=== PATIENT | male | born 1935 | race Caucasian/White ===

== ENCOUNTER → 2016-09-10 | Outpatient (CLI) | payer MEDICARE, OTHER ==
[2016-09-10 11:38] LABS: ALT 21 U/L (21-72); AST 21 U/L (17-59); Alkaline Phosphatase 76 U/L (38-126); Anion Gap 11 mmol/L; Blood Urea Nitrogen 18 mg/dL (9-20); Calcium 9.2 mg/dL (8.4-10.2); Carbon Dioxide 28 mmol/L (22-30); Chloride 102 mmol/L (98-107); Glucose 112 mg/dL (74-99); Non-African American GFR(MDRD) >60 (>60 ml/min/1.73 sqM); Potassium 4.5 mmol/L (3.5-5.1); Sodium 141 mmol/L (137-145); Total Bilirubin 0.5 mg/dL (0.2-1.3); Total Protein 7.3 g/dL (6.3-8.2)
[2016-09-10 11:48] LABS: Basophils % (A) 0 %; CH 30.7; Eosinophils # (A) 0.1 k/uL (0-0.7); Eosinophils % (A) 2 %; HCT 42.4 % (39.0-53.0); HDW 2.77; Luc # (Auto) 0.29; Luc % (Auto) 4; Lymphocytes # (A) 1.5 k/uL (1.0-4.8); Lymphocytes % (A) 20 %; MCH 30.8 pg (25.0-35.0); MCHC 32.9 g/dL (31.0-37.0); MCV 93.6 fL (80.0-100.0); Mean Platelet Volume 6.9; Monocytes # (A) 0.5 k/uL (0-1.0); Monocytes % (A) 6 %; Neutrophils # (A) 5.3 k/uL (1.3-7.7); Neutrophils % (A) 69 %; RBC 4.53 m/uL (4.30-5.90); RDW 14.1 % (11.5-15.5); WBC 7.8 k/uL (3.8-10.6); WBC (Perox) 8.29
== END | disposition home or self-care (01) ==
LOC: LABWHC1 10:46
PROVIDERS: ATTEND Internal Medicine
DX: I50.9 Heart failure, unspecified (principal); I25.10 Atherosclerotic heart disease of native coronary artery without angina pectoris; R53.1 Weakness
CPT/HCPCS: 36415; 80053; 83880; 84439; 84443; 85025; 99214

== ENCOUNTER 2016-09-23 11:22 | Day surgery (SDC) | payer MEDICARE, OTHER ==
[~2016-09-23 11:22] MED LIST: LIDOCAINE 1% 20 ML VIAL (10MG/ML) FOR IV START INTRADERMA PRN
[2016-09-23 12:37] VITALS: RESP 20; TEMP 97.9
[2016-09-23] MEDS: LACTATED RINGERS 1,000 ML IV SCH ×2 (12:54→13:59)
[2016-09-23] MEDS ORDERED: ePHEDrine 50 MG/ML 1 ML AMP ONE (14:01)
[2016-09-23] MEDS ORDERED: PROPOFOL 10 MG/ML 20 ML VIAL IV ONE (14:01)
--- NOTE | 2016-09-23 14:28 | P.PCN ---
Date of Procedure: 09/23/16 Procedure(s) Performed: Procedure: Esophagogastroduodenoscopy and esophageal dilation using the Microvasive [id number] balloon dilator size 15 mm. Preoperative diagnosis: Dysphagia and history of stricture. Postoperative diagnosis: 1. Esophageal stricture dilated up to 15 mm. 2. Small sliding hiatal hernia. Preparation and sedation: Was provided by anesthesia. Brief clinical history: The patient is a 80-year-old male with history of esophageal stricture that was previously dilated in March 2013 and August 2014 and who had history of obstructive dysphagia requiring endoscopic intervention in February 2013, was recently evaluated in the office because of difficulty swallowing that started few weeks prior. He has done well after his dilation until around several weeks ago when he started to feel food getting stuck once in a while with spontaneous relief. Even pills are stopping at times. He lost few pounds. He was scheduled for this evaluation to assess his stricture and consider dilation. Procedure: With the patient on his left lateral decubitus position and after informed consent and adequate sedation, I passed the Olympus-GIF 160 video upper endoscope through the cricopharyngeus down the esophagus. No obvious abnormalities were seen in the esophagus with the exception of an esophageal stricture in the distal esophagus that appeared benign. This time I was able to pass the endoscope with gentle pressure effectively providing some dilation. I then passed the Microvasive [id number] balloon dilator size 15-18 mm through the operating channel of the endoscope, centered that at the level of the stricture then inflated it up to 15 mm. At this inflation there was satisfactory dilation of the stricture and I decided not to proceed with further dilation at this time. There was a sliding hiatal hernia then the endoscope was passed to the rest of the stomach which was insufflated with air and inspected in detail including the retroflex view in the cardia and find the endoscope was passed through the pyloric area into the stomach. The patient appears to have had prior pyloroplasty. No abnormalities were noted otherwise. Disposition: The patient tolerated the procedure well. Plan: The patient will be kept on clear liquids today then he can advance diet tomorrow if tolerated. I would consider further dilation in the future based on his symptoms and his nutritional status. I will keep you updated on his progress.
[2016-09-23 14:45] VITALS: BP 116/66; PULSE 68
== END 2016-09-23 15:17 | disposition home or self-care (01) ==
LOC: ORWHC2ENDO 11:22
DX: K22.2 Esophageal obstruction (principal); K44.9 Diaphragmatic hernia without obstruction or gangrene; K21.9 Gastro-esophageal reflux disease without esophagitis; I25.10 Atherosclerotic heart disease of native coronary artery without angina pectoris; J44.9 Chronic obstructive pulmonary disease, unspecified; G47.33 Obstructive sleep apnea (adult) (pediatric); I10 Essential (primary) hypertension; E78.5 Hyperlipidemia, unspecified; N40.0 Benign prostatic hyperplasia without lower urinary tract symptoms; N28.9 Disorder of kidney and ureter, unspecified; Z95.1 Presence of aortocoronary bypass graft; Z86.718 Personal history of other venous thrombosis and embolism; I25.2 Old myocardial infarction; Z79.82 Long term (current) use of aspirin; Z79.899 Other long term (current) drug therapy
CPT/HCPCS: 43249; J2704; C1726

== ENCOUNTER → 2016-12-05 | Outpatient (CLI) | payer MEDICARE, OTHER ==
[2016-12-05 11:56] LABS: ALT 28 U/L (21-72); AST 19 U/L (17-59); Cholesterol 152 mg/dL (<200); HDL Cholesterol 48 mg/dL (40-60); Triglycerides 211 mg/dL (<150)
== END | disposition home or self-care (01) ==
LOC: LABWHC1 11:20
PROVIDERS: ATTEND Internal Medicine Cardiovascular Disease
DX: E78.5 Hyperlipidemia, unspecified (principal); I25.10 Atherosclerotic heart disease of native coronary artery without angina pectoris
CPT/HCPCS: 36415; 80061; 84450; 84460

== ENCOUNTER → 2017-07-19 | Outpatient (CLI) | payer MEDICARE, OTHER ==
--- NOTE | 2017-07-19 12:20 | US ---
EXAMINATION TYPE: US venous doppler duplex LE LT DATE OF EXAM: 07/19/2017 10:41 AM COMPARISON: NONE CLINICAL HISTORY: PAIN . Outpatient complains of pain posterior midline lower calf x 3 days; prior DV T and PE per patient who is taking aspirin. SIDE PERFORMED: Left TECHNIQUE: The lower extremity deep venous system is examined utilizing real time linear array sonog miguel angel with graded compression, doppler sonography and color-flow sonography. VESSELS IMAGED: Common Femoral Vein Deep Femoral Vein Greater Saphenous Vein * Femoral Vein Popliteal Vein Small Saphenous Vein * Proximal Calf Veins (* superficial vessels) Left Leg: Thickened valves with wall echoes are noted at upper Femoral Vein, but color flow patency is imaged at these valves; exam is otherwise negative for DVT. No fluid is seen at Achilles area of p ain left leg. Tech findings called to Dr Bradshaw at exam's end. JJ No popliteal fossa lesion was seen. IMPRESSION: 1. THIS EXAMINATION IS NEGATIVE FOR DVT IN THE LEFT LEG. 2. EVIDENCE OF PREVIOUS THROMBUS.
== END | disposition home or self-care (01) ==
LOC: RADUSMAIN 09:33
PROVIDERS: ATTEND Family Medicine
DX: R22.40 Localized swelling, mass and lump, unspecified lower limb (principal); Z86.718 Personal history of other venous thrombosis and embolism

== ENCOUNTER → 2017-07-23 | Outpatient (CLI) | payer MEDICARE, OTHER ==
[2017-07-23 10:37] LABS: Basophils % (A) 0 %; Eosinophils # (A) 0.1 k/uL (0-0.7); Eosinophils % (A) 1 %; HCT 42.5 % (39.0-53.0); Lymphocytes # (A) 1.6 k/uL (1.0-4.8); Lymphocytes % (A) 13 %; MCH 28.1 pg (25.0-35.0); MCHC 30.5 g/dL (31.0-37.0); MCV 92.1 fL (80.0-100.0); Mean Platelet Volume 7.3; Monocytes # (A) 0.6 k/uL (0-1.0); Monocytes % (A) 5 %; Neutrophils # (A) 9.7 k/uL (1.3-7.7); Neutrophils % (A) 80 %; Platelet Count 206 k/uL (150-450); RBC 4.62 m/uL (4.30-5.90); RDW 14.5 % (11.5-15.5); WBC 12.2 k/uL (3.8-10.6)
[2017-07-23 10:48] LABS: Calcium 8.2 mg/dL (8.4-10.2); Potassium 4.2 mmol/L (3.5-5.1)
== END | disposition home or self-care (01) ==
LOC: LABWHC1 10:12
PROVIDERS: ATTEND Internal Medicine
DX: I50.9 Heart failure, unspecified (principal); R06.00 Dyspnea, unspecified; J44.9 Chronic obstructive pulmonary disease, unspecified
CPT/HCPCS: 36415; 80048; 83880; 85025

== ENCOUNTER 2017-08-14 09:12 | Inpatient (IN) | payer MEDICARE, OTHER ==
[2017-08-14] MEDS ORDERED: methylPREDNISolone SOD SUCCI 125 MG/2 ML VIAL IV STA (09:40)
[2017-08-14] MEDS ORDERED: SODIUM CHLORIDE 0.9% 500 ML IV STA (09:40)
[2017-08-14] MEDS ORDERED: ALBUTEROL NEBULIZED 15 MG, IPRATROPIUM NEBULIZED 0.5 MG INHALATION ONE ×2 (09:41)
--- NOTE | 2017-08-14 09:44 | ED ---
General Adult HPI <Prince Lilly - Last Filed: 08/14/17 11:01> - General Source: patient, RN notes reviewed Mode of arrival: wheelchair Limitations: no limitations <Kelly Ford - Last Filed: 08/14/17 11:17> - General Chief complaint: Urogenital Stated complaint: URINE RETENTION Time Seen by Provider: 08/14/17 09:34 - History of Present Illness Initial comments: 81-year-old male presents to the emergency department with 2 complaints. First he was sent in by Dr. Roque for shortness of breath. He's been struggling with cough and wheezing for the last 3 weeks. They state that he recently finished a course of antibiotics however they did not move the name is currently on steroids and breathing treatments. They state he still wheezing. He states he still having a lot of shortness of breath with this as well. He denies any chest pain. He states also that for the last 2 days he's had just dribbling with urination. He states having some lower abdominal pressure as well. He denies any blood in the urine. He states that he has not had this in the past. Patient is otherwise without abdominal pain. There is been no nausea or vomiting. Patient denies any recent fever, chills, chest pain, back pain, abdominal pain, nausea vomiting, numbness or tingling, hematuria, constipation or diarrhea, headaches or visual changes, or any other current symptoms. (Kelly Ford) - Related Data Home Medications Medication Instructions Recorded Confirmed Aspirin 81 mg PO DAILY 08/25/14 08/14/17 Ezetimibe/Simvastatin [Vytorin 1 tab PO HS 08/25/14 08/14/17 10-40 mg Tablet] Furosemide [Lasix] 20 mg PO AC-SUPPER 08/25/14 08/14/17 Isosorbide Mononitrate ER [Imdur] 60 mg PO DAILY 08/25/14 08/14/17 Metolazone [Zaroxolyn] 5 mg PO MOTUWETHFR 08/25/14 08/14/17 Metoprolol Tartrate [Metoprolol 50 mg PO BID 08/25/14 08/14/17 Tartrate] Potassium Chloride ER [K-Dur 20] 20 meq PO TID 08/25/14 08/14/17 Pramipexole Di-HCl [Mirapex] 0.75 mg PO HS 08/25/14 08/14/17 Tamsulosin HCl [Flomax] 0.4 mg PO HS 09/20/16 08/14/17 Acetaminophen Tab [Tylenol Tab] 500 mg PO Q4H PRN 08/14/17 08/14/17 Budesonide-Formot 160-4.5 Mcg 2 puff INHALATION RT-BID 08/14/17 08/14/17 [Symbicort 160-4.5 Mcg Inhaler] Depo-Medrol 80mg/Ml 80 mg IM ONCE 08/14/17 08/14/17 Ranitidine HCl [Zantac] 150 mg PO BID 08/14/17 08/14/17 diphenhydrAMINE [Benadryl] 25 mg PO HS 08/14/17 08/14/17 Allergies Allergy/AdvReac Type Severity Reaction Status Date / Time No Known Allergies Allergy Verified 08/14/17 10:06 Review of Systems ROS Other: All systems not noted in ROS Statement are negative. <Prince Lilly - Last Filed: 08/14/17 11:01> ROS Other: All systems not noted in ROS Statement are negative. <Kelly Ford - Last Filed: 08/14/17 11:17> ROS Statement: Those systems with pertinent positive or pertinent negative responses have been documented in the HPI. Past Medical History Past Medical History: Coronary Artery Disease (CAD), Chest Pain / Angina, COPD, Dementia, Deep Vein Thrombosis (DVT), GERD/Reflux, Hearing Disorder / Deafness, Hyperlipidemia, Hypertension, Myocardial Infarction (MA), Pulmonary Embolus (PE) , Renal Disease, Respiratory Disorder, Rheumatoid Arthritis (RA), Sleep Apnea/ CPAP/BIPAP, Syncope Additional Past Medical History / Comment(s): START OF PARKINSONS DISEASE, RESTLESS LEG SYNDROME, HX ULCERS, ENLARGED PROSTRATE ,HOLE IN EARDRUM LEFT Last Myocardial Infarction Date:: 2000 History of Any Multi-Drug Resistant Organisms: None Reported Past Surgical History: Coronary Bypass/CABG, Hernia Repair Additional Past Surgical History / Comment(s): HIATAL HERNIA REPAIR, VEIN STRIPPING, BILAT CATARACT SX, EGD X 5, COLONOSCOPY Past Anesthesia/Blood Transfusion Reactions: No Reported Reaction Past Psychological History: Anxiety, Depression Smoking Status: Former smoker Past Alcohol Use History: None Reported Past Drug Use History: None Reported - Past Family History Mother Family Medical History: Cancer Brother(s) Family Medical History: Blood Disorder Father Additional Family Medical History / Comment(s): HARDENING OF ARTERIES, <Kelly Ford - Last Filed: 08/14/17 11:17> General Exam <Prince Lilly - Last Filed: 08/14/17 11:01> Limitations: no limitations <Kelly Ford - Last Filed: 08/14/17 11:17> - General Exam Comments Initial Comments: General: The patient is awake and alert, in no distress, and does not appear acutely ill. Eye: Pupils are equal, round and reactive to light, extra-ocular movements are intact; there is normal conjunctiva bilaterally. No signs of icterus. Ears, nose, mouth and throat: There are moist mucous membranes and no oral lesions. Neck: The neck is supple, there is no tenderness. Cardiovascular: There is a regular rate and rhythm. No murmur, rub or gallop is appreciated. Respiratory: Lungs are clear to auscultation, respirations are labored, breath sounds are diminished throughout with a tight wheeze. Gastrointestinal: Soft, distended, non-tender abdomen without masses or organomegaly noted. There is no rebound or guarding present. No CVA tenderness. Bowel sounds are unremarkable. Back: There is no tenderness to palpation in the midline. There is no obvious deformity. No rashes noted. Musculoskeletal: Normal ROM, no tenderness, There is no pedal edema. There is no calf tenderness or swelling. Sensation intact. Pulses equal bilaterally 2+. Neurological: CN II-XII intact, There are no obvious motor or sensory deficits. Coordination appears grossly intact. Speech is normal. Skin: Skin is warm and dry and no rashes or lesions are noted. Psychiatric: Cooperative, appropriate mood & affect, normal judgment. (Kelly Ford) Course <Prince Lilly - Last Filed: 08/14/17 11:01> <Kelly Ford - Last Filed: 08/14/17 11:17> Vital Signs 08/14/17 08/14/17 08/14/17 09:28 10:03 10:18 Temperature Pulse Rate 104 H 104 H 108 H Respiratory 18 Rate Blood Pressure 139/82 O2 Sat by Pulse 97 Oximetry 08/14/17 08/14/17 10:45 10:58 Temperature 97.8 F Pulse Rate 105 H 93 Respiratory 18 Rate Blood Pressure 149/69 O2 Sat by Pulse 100 Oximetry - Reevaluation(s) Reevaluation #1: 08/14/17 11:01 I did personally do a gonl-py-grgs evaluation the patient did discuss the findings with him and his family. He does demonstrate a COPD exacerbation Dr. Roque was contacted and he will patient admitted to Dr. Sepulveda. I did discuss case with Dr. Sepulveda. Patient does demonstrate inspiratory wheezing with diminished breath sounds. (Prince Lilly) Medical Decision Making - Lab Data Result diagrams: 08/14/17 09:45 08/14/17 09:45 <Prince Lilly - Last Filed: 08/14/17 11:01> - Lab Data Result diagrams: 08/14/17 09:45 08/14/17 09:45 - Radiology Data Radiology results: report reviewed, image reviewed <Kelly Ford - Last Filed: 08/14/17 11:17> - Medical Decision Making 81-year-old male presents for urinary retention as well as what appears to be a COPD exacerbation. At this time patient has failed outpatient treatment he's been on antibiotics as well as steroids. Patient even after breathing treatment still does have tightness with wheezing. At this time we'll admit the patient. Patient is in agreement this plan all questions have been answered. (Kelly Ford) - Lab Data Lab Results 08/14/17 08/14/17 08/14/17 Range/Units 09:45 09:45 09:45 WBC 9.6 (3.8-10.6) k/uL RBC 4.87 (4.30-5.90) m/uL Hgb 13.6 (13.0-17.5) gm/dL Hct 43.3 (39.0-53.0) % MCV 88.8 (80.0-100.0) fL MCH 28.0 (25.0-35.0) pg MCHC 31.5 (31.0-37.0) g/dL RDW 15.5 (11.5-15.5) % Plt Count 159 (150-450) k/uL Neutrophils % 80 % Lymphocytes % 13 % Monocytes % 5 % Eosinophils % 1 % Basophils % 0 % Neutrophils # 7.7 (1.3-7.7) k/uL Lymphocytes # 1.2 (1.0-4.8) k/uL Monocytes # 0.5 (0-1.0) k/uL Eosinophils # 0.1 (0-0.7) k/uL Basophils # 0.0 (0-0.2) k/uL PT (9.0-12.0) sec INR (<1.2) APTT (22.0-30.0) sec Sodium 141 (137-145) mmol/L Potassium 4.8 (3.5-5.1) mmol/L Chloride 102 (98-107) mmol/L Carbon Dioxide 27 (22-30) mmol/L Anion Gap 12 mmol/L BUN 25 H (9-20) mg/dL Creatinine 1.06 (0.66-1.25) mg/dL Est GFR (CKD-EPI)AfAm 77 (>60 ml/min/1.73 sqM) Est GFR (CKD-EPI)NonAf 66 (>60 ml/min/1.73 sqM) Glucose 150 H (74-99) mg/dL Calcium 9.2 (8.4-10.2) mg/dL Total Bilirubin 0.5 (0.2-1.3) mg/dL AST 19 (17-59) U/L ALT 38 (21-72) U/L Alkaline Phosphatase 93 (38-126) U/L Total Creatine Kinase 33 L (55-170) U/L CK-MB (CK-2) 1.0 (0.0-2.4) ng/mL CK-MB (CK-2) Rel Index 3.0 Troponin I 0.046 H* (0.000-0.034) ng/mL NT-Pro-B Natriuret Pep pg/mL Total Protein 6.5 (6.3-8.2) g/dL Albumin 3.7 (3.5-5.0) g/dL Urine Color Urine Appearance (Clear) Urine pH (5.0-8.0) Ur Specific Speculator (1.001-1.035) Urine Protein (Negative) Urine Glucose (UA) (Negative) Urine Ketones (Negative) Urine Blood (Negative) Urine Nitrite (Negative) Urine Bilirubin (Negative) Urine Urobilinogen (<2.0) mg/dL Ur Leukocyte Esterase (Negative) Urine RBC (0-5) /hpf Urine WBC (0-5) /hpf Ur Squamous Epith Cells (0-4) /hpf Urine Mucus (None) /hpf 08/14/17 08/14/17 08/14/17 Range/Units 09:45 09:45 10:00 WBC (3.8-10.6) k/uL RBC (4.30-5.90) m/uL Hgb (13.0-17.5) gm/dL Hct (39.0-53.0) % MCV (80.0-100.0) fL MCH (25.0-35.0) pg MCHC (31.0-37.0) g/dL RDW (11.5-15.5) % Plt Count (150-450) k/uL Neutrophils % % Lymphocytes % % Monocytes % % Eosinophils % % Basophils % % Neutrophils # (1.3-7.7) k/uL Lymphocytes # (1.0-4.8) k/uL Monocytes # (0-1.0) k/uL Eosinophils # (0-0.7) k/uL Basophils # (0-0.2) k/uL PT 9.7 (9.0-12.0) sec INR 1.0 (<1.2) APTT 23.5 (22.0-30.0) sec Sodium (137-145) mmol/L Potassium (3.5-5.1) mmol/L Chloride (98-107) mmol/L Carbon Dioxide (22-30) mmol/L Anion Gap mmol/L BUN (9-20) mg/dL Creatinine (0.66-1.25) mg/dL Est GFR (CKD-EPI)AfAm (>60 ml/min/1.73 sqM) Est GFR (CKD-EPI)NonAf (>60 ml/min/1.73 sqM) Glucose (74-99) mg/dL Calcium (8.4-10.2) mg/dL Total Bilirubin (0.2-1.3) mg/dL AST (17-59) U/L ALT (21-72) U/L Alkaline Phosphatase (38-126) U/L Total Creatine Kinase (55-170) U/L CK-MB (CK-2) (0.0-2.4) ng/mL CK-MB (CK-2) Rel Index Troponin I (0.000-0.034) ng/mL NT-Pro-B Natriuret Pep 287 pg/mL Total Protein (6.3-8.2) g/dL Albumin (3.5-5.0) g/dL Urine Color Yellow Urine Appearance Clear (Clear) Urine pH 6.5 (5.0-8.0) Ur Specific Speculator 1.021 (1.001-1.035) Urine Protein Trace H (Negative) Urine Glucose (UA) Negative (Negative) Urine Ketones Negative (Negative) Urine Blood Moderate H (Negative) Urine Nitrite Negative (Negative) Urine Bilirubin Negative (Negative) Urine Urobilinogen <2.0 (<2.0) mg/dL Ur Leukocyte Esterase Negative (Negative) Urine RBC 161 H (0-5) /hpf Urine WBC 3 (0-5) /hpf Ur Squamous Epith Cells <1 (0-4) /hpf Urine Mucus Rare H (None) /hpf Disposition <Prince Lilly - Last Filed: 08/14/17 11:01> Decision Date: 08/14/17 Decision Time: 11:17 <Kelly Ford - Last Filed: 08/14/17 11:17> Clinical Impression: COPD exacerbation, Failure of outpatient treatment, Urinary retention Disposition: ADMITTED IP TO THIS [facility] Condition: Stable Referrals: Weston Roque MD [Primary Care Provider] - 1-2 days
[2017-08-14 10:00] LABS: Basophils % (A) 0 %; Eosinophils # (A) 0.1 k/uL (0-0.7); Eosinophils % (A) 1 %; HCT 43.3 % (39.0-53.0); HGB 13.6 gm/dL (13.0-17.5); Lymphocytes # (A) 1.2 k/uL (1.0-4.8); Lymphocytes % (A) 13 %; MCHC 31.5 g/dL (31.0-37.0); MCV 88.8 fL (80.0-100.0); Mean Platelet Volume 7.2; Monocytes # (A) 0.5 k/uL (0-1.0); Monocytes % (A) 5 %; Neutrophils # (A) 7.7 k/uL (1.3-7.7); Neutrophils % (A) 80 %; Platelet Count 159 k/uL (150-450); RBC 4.87 m/uL (4.30-5.90); RDW 15.5 % (11.5-15.5); WBC 9.6 k/uL (3.8-10.6)
[2017-08-14 10:06] LABS: Partial Thromboplastin Time 23.5 sec (22.0-30.0); Prothrombin Time 9.7 sec (9.0-12.0)
[2017-08-14 10:07] LABS: Albumin 3.7 g/dL (3.5-5.0); Calcium 9.2 mg/dL (8.4-10.2); Potassium 4.8 mmol/L (3.5-5.1); Total Bilirubin 0.5 mg/dL (0.2-1.3); Total Protein 6.5 g/dL (6.3-8.2)
[2017-08-14 10:30] LABS: Appearance,Urine Clear (Clear); Bilirubin,Urine Negative (Negative); Blood,Urine Moderate (Negative); Color,Urine Yellow; Glucose,Urine (UA) Negative (Negative); Ketones,Urine Negative (Negative); Leukocyte Esterase,Urine Negative (Negative); Mucus,Urine Rare /hpf; Nitrite,Urine Negative (Negative); PH, Urine 6.5 (5.0-8.0); Protein,Urine Trace (Negative); RBC,Urine 161 /hpf (0-5); Specific Gravity,Urine 1.021 (1.001-1.035); Squamous Epithelial Cell,Urine <1 /hpf (0-4); Urobilinogen,Urine <2.0 mg/dL (<2.0); WBC,Urine 3 /hpf (0-5)
--- NOTE | 2017-08-14 10:35 | XR ---
EXAMINATION TYPE: XR chest 1V portable DATE OF EXAM: 08/14/2017 HISTORY: Shortness of breath. COMPARISON: 02/20/2012 TECHNIQUE: Single view of the chest is submitted. FINDINGS: Demonstrated are scattered senescent parenchymal change. There is no evidence for focal infiltrate. The heart is stable. Hilar and mediastinal structures are within normal limits. Degenerative changes are seen of the dorsal spine. IMPRESSION: 1. Chronic changes without evidence for acute pulmonary disease.
[2017-08-14 10:46] LABS: Troponin I 0.046 ng/mL (0.000-0.034)
[2017-08-14] MEDS ORDERED: NALOXONE 0.4 MG/ML 1 ML VIAL IV PRN (11:18)
[2017-08-14] MEDS ORDERED: IPRATROPIUM-ALBUTEROL 3 ML NEB INHALATION PRN (11:20)
[2017-08-14] MEDS ORDERED: ACETAMINOPHEN TAB 500 MG TAB PO PRN (11:22)
[2017-08-14] MEDS ORDERED: SODIUM CHLORIDE 0.9% 1,000 ML IV SCH (11:30)
[2017-08-14] MEDS: METOLAZONE 5 MG TAB PO SCH (12:14)
[2017-08-14] MEDS: methylPREDNISolone SOD SUCCI 125 MG/2 ML VIAL IV SCH ×3 (12:14→23:52)
[2017-08-14] MEDS ORDERED: INFLUENZA VACCINE (6 MOS+) 60 MCG/0.5 ML SYRINGE IM ONE (13:10)
--- NOTE | 2017-08-14 14:43 | P.HPIM ---
History of Present Illness 81-year-old pleasant gentleman came in with compensative short of breath has been worsening. Patient has this shortness of breath for [address] Roque the clinic recently patient was given a shot of intramuscular steroid inhalational treatments antibiotic was discharged patient did not have any significant improvement because of which she came to ER. Dr. Roque advising him to go to ER if he doesn't improve. Patient was also complaining of urinary problems including dribbling and incomplete emptying because of which patient had a Mcarthur catheter that was placed in ER. Patient evidently has urinary retention patient denied any future cyst x-ray did not show any pneumonic process. Patient doesn't use any oxygen at home quit smoking years ago used to be a heavy smoker in the past. Review of Systems REVIEW OF SYSTEMS: CONSTITUTIONAL: No fever, no malaise, no fatigue. HEENT: No recent visual problems or hearing problems. Denied any sore throat. CARDIOVASCULAR: No chest pain, orthopnea, PND, no palpitations, no syncope. PULMONARY: no cough, no hemoptysis. GASTROINTESTINAL: No diarrhea, no nausea, no vomiting, no abdominal pain. Normoactive bowel sounds. NEUROLOGICAL: No headaches, no weakness, no numbness. HEMATOLOGICAL: Denies any bleeding or petechiae. GENITOURINARY: Denies any burning micturition. MUSCULOSKELETAL/RHEUMATOLOGICAL: Denies any joint pain, swelling, or any muscle pain. ENDOCRINE: Denies any polyuria or polydipsia. The rest of the 14-point review of systems is negative. Past Medical History Past Medical History: Coronary Artery Disease (CAD), Cancer, Chest Pain / Angina , COPD, CVA/TIA, Dementia, Deep Vein Thrombosis (DVT), GERD/Reflux, Hearing Disorder / Deafness, Hyperlipidemia, Hypertension, Myocardial Infarction (MA), Osteoarthritis (OA), Prostate Disorder, Pulmonary Embolus (PE), Renal Disease, Respiratory Disorder, Rheumatoid Arthritis (RA), Sleep Apnea/CPAP/BIPAP, Syncope Additional Past Medical History / Comment(s): SEVERE COPD, HOME O2 IN THE PAST BUT NO LONGER QUALIFIES, BRONCHITIS, PNUEMONIAS, RAJESH BUT NO LONGER USED CPAP, R LEG DVT, BILATERAL PULMONARY EMBOLISMS, TIA, PARKINSONS DISEASE, RESTLESS LEG SYNDROME, NUMBNESS/TINGLING BILATERAL LEGS/FEET, UNSTEADY ON HIS FEET, FALLS, DOUBLE INGUINAL HERNIAS, HX ULCERS, HEMORRHOIDS, ENLARGED PROSTRATE, INSOMNIA, SINUSITIS, BILATERAL LEG EDEMA AT TIMES, SKIN CANCER WITH REMOVAL, HOLE IN EARDRUM LEFT Last Myocardial Infarction Date:: 2006 History of Any Multi-Drug Resistant Organisms: None Reported Past Surgical History: Coronary Bypass/CABG, Heart Catheterization, Hernia Repair Additional Past Surgical History / Comment(s): 2006 CABG WITH 4 VESSEL BYPASS, HIATAL HERNIA REPAIR, UMBILICAL HERNIA REPAIR, BILAT CATARACTS WITH LENS IMPLANTS SX, EGD X 5 WITH ESOPHAGEAL DILATION, COLONOSCOPY/BENIGN POLYPS, SKIN CANCER REMOVALS. Past Anesthesia/Blood Transfusion Reactions: No Reported Reaction Smoking Status: Former smoker - Past Family History Mother Family Medical History: Cancer Additional Family Medical History / Comment(s): Mother had lung cancer. She was a smoker. Brother(s) Family Medical History: Blood Disorder Father Additional Family Medical History / Comment(s): HARDENING OF ARTERIES, Medications and Allergies Home Medications Medication Instructions Recorded Confirmed Type Aspirin 81 mg PO DAILY 08/25/14 08/14/17 History Ezetimibe/Simvastatin [Vytorin 1 tab PO HS 08/25/14 08/14/17 History 10-40 mg Tablet] Furosemide [Lasix] 20 mg PO AC-SUPPER 08/25/14 08/14/17 History Isosorbide Mononitrate ER [Imdur] 60 mg PO DAILY 08/25/14 08/14/17 History Metolazone [Zaroxolyn] 5 mg PO MOTUWETHFR 08/25/14 08/14/17 History Metoprolol Tartrate [Metoprolol 50 mg PO BID 08/25/14 08/14/17 History Tartrate] Potassium Chloride ER [K-Dur 20] 20 meq PO TID 08/25/14 08/14/17 History Pramipexole Di-HCl [Mirapex] 0.75 mg PO HS 08/25/14 08/14/17 History Tamsulosin HCl [Flomax] 0.4 mg PO HS 09/20/16 08/14/17 History Acetaminophen Tab [Tylenol Tab] 500 mg PO Q4H PRN 08/14/17 08/14/17 History Budesonide-Formot 160-4.5 Mcg 2 puff INHALATION RT-BID 08/14/17 08/14/17 History [Symbicort 160-4.5 Mcg Inhaler] Depo-Medrol 80mg/Ml 80 mg IM ONCE 08/14/17 08/14/17 History Ranitidine HCl [Zantac] 150 mg PO BID 08/14/17 08/14/17 History diphenhydrAMINE [Benadryl] 25 mg PO HS 08/14/17 08/14/17 History Allergies Allergy/AdvReac Type Severity Reaction Status Date / Time No Known Allergies Allergy Verified 08/14/17 10:06 Physical Exam Vitals: Vital Signs Temp Pulse Pulse Resp BP BP Pulse Ox 08/14/17 12:21 115 H 36 H 178/88 99 08/14/17 11:46 98.4 F 104 H 24 174/89 99 08/14/17 10:58 97.8 F 93 18 149/69 100 08/14/17 10:45 105 H 08/14/17 10:18 108 H 08/14/17 10:03 104 H 08/14/17 09:28 104 H 18 139/82 97 Intake and Output 08/13/17 08/14/17 08/14/17 22:59 06:59 14:59 Intake Total 120 Output Total 150 Balance -30 Intake: Oral 120 Output: Urine 150 Uretheral (Mcarthur) 150 Other: Voiding Method Indwelling Catheter Weight 102.512 kg PHYSICAL EXAMINATION: GENERAL: The patient is alert and oriented x3, patient is in mild respiratory distress. Well developed, well nourished. HEENT: Pupils are round and equally reacting to light. EOMI. No scleral icterus. No conjunctival pallor. Normocephalic, atraumatic. No pharyngeal erythema. No thyromegaly. CARDIOVASCULAR: S1 and S2 present. No murmurs, rubs, or gallops. PULMONARY: Significantly limited limited air entry into bilateral lung ramírez significant expiratory wheezing was appreciated. Patient is using accessory muscles of breathing ABDOMEN: Soft, nontender, nondistended, normoactive bowel sounds. No palpable organomegaly. MUSCULOSKELETAL: No joint swelling or deformity. EXTREMITIES: No cyanosis, clubbing, or pedal edema. NEUROLOGICAL: Gross neurological examination did not reveal any focal deficits. SKIN: No rashes. Results CBC & Chem 7: 08/14/17 09:45 08/14/17 09:45 Labs: Abnormal Lab Results - Last 24 Hours (Table) 08/14/17 08/14/17 08/14/17 Range/Units 09:45 09:45 10:00 BUN 25 H (9-20) mg/dL Glucose 150 H (74-99) mg/dL Total Creatine Kinase 33 L (55-170) U/L Troponin I 0.046 H* (0.000-0.034) ng/mL Urine Protein Trace H (Negative) Urine Blood Moderate H (Negative) Urine RBC 161 H (0-5) /hpf Urine Mucus Rare H (None) /hpf Thrombosis Risk Factor Assmnt - Choose All That Apply Any of the Below Risk Factors Present?: Yes Each Factor Represents 1 point: Abnormal pulmonary function (COPD), Obesity ( BMI >25) Other Risk Factors: Yes Each Risk Factor Represents 2 Points: Malignancy Each Risk Factor Represents 3 Points: Age 75 years or older Other congenital or acquired thrombophilia - If yes, enter type in comment: No Thrombosis Risk Factor Assessment Total Risk Factor Score: 7 Thrombosis Risk Factor Assessment Level: High Risk Assessment and Plan Plan: -Acute hypercapnic respiratory failure: Secondary to COPD exacerbation patient systemic steroids and inhalational treatments and the is on levofloxacin for bronchitis patient was unable to tell me what antibiotics he was on as an outpatient. -Possible benign prostatic hypertrophy with dribbling patient is already in tamsulosin and he will need evaluation by urology as an outpatient. -Past his vision reflux disease -Restless leg syndrome -Coronary artery disease, CABG in the past -History of DVT in the past patient is presently not on any anticoagulation next and-CVA TIA in the past -Primary osteoarthritis -Sleep apnea uses CPAP machine which will be continued For above-mentioned chronic medical problems patient will be resumed and continued on appropriate home medications.
--- NOTE | 2017-08-14 16:11 | P.CNPUL ---
History of Present Illness Consult date: 08/14/17 Requesting physician: Rosario Sepulveda Reason for consult: dyspnea, cough, COPD, hypoxemia, other Chief complaint: Increasing dyspnea, wheezing, urinary retention, lower abdominal pressure History of present illness: Sim is a 81-year-old white male patient that follows with Dr. Roque for primary care services, presented to the emergency department on 08/14/2017 at 09 12 with complaints of shortness of breath, wheezing, cough for the last 3 weeks. He was seen in the office by Dr. Roque on 07/31/2017 and was having significant difficulty breathing at that time, he was very tachypneic with a respiratory rate around 38 breaths per minute, wheezing, intermittent cough, with production of white phlegm. Chest x-ray was taken in the office which showed chronic changes in the right lower lobe and left lower lobe, but no evidence of pulmonary edema or pneumonia. Patient's Zaroxolyn was placed on hold as the patient seemed to be dehydrated, and he was to continue with his usual dose of Lasix. Patient was given a dose of Depo-Medrol 80 mg IM, was given a course of prednisone 30 mg tapered over 24 days and a 10 day course of Cipro 500 mg twice a day. Patient was advised to go to the hospital for inpatient treatment at that time, however he declined. He was advised to go to the hospital if his symptoms became worse or persisted. On presentation to the hospital patient also complained of urinary retention for last couple of days, where he was just dribbling and not able to initiate on normal stream. He was having some lower abdominal pressure as well. Denied any hematuria, denied any previous history of urinary retention. Denied any fever or chills. Denied nausea vomiting or diarrhea. Chest x-ray completed in the emergency department on 08/14/2017 showed chronic changes without any evidence of acute pulmonary process. Twelve-lead EKG shows sinus rhythm with occasional PVCs without acute ST elevation. Lab work was negative for any evidence of leukocytosis, WBC was 9.6, hemoglobin is 13.6, INR is 1.0, electrolytes were all within normal limits , BUN was 25, and creatinine was 1.06. Troponin was mildly elevated at 0.046, proBNP was within normal limits at 287. Urinalysis showed trace protein, moderate amount of blood, but negative leuks, and negative nitrites. A Mcarthur indwelling catheter was placed in the emergency room. Patient was started on Levaquin, IV Solu-Medrol, Symbicort, DuoNeb, his home dose of oral Lasix and Zaroxolyn were restarted. He was given 1 L IV bolus of 0.9 normal saline. During my evaluation patient is still tachypneic, with respiratory rate ranging between 24-36 breast per minute, he is tachycardic with a heart rate up to 115 BPM, afebrile, hemodynamically stable, on 2 L per nasal cannula his O2 sat is 99 %. Lung sounds reveal diminished air entry bilaterally, with faint expiratory wheezes, no rhonchi or rales auscultated. Indwelling catheter is draining clear yellow urine with very faint pink tinge. Patient denies any chest pain, denies any fever or chills. Patient's past medical history includes systolic congestive heart failure, severe oxygen dependent COPD with the baseline FEV1 in the range of 40% of predicted, obesity, chronic cor pulmonale, hypertension, hypercholesterolemia. 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 Review of Systems All systems: negative Constitutional: Denies chills, Denies fever Eyes: denies blurred vision, denies pain Ears, nose, mouth and throat: Denies headache, Denies sore throat Cardiovascular: Reports dyspnea on exertion, Reports edema, Reports leg edema, Denies chest pain, Denies shortness of breath Respiratory: Reports cough with sputum, Reports dyspnea, Denies cough Gastrointestinal: Denies abdominal pain, Denies diarrhea, Denies nausea, Denies vomiting Musculoskeletal: Denies myalgias Integumentary: Denies pruritus, Denies rash Neurological: Denies numbness, Denies weakness Psychiatric: Denies anxiety, Denies depression Endocrine: Denies fatigue, Denies weight change Past Medical History Past Medical History: Coronary Artery Disease (CAD), Cancer, Chest Pain / Angina , COPD, CVA/TIA, Dementia, Deep Vein Thrombosis (DVT), GERD/Reflux, Hearing Disorder / Deafness, Hyperlipidemia, Hypertension, Myocardial Infarction (SD), Osteoarthritis (OA), Prostate Disorder, Pulmonary Embolus (PE), Renal Disease, Respiratory Disorder, Rheumatoid Arthritis (RA), Sleep Apnea/CPAP/BIPAP, Syncope Additional Past Medical History / Comment(s): SEVERE COPD, HOME O2 IN THE PAST BUT NO LONGER QUALIFIES, BRONCHITIS, PNUEMONIAS, RAJESH BUT NO LONGER USED CPAP, R LEG DVT, BILATERAL PULMONARY EMBOLISMS, TIA, PARKINSONS DISEASE, RESTLESS LEG SYNDROME, NUMBNESS/TINGLING BILATERAL LEGS/FEET, UNSTEADY ON HIS FEET, FALLS, DOUBLE INGUINAL HERNIAS, HX ULCERS, HEMORRHOIDS, ENLARGED PROSTRATE, INSOMNIA, SINUSITIS, BILATERAL LEG EDEMA AT TIMES, SKIN CANCER WITH REMOVAL, HOLE IN EARDRUM LEFT Last Myocardial Infarction Date:: 2006 History of Any Multi-Drug Resistant Organisms: None Reported Past Surgical History: Coronary Bypass/CABG, Heart Catheterization, Hernia Repair Additional Past Surgical History / Comment(s): 2006 CABG WITH 4 VESSEL BYPASS, HIATAL HERNIA REPAIR, UMBILICAL HERNIA REPAIR, BILAT CATARACTS WITH LENS IMPLANTS SX, EGD X 5 WITH ESOPHAGEAL DILATION, COLONOSCOPY/BENIGN POLYPS, SKIN CANCER REMOVALS. Past Anesthesia/Blood Transfusion Reactions: No Reported Reaction Smoking Status: Former smoker - Past Family History Mother Family Medical History: Cancer Additional Family Medical History / Comment(s): Mother had lung cancer. She was a smoker. Brother(s) Family Medical History: Blood Disorder Father Additional Family Medical History / Comment(s): HARDENING OF ARTERIES, Medications and Allergies Home Medications Medication Instructions Recorded Confirmed Type Aspirin 81 mg PO DAILY 08/25/14 08/14/17 History Ezetimibe/Simvastatin [Vytorin 1 tab PO HS 08/25/14 08/14/17 History 10-40 mg Tablet] Furosemide [Lasix] 20 mg PO AC-SUPPER 08/25/14 08/14/17 History Isosorbide Mononitrate ER [Imdur] 60 mg PO DAILY 08/25/14 08/14/17 History Metolazone [Zaroxolyn] 5 mg PO MOTUWETHFR 08/25/14 08/14/17 History Metoprolol Tartrate [Metoprolol 50 mg PO BID 08/25/14 08/14/17 History Tartrate] Potassium Chloride ER [K-Dur 20] 20 meq PO TID 08/25/14 08/14/17 History Pramipexole Di-HCl [Mirapex] 0.75 mg PO HS 08/25/14 08/14/17 History Tamsulosin HCl [Flomax] 0.4 mg PO HS 09/20/16 08/14/17 History Acetaminophen Tab [Tylenol Tab] 500 mg PO Q4H PRN 08/14/17 08/14/17 History Budesonide-Formot 160-4.5 Mcg 2 puff INHALATION RT-BID 08/14/17 08/14/17 History [Symbicort 160-4.5 Mcg Inhaler] Depo-Medrol 80mg/Ml 80 mg IM ONCE 08/14/17 08/14/17 History Ranitidine HCl [Zantac] 150 mg PO BID 08/14/17 08/14/17 History diphenhydrAMINE [Benadryl] 25 mg PO HS 08/14/17 08/14/17 History Allergies Allergy/AdvReac Type Severity Reaction Status Date / Time No Known Allergies Allergy Verified 08/14/17 10:06 Physical Exam Vitals: Vital Signs Temp Pulse Pulse Resp BP BP Pulse Ox 08/14/17 15:26 97.9 F 105 H 30 H 144/76 99 08/14/17 12:21 115 H 36 H 178/88 99 08/14/17 11:46 98.4 F 104 H 24 174/89 99 08/14/17 10:58 97.8 F 93 18 149/69 100 08/14/17 10:45 105 H 08/14/17 10:18 108 H 08/14/17 10:03 104 H 08/14/17 09:28 104 H 18 139/82 97 Intake and Output 08/14/17 08/14/17 08/14/17 06:59 14:59 22:59 Intake Total 120 Output Total 150 Balance -30 Intake: Oral 120 Output: Urine 150 Uretheral (Mcarthur) 150 Other: Voiding Method Indwelling Catheter Indwelling Catheter Weight 102.512 kg GENERAL EXAM: Alert, pleasant, 81-year-old white male, tachypneic at rest, dyspneic with conversation. On 2 L per nasal cannula HEAD: Normocephalic/atraumatic. EYES: Normal reaction of pupils, equal size. Conjunctiva pink, sclera white. NOSE: Clear with pink turbinates. THROAT: No erythema or exudates. NECK: No masses, no JVD, no thyroid enlargement, no adenopathy. CHEST: No chest wall deformity. Symmetrical expansion. LUNGS: Diminished air entry bilaterally, with faint expiratory wheezes CVS: Regular rate and rhythm, normal S1 and S2, no gallops, no murmurs, no rubs ABDOMEN: Soft, nontender. No hepatosplenomegaly, normal bowel sounds, no guarding or rigidity. EXTREMITIES: No clubbing, no cyanosis, 2+ pulses and upper and lower extremities. Mild pretibial edema noted MUSCULOSKELETAL: Muscle strength and tone normal. SPINE: No scoliosis or deformity SKIN: No rashes CENTRAL NERVOUS SYSTEM: Alert and oriented -3. No focal deficits, tone is normal in all 4 extremities. PSYCHIATRIC: Alert and oriented -3. Appropriate affect. Intact judgment and insight. Results - Laboratory Findings CBC and BMP: 08/14/17 09:45 08/14/17 09:45 PT/INR, D-dimer PT 9.7 sec (9.0-12.0) 08/14/17 09:45 INR 1.0 (<1.2) 08/14/17 09:45 Abnormal lab findings: Abnormal Labs 08/14/17 08/14/17 08/14/17 09:45 09:45 10:00 BUN 25 H Glucose 150 H Total Creatine Kinase 33 L Troponin I 0.046 H* Urine Protein Trace H Urine Blood Moderate H Urine RBC 161 H Urine Mucus Rare H - Diagnostic Findings Chest x-ray: report reviewed Additional studies: EKG reviewed Assessment and Plan Plan: Assessment: #1. 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 #2. Urinary retention, secondary to BPH, on Flomax #3. Obstructive sleep apnea, noncompliant with CPAP therapy #4. History of coronary artery disease, with history of coronary artery bypass grafting in the past #5. Chronic systolic congestive heart failure #6. CVA/TIA #7. Hyperlipidemia, hypertension #8. Osteoarthritis #9. History of DVTs and pulmonary embolisms #10. Restless leg syndrome #11. GERD/reflux, hiatal hernia repair #12. Nicotine dependence, in remission Plan: Continue current antibiotic coverage, continue IV steroids, DuoNeb, we will add Symbicort. Continue Lasix and Zaroxolyn. Accurate intake and output, daily weights. Recommend urology consult for his symptoms of urinary retention. I performed a history & physical examination of the patient and discussed their management with my nurse practitioner, Lisa Jenaro. I reviewed the nurse practitioner's note and agree with the documented findings and plan of care. Lung sounds are positive for diminished air entry bilaterally, with faint expiratory wheezes. The findings and the impression was discussed with the patient. I attest to the documentation by the nurse practitioner. Time with Patient: Greater than 30
[2017-08-14 16:18] LABS: Glucose,Whole Blood 217 mg/dL (75-99)
[2017-08-14 17:13] LABS: Creatine Kinase MB 9.4 ng/mL (0.0-2.4); Troponin I 0.5 ng/mL (0.000-0.034)
[2017-08-14] MEDS ORDERED: FUROSEMIDE 20 MG TAB PO SCH (17:30)
[2017-08-14] MEDS: INSULIN ASPART 100 UNIT/ML 1 ML 10 ML VIAL SQ SCH ×2 (17:36→21:02)
[2017-08-14] MEDS: POTASSIUM CHLORIDE ER 20 MEQ TAB.ER PO SCH ×2 (17:36→20:51)
[2017-08-14] MEDS: ONDANSETRON 4 MG/2 ML VIAL IVP PRN (19:03)
[2017-08-14] MEDS: SYMBICORT 160-4.5 MCG INHALER INHALATION SCH (19:52)
[2017-08-14] MEDS: IPRATROPIUM-ALBUTEROL 3 ML NEB INHALATION SCH (19:52)
[2017-08-14] MEDS: ATORVASTATIN 20 MG TAB PO SCH (20:51)
[2017-08-14] MEDS: TAMSULOSIN 0.4 MG CAP.ER.24H PO SCH (20:51)
[2017-08-14] MEDS: EZETIMIBE 10 MG TAB PO SCH (20:51)
[2017-08-14] MEDS: LISINOPRIL 10 MG TAB PO SCH (20:51)
[2017-08-14] MEDS: diphenhydrAMINE 25 MG CAP PO SCH (20:54)
[2017-08-14] MEDS ORDERED: METOPROLOL TARTRATE 50 MG TAB PO SCH (21:00)
[2017-08-14] MEDS ORDERED: FAMOTIDINE 20 MG TAB PO SCH (21:00)
[2017-08-14 21:04] LABS: Glucose,Whole Blood 190 mg/dL (75-99)
[2017-08-14] MEDS: PRAMIPEXOLE DI HCL 0.75 MG PO SCH (21:04)
[2017-08-14 22:28] LABS: Basophils % (A) 0 %; Eosinophils % (A) 0 %; HCT 44.7 % (39.0-53.0); Lymphocytes # (A) 0.5 k/uL (1.0-4.8); Lymphocytes % (A) 3 %; MCH 27.7 pg (25.0-35.0); MCHC 31.4 g/dL (31.0-37.0); MCV 88.2 fL (80.0-100.0); Mean Platelet Volume 7.1; Monocytes # (A) 0.3 k/uL (0-1.0); Monocytes % (A) 2 %; Neutrophils # (A) 15.1 k/uL (1.3-7.7); Neutrophils % (A) 95 %; Platelet Count 183 k/uL (150-450); RBC 5.07 m/uL (4.30-5.90); RDW 15.5 % (11.5-15.5); WBC 15.9 k/uL (3.8-10.6)
[2017-08-14 23:02] LABS: Creatine Kinase MB 33.2 ng/mL (0.0-2.4); Troponin I 6.34 ng/mL (0.000-0.034)
[2017-08-15] MEDS: NITROGLYCERIN SL TABS 0.4 MG TAB SUBLINGUAL ONE ×2 (00:21→00:28)
[2017-08-15] MEDS ORDERED: FUROSEMIDE 10 MG/ML 4 ML VIAL IV STA (00:26)
[2017-08-15 00:41] LABS: ABG Base Excess 3.3 mmol/L; ABG HCO3 27 mmol/L (21-25); ABG Oxygen Saturation 96.9 % (94-97); ABG PCO2 34 mmHg (35-45); ABG PO2 91 mmHg (83-108); ABG TCO2 28 mmol/L (19-24)
[2017-08-15] MEDS ORDERED: NITROGLYCERIN OINT 1 INCH/GM PACKET TOPICAL STA (00:43)
--- NOTE | 2017-08-15 00:53 | XR ---
EXAMINATION TYPE: XR chest 1V DATE OF EXAM: 08/15/2017 COMPARISON: Yesterday HISTORY: Aspiration pneumonia TECHNIQUE: Single frontal view of the chest is obtained. FINDINGS: There is no heart failure. There is coarsening of interstitial pulmonary markings. There a re sternal wires. There are chest leads. There is probably some infiltrate in the right lower lobe. I see no definite pleural effusion. IMPRESSION: There is probably mild infiltrate in the right lower lobe that is the same or improved c ompared to yesterday. There is underlying pulmonary interstitial fibrosis. No gross heart failure.
[2017-08-15] MEDS: ONDANSETRON 4 MG/2 ML VIAL IVP PRN (01:01)
[2017-08-15] MEDS ORDERED: TRIMETHOBENZAMIDE 100 MG/ML 2 ML VIAL IM PRN (02:20)
[2017-08-15] MEDS: NITROGLYCERIN-D5W PMX 50 MG in DEXTROSE/WATER 1 250ML.BAG IV SCH ×2 (02:28→23:06)
[2017-08-15 02:56] LABS: Basophils % (A) 0 %; Eosinophils # (A) 0.2 k/uL (0-0.7); Eosinophils % (A) 1 %; HGB 14.5 gm/dL (13.0-17.5); Lymphocytes # (A) 0.4 k/uL (1.0-4.8); Lymphocytes % (A) 2 %; MCHC 31.6 g/dL (31.0-37.0); MCV 88.6 fL (80.0-100.0); Mean Platelet Volume 7.1; Monocytes # (A) 0.3 k/uL (0-1.0); Monocytes % (A) 1 %; Neutrophils # (A) 19.7 k/uL (1.3-7.7); Neutrophils % (A) 96 %; Platelet Count 191 k/uL (150-450); RBC 5.19 m/uL (4.30-5.90); RDW 15.6 % (11.5-15.5); WBC 20.6 k/uL (3.8-10.6)
[2017-08-15 03:05] LABS: Calcium 9.4 mg/dL (8.4-10.2); Potassium 4.1 mmol/L (3.5-5.1); Total Bilirubin 0.6 mg/dL (0.2-1.3); Total Protein 6.9 g/dL (6.3-8.2)
--- NOTE | 2017-08-15 03:05 | XR ---
EXAMINATION TYPE: XR chest 1V DATE OF EXAM: 08/15/2017 COMPARISON: Today HISTORY: Check tube placement TECHNIQUE: Single frontal view of the chest is obtained. FINDINGS: There is a nasogastric tube that has tip over the gastric fundus. There are sternal wires. There is no heart failure. There is slight blunting of costophrenic angle on the right side. There a re chest leads. IMPRESSION: Mild pleural reaction at the right lung base. Nasogastric tube appears in good position. No heart failure.
[2017-08-15] MEDS: PANTOPRAZOLE 40 MG/10 ML VIAL IVP SCH ×3 (04:00→21:13)
--- NOTE | 2017-08-15 06:22 | P.CONS ---
History of Present Illness - Reason for Consult Consult date: 08/15/17 GI bleed Requesting physician: Rosario Sepulveda - History of Present Illness 81-year-old gentleman with a history of esophageal stricture disease with dilations, Parkinson's, CAD/CABG, CVA, dementia, DVT, hypertension, hyperlipidemia, PE, rheumatoid arthritis, sleep apnea, COPD admitted with urinary retention in shortness of breath wheezing cough or 3 weeks. Consult requested for coffee-ground emesis. Nursing reports last night he had 2 emesis that were dark colored. Positive gastric occult. NG tube was inserted with about 500 mL return of dark-colored near coffee-ground looking fluid. No history of peptic ulcer disease. No episodes of hematochezia or melena. Was experiencing some upper abdominal pain prior to emesis since resolved. White count 20.6. Hemoglobin 14.5. Platelet 191. BUN 28. Creatinine 1.1. Troponin 0.04-6.3. INR 1.0. EGD September 2016 evaluation of previous stricture and dysphagia with findings of distal esophageal stricture dilated up to 15 mm with small sliding hiatal hernia. Abdominal x-ray NG tube present distal tip is overlying the stomach near the GE junction. Possible underlying ascites. No history of known liver diseases. No history of EtOH abuse. LFTs unremarkable with the exception of AST 72. Review of Systems Constitutional: Denies fever, chills, sweats, weight gain, or loss. History of Parkinson. HEENT: Negative for migraines, blurred vision or loss, earaches, drainage, tinnitus, oral mucosal lesions, dysphagia, or odynophagia. Cardiac: CAD. CABG. Hyperlipidemia. Hypertension. Negative for chest pain, arrhythmias, or palpitation. Respiratory: Asthma. COPD. PE. DVT. Negative for shortness of breath, hemoptysis, cough, or sputum production. Gastrointestinal: See HPI for pertinent findings. Genitourinary: Negative for hematuria, urgency, frequency, polyuria, dysuria, or penile discharge. Musculoskeletal: Negative for muscle aches, swelling, arthritis, and arthralgias. Neurologic: Negative for stroke or TIA. Endocrine: Negative for thyroid problems. Skin: Negative for rash or itching. Psychiatric: Negative history for depression and anxiety Past Medical History Past Medical History: Coronary Artery Disease (CAD), Cancer, Chest Pain / Angina , COPD, CVA/TIA, Dementia, Deep Vein Thrombosis (DVT), GERD/Reflux, Hearing Disorder / Deafness, Hyperlipidemia, Hypertension, Myocardial Infarction ([place]), Osteoarthritis (OA), Prostate Disorder, Pulmonary Embolus (PE), Renal Disease, Respiratory Disorder, Rheumatoid Arthritis (RA), Sleep Apnea/CPAP/BIPAP, Syncope Additional Past Medical History / Comment(s): SEVERE COPD, HOME O2 IN THE PAST BUT NO LONGER QUALIFIES, BRONCHITIS, PNUEMONIAS, RAJESH BUT NO LONGER USED CPAP, R LEG DVT, BILATERAL PULMONARY EMBOLISMS, TIA, PARKINSONS DISEASE, RESTLESS LEG SYNDROME, NUMBNESS/TINGLING BILATERAL LEGS/FEET, UNSTEADY ON HIS FEET, FALLS, DOUBLE INGUINAL HERNIAS, HX ULCERS, HEMORRHOIDS, ENLARGED PROSTRATE, INSOMNIA, SINUSITIS, BILATERAL LEG EDEMA AT TIMES, SKIN CANCER WITH REMOVAL, HOLE IN EARDRUM LEFT Last Myocardial Infarction Date:: 2006 History of Any Multi-Drug Resistant Organisms: None Reported Past Surgical History: Coronary Bypass/CABG, Heart Catheterization, Hernia Repair Additional Past Surgical History / Comment(s): 2006 CABG WITH 4 VESSEL BYPASS, HIATAL HERNIA REPAIR, UMBILICAL HERNIA REPAIR, BILAT CATARACTS WITH LENS IMPLANTS SX, EGD X 5 WITH ESOPHAGEAL DILATION, COLONOSCOPY/BENIGN POLYPS, SKIN CANCER REMOVALS. Past Anesthesia/Blood Transfusion Reactions: No Reported Reaction Smoking Status: Former smoker - Past Family History Mother Family Medical History: Cancer Additional Family Medical History / Comment(s): Mother had lung cancer. She was a smoker. Brother(s) Family Medical History: Blood Disorder Father Additional Family Medical History / Comment(s): HARDENING OF ARTERIES, Medications and Allergies Home Medications Medication Instructions Recorded Confirmed Type Aspirin 81 mg PO DAILY 08/25/14 08/14/17 History Ezetimibe/Simvastatin [Vytorin 1 tab PO HS 08/25/14 08/14/17 History 10-40 mg Tablet] Furosemide [Lasix] 20 mg PO AC-SUPPER 08/25/14 08/14/17 History Isosorbide Mononitrate ER [Imdur] 60 mg PO DAILY 08/25/14 08/14/17 History Metolazone [Zaroxolyn] 5 mg PO MOTUWETHFR 08/25/14 08/14/17 History Metoprolol Tartrate [Metoprolol 50 mg PO BID 08/25/14 08/14/17 History Tartrate] Potassium Chloride ER [K-Dur 20] 20 meq PO TID 08/25/14 08/14/17 History Pramipexole Di-HCl [Mirapex] 0.75 mg PO HS 08/25/14 08/14/17 History Tamsulosin HCl [Flomax] 0.4 mg PO HS 09/20/16 08/14/17 History Acetaminophen Tab [Tylenol Tab] 500 mg PO Q4H PRN 08/14/17 08/14/17 History Budesonide-Formot 160-4.5 Mcg 2 puff INHALATION RT-BID 08/14/17 08/14/17 History [Symbicort 160-4.5 Mcg Inhaler] Depo-Medrol 80mg/Ml 80 mg IM ONCE 08/14/17 08/14/17 History Ranitidine HCl [Zantac] 150 mg PO BID 08/14/17 08/14/17 History diphenhydrAMINE [Benadryl] 25 mg PO HS 08/14/17 08/14/17 History Allergies Allergy/AdvReac Type Severity Reaction Status Date / Time No Known Allergies Allergy Verified 08/14/17 10:06 Physical Exam Vitals: Vital Signs Temp Pulse Pulse Resp BP BP Pulse Ox 08/15/17 04:00 96.9 F L 125 H 32 H 132/70 97 08/15/17 00:00 125 H 08/14/17 23:25 97.5 F L 123 H 36 H 160/69 97 08/14/17 20:00 97.7 F 106 H 30 H 170/62 97 08/14/17 15:26 97.9 F 105 H 30 H 144/76 99 08/14/17 12:21 115 H 36 H 178/88 99 08/14/17 11:46 98.4 F 104 H 24 174/89 99 08/14/17 10:58 97.8 F 93 18 149/69 100 08/14/17 10:45 105 H 08/14/17 10:18 108 H 08/14/17 10:03 104 H 08/14/17 09:28 104 H 18 139/82 97 Intake and Output 08/14/17 08/14/17 08/15/17 14:59 22:59 06:59 Intake Total 120 120 Output Total 150 1050 Balance -30 120 -1050 Intake: Oral 120 120 Output: Urine 150 1050 Uretheral (Mcarthur) 150 Other: Voiding Method Indwelling Catheter Indwelling Catheter Indwelling Catheter Weight 102.512 kg 96.5 kg General appearance: The patient is alert, oriented, in no acute distress. HET: Head is normocephalic and atraumatic. Pupils are equal and reactive. Oropharynx is clear without lesions. Nasogastric tube with scant coffee-ground flecks in tubing only no collection canister. Neck: Supple without lymphadenopathy. Trachea midline. Heart: S1 S2. Regular rate and rhythm. Lungs: Diminished in bases bilaterally with increased respiratory rate Abdomen: Soft, obese, nontender, nondistended with bowel sounds. No peritoneal signs. No palpable organomegaly or masses. Extremities: Normal skin color and turgor. No cyanosis, rash, ulceration, clubbing, or edema. Radial and pedal pulses are 2/4 bilaterally. Mcarthur clear urine. Neurological: No focal deficits. Strength and sensation are grossly intact. Results CBC & Chem 7: 08/15/17 02:42 08/15/17 02:42 Labs: Abnormal Lab Results - Last 24 Hours (Table) 08/14/17 08/14/17 08/14/17 Range/Units 09:45 09:45 10:00 WBC (3.8-10.6) k/uL RDW (11.5-15.5) % Neutrophils # (1.3-7.7) k/uL Lymphocytes # (1.0-4.8) k/uL ABG pH (7.35-7.45) ABG pCO2 (35-45) mmHg ABG HCO3 (21-25) mmol/L ABG Total CO2 (19-24) mmol/L BUN 25 H (9-20) mg/dL Glucose 150 H (74-99) mg/dL POC Glucose (mg/dL) (75-99) mg/dL AST (17-59) U/L Total Creatine Kinase 33 L (55-170) U/L CK-MB (CK-2) (0.0-2.4) ng/mL Troponin I 0.046 H* (0.000-0.034) ng/mL Urine Protein Trace H (Negative) Urine Blood Moderate H (Negative) Urine RBC 161 H (0-5) /hpf Urine Mucus Rare H (None) /hpf 08/14/17 08/14/17 08/14/17 Range/Units 16:05 16:16 20:58 WBC (3.8-10.6) k/uL RDW (11.5-15.5) % Neutrophils # (1.3-7.7) k/uL Lymphocytes # (1.0-4.8) k/uL ABG pH (7.35-7.45) ABG pCO2 (35-45) mmHg ABG HCO3 (21-25) mmol/L ABG Total CO2 (19-24) mmol/L BUN (9-20) mg/dL Glucose (74-99) mg/dL POC Glucose (mg/dL) 217 H 190 H (75-99) mg/dL AST (17-59) U/L Total Creatine Kinase (55-170) U/L CK-MB (CK-2) 9.4 H* (0.0-2.4) ng/mL Troponin I 0.500 H* (0.000-0.034) ng/mL Urine Protein (Negative) Urine Blood (Negative) Urine RBC (0-5) /hpf Urine Mucus (None) /hpf 08/14/17 08/14/17 08/15/17 Range/Units 22:00 22:00 00:39 WBC 15.9 H (3.8-10.6) k/uL RDW (11.5-15.5) % Neutrophils # 15.1 H (1.3-7.7) k/uL Lymphocytes # 0.5 L (1.0-4.8) k/uL ABG pH 7.50 H (7.35-7.45) ABG pCO2 34 L (35-45) mmHg ABG HCO3 27 H (21-25) mmol/L ABG Total CO2 28 H (19-24) mmol/L BUN (9-20) mg/dL Glucose (74-99) mg/dL POC Glucose (mg/dL) (75-99) mg/dL AST (17-59) U/L Total Creatine Kinase 368 H (55-170) U/L CK-MB (CK-2) 33.2 H* (0.0-2.4) ng/mL Troponin I 6.340 H* (0.000-0.034) ng/mL Urine Protein (Negative) Urine Blood (Negative) Urine RBC (0-5) /hpf Urine Mucus (None) /hpf 08/15/17 08/15/17 Range/Units 02:42 02:42 WBC 20.6 H (3.8-10.6) k/uL RDW 15.6 H (11.5-15.5) % Neutrophils # 19.7 H (1.3-7.7) k/uL Lymphocytes # 0.4 L (1.0-4.8) k/uL ABG pH (7.35-7.45) ABG pCO2 (35-45) mmHg ABG HCO3 (21-25) mmol/L ABG Total CO2 (19-24) mmol/L BUN 28 H (9-20) mg/dL Glucose 212 H (74-99) mg/dL POC Glucose (mg/dL) (75-99) mg/dL AST 72 H (17-59) U/L Total Creatine Kinase (55-170) U/L CK-MB (CK-2) (0.0-2.4) ng/mL Troponin I (0.000-0.034) ng/mL Urine Protein (Negative) Urine Blood (Negative) Urine RBC (0-5) /hpf Urine Mucus (None) /hpf Abdominal x-ray: report reviewed (Dr. Forman) Assessment and Plan (1) Coffee ground emesis Narrative/Plan: Possible esophagitis possible gastritis possible peptic ulcer disease Current Visit: Yes Status: Acute Code(s): K92.0 - HEMATEMESIS SNOMED Code( s): 932202523 (2) Esophageal stricture Narrative/Plan: History of distal esophageal stricture with balloon dilations last EGD dilation September 2016 Current Visit: Yes Status: Acute Code(s): K22.2 - ESOPHAGEAL OBSTRUCTION SNOMED Code(s): 64077360 (3) COPD exacerbation Current Visit: Yes Status: Acute Code(s): J44.1 - CHRONIC OBSTRUCTIVE PULMONARY DISEASE W (ACUTE) EXACERBATION SNOMED Code(s): 464682526 (4) Urinary retention Current Visit: Yes Status: Acute Code(s): R33.9 - RETENTION OF URINE, UNSPECIFIED SNOMED Code(s): 641875874 Plan: 1. Ascites not appreciated on physical exam one view abdominal x-ray cannot exclude underlying ascites therefore will proceed with ultrasound of the abdomen today to assess for ascites. 2. Continue with nasogastric tube decompression if patient has no further output may be discontinued and start clears. 3. Protonix 40 mg IV twice daily. Inpatient EGD not planned at this time secondary to increased respiratory rate pulmonary status but contingent on clinical course. CBC monitoring. Thank you for this kind referral and the opportunity to participate in the care of your patient. This consultation was discussed with Dr. Forman. The impression and plan of care have been directed as dictated.
[2017-08-15] MEDS: methylPREDNISolone SOD SUCCI 125 MG/2 ML VIAL IV SCH ×4 (06:24→23:04)
[2017-08-15 06:49] LABS: Glucose,Whole Blood 190 mg/dL (75-99)
[2017-08-15] MEDS: INSULIN ASPART 100 UNIT/ML 1 ML 10 ML VIAL SQ SCH ×4 (07:37→21:13)
[2017-08-15] MEDS: SYMBICORT 160-4.5 MCG INHALER INHALATION SCH ×2 (08:18→20:34)
[2017-08-15] MEDS: IPRATROPIUM-ALBUTEROL 3 ML NEB INHALATION SCH ×3 (08:18→20:33)
--- NOTE | 2017-08-15 08:27 | XR ---
Abdomen HISTORY: Vomiting, NG tube placement Frontal view of the abdomen on 2 images There is an NG tube present, distal tip is overlying the stomach, side-port is near the gastroesophag eal junction level. There are overlying cardiac leads. Patient is post median sternotomy. Lung bases are remarkable for some possible basilar atelectatic change, interstitial changes. There is no eviden t pneumoperitoneum or bowel obstruction. Multiple calcifications are present within the pelvis. Incre ased density within the abdomen could be due to underlying ascites. IMPRESSION: NG tube is described. Correlate for possible ascites. Additional findings above.
[2017-08-15] MEDS ORDERED: HEPARIN SODIUM,PORCINE 5,000 UNIT/ML 1 ML VIAL IV PRN (08:54)
[2017-08-15] MEDS ORDERED: HEPARIN SODIUM,PORCINE 5,000 UNIT/ML 1 ML VIAL IV ONE (08:54)
[2017-08-15] MEDS ORDERED: METOPROLOL TARTRATE 25 MG TAB PO SCH (09:00)
[2017-08-15] MEDS ORDERED: ISOSORBIDE MONONITRATE ER 60 MG TAB.ER.24H PO SCH (09:00)
[2017-08-15 09:29] LABS: Basophils % (A) 0 %; Eosinophils % (A) 0 %; HCT 42.8 % (39.0-53.0); HGB 13.5 gm/dL (13.0-17.5); Lymphocytes # (A) 0.6 k/uL (1.0-4.8); Lymphocytes % (A) 3 %; MCH 27.9 pg (25.0-35.0); MCHC 31.5 g/dL (31.0-37.0); MCV 88.6 fL (80.0-100.0); Mean Platelet Volume 7.5; Monocytes # (A) 0.5 k/uL (0-1.0); Monocytes % (A) 3 %; Neutrophils # (A) 16.6 k/uL (1.3-7.7); Neutrophils % (A) 94 %; Platelet Count 175 k/uL (150-450); RBC 4.83 m/uL (4.30-5.90); RDW 15.7 % (11.5-15.5); WBC 17.7 k/uL (3.8-10.6)
[2017-08-15] MEDS ORDERED: METOPROLOL TARTRATE 5 MG/5 ML VIAL IVP PRN (09:35)
[2017-08-15 09:40] LABS: D-Dimer 0.7 mg/L FEU (<0.60)
[2017-08-15 09:44] LABS: INR 1.1 (<1.2); Partial Thromboplastin Time 22.9 sec (22.0-30.0); Prothrombin Time 10.3 sec (9.0-12.0)
--- NOTE | 2017-08-15 10:11 | CONS ---
SHERMAN Montemayor is an 81-year-old gentleman who was admitted to hospital with symptoms of shortness of breath for the last 2 weeks. He was evaluated in the outpatient setting by Dr. Roque, given steroids and antibiotics. Subsequently, he has had problems with urinary incontinence, came to the ER where a Mcarthur was placed. Chest x-ray did not show any evidence of pneumonia and he was admitted to hospital to hospital with respiratory failure. Cardiology had been consulted because of elevated troponin. The patient when he first presented, his troponin was 0.04. Subsequent troponin was 0.5 and this morning it is 6.3. He denies any chest pain, palpitations, dizziness or syncope. His white cell count is elevated at 20.6. The patient's EKG shows sinus tachycardia with PVCs and extensive ST-T wave changes. ST-T wave changes could be due to subendocardial ischemia. An echo had been ordered and results are pending at this time. At the time of my evaluation this morning, patient has an NG tube in place. Appears comfortable. Denies chest pain and seems stable hemodynamically. Heart rate is around 111 beats per minute. Afebrile. Blood pressure is 120/70. PAST MEDICAL HISTORY: Past medical history is significant for coronary artery disease, history of pulmonary embolism, hypertension, DVT, rheumatoid arthritis, sleep apnea. MEDICATIONS: Current medications include Zaroxolyn 5 q. daily, Imdur 60 q. daily, Lasix, Vytorin, metoprolol 50 b.i.d., K-Dur 20 t.i.d., Mirapex, Flomax, Symbicort, Depo-Medrol, Zantac and Benadryl. ALLERGIES: There are no known drug allergies. FAMILY HISTORY: Family history is negative for premature coronary artery disease. SOCIAL HISTORY: Social history is negative for smoking, EtOH abuse or drug abuse. REVIEW OF SYSTEMS: HEENT is unremarkable. CARDIAC: As described above. RESPIRATORY: As described above. GI: Negative. GENITOURINARY: Significant for urinary incontinence. PSYCHOSOCIAL: Negative. ENDOCRINE: Negative. DERM: Negative. CONSTITUTIONAL: Negative. HEMATOLOGICAL: Negative. ONCOLOGICAL: Negative. PEDIATRIC ALLERGIST: Significant for history of TIA. LABS: Labs show that white cell count is 20, platelet count is 190. Potassium is 4.1. Creatinine is 1.1. Troponin is elevated at 6.3. ASSESSMENT: 1. Shortness of breath, probably related to acute myocardial ischemia. 2. Known coronary artery disease. 3. Chronic obstructive pulmonary disease. 4. Hypertension. 5. Dyslipidemia. 6. Insulin-requiring diabetes. PLAN: I am going to obtain a D-dimer on him. Increase the dose of metoprolol to 75 b.i.d. Given the elevated heart rate, obtain a 2D echo to evaluate his LV function and start him on heparin per protocol. CALOS / JESUS: [id number] /
[2017-08-15] MEDS: ASPIRIN 81 MG PO SCH (10:12)
[2017-08-15] MEDS: METOPROLOL TARTRATE 5 MG/5 ML VIAL IVP SCH ×3 (10:12→23:04)
[2017-08-15] MEDS: HEPARIN SOD,PORK IN 0.45% NACL 25,000 UNIT in 0.45% NACL 1 500ML.BAG IV SCH (10:12)
[2017-08-15] MEDS: METOLAZONE 5 MG TAB PO SCH (10:13)
[2017-08-15] MEDS: LISINOPRIL 10 MG TAB PO SCH (10:13)
[2017-08-15] MEDS: POTASSIUM CHLORIDE ER 20 MEQ TAB.ER PO SCH ×3 (10:13→20:01)
[2017-08-15] MEDS: LEVOFLOXACIN 500 MG TAB PO SCH (10:13)
--- NOTE | 2017-08-15 10:32 | US ---
EXAMINATION TYPE: US abdomen limited DATE OF EXAM: 08/15/2017 COMPARISON: NONE CLINICAL HISTORY: assess for ascites. No fluid seen at this time. Patient has large, soft distended abdomen. IMPRESSION: Limited exam performed. No ascites evident.
--- NOTE | 2017-08-15 11:03 | P.PN ---
Subjective Progress Note Date: 08/15/17 Principal diagnosis: Acute exacerbation of chronic obstructive pulmonary disease, urinary retention, abdominal discomfort This is a very pleasant 81-year-old gentleman who follows with Dr. Roque as his primary care physician. He has a history of coronary artery disease, hypertension, hyperlipidemia, cor pulmonale, systolic congestive heart failure, chronic dyspnea on exertion. He was last seen on 07/31/2017 in the office. He was treated for an acute exacerbation of COPD. He was actually recommended inpatient treatment back then but had refused. He was treated with Depo-Medrol injection, prednisone burst and taper and Cipro. Chest x-ray revealed no acute pulmonary process. He was felt to be somewhat dehydrated. His Zaroxolyn was discontinued. He presented here to the emergency room yesterday with complaints of increasing shortness of breath, cough and congestion. Chest x- ray done revealing chronic changes without evidence of acute pulmonary disease. He is also having some complaints of abdominal discomfort and distention. Last evening the patient developed chest discomfort and increasing shortness of breath. He was initiated on a nitroglycerin drip at 10 mcg/m. Given IV Lasix. Arterial blood gases revealed a pO2 of 91, pCO2 34, pH 7.50 and 32% FiO2. Nasaorogastric tube was inserted with coffee-ground secretion returned. He is on Protonix 40 mg IV push twice a day. Abdominal x-ray revealed possible ascites. Ultrasound of the abdomen revealed no ascites evident. He had been seen and evaluated by cardiology as his troponin is elevated at 6.3. EKG reveals extensive ST and T-wave abnormalities possible subendocardial ischemia. Heparin drip was initiated. Echocardiogram pending. Recently he is resting in bed. He is generally not feeling well overall. His breathing is about the same. He is maintaining good O2 saturations in the 90s on 2 L/m per nasal cannula. He's been afebrile. Tachycardic. Tachypneic. White count 17.7. Hemoglobin 13.5. Creatinine 1.10. Objective - Vital Signs Vital signs: Vital Signs Temp 97.1 F L 08/15/17 08:00 Pulse 111 H 08/15/17 08:00 Resp 24 08/15/17 08:00 BP 121/72 08/15/17 08:00 Pulse Ox 96 08/15/17 08:00 Intake & Output 08/14/17 08/15/17 08/15/17 18:59 06:59 18:59 Intake Total 240 24 Output Total 150 1050 600 Balance 90 -1026 -600 Weight 96.5 kg Intake: IV 24 Nitroglycerin-D5w Pmx 50 24 mg In Dextrose/Water 1 250ml.bag @ 10 MCG/MIN 3 mls/hr IV .Q24H ON LICENSE OF [facility] Rx#: [id number] Oral 240 Output: Gastric Drainage 600 Urine 150 1050 Uretheral (Mcarthur) 150 Other: Voiding Method Indwelling Catheter Indwelling Catheter Indwelling Catheter # Voids 875 - Exam GENERAL EXAM: Obese. Alert, fairly comfortable in no apparent distress. HEAD: Normocephalic. EYES: Normal reaction of pupils, equal size. NOSE: Nasogastric tube secured in place. Clear with pink turbinates. THROAT: No erythema or exudates. NECK: No masses, no JVD. CHEST: No chest wall deformity. LUNGS: Equal air entry with expiratory wheeze. Diminished. CVS: S1 and S2 normal with no audible murmur, regular rhythm. ABDOMEN: No hepatosplenomegaly, normal bowel sounds, no guarding or rigidity. SPINE: No scoliosis or deformity SKIN: No rashes CENTRAL NERVOUS SYSTEM: No focal deficits, tone is normal in all 4 extremities. EXTREMITIES: There is 2+ peripheral edema. No clubbing, no cyanosis. Peripheral pulses are intact. - Labs CBC & Chem 7: 08/15/17 09:06 08/15/17 02:42 Labs: Abnormal Lab Results - Last 24 Hours (Table) 08/14/17 08/14/17 08/14/17 Range/Units 09:45 16:05 16:16 WBC (3.8-10.6) k/uL RDW (11.5-15.5) % Neutrophils # (1.3-7.7) k/uL Lymphocytes # (1.0-4.8) k/uL D-Dimer (<0.60) mg/L FEU ABG pH (7.35-7.45) ABG pCO2 (35-45) mmHg ABG HCO3 (21-25) mmol/L ABG Total CO2 (19-24) mmol/L BUN (9-20) mg/dL Glucose (74-99) mg/dL POC Glucose (mg/dL) 217 H (75-99) mg/dL AST (17-59) U/L Total Creatine Kinase 33 L (55-170) U/L CK-MB (CK-2) 9.4 H* (0.0-2.4) ng/mL Troponin I 0.046 H* 0.500 H* (0.000-0.034) ng/mL 08/14/17 08/14/17 08/14/17 Range/Units 20:58 22:00 22:00 WBC 15.9 H (3.8-10.6) k/uL RDW (11.5-15.5) % Neutrophils # 15.1 H (1.3-7.7) k/uL Lymphocytes # 0.5 L (1.0-4.8) k/uL D-Dimer (<0.60) mg/L FEU ABG pH (7.35-7.45) ABG pCO2 (35-45) mmHg ABG HCO3 (21-25) mmol/L ABG Total CO2 (19-24) mmol/L BUN (9-20) mg/dL Glucose (74-99) mg/dL POC Glucose (mg/dL) 190 H (75-99) mg/dL AST (17-59) U/L Total Creatine Kinase 368 H (55-170) U/L CK-MB (CK-2) 33.2 H* (0.0-2.4) ng/mL Troponin I 6.340 H* (0.000-0.034) ng/mL 08/15/17 08/15/17 08/15/17 Range/Units 00:39 02:42 02:42 WBC 20.6 H (3.8-10.6) k/uL RDW 15.6 H (11.5-15.5) % Neutrophils # 19.7 H (1.3-7.7) k/uL Lymphocytes # 0.4 L (1.0-4.8) k/uL D-Dimer (<0.60) mg/L FEU ABG pH 7.50 H (7.35-7.45) ABG pCO2 34 L (35-45) mmHg ABG HCO3 27 H (21-25) mmol/L ABG Total CO2 28 H (19-24) mmol/L BUN 28 H (9-20) mg/dL Glucose 212 H (74-99) mg/dL POC Glucose (mg/dL) (75-99) mg/dL AST 72 H (17-59) U/L Total Creatine Kinase (55-170) U/L CK-MB (CK-2) (0.0-2.4) ng/mL Troponin I (0.000-0.034) ng/mL 08/15/17 08/15/17 08/15/17 Range/Units 06:47 09:06 09:06 WBC 17.7 H (3.8-10.6) k/uL RDW 15.7 H (11.5-15.5) % Neutrophils # 16.6 H (1.3-7.7) k/uL Lymphocytes # 0.6 L (1.0-4.8) k/uL D-Dimer 0.70 H (<0.60) mg/L FEU ABG pH (7.35-7.45) ABG pCO2 (35-45) mmHg ABG HCO3 (21-25) mmol/L ABG Total CO2 (19-24) mmol/L BUN (9-20) mg/dL Glucose (74-99) mg/dL POC Glucose (mg/dL) 190 H (75-99) mg/dL AST (17-59) U/L Total Creatine Kinase (55-170) U/L CK-MB (CK-2) (0.0-2.4) ng/mL Troponin I (0.000-0.034) ng/mL Assessment and Plan Assessment: Assessment: #1. 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 #2. Acute non-ST segment elevation myocardial infarction. Initiated on a heparin drip. On nitroglycerin drip. Echocardiogram pending. #3. Obstructive sleep apnea, noncompliant with CPAP therapy #4. History of coronary artery disease, with history of coronary artery bypass grafting in the past #5. Chronic systolic congestive heart failure #6. CVA/TIA #7. Hyperlipidemia, hypertension #8. Osteoarthritis #9. History of DVTs and pulmonary embolisms #10. Restless leg syndrome #11. GERD/reflux, hiatal hernia repair #12. Nicotine dependence, in remission #13. Urinary retention, secondary to BPH, on Flomax Plan: The patient was seen and evaluated by Dr. Dasilva. Chest x-ray, ABGs and labs are all reviewed. Cardiology is on the case as well. He has been initiated on a nitroglycerin drip at 10 mcg/m and a heparin drip. We'll continue with DuoNeb inhalations 4 times a day and when necessary, Symbicort, IV Solu-Medrol, empiric antibiotics in the form of Levaquin. We will continue to monitor him closely here on the selective care unit. We'll continue to follow make further recommendations based on his clinical status. I, the cosigning physician, performed a history & physical examination of the patient. Lungs sounds have bilateral end expiratory wheeze. Diminished. Maintaining good O2 saturations in the 90s on 2 L/m per nasal cannula. I discussed the assessment and plan of care with my nurse practitioner, Lela Whiting. I attest to the above note as dictated by her.
--- NOTE | 2017-08-15 12:07 | ECHOF ---
Referral Reason:NSTEMI MEASUREMENTS -------- HEIGHT: 170.2 cm WEIGHT: 96.2 kg BP: 132/70 IVSd: 1.1 cm (0.6 - 1.1) LVIDd: 4.3 cm (3.9 - 5.3) LVPWd: 1.1 cm (0.6 - 1.1) IVSs: 1.3 cm LVIDs: 2.3 cm LVPWs: 1.3 cm LAESV Index (A-L): 26.44 ml/m Ao Diam: 3.9 cm (2.0 - 3.7) AV Cusp: 0.9 cm (1.5 - 2.6) LA Diam: 3.7 cm (2.7 - 3.8) MV E Rubens: 0.99 m/s MV DecT: 174 ms MV A Rubens: 0.00 m/s MV E/A Ratio: 296.63 RAP: 10.00 mmHg RVSP: 29.09 mmHg FINDINGS -------- Resting tachycardia (HR>100bpm). This was a technically difficult study with suboptimal views. The left ventricular size is normal. There is borderline concentric left ventricular hypertrophy. Overall left ventricular systolic function is normal with, an EF between 55 - 60 %. The RV was not well visualized. Normal LA size by volume 22+/-6 ml/m2. The right atrium was not well visualized. 3ml of Lumason was utilized for enhancement of images. There is mild to moderate aortic valve sclerosis. There is no evidence of aortic regurgitation. T here is no evidence of aortic stenosis. The mitral valve leaflets are mildly thickened. Mild mitral annular calcification present. There is trace to mild mitral regurgitation. Trace tricuspid regurgitation present. Right ventricular systolic pressure is normal at < 35 mmHg. There is no evidence of pulmonary hypertension. The pulmonic valve was not well visualized. The aortic root is borderline dilated. The IVC is dilated with normal collapse. There is no pericardial effusion. CONCLUSIONS -------- 1. Resting tachycardia (HR>100bpm). 2. This was a technically difficult study with suboptimal views. 3. The left ventricular size is normal. 4. There is borderline concentric left ventricular hypertrophy. 5. The RV was not well visualized. 6. Normal LA size by volume 22+/-6 ml/m2. 7. The right atrium was not well visualized. 8. 3ml of Lumason was utilized for enhancement of images. 9. There is mild to moderate aortic valve sclerosis. 10. The mitral valve leaflets are mildly thickened. 11. Mild mitral annular calcification present. 12. There is trace to mild mitral regurgitation. 13. Trace tricuspid regurgitation present. 14. Right ventricular systolic pressure is normal at < 35 mmHg. 15. There is no evidence of pulmonary hypertension. 16. The pulmonic valve was not well visualized. 17. The aortic root is borderline dilated. 18. The IVC is dilated with normal collapse. 19. There is no pericardial effusion. CHANNELING MACHINE OPERATOR: Narendra Madrid RDCS
--- NOTE | 2017-08-15 12:08 | P.PN ---
Subjective Patient was admitted for COPD exacerbation and COPD exacerbation did improve a little bit better but patient has multiple overnight events including chest pain patient is found to have highly elevated troponin of 6.8 today which was a third set of troponin. Patient also has upper GI bleed with coffee-ground emesis patient has an NG tube in place diuretics will be discontinued, patient ideally will need heparin because of upper GI bleed heparin is being held patient was started on beta sofi patient is still wheezing wheezing did improve a little bit. Patient does have bowel sounds abdominal x-ray did not show any peritonitis or freeze created in the [place] ultrasound of the abdomen was reviewed. Patient had a little bit of abdominal pain yesterday which completely resolved now chest pain improved now patient is on IV nitroglycerin as well. Objective - Vital Signs Vital signs: Vital Signs Temp 97.6 F 08/15/17 11:44 Pulse 150 H 08/15/17 11:49 Resp 26 H 08/15/17 11:44 BP 91/63 08/15/17 11:44 Pulse Ox 95 08/15/17 11:44 Intake & Output 08/14/17 08/15/17 08/15/17 18:59 06:59 18:59 Intake Total 240 24 Output Total 150 1050 600 Balance 90 -1026 -600 Weight 96.5 kg Intake: IV 24 Nitroglycerin-D5w Pmx 50 24 mg In Dextrose/Water 1 250ml.bag @ 10 MCG/MIN 3 mls/hr IV .Q24H [facility] Rx#: [id number] Oral 240 Output: Gastric Drainage 600 Urine 150 1050 Uretheral ([place]) 150 Other: Voiding Method Indwelling Catheter Indwelling Catheter Indwelling Catheter # Voids 875 - Exam PHYSICAL EXAMINATION: GENERAL: The patient is alert and oriented x3, patient is obtain respiratory distress. Well developed, well nourished. HEENT: Pupils are round and equally reacting to light. EOMI. No scleral icterus. No conjunctival pallor. Normocephalic, atraumatic. No pharyngeal erythema. No thyromegaly. CARDIOVASCULAR: S1 and S2 present. No murmurs, rubs, or gallops. PULMONARY: Significantly limited limited air entry into bilateral lung ramírez significant expiratory wheezing was appreciated. wheezing did improve patient is not using any accessory muscles of breathing ABDOMEN: Minimally distended no tenderness NG tube in place with coffee-ground emesis MUSCULOSKELETAL: No joint swelling or deformity. EXTREMITIES: No cyanosis, clubbing, or pedal edema. NEUROLOGICAL: Gross neurological examination did not reveal any focal deficits. SKIN: No rashes. - Labs CBC & Chem 7: 08/15/17 09:06 08/15/17 02:42 Labs: Abnormal Lab Results - Last 24 Hours (Table) 08/14/17 08/14/17 08/14/17 Range/Units 16:05 16:16 20:58 WBC (3.8-10.6) k/uL RDW (11.5-15.5) % Neutrophils # (1.3-7.7) k/uL Lymphocytes # (1.0-4.8) k/uL D-Dimer (<0.60) mg/L FEU ABG pH (7.35-7.45) ABG pCO2 (35-45) mmHg ABG HCO3 (21-25) mmol/L ABG Total CO2 (19-24) mmol/L BUN (9-20) mg/dL Glucose (74-99) mg/dL POC Glucose (mg/dL) 217 H 190 H (75-99) mg/dL AST (17-59) U/L Total Creatine Kinase (55-170) U/L CK-MB (CK-2) 9.4 H* (0.0-2.4) ng/mL Troponin I 0.500 H* (0.000-0.034) ng/mL 08/14/17 08/14/17 08/15/17 Range/Units 22:00 22:00 00:39 WBC 15.9 H (3.8-10.6) k/uL RDW (11.5-15.5) % Neutrophils # 15.1 H (1.3-7.7) k/uL Lymphocytes # 0.5 L (1.0-4.8) k/uL D-Dimer (<0.60) mg/L FEU ABG pH 7.50 H (7.35-7.45) ABG pCO2 34 L (35-45) mmHg ABG HCO3 27 H (21-25) mmol/L ABG Total CO2 28 H (19-24) mmol/L BUN (9-20) mg/dL Glucose (74-99) mg/dL POC Glucose (mg/dL) (75-99) mg/dL AST (17-59) U/L Total Creatine Kinase 368 H (55-170) U/L CK-MB (CK-2) 33.2 H* (0.0-2.4) ng/mL Troponin I 6.340 H* (0.000-0.034) ng/mL 08/15/17 08/15/17 08/15/17 Range/Units 02:42 02:42 06:47 WBC 20.6 H (3.8-10.6) k/uL RDW 15.6 H (11.5-15.5) % Neutrophils # 19.7 H (1.3-7.7) k/uL Lymphocytes # 0.4 L (1.0-4.8) k/uL D-Dimer (<0.60) mg/L FEU ABG pH (7.35-7.45) ABG pCO2 (35-45) mmHg ABG HCO3 (21-25) mmol/L ABG Total CO2 (19-24) mmol/L BUN 28 H (9-20) mg/dL Glucose 212 H (74-99) mg/dL POC Glucose (mg/dL) 190 H (75-99) mg/dL AST 72 H (17-59) U/L Total Creatine Kinase (55-170) U/L CK-MB (CK-2) (0.0-2.4) ng/mL Troponin I (0.000-0.034) ng/mL 08/15/17 08/15/17 Range/Units 09:06 09:06 WBC 17.7 H (3.8-10.6) k/uL RDW 15.7 H (11.5-15.5) % Neutrophils # 16.6 H (1.3-7.7) k/uL Lymphocytes # 0.6 L (1.0-4.8) k/uL D-Dimer 0.70 H (<0.60) mg/L FEU ABG pH (7.35-7.45) ABG pCO2 (35-45) mmHg ABG HCO3 (21-25) mmol/L ABG Total CO2 (19-24) mmol/L BUN (9-20) mg/dL Glucose (74-99) mg/dL POC Glucose (mg/dL) (75-99) mg/dL AST (17-59) U/L Total Creatine Kinase (55-170) U/L CK-MB (CK-2) (0.0-2.4) ng/mL Troponin I (0.000-0.034) ng/mL Assessment and Plan Plan: -Acute hypercapnic respiratory failure: Secondary to COPD exacerbation patient systemic steroids and inhalational treatments and the is on levofloxacin for bronchitis patient was unable to tell me what antibiotics he was on as an outpatient. -Acute non-ST elevation myocardial infarction: Patient is on nitroglycerin in and beta sofi -Possible upper GI bleed patient is on Protonix for peptic ulcer disease -Possible benign prostatic hypertrophy with dribbling patient is already in tamsulosin and he will need evaluation by urology as an outpatient. -Past his vision reflux disease -Restless leg syndrome -Coronary artery disease, CABG in the past -History of DVT in the past patient is presently not on any anticoagulation next and-CVA TIA in the past -Primary osteoarthritis -Sleep apnea uses CPAP machine which will be continued
[2017-08-15 12:13] LABS: Glucose,Whole Blood 183 mg/dL (75-99)
[2017-08-15 14:34] LABS: Hemoglobin A1C 7.6 % (4.0-6.0)
--- NOTE | 2017-08-15 15:08 | P.PN ---
Progress Note - Text Progress Note Date: 08/15/17 This is an addendum to the earlier dictated cardiology consultation done by Dr. Forman. We are holding off on starting heparin due to GI bleeding. We have also changing metoprolol to IV metoprolol due to patient being nothing by mouth with NG tube. The above dictated assessment and findings were discussed with signing physician. The impression and plan of care have been directed as dictated. Chhaya Delgadillo, Nurse Practitioner, acting as scribe for signing physician.
[2017-08-15 16:51] LABS: Glucose,Whole Blood 159 mg/dL (75-99)
[2017-08-15] MEDS: PRAMIPEXOLE DI HCL 0.75 MG PO SCH (20:00)
[2017-08-15] MEDS: diphenhydrAMINE 25 MG CAP PO SCH (20:01)
[2017-08-15] MEDS: TAMSULOSIN 0.4 MG CAP.ER.24H PO SCH (20:01)
[2017-08-15] MEDS: EZETIMIBE 10 MG TAB PO SCH (20:01)
[2017-08-15] MEDS: ATORVASTATIN 20 MG TAB PO SCH (20:01)
[2017-08-15 21:15] LABS: Glucose,Whole Blood 180 mg/dL (75-99)
[2017-08-16 06:29] LABS: Glucose,Whole Blood 186 mg/dL (75-99)
[2017-08-16] MEDS: methylPREDNISolone SOD SUCCI 125 MG/2 ML VIAL IV SCH ×4 (06:39→23:44)
[2017-08-16] MEDS: INSULIN ASPART 100 UNIT/ML 1 ML 10 ML VIAL SQ SCH ×4 (06:42→21:33)
[2017-08-16 06:54] LABS: Basophils % (A) 0 %; Eosinophils % (A) 0 %; HCT 40.8 % (39.0-53.0); HGB 13.6 gm/dL (13.0-17.5); Lymphocytes # (A) 0.6 k/uL (1.0-4.8); Lymphocytes % (A) 4 %; MCH 29.5 pg (25.0-35.0); MCHC 33.3 g/dL (31.0-37.0); MCV 88.7 fL (80.0-100.0); Mean Platelet Volume 6.7; Monocytes # (A) 0.4 k/uL (0-1.0); Monocytes % (A) 3 %; Neutrophils % (A) 93 %; Platelet Count 181 k/uL (150-450); RDW 15.5 % (11.5-15.5); WBC 15.2 k/uL (3.8-10.6)
[2017-08-16 07:13] LABS: Albumin 3.5 g/dL (3.5-5.0); Calcium 8.9 mg/dL (8.4-10.2); Total Bilirubin 0.5 mg/dL (0.2-1.3)
[2017-08-16] MEDS: SYMBICORT 160-4.5 MCG INHALER INHALATION SCH ×2 (07:51→19:53)
[2017-08-16] MEDS: IPRATROPIUM-ALBUTEROL 3 ML NEB INHALATION SCH ×3 (07:51→19:55)
[2017-08-16] MEDS: PANTOPRAZOLE 40 MG/10 ML VIAL IVP SCH ×2 (09:42→20:01)
[2017-08-16] MEDS: POTASSIUM CHLORIDE ER 20 MEQ TAB.ER PO SCH ×3 (09:42→20:01)
[2017-08-16] MEDS: METOPROLOL TARTRATE 25 MG TAB PO SCH ×2 (09:42→20:00)
[2017-08-16] MEDS: LISINOPRIL 10 MG TAB PO SCH (09:42)
[2017-08-16] MEDS: LEVOFLOXACIN 500 MG TAB PO SCH (09:42)
[2017-08-16] MEDS: ASPIRIN 81 MG PO SCH (09:42)
[2017-08-16] MEDS: METOPROLOL TARTRATE 5 MG/5 ML VIAL IVP SCH (09:50)
--- NOTE | 2017-08-16 10:42 | PN ---
PROGRESS NOTE DATE OF SERVICE: 08/16/2017 Patient is an 81-year-old pleasant white male admitted to the hospital because of shortness of breath, COPD exacerbation and coffee-ground emesis. He had about 3 episodes of coffee-ground emesis and in the emergency room he had an NG tube placed and since then he had approximately 400 mL of initially coffee-ground material that was aspirated and subsequently it has been bilious since yesterday. This morning, the patient still has an NG tube in place. He denies any abdominal pain, reports no nausea. States he is feeling hungry. PHYSICAL EXAMINATION: He appears comfortable, in no apparent distress. Vital signs are stable. Blood pressure is 137/58, pulse 89, temperature 97.4. HEENT EXAMINATION: Unremarkable, conjunctivae are pink, sclerae nonicteric, oral cavity no lesions. NECK: No JVD or lymph node enlargement. Chest was clear to auscultation. HEART: Regular rate and rhythm. Abdomen is slightly distended, but was very soft. Bowel sounds were positive. No organomegaly. Nontender. EXTREMITIES: No pedal edema. SKIN: No rashes. NEURO: Alert and oriented x3. No focal deficits. LABS: From today, WBC 15.2, hemoglobin 13.6, platelets are normal. PT, INR is 1.1, BUN is 52, creatinine 1.35. Troponin was elevated at 6. Cardiology has been following the patient closely. IMPRESSION: 1. Acute upper gastrointestinal bleed with coffee-grounds emesis for the last 2 days' duration, but clinically and hemodynamically he is stable, last hemoglobin was 13.5 g/dL. NG tube has bilious drainage for the last 24 hours. 2. Elevated troponin. Cardiology following the patient closely. 3. Exacerbation of chronic obstructive pulmonary disease/congestive heart failure. RECOMMENDATIONS: 1. DC NG tube and start him on a clear liquid diet. 2. Continue Protonix 40 mg daily. 3. No plans for any endoscopic intervention at the present time. However, we will follow the patient closely during his hospital stay. MMODL / IJN: [id number] /
[2017-08-16 11:50] LABS: Glucose,Whole Blood 196 mg/dL (75-99)
--- NOTE | 2017-08-16 13:38 | P.PN ---
Subjective Progress Note Date: 08/16/17 Principal diagnosis: Acute exacerbation of chronic obstructive pulmonary disease, urinary retention, abdominal discomfort This is a very pleasant 81-year-old gentleman who follows with Dr. Roque as his primary care physician. He has a history of coronary artery disease, hypertension, hyperlipidemia, cor pulmonale, systolic congestive heart failure, chronic dyspnea on exertion. He was last seen on 07/31/2017 in the office. He was treated for an acute exacerbation of COPD. He was actually recommended inpatient treatment back then but had refused. He was treated with Depo-Medrol injection, prednisone burst and taper and Cipro. Chest x-ray revealed no acute pulmonary process. He was felt to be somewhat dehydrated. His Zaroxolyn was discontinued. He presented here to the emergency room yesterday with complaints of increasing shortness of breath, cough and congestion. Chest x- ray done revealing chronic changes without evidence of acute pulmonary disease. He is also having some complaints of abdominal discomfort and distention. Last evening the patient developed chest discomfort and increasing shortness of breath. He was initiated on a nitroglycerin drip at 10 mcg/m. Given IV Lasix. Arterial blood gases revealed a pO2 of 91, pCO2 34, pH 7.50 and 32% FiO2. Nasaorogastric tube was inserted with coffee-ground secretion returned. He is on Protonix 40 mg IV push twice a day. Abdominal x-ray revealed possible ascites. Ultrasound of the abdomen revealed no ascites evident. He had been seen and evaluated by cardiology as his troponin is elevated at 6.3. EKG reveals extensive ST and T-wave abnormalities possible subendocardial ischemia. Heparin drip was initiated. Echocardiogram pending. Recently he is resting in bed. He is generally not feeling well overall. His breathing is about the same. He is maintaining good O2 saturations in the 90s on 2 L/m per nasal cannula. He's been afebrile. Tachycardic. Tachypneic. White count 17.7. Hemoglobin 13.5. Creatinine 1.10. The patient is seen again today 08/16/2017 in follow-up on the selective care unit. He remains awake and alert in no acute distress. He has had some ongoing issues with abdominal distention. No real discomfort. He was noted to have an acute upper gastrointestinal bleed with coffee-ground emesis. NG tube had bilious drainage in the past 24 hours. GI services on the case. No plans for endoscopy at this time. Cardiology is following as well due to his non-ST segment elevation myocardial infarction. He does remain off heparin for now due to the GI bleed. He is less short of breath today as compared to yesterday. He is maintaining good O2 saturations in the 90s on 2 L/m per nasal cannula. His been afebrile. Hemodynamically stable. He denies any chest pain , palpitations lightheadedness or dizziness. White count 15.2. Hemoglobin 13.6. Creatinine 1.35. Objective - Vital Signs Vital signs: Vital Signs Temp 97.2 F L 08/16/17 08:00 Pulse 76 08/16/17 13:25 Resp 18 08/16/17 08:00 BP 132/57 08/16/17 08:00 Pulse Ox 93 L 08/16/17 08:00 Intake & Output 08/15/17 08/16/17 08/16/17 18:59 06:59 18:59 Intake Total 61.9 Output Total 600 Balance -600 61.9 Weight 96 kg Intake: Intake, IV Titration 61.9 Amount Nitroglycerin-D5w Pmx 50 61.9 mg In Dextrose/Water 1 250ml.bag @ 10 MCG/MIN 3 mls/hr IV .Q24H [facility] Rx#: [id number] Output: Gastric Drainage 600 Other: Voiding Method Indwelling Catheter Indwelling Catheter Indwelling Catheter - Exam GENERAL EXAM: Obese. Alert, fairly comfortable in no apparent distress. HEAD: Normocephalic. EYES: Normal reaction of pupils, equal size. NOSE: Nasogastric tube secured in place. Clear with pink turbinates. THROAT: No erythema or exudates. NECK: No masses, no JVD. CHEST: No chest wall deformity. LUNGS: Equal air entry with expiratory wheeze. Diminished. CVS: S1 and S2 normal with no audible murmur, regular rhythm. ABDOMEN: No hepatosplenomegaly, normal bowel sounds, no guarding or rigidity. SPINE: No scoliosis or deformity SKIN: No rashes CENTRAL NERVOUS SYSTEM: No focal deficits, tone is normal in all 4 extremities. EXTREMITIES: There is 2+ peripheral edema. No clubbing, no cyanosis. Peripheral pulses are intact. - Labs CBC & Chem 7: 08/16/17 05:55 08/16/17 05:55 Labs: Abnormal Lab Results - Last 24 Hours (Table) 08/15/17 08/15/17 08/15/17 Range/Units 02:42 16:41 21:00 WBC (3.8-10.6) k/uL Neutrophils # (1.3-7.7) k/uL Lymphocytes # (1.0-4.8) k/uL Carbon Dioxide (22-30) mmol/L BUN (9-20) mg/dL Creatinine (0.66-1.25) mg/dL Glucose (74-99) mg/dL POC Glucose (mg/dL) 159 H 180 H (75-99) mg/dL Hemoglobin A1c 7.6 H (4.0-6.0) % Total Protein (6.3-8.2) g/dL 08/16/17 08/16/17 08/16/17 Range/Units 05:55 05:55 06:08 WBC 15.2 H (3.8-10.6) k/uL Neutrophils # 14.0 H (1.3-7.7) k/uL Lymphocytes # 0.6 L (1.0-4.8) k/uL Carbon Dioxide 31 H (22-30) mmol/L BUN 52 H (9-20) mg/dL Creatinine 1.35 H (0.66-1.25) mg/dL Glucose 193 H (74-99) mg/dL POC Glucose (mg/dL) 186 H (75-99) mg/dL Hemoglobin A1c (4.0-6.0) % Total Protein 6.0 L (6.3-8.2) g/dL 08/16/17 Range/Units 11:44 WBC (3.8-10.6) k/uL Neutrophils # (1.3-7.7) k/uL Lymphocytes # (1.0-4.8) k/uL Carbon Dioxide (22-30) mmol/L BUN (9-20) mg/dL Creatinine (0.66-1.25) mg/dL Glucose (74-99) mg/dL POC Glucose (mg/dL) 196 H (75-99) mg/dL Hemoglobin A1c (4.0-6.0) % Total Protein (6.3-8.2) g/dL Assessment and Plan Assessment: Assessment: #1. 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 #2. Acute non-ST segment elevation myocardial infarction. Initiated on a heparin drip and then discontinued due to GI bleed. On nitroglycerin drip. Echocardiogram reveals preserved left ventricular systolic function with ejection fraction 55-60%.. #3. Obstructive sleep apnea, noncompliant with CPAP therapy #4. History of coronary artery disease, with history of coronary artery bypass grafting in the past #5. Chronic systolic congestive heart failure #6. CVA/TIA #7. Hyperlipidemia, hypertension #8. Osteoarthritis #9. History of DVTs and pulmonary embolisms #10. Restless leg syndrome #11. GERD/reflux, hiatal hernia repair #12. Nicotine dependence, in remission #13. Urinary retention, secondary to BPH, on Flomax Plan: The patient was seen and evaluated by Dr. Dasilva. We'll continue with DuoNeb inhalations 4 times a day and when necessary, Symbicort, IV Solu-Medrol, empiric antibiotics in the form of Levaquin. We will continue to monitor him closely here on the selective care unit. Cardiology is following as well. Heparin drip discontinued due to upper GI bleed. Nasogastric tube in place. No plans for endoscopy at this time. We'll continue to follow make further recommendations based on his clinical status. I, the cosigning physician, performed a history & physical examination of the patient. Lungs sounds have bilateral end expiratory wheeze. Diminished. Maintaining good O2 saturations in the 90s on 2 L/m per nasal cannula. I discussed the assessment and plan of care with my nurse practitioner, Lela Whiting. I attest to the above note as dictated by her.
[2017-08-16] MEDS ORDERED: HEPARIN SODIUM,PORCINE 5,000 UNIT/ML 1 ML VIAL IV PRN (13:39)
--- NOTE | 2017-08-16 13:45 | P.PN ---
Subjective Progress Note Date: 08/16/17 This is a pleasant 81-year-old gentleman who was admitted to the hospitalist and shortness of breath for the last 2 weeks. Lately his reason for coming to the emergency department had to do with urinary incontinence. He was admitted to the hospital with respiratory failure. We were consulted due to elevated troponin which peaked at 6.3. He denies any chest discomfort palpitations dizziness or syncope. EKG showed sinus tachycardia with PVCs and extensive ST- T wave changes. He follows with Dr. Johnson in the office. He initially had an NG tube placed due to some questionable GI bleeding. He was evaluated by Dr. Camilo Linn this morning and felt not to be positive for GI bleeding and NG tube is being discontinued. He does have a history of CAD, hypertension, rheumatoid arthritis, sleep apnea and pulmonary embolism in the past. Echocardiogram done during this admission shows a normal LV systolic function with an ejection fraction between 55-60%. Objective - Vital Signs Vital signs: Vital Signs Temp 97.2 F L 08/16/17 08:00 Pulse 78 08/16/17 13:37 Resp 18 08/16/17 08:00 BP 132/57 08/16/17 08:00 Pulse Ox 93 L 08/16/17 08:00 Intake & Output 08/15/17 08/16/17 08/16/17 18:59 06:59 18:59 Intake Total 61.9 Output Total 600 Balance -600 61.9 Weight 96 kg Intake: Intake, IV Titration 61.9 Amount Nitroglycerin-D5w Pmx 50 61.9 mg In Dextrose/Water 1 250ml.bag @ 10 MCG/MIN 3 mls/hr IV .Q24H [facility] Rx#: [id number] Output: Gastric Drainage 600 Other: Voiding Method Indwelling Catheter Indwelling Catheter Indwelling Catheter - Exam PHYSICAL EXAMINATION: HEENT: Head is atraumatic, normocephalic. Pupils equal, round. Neck is supple. There is no elevated jugular venous pressure. HEART EXAMINATION: Heart sounds regular, S1 and S2 normal. No murmur or gallop heard. CHEST EXAMINATION: Lungs reveal diminished air entry bilaterally. No chest wall tenderness is noted on palpation or with deep breathing. ABDOMEN: Soft, nontender. Bowel sounds are heard. No organomegaly noted. NG tube remains in place at the time of my exam. EXTREMITIES: 2+ peripheral pulses with no evidence of peripheral edema and no calf tenderness noted. NEUROLOGIC patient is awake, alert and oriented x3. . - Labs CBC & Chem 7: 08/16/17 05:55 08/16/17 05:55 Labs: Abnormal Lab Results - Last 24 Hours (Table) 08/15/17 08/15/17 08/15/17 Range/Units 02:42 16:41 21:00 WBC (3.8-10.6) k/uL Neutrophils # (1.3-7.7) k/uL Lymphocytes # (1.0-4.8) k/uL Carbon Dioxide (22-30) mmol/L BUN (9-20) mg/dL Creatinine (0.66-1.25) mg/dL Glucose (74-99) mg/dL POC Glucose (mg/dL) 159 H 180 H (75-99) mg/dL Hemoglobin A1c 7.6 H (4.0-6.0) % Total Protein (6.3-8.2) g/dL 08/16/17 08/16/17 08/16/17 Range/Units 05:55 05:55 06:08 WBC 15.2 H (3.8-10.6) k/uL Neutrophils # 14.0 H (1.3-7.7) k/uL Lymphocytes # 0.6 L (1.0-4.8) k/uL Carbon Dioxide 31 H (22-30) mmol/L BUN 52 H (9-20) mg/dL Creatinine 1.35 H (0.66-1.25) mg/dL Glucose 193 H (74-99) mg/dL POC Glucose (mg/dL) 186 H (75-99) mg/dL Hemoglobin A1c (4.0-6.0) % Total Protein 6.0 L (6.3-8.2) g/dL 08/16/17 Range/Units 11:44 WBC (3.8-10.6) k/uL Neutrophils # (1.3-7.7) k/uL Lymphocytes # (1.0-4.8) k/uL Carbon Dioxide (22-30) mmol/L BUN (9-20) mg/dL Creatinine (0.66-1.25) mg/dL Glucose (74-99) mg/dL POC Glucose (mg/dL) 196 H (75-99) mg/dL Hemoglobin A1c (4.0-6.0) % Total Protein (6.3-8.2) g/dL Assessment and Plan Assessment: #1 shortness of breath, likely related to acute myocardial ischemia #2 non-ST elevated VT #3 known history of CAD #4 chronic obstructive pulmonary disease #5 hypertension #6 hyperlipidemia #7 diabetes Plan: From cardiology's perspective, patient is chest pain free at this time we will discontinue nitroglycerin drip. We will start the patient on a heparin drip and change IV metoprolol to by mouth metoprolol titrate 75 mg by mouth twice a day continue aspirin. We will keep the patient nothing by mouth after midnight tomorrow night and discuss with Dr. Johnson for possible cardiac catheterization on Friday. The above dictated assessment and findings were discussed with signing physician. The impression and plan of care have been directed as dictated. Chhaya Delgadillo, Nurse Practitioner, acting as scribe for signing physician.
[2017-08-16] MEDS ORDERED: HEPARIN SODIUM,PORCINE 5,000 UNIT/ML 1 ML VIAL IV ONE (14:00)
[2017-08-16 14:06] LABS: Basophils % (A) 0 %; Eosinophils % (A) 0 %; HCT 40.1 % (39.0-53.0); HGB 12.5 gm/dL (13.0-17.5); Lymphocytes # (A) 0.6 k/uL (1.0-4.8); Lymphocytes % (A) 4 %; MCH 27.7 pg (25.0-35.0); MCHC 31.1 g/dL (31.0-37.0); MCV 89.1 fL (80.0-100.0); Mean Platelet Volume 7.5; Monocytes # (A) 0.4 k/uL (0-1.0); Monocytes % (A) 2 %; Neutrophils # (A) 14.2 k/uL (1.3-7.7); Neutrophils % (A) 93 %; Platelet Count 188 k/uL (150-450); RDW 15.7 % (11.5-15.5); WBC 15.3 k/uL (3.8-10.6)
[2017-08-16 14:17] LABS: INR 1.1 (<1.2); Partial Thromboplastin Time 22.7 sec (22.0-30.0); Prothrombin Time 10.8 sec (9.0-12.0)
--- NOTE | 2017-08-16 17:15 | P.PN ---
Subjective Patient was admitted for COPD exacerbation and COPD exacerbation did improve a little bit better but patient has multiple overnight events including chest pain patient is found to have highly elevated troponin of 6.8 today which was a third set of troponin. Patient also has upper GI bleed with coffee-ground emesis patient has an NG tube in place diuretics will be discontinued, patient ideally will need heparin because of upper GI bleed heparin is being held patient was started on beta sofi patient is still wheezing wheezing did improve a little bit. Patient does have bowel sounds abdominal x-ray did not show any peritonitis or freeze created in the [place] ultrasound of the abdomen was reviewed. Patient had a little bit of abdominal pain yesterday which completely resolved now chest pain improved now patient is on IV nitroglycerin as well. 08/16/2017 Patient is doing much better today patient's the coffee-ground emesis resolved patient was started on heparin and aspirin. Patient is still wheezing Constitutional: Denied any fatigue denied any fever. Cardio vascular: denied any chest pain, palpitations Gastrointestinal denied any nausea vomiting Pulmonary: Denied any shortness of breath cough Neurologic denied any new focal deficits Objective - Vital Signs Vital signs: Vital Signs Temp 97.0 F L 08/16/17 12:00 Pulse 78 08/16/17 13:37 Resp 18 08/16/17 12:00 BP 123/63 08/16/17 12:00 Pulse Ox 95 08/16/17 12:00 Intake & Output 08/15/17 08/16/17 08/16/17 18:59 06:59 18:59 Intake Total 61.9 340 Output Total 600 Balance -600 61.9 340 Weight 96 kg Intake: Intake, IV Titration 61.9 Amount Nitroglycerin-D5w Pmx 50 61.9 mg In Dextrose/Water 1 250ml.bag @ 10 MCG/MIN 3 mls/hr IV .Q24H [facility] Rx#: [id number] Oral 340 Output: Gastric Drainage 600 Other: Voiding Method Indwelling Catheter Indwelling Catheter Indwelling Catheter - Exam PHYSICAL EXAMINATION: GENERAL: The patient is alert and oriented x3, patient is obtain respiratory distress. Well developed, well nourished. HEENT: Pupils are round and equally reacting to light. EOMI. No scleral icterus. No conjunctival pallor. Normocephalic, atraumatic. No pharyngeal erythema. No thyromegaly. CARDIOVASCULAR: S1 and S2 present. No murmurs, rubs, or gallops. PULMONARY: Significantly limited limited air entry into bilateral lung ramírez significant expiratory wheezing was appreciated. wheezing did improve patient is not using any accessory muscles of breathing ABDOMEN: Nondistended nontender. MUSCULOSKELETAL: No joint swelling or deformity. EXTREMITIES: No cyanosis, clubbing, or pedal edema. NEUROLOGICAL: Gross neurological examination did not reveal any focal deficits. SKIN: No rashes. - Labs CBC & Chem 7: 08/16/17 13:56 08/16/17 05:55 Labs: Abnormal Lab Results - Last 24 Hours (Table) 08/15/17 08/16/17 08/16/17 Range/Units 21:00 05:55 05:55 WBC 15.2 H (3.8-10.6) k/uL Hgb (13.0-17.5) gm/dL RDW (11.5-15.5) % Neutrophils # 14.0 H (1.3-7.7) k/uL Lymphocytes # 0.6 L (1.0-4.8) k/uL Carbon Dioxide 31 H (22-30) mmol/L BUN 52 H (9-20) mg/dL Creatinine 1.35 H (0.66-1.25) mg/dL Glucose 193 H (74-99) mg/dL POC Glucose (mg/dL) 180 H (75-99) mg/dL Total Protein 6.0 L (6.3-8.2) g/dL 08/16/17 08/16/17 08/16/17 Range/Units 06:08 11:44 13:56 WBC 15.3 H (3.8-10.6) k/uL Hgb 12.5 L (13.0-17.5) gm/dL RDW 15.7 H (11.5-15.5) % Neutrophils # 14.2 H (1.3-7.7) k/uL Lymphocytes # 0.6 L (1.0-4.8) k/uL Carbon Dioxide (22-30) mmol/L BUN (9-20) mg/dL Creatinine (0.66-1.25) mg/dL Glucose (74-99) mg/dL POC Glucose (mg/dL) 186 H 196 H (75-99) mg/dL Total Protein (6.3-8.2) g/dL Assessment and Plan Plan: -Acute hypercapnic respiratory failure: Secondary to COPD exacerbation patient systemic steroids and inhalational treatments and the is on levofloxacin for bronchitis patient was unable to tell me what antibiotics he was on as an outpatient. -Acute non-ST elevation myocardial infarction: Patient is on nitroglycerin in and beta sofi, was started on aspirin and the IV heparin as his GI bleed improved -Possible upper GI bleed patient is on Protonix, nausea vomiting and coffee- ground emesis resolved -Possible benign prostatic hypertrophy with dribbling patient is already in tamsulosin and he will need evaluation by urology as an outpatient. -Past his vision reflux disease -Restless leg syndrome -Coronary artery disease, CABG in the past -History of DVT in the past patient is presently not on any anticoagulation next and-CVA TIA in the past -Primary osteoarthritis -Sleep apnea uses CPAP machine which will be continued
[2017-08-16 17:21] LABS: Glucose,Whole Blood 216 mg/dL (75-99)
[2017-08-16] MEDS: HEPARIN SOD,PORK IN 0.45% NACL 25,000 UNIT in 0.45% NACL 1 500ML.BAG IV SCH ×2 (17:23→17:39)
[2017-08-16] MEDS: ATORVASTATIN 20 MG TAB PO SCH (20:00)
[2017-08-16] MEDS: EZETIMIBE 10 MG TAB PO SCH (20:00)
[2017-08-16] MEDS: diphenhydrAMINE 25 MG CAP PO SCH (20:00)
[2017-08-16] MEDS: TAMSULOSIN 0.4 MG CAP.ER.24H PO SCH (20:01)
[2017-08-16] MEDS: ONDANSETRON 4 MG/2 ML VIAL IVP PRN (20:04)
[2017-08-16 21:04] LABS: Glucose,Whole Blood 183 mg/dL (75-99)
[2017-08-16] MEDS: PRAMIPEXOLE DI HCL 0.75 MG PO SCH (21:55)
[2017-08-16] MEDS ORDERED: MELATONIN 5 MG TABLET PO ONE (23:43)
[2017-08-17] MEDS: ONDANSETRON 4 MG/2 ML VIAL IVP PRN ×3 (01:15→23:20)
[2017-08-17 04:21] LABS: Calcium 8.9 mg/dL (8.4-10.2)
[2017-08-17 04:33] LABS: Basophils % (A) 0 %; Eosinophils % (A) 0 %; HGB 13.8 gm/dL (13.0-17.5); Lymphocytes # (A) 0.4 k/uL (1.0-4.8); Lymphocytes % (A) 3 %; MCH 29.8 pg (25.0-35.0); MCHC 33.8 g/dL (31.0-37.0); MCV 88.4 fL (80.0-100.0); Mean Platelet Volume 7.2; Monocytes # (A) 0.5 k/uL (0-1.0); Monocytes % (A) 4 %; Neutrophils # (A) 12.6 k/uL (1.3-7.7); Neutrophils % (A) 93 %; Platelet Count 169 k/uL (150-450); RBC 4.64 m/uL (4.30-5.90); RDW 15.4 % (11.5-15.5); WBC 13.6 k/uL (3.8-10.6)
[2017-08-17 05:51] LABS: Glucose,Whole Blood 214 mg/dL (75-99)
[2017-08-17] MEDS: INSULIN ASPART 100 UNIT/ML 1 ML 10 ML VIAL SQ SCH ×4 (06:28→21:34)
[2017-08-17] MEDS: methylPREDNISolone SOD SUCCI 125 MG/2 ML VIAL IV SCH ×4 (06:29→23:17)
[2017-08-17] MEDS: ASPIRIN 81 MG PO SCH (07:52)
[2017-08-17] MEDS: LISINOPRIL 10 MG TAB PO SCH (07:52)
[2017-08-17] MEDS: LEVOFLOXACIN 500 MG TAB PO SCH (07:52)
[2017-08-17] MEDS: PANTOPRAZOLE 40 MG/10 ML VIAL IVP SCH ×2 (07:53→21:34)
[2017-08-17] MEDS: METOPROLOL TARTRATE 25 MG TAB PO SCH ×2 (07:53→21:34)
[2017-08-17] MEDS: POTASSIUM CHLORIDE ER 20 MEQ TAB.ER PO SCH ×3 (07:54→21:34)
[2017-08-17] MEDS: IPRATROPIUM-ALBUTEROL 3 ML NEB INHALATION SCH ×3 (08:47→19:58)
[2017-08-17] MEDS: SYMBICORT 160-4.5 MCG INHALER INHALATION SCH ×2 (08:47→19:58)
--- NOTE | 2017-08-17 10:55 | P.PN ---
Subjective Progress Note Date: 08/17/17 Principal diagnosis: Shortness of breath Progress note dated 08/17/2017 81-year-old male with a history of advanced oxygen-dependent COPD. His FEV1 which is 40% of predicted. He came into the hospital with acute exacerbation of COPD. He also was thought to have an acute non-ST; elevation myocardial infarction. He had preserved ventricular systolic function with ejection fraction of 55-60%. In addition to all of that, he does have a history of sleep apnea for which he uses CPAP, CAD with previous bypass grafting in the past, CVA, hyperlipidemia, osteoarthritis, history of DVT and pulmonary embolism , restless leg syndrome, GERD, chronic nicotine dependence, and urinary retention secondary to BPH. The patient will continue on updrafts as Symbicort and IV Solu-Medrol. In addition we'll continue on Levaquin antibiotic. The patient been followed by cardiology. The patient seemed be been a bit more awake and alert today. Denies complaints. No chest pain or shortness of breath. No nausea vomiting or diarrhea. No chest pain or chest pressure. Objective - Vital Signs Vital signs: Vital Signs Temp 97.5 F L 08/17/17 08:00 Pulse 88 08/17/17 08:58 Resp 18 08/17/17 08:00 BP 138/81 08/17/17 08:00 Pulse Ox 91 L 08/17/17 08:00 Intake & Output 08/16/17 08/17/17 08/17/17 18:59 06:59 18:59 Intake Total 340 135 Output Total 1400 Balance 340 -1265 Weight 95 kg Intake: Intake, IV Titration 135 Amount Heparin Sod,Pork in 0.45% 135 NaCl 25,000 unit In 0.45 % NaCl 1 500ml.bag @ 10. 417 UNITS/KG/HR 20 mls/hr IV .Q24H [facility] Rx#: [id number] Oral 340 Output: Urine 1400 Other: Voiding Method Indwelling Catheter Indwelling Catheter Indwelling Catheter - Exam No acute distress, oriented 3. Nasal O2 in place. HEENT examination is grossly unremarkable. Mucous membranes are moist. No oral lesions. Neck supple. Full range of motion. No adenopathy thyromegaly or neck vein distention. Cardiovascular examination reveals regular rhythm rate. S1-S2 normal. No S3 or S4. No discernible murmur noted. Heart sounds are distant. Lungs reveal diminished breath sounds throughout. A few scattered rhonchi are noted. No crackles or wheezes. Breath sounds are equal bilaterally. Abdomen soft bowel sounds are heard. No masses or tenderness. Extremities are intact. No cyanosis or clubbing. 1-2+ pitting edema is noted in the extremities. Skin is without rash or lesion. Neurologic examination is brief but nonfocal. - Labs CBC & Chem 7: 08/17/17 03:37 08/17/17 03:37 Labs: Abnormal Lab Results - Last 24 Hours (Table) 08/16/17 08/16/17 08/16/17 Range/Units 11:44 13:56 16:58 WBC 15.3 H (3.8-10.6) k/uL Hgb 12.5 L (13.0-17.5) gm/dL RDW 15.7 H (11.5-15.5) % Neutrophils # 14.2 H (1.3-7.7) k/uL Lymphocytes # 0.6 L (1.0-4.8) k/uL APTT (22.0-30.0) sec BUN (9-20) mg/dL Glucose (74-99) mg/dL POC Glucose (mg/dL) 196 H 216 H (75-99) mg/dL 08/16/17 08/16/17 08/17/17 Range/Units 20:56 22:56 03:37 WBC 13.6 H (3.8-10.6) k/uL Hgb (13.0-17.5) gm/dL RDW (11.5-15.5) % Neutrophils # 12.6 H (1.3-7.7) k/uL Lymphocytes # 0.4 L (1.0-4.8) k/uL APTT 32.7 H (22.0-30.0) sec BUN (9-20) mg/dL Glucose (74-99) mg/dL POC Glucose (mg/dL) 183 H (75-99) mg/dL 08/17/17 08/17/17 08/17/17 Range/Units 03:37 03:37 05:48 WBC (3.8-10.6) k/uL Hgb (13.0-17.5) gm/dL RDW (11.5-15.5) % Neutrophils # (1.3-7.7) k/uL Lymphocytes # (1.0-4.8) k/uL APTT 53.4 H (22.0-30.0) sec BUN 53 H (9-20) mg/dL Glucose 225 H (74-99) mg/dL POC Glucose (mg/dL) 214 H (75-99) mg/dL Assessment and Plan Assessment: Assessment Acute exacerbation of COPD, complicated by purulent tracheobronchitis in a patient with stage III COPD Acute non-ST; elevation myocardial infarction Sleep apnea syndrome, noncompliant with CPAP History of CAD previous bypass grafting History of CVA History of hyperlipidemia History of hypertension DJD History of DVT/pulmonary embolus him History of restless leg syndrome History of GERD History of urinary retention secondary to BPH Plan: Plan dated 08/17/2017 The patient will continue on current medications. He seems be doing a bit better. He'll continue on oxygen as well as updrafts Symbicort and corticosteroids as well as empiric antibiotics. The patient's heparin drip was discontinued because of the upper GI bleed. The NG tube remains in place. No plans for endoscopy at this time. Cardiology is following for what is thought to be a non-ST segment elevation myocardial infarction. Prognosis is very guarded. Time with Patient: Less than 30
--- NOTE | 2017-08-17 11:22 | CONS ---
CONSULTATION This is an 81-year-old gentleman who was admitted to hospital with shortness of breath and ruled in for myocardial infarction. EKG shows sinus tachycardia, with extensive ST- T wave changes. Patient has known coronary artery disease and had prior bypass surgery. An echocardiogram on him showed normal LV function. At the time of my evaluation this morning, he is comfortable at rest and is free of chest pain. PHYSICAL EXAMINATION: On exam, comfortable at rest. Vital signs are stable. Chest exam reveals good air entry bilaterally. Heart exam reveals first and second heart sounds. No gallop. Examination of extremities did not reveal any edema. Peripheral pulses are palpable. LABS: Labs show a hemoglobin of 13.8, BUN is 53, creatinine is 1.2. ASSESSMENT: 1. Acute non ST-segment elevation myocardial infarction. 2. Chronic obstructive pulmonary disease exacerbation. PLAN: I will continue the patient on IV heparin, IV nitro, beta blockers. Patient will continue the antibiotics and the steroids. Once the COPD improves, we might consider doing a cardiac catheterization on him. CALOS / IJN: [id number] /
[2017-08-17 12:06] LABS: Glucose,Whole Blood 182 mg/dL (75-99)
--- NOTE | 2017-08-17 12:43 | PN ---
PROGRESS NOTE DATE OF SERVICE: August 17, 2017 Patient is an 81-year-old pleasant white male admitted to the hospital with nausea, vomiting, abdominal pain and shortness of breath. He had several episodes of coffee ground emesis. Initially had an NG tube placed and approximately 400 mL of coffee ground material was aspirated history. Yesterday the NG tube was removed. He was started on a liquid diet and he is tolerating well. He has no further episodes of abdominal pain. He reports no nausea, vomiting. He denies any rectal bleeding or melena. In fact, he did not have any bowel movements for the last 2 days. PHYSICAL EXAMINATION: He appears comfortable in no apparent distress. Vital signs stable. Blood pressure is 138/82, pulse 73, temperature 97.5, HEENT examination unremarkable. Conjunctivae pink. Sclerae anicteric. Oral cavity no lesions. Neck no JVD or lymph node enlargement. Chest was clear to auscultation. HEART: Regular rate and rhythm. ABDOMEN: Soft. Bowel sounds are positive. No organomegaly. Extremities: No pedal edema. Skin no rashes. NEUROLOGIC: Alert and oriented x3. No focal deficits. LABS: Done today, hemoglobin is 13.8, WBC 13.6, and platelets are normal. IMPRESSION: 1. Coffee-grounds emesis of one day duration, probably related to gastritis/esophagitis. Patient currently doing well. No further episodes of bleeding, on clear liquid diet, tolerating well. Hemoglobin stable at 13.8 g/dL. 2. Elevated troponin/acute myocardial infarction. Cardiology following the patient closely. 3. Exacerbation of chronic obstructive pulmonary disease. RECOMMENDATIONS: 1. Advance diet as tolerated. 2. Continue Protonix 40 mg twice daily. 3. No plans for endoscopy intervention at this present time. 4. For now, we will sign off. Please call us if needed if he has any rectal bleeding. Thank you for this consultation. MMODL / IJN: [id number] /
--- NOTE | 2017-08-17 12:54 | P.PN ---
Subjective Patient was admitted for COPD exacerbation and COPD exacerbation did improve a little bit better but patient has multiple overnight events including chest pain patient is found to have highly elevated troponin of 6.8 today which was a third set of troponin. Patient also has upper GI bleed with coffee-ground emesis patient has an NG tube in place diuretics will be discontinued, patient ideally will need heparin because of upper GI bleed heparin is being held patient was started on beta sofi patient is still wheezing wheezing did improve a little bit. Patient does have bowel sounds abdominal x-ray did not show any peritonitis or freeze created in the [place] ultrasound of the abdomen was reviewed. Patient had a little bit of abdominal pain yesterday which completely resolved now chest pain improved now patient is on IV nitroglycerin as well. 08/16/2017 Patient is doing much better today patient's the coffee-ground emesis resolved patient was started on heparin and aspirin. Patient is still wheezing 08/17/2017 Patient's respiratory status and wheezing did improve compared to yesterday. Constitutional: Denied any fatigue denied any fever. Cardio vascular: denied any chest pain, palpitations Gastrointestinal denied any nausea vomiting Pulmonary: Denied any shortness of breath cough Neurologic denied any new focal deficits Objective - Vital Signs Vital signs: Vital Signs Temp 97.5 F L 08/17/17 08:00 Pulse 88 08/17/17 08:58 Resp 18 08/17/17 08:00 BP 138/81 08/17/17 08:00 Pulse Ox 91 L 08/17/17 08:00 Intake & Output 08/16/17 08/17/17 08/17/17 18:59 06:59 18:59 Intake Total 340 135 Output Total 1400 Balance 340 -1265 Weight 95 kg Intake: Intake, IV Titration 135 Amount Heparin Sod,Pork in 0.45% 135 NaCl 25,000 unit In 0.45 % NaCl 1 500ml.bag @ 10. 417 UNITS/KG/HR 20 mls/hr IV .Q24H [facility] Rx#: [id number] Oral 340 Output: Urine 1400 Other: Voiding Method Indwelling Catheter Indwelling Catheter Indwelling Catheter - Exam PHYSICAL EXAMINATION: GENERAL: The patient is alert and oriented x3, patient is obtain respiratory distress. Well developed, well nourished. HEENT: Pupils are round and equally reacting to light. EOMI. No scleral icterus. No conjunctival pallor. Normocephalic, atraumatic. No pharyngeal erythema. No thyromegaly. CARDIOVASCULAR: S1 and S2 present. No murmurs, rubs, or gallops. PULMONARY: Significantly limited limited air entry into bilateral lung ramírez significant expiratory wheezing was appreciated. wheezing did improve patient is not using any accessory muscles of breathing ABDOMEN: Nondistended nontender. MUSCULOSKELETAL: No joint swelling or deformity. EXTREMITIES: No cyanosis, clubbing, or pedal edema. NEUROLOGICAL: Gross neurological examination did not reveal any focal deficits. SKIN: No rashes. - Labs CBC & Chem 7: 08/17/17 03:37 08/17/17 03:37 Labs: Abnormal Lab Results - Last 24 Hours (Table) 08/16/17 08/16/17 08/16/17 Range/Units 13:56 16:58 20:56 WBC 15.3 H (3.8-10.6) k/uL Hgb 12.5 L (13.0-17.5) gm/dL RDW 15.7 H (11.5-15.5) % Neutrophils # 14.2 H (1.3-7.7) k/uL Lymphocytes # 0.6 L (1.0-4.8) k/uL APTT (22.0-30.0) sec BUN (9-20) mg/dL Glucose (74-99) mg/dL POC Glucose (mg/dL) 216 H 183 H (75-99) mg/dL 08/16/17 08/17/17 08/17/17 Range/Units 22:56 03:37 03:37 WBC 13.6 H (3.8-10.6) k/uL Hgb (13.0-17.5) gm/dL RDW (11.5-15.5) % Neutrophils # 12.6 H (1.3-7.7) k/uL Lymphocytes # 0.4 L (1.0-4.8) k/uL APTT 32.7 H (22.0-30.0) sec BUN 53 H (9-20) mg/dL Glucose 225 H (74-99) mg/dL POC Glucose (mg/dL) (75-99) mg/dL 08/17/17 08/17/17 08/17/17 Range/Units 03:37 05:48 10:43 WBC (3.8-10.6) k/uL Hgb (13.0-17.5) gm/dL RDW (11.5-15.5) % Neutrophils # (1.3-7.7) k/uL Lymphocytes # (1.0-4.8) k/uL APTT 53.4 H 77.2 H (22.0-30.0) sec BUN (9-20) mg/dL Glucose (74-99) mg/dL POC Glucose (mg/dL) 214 H (75-99) mg/dL 08/17/17 Range/Units 12:00 WBC (3.8-10.6) k/uL Hgb (13.0-17.5) gm/dL RDW (11.5-15.5) % Neutrophils # (1.3-7.7) k/uL Lymphocytes # (1.0-4.8) k/uL APTT (22.0-30.0) sec BUN (9-20) mg/dL Glucose (74-99) mg/dL POC Glucose (mg/dL) 182 H (75-99) mg/dL Assessment and Plan Plan: -Acute hypercapnic respiratory failure: Secondary to COPD exacerbation patient systemic steroids and inhalational treatments and the is on levofloxacin for bronchitis. -Acute non-ST elevation myocardial infarction: Patient is on nitroglycerin in and beta sofi, was started on aspirin and the IV heparin as his GI bleed improved. Patient probably will undergo cardiac the patient tomorrow -Possible upper GI bleed patient is on Protonix, nausea vomiting and coffee- ground emesis resolved -Possible benign prostatic hypertrophy with dribbling patient is already in tamsulosin and he will need evaluation by urology as an outpatient. -Past his vision reflux disease -Restless leg syndrome -Coronary artery disease, CABG in the past -History of DVT in the past patient is presently not on any anticoagulation next and-CVA TIA in the past -Primary osteoarthritis -Sleep apnea uses CPAP machine which will be continued
[2017-08-17] MEDS: HEPARIN SOD,PORK IN 0.45% NACL 25,000 UNIT in 0.45% NACL 1 500ML.BAG IV SCH (17:09)
[2017-08-17 17:24] LABS: Glucose,Whole Blood 192 mg/dL (75-99)
[2017-08-17 20:58] LABS: Glucose,Whole Blood 183 mg/dL (75-99)
[2017-08-17] MEDS: diphenhydrAMINE 25 MG CAP PO SCH (21:34)
[2017-08-17] MEDS: TAMSULOSIN 0.4 MG CAP.ER.24H PO SCH (21:34)
[2017-08-17] MEDS: PRAMIPEXOLE DI HCL 0.75 MG PO SCH (21:34)
[2017-08-17] MEDS: EZETIMIBE 10 MG TAB PO SCH (21:34)
[2017-08-17] MEDS: ATORVASTATIN 20 MG TAB PO SCH (21:34)
[2017-08-18 06:13] LABS: Glucose,Whole Blood 213 mg/dL (75-99)
[2017-08-18] MEDS: methylPREDNISolone SOD SUCCI 125 MG/2 ML VIAL IV SCH ×2 (06:36→11:50)
[2017-08-18] MEDS: INSULIN ASPART 100 UNIT/ML 1 ML 10 ML VIAL SQ SCH ×4 (06:39→21:11)
[2017-08-18 06:46] LABS: Basophils % (A) 0 %; Eosinophils % (A) 0 %; HCT 36.1 % (39.0-53.0); HGB 11.9 gm/dL (13.0-17.5); Lymphocytes # (A) 0.5 k/uL (1.0-4.8); Lymphocytes % (A) 6 %; MCH 29.1 pg (25.0-35.0); Mean Platelet Volume 7.2; Monocytes # (A) 0.4 k/uL (0-1.0); Monocytes % (A) 4 %; Neutrophils # (A) 8.2 k/uL (1.3-7.7); Neutrophils % (A) 90 %; Platelet Count 156 k/uL (150-450); RDW 15.1 % (11.5-15.5); WBC 9.1 k/uL (3.8-10.6)
[2017-08-18] MEDS: METOPROLOL TARTRATE 25 MG TAB PO SCH ×2 (08:10→21:12)
[2017-08-18] MEDS: LISINOPRIL 10 MG TAB PO SCH (08:10)
[2017-08-18] MEDS: ASPIRIN 81 MG PO SCH (08:10)
[2017-08-18] MEDS: LEVOFLOXACIN 500 MG TAB PO SCH (08:10)
[2017-08-18] MEDS: PANTOPRAZOLE 40 MG/10 ML VIAL IVP SCH ×2 (08:10→21:13)
[2017-08-18] MEDS: POTASSIUM CHLORIDE ER 20 MEQ TAB.ER PO SCH ×3 (08:11→21:12)
[2017-08-18 08:16] LABS: Albumin 2.8 g/dL (3.5-5.0); Calcium 8.5 mg/dL (8.4-10.2); Potassium 4.3 mmol/L (3.5-5.1); Total Bilirubin 0.6 mg/dL (0.2-1.3); Total Protein 5.2 g/dL (6.3-8.2)
[2017-08-18] MEDS ORDERED: ATORVASTATIN 80 MG TAB PO STA (09:53)
[2017-08-18] MEDS ORDERED: SODIUM CHLORIDE 0.9% 1,000 ML in EMPTY BAG 1 BAG IV ONE (09:53)
[2017-08-18] MEDS ORDERED: ASPIRIN 325 MG TAB PO STA (09:53)
[2017-08-18] MEDS ORDERED: NITROGLYCERIN SL TABS 0.4 MG TAB SUBLINGUAL PRN (09:53)
[2017-08-18] MEDS ORDERED: ALPRAZolam 0.5 MG TAB PO PRN (09:53)
[2017-08-18] MEDS ORDERED: ALPRAZolam 0.25 MG TAB PO PRN (09:53)
[2017-08-18] MEDS: IPRATROPIUM-ALBUTEROL 3 ML NEB INHALATION SCH ×3 (11:15→20:48)
[2017-08-18] MEDS: SYMBICORT 160-4.5 MCG INHALER INHALATION SCH ×2 (11:15→20:48)
--- NOTE | 2017-08-18 11:35 | PN ---
PROGRESS NOTE Sim is an 81-year-old gentleman with history of CAD status post CABG, who was admitted to hospital with COPD exacerbation, had cough, productive sputum. He also had nausea, vomiting, and abdominal discomfort. Initially, there was a concern about whether he had upper GI bleed, but his hemoglobin remained stable and the coffee-ground material has resolved. Patient after the admission had an episode of chest pain and his troponin became elevated at 6, was treated with heparin and nitro and he has not had further episodes of chest pain. At the time of my evaluation this morning, patient appears comfortable at rest. Afebrile, but the cough and the productive sputum have improved. PHYSICAL EXAM: Patient is comfortable at rest. Vital signs are stable. Chest exam reveals occasional rhonchi bilaterally. Heart exam reveals first and second heart sounds. No gallop. Abdomen is soft. Exam of extremities did not reveal any edema. Peripheral pulses are felt. LABS: Show a potassium of 4.3, BUN is 50, creatinine is 1.1. Hemoglobin is 11.9. ASSESSMENT: 1. Acute non ST-segment elevation myocardial infarction. 2. Chronic obstructive pulmonary disease exacerbation. PLAN: Patient will be treated with heparin inhalers, nebulizers, antibiotics, and I will start him on nitro paste, IV nitro had been stopped. I am going to cath him tomorrow as he says he still has some cough and has a greenish sputum, and I will also hydrate him as his BUN is elevated. MMODL / IJN: [id number] /
[2017-08-18 11:41] LABS: Glucose,Whole Blood 224 mg/dL (75-99)
[2017-08-18] MEDS: SODIUM CHLORIDE 0.9% 1,000 ML IV SCH (11:54)
--- NOTE | 2017-08-18 12:44 | P.PN ---
Subjective Patient was admitted for COPD exacerbation and COPD exacerbation did improve a little bit better but patient has multiple overnight events including chest pain patient is found to have highly elevated troponin of 6.8 today which was a third set of troponin. Patient also has upper GI bleed with coffee-ground emesis patient has an NG tube in place diuretics will be discontinued, patient ideally will need heparin because of upper GI bleed heparin is being held patient was started on beta sofi patient is still wheezing wheezing did improve a little bit. Patient does have bowel sounds abdominal x-ray did not show any peritonitis or freeze created in the [place] ultrasound of the abdomen was reviewed. Patient had a little bit of abdominal pain yesterday which completely resolved now chest pain improved now patient is on IV nitroglycerin as well. 08/16/2017 Patient is doing much better today patient's the coffee-ground emesis resolved patient was started on heparin and aspirin. Patient is still wheezing 08/17/2017 Patient's respiratory status and wheezing did improve compared to yesterday. 08/18/2017 Patient's respiratory status can use to improve patient is overall clinically doing well still has some wheezing but significant improved compared to yesterday and patient will go for cardiac catheterization tomorrow white blood cell count improved Constitutional: Denied any fatigue denied any fever. Cardio vascular: denied any chest pain, palpitations Gastrointestinal denied any nausea vomiting Pulmonary: As mentioned in the interval history Neurologic denied any new focal deficits Objective - Vital Signs Vital signs: Vital Signs Temp 97.7 F 08/18/17 11:38 Pulse 73 08/18/17 11:38 Resp 18 08/18/17 11:38 BP 118/62 08/18/17 11:38 Pulse Ox 94 L 08/18/17 11:38 Intake & Output 08/17/17 08/18/17 08/18/17 18:59 06:59 18:59 Intake Total 835 370.515 Output Total 1400 Balance 835 -1400 370.515 Weight 97.5 kg Intake: Intake, IV Titration 365 370.515 Amount Heparin Sod,Pork in 0.45% 365 370.515 NaCl 25,000 unit In 0.45 % NaCl 1 500ml.bag @ 10. 417 UNITS/KG/HR 20 mls/hr IV .Q24H [facility] Rx#: [id number] Oral 470 Output: Urine 1400 Other: Voiding Method Indwelling Catheter Indwelling Catheter Indwelling Catheter - Exam PHYSICAL EXAMINATION: GENERAL: The patient is alert and oriented x3, patient is obtain respiratory distress. Well developed, well nourished. HEENT: Pupils are round and equally reacting to light. EOMI. No scleral icterus. No conjunctival pallor. Normocephalic, atraumatic. No pharyngeal erythema. No thyromegaly. CARDIOVASCULAR: S1 and S2 present. No murmurs, rubs, or gallops. PULMONARY: Patient still has expiratory wheezing ABDOMEN: Nondistended nontender. MUSCULOSKELETAL: No joint swelling or deformity. EXTREMITIES: No cyanosis, clubbing, or pedal edema. NEUROLOGICAL: Gross neurological examination did not reveal any focal deficits. SKIN: No rashes. - Labs CBC & Chem 7: 08/18/17 06:07 08/18/17 06:07 Labs: Abnormal Lab Results - Last 24 Hours (Table) 08/17/17 08/17/17 08/18/17 Range/Units 17:09 20:57 06:07 RBC 4.10 L (4.30-5.90) m/uL Hgb 11.9 L (13.0-17.5) gm/dL Hct 36.1 L (39.0-53.0) % Neutrophils # 8.2 H (1.3-7.7) k/uL Lymphocytes # 0.5 L (1.0-4.8) k/uL APTT (22.0-30.0) sec BUN (9-20) mg/dL Glucose (74-99) mg/dL POC Glucose (mg/dL) 192 H 183 H (75-99) mg/dL Total Protein (6.3-8.2) g/dL Albumin (3.5-5.0) g/dL 08/18/17 08/18/17 08/18/17 Range/Units 06:07 06:07 06:10 RBC (4.30-5.90) m/uL Hgb (13.0-17.5) gm/dL Hct (39.0-53.0) % Neutrophils # (1.3-7.7) k/uL Lymphocytes # (1.0-4.8) k/uL APTT 109.7 H* (22.0-30.0) sec BUN 50 H (9-20) mg/dL Glucose 219 H (74-99) mg/dL POC Glucose (mg/dL) 213 H (75-99) mg/dL Total Protein 5.2 L (6.3-8.2) g/dL Albumin 2.8 L (3.5-5.0) g/dL 08/18/17 Range/Units 11:36 RBC (4.30-5.90) m/uL Hgb (13.0-17.5) gm/dL Hct (39.0-53.0) % Neutrophils # (1.3-7.7) k/uL Lymphocytes # (1.0-4.8) k/uL APTT (22.0-30.0) sec BUN (9-20) mg/dL Glucose (74-99) mg/dL POC Glucose (mg/dL) 224 H (75-99) mg/dL Total Protein (6.3-8.2) g/dL Albumin (3.5-5.0) g/dL Assessment and Plan Plan: -Acute hypercapnic respiratory failure: Secondary to COPD exacerbation patient systemic steroids and inhalational treatments and the is on levofloxacin for bronchitis. -Acute non-ST elevation myocardial infarction: Patient is on nitroglycerin in and beta sofi, was started on aspirin and the IV heparin as his GI bleed improved. Patient probably will undergo cardiac catheterization tomorrow -Possible upper GI bleed patient is on Protonix, nausea vomiting and coffee- ground emesis resolved -Possible benign prostatic hypertrophy with dribbling patient is already in tamsulosin and he will need evaluation by urology as an outpatient. -Past his vision reflux disease -Restless leg syndrome -Coronary artery disease, CABG in the past -History of DVT in the past patient is presently not on any anticoagulation next and-CVA TIA in the past -Primary osteoarthritis -Sleep apnea uses CPAP machine which will be continued
[2017-08-18 16:59] LABS: Glucose,Whole Blood 249 mg/dL (75-99)
--- NOTE | 2017-08-18 17:03 | P.PN ---
Subjective Progress Note Date: 08/18/17 Principal diagnosis: Acute exacerbation of COPD with tracheobronchitis, acute non-ST elevated AL Progress note dated 08/17/2017 81-year-old male with a history of advanced oxygen-dependent COPD. His FEV1 which is 40% of predicted. He came into the hospital with acute exacerbation of COPD. He also was thought to have an acute non-ST; elevation myocardial infarction. He had preserved ventricular systolic function with ejection fraction of 55-60%. In addition to all of that, he does have a history of sleep apnea for which he uses CPAP, CAD with previous bypass grafting in the past, CVA, hyperlipidemia, osteoarthritis, history of DVT and pulmonary embolism , restless leg syndrome, GERD, chronic nicotine dependence, and urinary retention secondary to BPH. The patient will continue on updrafts as Symbicort and IV Solu-Medrol. In addition we'll continue on Levaquin antibiotic. The patient been followed by cardiology. The patient seemed be been a bit more awake and alert today. Denies complaints. No chest pain or shortness of breath. No nausea vomiting or diarrhea. No chest pain or chest pressure. On 08/18/2017 patient seen in follow-up. He is resting in bed, denies any acute distress. Lung sounds are positive for end expiratory wheezes and a few scattered rales bilaterally. Denies any chest pain, denies fever or chills. Patient is afebrile. Patient is on IV heparin for for his acute non-ST elevated AL. Cardiology is considering heart catheterization in the near future. Patient continues on IV Solu-Medrol, nebulized treatments, Levaquin. He has a Mcarthur in place, with dark brown colored urine. Patient is on Flomax for his urinary retention secondary to BPH. Objective - Vital Signs Vital signs: Vital Signs Temp 96.9 F L 08/18/17 15:11 Pulse 76 08/18/17 15:11 Resp 18 08/18/17 15:11 BP 122/58 08/18/17 15:11 Pulse Ox 96 08/18/17 15:11 Intake & Output 08/17/17 08/18/17 08/18/17 18:59 06:59 18:59 Intake Total 835 550.515 Output Total 1400 500 Balance 835 -1400 50.515 Weight 97.5 kg Intake: Intake, IV Titration 365 370.515 Amount Heparin Sod,Pork in 0.45% 365 370.515 NaCl 25,000 unit In 0.45 % NaCl 1 500ml.bag @ 10. 417 UNITS/KG/HR 20 mls/hr IV .Q24H [facility] Rx#: [id number] Oral 470 180 Output: Urine 1400 500 Other: Voiding Method Indwelling Catheter Indwelling Catheter Indwelling Catheter - Exam No acute distress, oriented 3. Nasal O2 in place. HEENT examination is grossly unremarkable. Mucous membranes are moist. No oral lesions. Neck supple. Full range of motion. No adenopathy thyromegaly or neck vein distention. Cardiovascular examination reveals regular rhythm rate. S1-S2 normal. No S3 or S4. No discernible murmur noted. Heart sounds are distant. Lungs reveal diminished breath sounds throughout. End expiratory wheezes, and a few scattered rales. Breath sounds are equal bilaterally. Patient continues to liters per nasal cannula with pulse ox 96%. Abdomen soft bowel sounds are heard. No masses or tenderness. Extremities are intact. No cyanosis or clubbing. 1-2+ pitting edema is noted in the extremities. Skin is without rash or lesion. Neurologic examination is brief but nonfocal. - Labs CBC & Chem 7: 08/18/17 06:07 08/18/17 06:07 Labs: Abnormal Lab Results - Last 24 Hours (Table) 08/17/17 08/17/17 08/18/17 Range/Units 17:09 20:57 06:07 RBC 4.10 L (4.30-5.90) m/uL Hgb 11.9 L (13.0-17.5) gm/dL Hct 36.1 L (39.0-53.0) % Neutrophils # 8.2 H (1.3-7.7) k/uL Lymphocytes # 0.5 L (1.0-4.8) k/uL APTT (22.0-30.0) sec BUN (9-20) mg/dL Glucose (74-99) mg/dL POC Glucose (mg/dL) 192 H 183 H (75-99) mg/dL Total Protein (6.3-8.2) g/dL Albumin (3.5-5.0) g/dL 08/18/17 08/18/17 08/18/17 Range/Units 06:07 06:07 06:10 RBC (4.30-5.90) m/uL Hgb (13.0-17.5) gm/dL Hct (39.0-53.0) % Neutrophils # (1.3-7.7) k/uL Lymphocytes # (1.0-4.8) k/uL APTT 109.7 H* (22.0-30.0) sec BUN 50 H (9-20) mg/dL Glucose 219 H (74-99) mg/dL POC Glucose (mg/dL) 213 H (75-99) mg/dL Total Protein 5.2 L (6.3-8.2) g/dL Albumin 2.8 L (3.5-5.0) g/dL 08/18/17 08/18/17 Range/Units 11:36 15:14 RBC (4.30-5.90) m/uL Hgb (13.0-17.5) gm/dL Hct (39.0-53.0) % Neutrophils # (1.3-7.7) k/uL Lymphocytes # (1.0-4.8) k/uL APTT 56.6 H (22.0-30.0) sec BUN (9-20) mg/dL Glucose (74-99) mg/dL POC Glucose (mg/dL) 224 H (75-99) mg/dL Total Protein (6.3-8.2) g/dL Albumin (3.5-5.0) g/dL Assessment and Plan Plan: Assessment: #1. 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 #2. Urinary retention, secondary to BPH, on Flomax #3. Obstructive sleep apnea, noncompliant with CPAP therapy #4. History of coronary artery disease, with history of coronary artery bypass grafting in the past #5. Chronic systolic congestive heart failure #6. CVA/TIA #7. Hyperlipidemia, hypertension #8. Osteoarthritis #9. History of DVTs and pulmonary embolisms #10. Restless leg syndrome #11. GERD/reflux, hiatal hernia repair #12. Nicotine dependence, in remission Plan: Continue current plan of care, overall patient denies any worsening dyspnea, denies any chest pain. Remains afebrile, vital signs are stable. Continue with current plan of care, Levaquin, Symbicort, nebulized treatments, we'll decrease the Solu-Medrol down to 40 mg every 8 hours. Consult urology in regards to patient's urinary retention secondary to BPH. I performed a history & physical examination of the patient and discussed their management with my nurse practitioner, Lisa Eason. I reviewed the nurse practitioner's note and agree with the documented findings and plan of care. Lung sounds are positive for diminished air entry bilaterally, with some scattered rales. The findings and the impression was discussed with the patient. I attest to the documentation by the nurse practitioner. Time with Patient: Less than 30
[2017-08-18] MEDS: HEPARIN SOD,PORK IN 0.45% NACL 25,000 UNIT in 0.45% NACL 1 500ML.BAG IV SCH (17:15)
[2017-08-18] MEDS: NITROGLYCERIN OINT 1 INCH/GM PACKET TOPICAL SCH (17:17)
[2017-08-18 21:06] LABS: Glucose,Whole Blood 178 mg/dL (75-99)
[2017-08-18] MEDS: TAMSULOSIN 0.4 MG CAP.ER.24H PO SCH (21:12)
[2017-08-18] MEDS: EZETIMIBE 10 MG TAB PO SCH (21:12)
[2017-08-18] MEDS: ATORVASTATIN 20 MG TAB PO SCH (21:13)
[2017-08-18] MEDS: PRAMIPEXOLE DI HCL 0.75 MG PO SCH (21:14)
[2017-08-18] MEDS: methylPREDNISolone SOD SUCCI 40 MG/ML 1 ML VIAL IV SCH (22:58)
[2017-08-18] MEDS: diphenhydrAMINE 25 MG CAP PO SCH (22:58)
[2017-08-19] MEDS: NITROGLYCERIN OINT 1 INCH/GM PACKET TOPICAL SCH ×4 (03:02→23:29)
[2017-08-19] MEDS: SODIUM CHLORIDE 0.9% 1,000 ML IV SCH ×3 (06:16→15:24)
[2017-08-19 06:17] LABS: Glucose,Whole Blood 208 mg/dL (75-99)
[2017-08-19] MEDS: ASPIRIN 81 MG PO SCH (06:17)
[2017-08-19] MEDS: METOPROLOL TARTRATE 25 MG TAB PO SCH ×2 (06:18→21:08)
[2017-08-19] MEDS: LEVOFLOXACIN 250 MG TAB PO SCH (06:18)
[2017-08-19] MEDS: PANTOPRAZOLE 40 MG/10 ML VIAL IVP SCH ×2 (06:18→21:08)
[2017-08-19] MEDS: methylPREDNISolone SOD SUCCI 40 MG/ML 1 ML VIAL IV SCH ×3 (06:19→23:10)
[2017-08-19] MEDS: LISINOPRIL 10 MG TAB PO SCH (06:19)
[2017-08-19] MEDS: POTASSIUM CHLORIDE ER 20 MEQ TAB.ER PO SCH ×3 (06:19→21:09)
[2017-08-19] MEDS: INSULIN ASPART 100 UNIT/ML 1 ML 10 ML VIAL SQ SCH ×4 (06:24→23:10)
[2017-08-19] MEDS ORDERED: ATORVASTATIN 80 MG TAB PO STA (06:26)
[2017-08-19] MEDS ORDERED: ASPIRIN 325 MG TAB PO STA (06:26)
[2017-08-19 07:05] LABS: Basophils % (A) 0 %; Eosinophils % (A) 0 %; HCT 37.7 % (39.0-53.0); HGB 12.5 gm/dL (13.0-17.5); Lymphocytes # (A) 0.6 k/uL (1.0-4.8); Lymphocytes % (A) 6 %; MCH 29.5 pg (25.0-35.0); MCHC 33.1 g/dL (31.0-37.0); MCV 89.1 fL (80.0-100.0); Mean Platelet Volume 6.8; Monocytes # (A) 0.4 k/uL (0-1.0); Monocytes % (A) 4 %; Neutrophils # (A) 8.1 k/uL (1.3-7.7); Neutrophils % (A) 89 %; Platelet Count 143 k/uL (150-450); RBC 4.23 m/uL (4.30-5.90); RDW 14.8 % (11.5-15.5); WBC 9.1 k/uL (3.8-10.6)
[2017-08-19] MEDS: IPRATROPIUM-ALBUTEROL 3 ML NEB INHALATION SCH ×3 (07:27→20:31)
[2017-08-19] MEDS: SYMBICORT 160-4.5 MCG INHALER INHALATION SCH ×2 (07:28→20:31)
[2017-08-19 11:31] LABS: Glucose,Whole Blood 172 mg/dL (75-99)
--- NOTE | 2017-08-19 12:52 | P.PN ---
Subjective Patient was admitted for COPD exacerbation and COPD exacerbation did improve a little bit better but patient has multiple overnight events including chest pain patient is found to have highly elevated troponin of 6.8 today which was a third set of troponin. Patient also has upper GI bleed with coffee-ground emesis patient has an NG tube in place diuretics will be discontinued, patient ideally will need heparin because of upper GI bleed heparin is being held patient was started on beta sofi patient is still wheezing wheezing did improve a little bit. Patient does have bowel sounds abdominal x-ray did not show any peritonitis or freeze created in the [place] ultrasound of the abdomen was reviewed. Patient had a little bit of abdominal pain yesterday which completely resolved now chest pain improved now patient is on IV nitroglycerin as well. 08/16/2017 Patient is doing much better today patient's the coffee-ground emesis resolved patient was started on heparin and aspirin. Patient is still wheezing 08/17/2017 Patient's respiratory status and wheezing did improve compared to yesterday. 08/18/2017 Patient's respiratory status can use to improve patient is overall clinically doing well still has some wheezing but significant improved compared to yesterday and patient will go for cardiac catheterization tomorrow white blood cell count improved 08/19/2017 Patient wheezing completely resolved mild decreased air entry into bilateral lung ramírez patient will go for cardiac catheterization today. Constitutional: Denied any fatigue denied any fever. Cardio vascular: denied any chest pain, palpitations Gastrointestinal denied any nausea vomiting Pulmonary: As mentioned in the interval history Neurologic denied any new focal deficits Objective - Vital Signs Vital signs: Vital Signs Temp 96.0 F L 08/19/17 11:26 Pulse 74 08/19/17 11:26 Resp 18 08/19/17 11:26 BP 115/60 08/19/17 11:26 Pulse Ox 96 08/19/17 11:26 Intake & Output 08/18/17 08/19/17 08/19/17 18:59 06:59 18:59 Intake Total 1160.000 Output Total 500 1200 Balance 660.000 -1200 Weight 99 kg Intake: Intake, IV Titration 500.000 Amount Heparin Sod,Pork in 0.45% 500.000 NaCl 25,000 unit In 0.45 % NaCl 1 500ml.bag @ 10. 417 UNITS/KG/HR 20 mls/hr IV .Q24H [facility] Rx#: [id number] Oral 660 Output: Urine 500 1200 Uretheral (Mcarthur) 200 Other: Voiding Method Indwelling Catheter Indwelling Catheter Indwelling Catheter - Exam PHYSICAL EXAMINATION: GENERAL: The patient is alert and oriented x3, patient is obtain respiratory distress. Well developed, well nourished. HEENT: Pupils are round and equally reacting to light. EOMI. No scleral icterus. No conjunctival pallor. Normocephalic, atraumatic. No pharyngeal erythema. No thyromegaly. CARDIOVASCULAR: S1 and S2 present. No murmurs, rubs, or gallops. PULMONARY: Wheezing today mildly decreased air entry into bilateral lung ramírez. ABDOMEN: Nondistended nontender. MUSCULOSKELETAL: No joint swelling or deformity. EXTREMITIES: No cyanosis, clubbing, or pedal edema. NEUROLOGICAL: Gross neurological examination did not reveal any focal deficits. SKIN: No rashes. - Labs CBC & Chem 7: 08/19/17 06:12 08/18/17 06:07 Labs: Abnormal Lab Results - Last 24 Hours (Table) 08/18/17 08/18/17 08/18/17 Range/Units 15:14 16:53 21:05 RBC (4.30-5.90) m/uL Hgb (13.0-17.5) gm/dL Hct (39.0-53.0) % Plt Count (150-450) k/uL Neutrophils # (1.3-7.7) k/uL Lymphocytes # (1.0-4.8) k/uL APTT 56.6 H (22.0-30.0) sec POC Glucose (mg/dL) 249 H 178 H (75-99) mg/dL 08/19/17 08/19/17 08/19/17 Range/Units 06:12 06:12 06:15 RBC 4.23 L (4.30-5.90) m/uL Hgb 12.5 L (13.0-17.5) gm/dL Hct 37.7 L (39.0-53.0) % Plt Count 143 L (150-450) k/uL Neutrophils # 8.1 H (1.3-7.7) k/uL Lymphocytes # 0.6 L (1.0-4.8) k/uL APTT 55.5 H (22.0-30.0) sec POC Glucose (mg/dL) 208 H (75-99) mg/dL 08/19/17 Range/Units 11:27 RBC (4.30-5.90) m/uL Hgb (13.0-17.5) gm/dL Hct (39.0-53.0) % Plt Count (150-450) k/uL Neutrophils # (1.3-7.7) k/uL Lymphocytes # (1.0-4.8) k/uL APTT (22.0-30.0) sec POC Glucose (mg/dL) 172 H (75-99) mg/dL Assessment and Plan Plan: -Acute hypercapnic respiratory failure: Secondary to COPD exacerbation patient systemic steroids and inhalational treatments and the is on levofloxacin for bronchitis. -Acute non-ST elevation myocardial infarction: Patient is on nitroglycerin in and beta sfoi, was started on aspirin and the IV heparin as his GI bleed improved. Patient probably will undergo cardiac catheterization today -Possible upper GI bleed patient is on Protonix, nausea vomiting and coffee- ground emesis resolved -Possible benign prostatic hypertrophy with dribbling patient is already in tamsulosin and he will need evaluation by urology as an outpatient. -Past his vision reflux disease -Restless leg syndrome -Coronary artery disease, CABG in the past -History of DVT in the past patient is presently not on any anticoagulation next and-CVA TIA in the past -Primary osteoarthritis -Sleep apnea uses CPAP machine which will be continued
[2017-08-19] MEDS ORDERED: IV FLUID CONTINUATION 500 ML IV ONE (13:46)
[2017-08-19] MEDS ORDERED: MIDAZOLAM 2 MG/2 ML VIAL IV ONE (13:53)
[2017-08-19] MEDS ORDERED: LIDOCAINE 2% INJ 20 MG/ML SQ ONE (13:55)
[2017-08-19] MEDS: HEPARIN SOD,PORK IN 0.45% NACL 25,000 UNIT in 0.45% NACL 1 500ML.BAG IV SCH (14:21)
[2017-08-19] MEDS ORDERED: RX INFO: IV CONTRAST WAS GIVEN 1 EACH MISC MISCELLANE PRN (14:26)
[2017-08-19] MEDS ORDERED: IODIXANOL 320 MG/ML 100 ML INTRAARTER ONE (14:29)
--- NOTE | 2017-08-19 15:26 | P.PN ---
Subjective Progress Note Date: 08/19/17 Principal diagnosis: Acute exacerbation of COPD with tracheobronchitis, acute non-ST elevated TN Progress note dated 08/17/2017 81-year-old male with a history of advanced oxygen-dependent COPD. His FEV1 which is 40% of predicted. He came into the hospital with acute exacerbation of COPD. He also was thought to have an acute non-ST; elevation myocardial infarction. He had preserved ventricular systolic function with ejection fraction of 55-60%. In addition to all of that, he does have a history of sleep apnea for which he uses CPAP, CAD with previous bypass grafting in the past, CVA, hyperlipidemia, osteoarthritis, history of DVT and pulmonary embolism , restless leg syndrome, GERD, chronic nicotine dependence, and urinary retention secondary to BPH. The patient will continue on updrafts as Symbicort and IV Solu-Medrol. In addition we'll continue on Levaquin antibiotic. The patient been followed by cardiology. The patient seemed be been a bit more awake and alert today. Denies complaints. No chest pain or shortness of breath. No nausea vomiting or diarrhea. No chest pain or chest pressure. On 08/18/2017 patient seen in follow-up. He is resting in bed, denies any acute distress. Lung sounds are positive for end expiratory wheezes and a few scattered rales bilaterally. Denies any chest pain, denies fever or chills. Patient is afebrile. Patient is on IV heparin for for his acute non-ST elevated TN. Cardiology is considering heart catheterization in the near future. Patient continues on IV Solu-Medrol, nebulized treatments, Levaquin. He has a Mcarthur in place, with dark brown colored urine. Patient is on Flomax for his urinary retention secondary to BPH. On 08/19/2017 patient seen in follow-up. He is up in the chair, denies any acute distress. He states his breathing is improving. Lung sounds are diminished, but no rhonchi or rales auscultated. He is on 2 L per nasal cannula with O2 sat at 95%. Denies any chest pain, denies any chest congestion , has an occasional productive cough with small amount of whitish phlegm. Cardiology is planning on proceeding with heart catheterization this afternoon. He still has the Mcarthur in place with dark bloody urine, urology has been consulted in regards to patient's hematuria. Patient continues on Flomax. He is afebrile, he continues on oral Levaquin, nebulized treatments, and IV steroids at 40 mg every 8 hours. Objective - Vital Signs Vital signs: Vital Signs Temp 96.0 F L 08/19/17 11:26 Pulse 70 08/19/17 15:05 Resp 18 08/19/17 15:05 BP 143/70 08/19/17 15:05 Pulse Ox 97 08/19/17 15:05 Intake & Output 08/18/17 08/19/17 08/19/17 18:59 06:59 18:59 Intake Total 1160.000 50 Output Total 500 1200 Balance 660.000 -1200 50 Weight 99 kg Intake: IV 50 Intake, IV Titration 500.000 Amount Heparin Sod,Pork in 0.45% 500.000 NaCl 25,000 unit In 0.45 % NaCl 1 500ml.bag @ 10. 417 UNITS/KG/HR 20 mls/hr IV .Q24H BETY Rx#: [id number] Oral 660 Output: Urine 500 1200 Uretheral ([place]) 200 Other: Voiding Method Indwelling Catheter Indwelling Catheter Indwelling Catheter - Exam No acute distress, oriented 3. Nasal O2 in place. HEENT examination is grossly unremarkable. Mucous membranes are moist. No oral lesions. Neck supple. Full range of motion. No adenopathy thyromegaly or neck vein distention. Cardiovascular examination reveals regular rhythm rate. S1-S2 normal. No S3 or S4. No discernible murmur noted. Heart sounds are distant. Lungs reveal diminished breath sounds throughout. No rhonchi no wheezes or rales noted. Breath sounds are equal bilaterally. Patient continues on 2 liters per nasal cannula with pulse ox 96%. Abdomen soft bowel sounds are heard. No masses or tenderness. Extremities are intact. No cyanosis or clubbing. 1-2+ pitting edema is noted in the extremities. Skin is without rash or lesion. Neurologic examination is brief but nonfocal. - Labs CBC & Chem 7: 08/19/17 06:12 08/18/17 06:07 Labs: Abnormal Lab Results - Last 24 Hours (Table) 08/18/17 08/18/17 08/18/17 Range/Units 15:14 16:53 21:05 RBC (4.30-5.90) m/uL Hgb (13.0-17.5) gm/dL Hct (39.0-53.0) % Plt Count (150-450) k/uL Neutrophils # (1.3-7.7) k/uL Lymphocytes # (1.0-4.8) k/uL APTT 56.6 H (22.0-30.0) sec POC Glucose (mg/dL) 249 H 178 H (75-99) mg/dL 08/19/17 08/19/17 08/19/17 Range/Units 06:12 06:12 06:15 RBC 4.23 L (4.30-5.90) m/uL Hgb 12.5 L (13.0-17.5) gm/dL Hct 37.7 L (39.0-53.0) % Plt Count 143 L (150-450) k/uL Neutrophils # 8.1 H (1.3-7.7) k/uL Lymphocytes # 0.6 L (1.0-4.8) k/uL APTT 55.5 H (22.0-30.0) sec POC Glucose (mg/dL) 208 H (75-99) mg/dL 08/19/17 Range/Units 11:27 RBC (4.30-5.90) m/uL Hgb (13.0-17.5) gm/dL Hct (39.0-53.0) % Plt Count (150-450) k/uL Neutrophils # (1.3-7.7) k/uL Lymphocytes # (1.0-4.8) k/uL APTT (22.0-30.0) sec POC Glucose (mg/dL) 172 H (75-99) mg/dL Assessment and Plan Plan: Assessment: #1. 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 #2. Urinary retention, secondary to BPH, on Flomax #3. Obstructive sleep apnea, noncompliant with CPAP therapy #4. History of coronary artery disease, with history of coronary artery bypass grafting in the past #5. Chronic systolic congestive heart failure #6. CVA/TIA #7. Hyperlipidemia, hypertension #8. Osteoarthritis #9. History of DVTs and pulmonary embolisms #10. Restless leg syndrome #11. GERD/reflux, hiatal hernia repair #12. Nicotine dependence, in remission Plan: Continue with current medical treatment, continue Levaquin, Solu-Medrol, nebulized treatments. Patient is awaiting to have his heart catheterization this afternoon. We'll continue to follow. Overall patient is improving from pulmonary standpoint, less dyspneic and less congested. I performed a history & physical examination of the patient and discussed their management with my nurse practitioner, Lisa Eason. I reviewed the nurse practitioner's note and agree with the documented findings and plan of care. Lung sounds are positive for diminished air entry bilaterally, no rhonchi or wheezes noted. The findings and the impression was discussed with the patient. I attest to the documentation by the nurse practitioner. Time with Patient: Less than 30
--- NOTE | 2017-08-19 16:25 | CC ---
CARDIAC CATHETERIZATION REPORT INDICATION: Non ST-segment elevation TX. PROCEDURE NOTE: After obtaining informed consent, left heart catheterization and coronary angiogram were performed via the right femoral artery using standard [place] catheters. The patient tolerated the procedure well without any obvious immediate complications. A femoral angiogram was performed and decision was made for manual hemostasis. Patient received moderate conscious sedation. Total sedation time is 26 minutes. The patient had AREVALO and 3 venous grafts and they have all been engaged. FINDINGS: 1. Hemodynamics: Left ventricular end-diastolic pressure is 18 mm. There is no significant gradient across the aortic valve. 2. Left ventriculogram: Left ventriculogram is not performed. 3. Angiographic Data: Left Main Coronary Artery: Left main coronary artery is a normal-sized vessel, divides into left anterior descending coronary artery and circumflex coronary artery. There is a 50% stenosis involving the distal left main coronary artery. This circumflex coronary artery shows a 99% stenosis in its ostial portion. The LAD shows a 90% stenosis. Right coronary artery appears chronically occluded. This is a left dominant circulation. SELECTIVE INJECTION OF THE BYPASS GRAFTS: AREVALO to LAD is patent. Both the proximal and distal anastomotic sites are free of disease. The body of the graft is normal. [place] LAD is free of significant stenosis. Venous graft to the diagonal appears patent. There is a mild atherosclerotic plaque in its proximal part. [place] diagonal is free of significant stenosis. Venous graft to the OM 1 appears patent. Venous graft to OM 2 appears patent. CONCLUSIONS: 1. [place] 3-vessel coronary artery disease. 2. Patent AREVALO to LAD. 3. Patent venous graft to OM 1. 4. Patent venous graft to OM 2. 5. Patent venous graft to diagonal. PLAN: Patient is a myocardial infarction could be due to plaque rupture in his [place] coronaries and he will be managed with optimal medical therapy. MMODL / IJN: [id number] /
[2017-08-19 16:55] LABS: Glucose,Whole Blood 173 mg/dL (75-99)
--- NOTE | 2017-08-19 17:24 | P.GSCN ---
History of Present Illness Consult date: 08/19/17 Reason for Consult: Urine retention History of present illness: The patient is an 81-year-old gentleman the hospital several days for acute respiratory failure. He had an indwelling catheter placed during the acute event. We have been asked see the patient because he has had obstructive urinary symptoms. Patient is interviewed at the bedside. His history is seems to be valid. He does admit to difficulty with urination prior to hospitalization. He stated that he had increasing frequency decreasing volume as well as a decreased stream. He has not been treated for her placed on any medication for voiding problem in the past. He denies urinary infection. He denies urinary incontinence. He has not seen a urologist in the past. He has an indwelling catheter with clear urine at present. Review of Systems - Constitutional Reports as per HPI - Cardiovascular Reports as per HPI - Respiratory Reports as per HPI - Genitourinary Reports as per HPI Past Medical History Past Medical History: Coronary Artery Disease (CAD), Cancer, Chest Pain / Angina , COPD, CVA/TIA, Dementia, Deep Vein Thrombosis (DVT), GERD/Reflux, Hearing Disorder / Deafness, Hyperlipidemia, Hypertension, Myocardial Infarction ([place]), Osteoarthritis (OA), Prostate Disorder, Pulmonary Embolus (PE), Renal Disease, Respiratory Disorder, Rheumatoid Arthritis (RA), Sleep Apnea/CPAP/BIPAP, Syncope Additional Past Medical History / Comment(s): SEVERE COPD, HOME O2 IN THE PAST BUT NO LONGER QUALIFIES, BRONCHITIS, PNUEMONIAS, RAJESH BUT NO LONGER USED CPAP, R LEG DVT, BILATERAL PULMONARY EMBOLISMS, TIA, PARKINSONS DISEASE, RESTLESS LEG SYNDROME, NUMBNESS/TINGLING BILATERAL LEGS/FEET, UNSTEADY ON HIS FEET, FALLS, DOUBLE INGUINAL HERNIAS, HX ULCERS, HEMORRHOIDS, ENLARGED PROSTRATE, INSOMNIA, SINUSITIS, BILATERAL LEG EDEMA AT TIMES, SKIN CANCER WITH REMOVAL, HOLE IN EARDRUM LEFT Last Myocardial Infarction Date:: 2006 History of Any Multi-Drug Resistant Organisms: None Reported Past Surgical History: Coronary Bypass/CABG, Heart Catheterization, Hernia Repair Additional Past Surgical History / Comment(s): 2006 CABG WITH 4 VESSEL BYPASS, HIATAL HERNIA REPAIR, UMBILICAL HERNIA REPAIR, BILAT CATARACTS WITH LENS IMPLANTS SX, EGD X 5 WITH ESOPHAGEAL DILATION, COLONOSCOPY/BENIGN POLYPS, SKIN CANCER REMOVALS. Past Anesthesia/Blood Transfusion Reactions: No Reported Reaction Smoking Status: Former smoker - Past Family History Mother Family Medical History: Cancer Additional Family Medical History / Comment(s): Mother had lung cancer. She was a smoker. Brother(s) Family Medical History: Blood Disorder Father Additional Family Medical History / Comment(s): HARDENING OF ARTERIES, Medications and Allergies Home Medications Medication Instructions Recorded Confirmed Type Aspirin 81 mg PO DAILY 08/25/14 08/14/17 History Ezetimibe/Simvastatin [Vytorin 1 tab PO HS 08/25/14 08/14/17 History 10-40 mg Tablet] Furosemide [Lasix] 20 mg PO AC-SUPPER 08/25/14 08/14/17 History Isosorbide Mononitrate ER [Imdur] 60 mg PO DAILY 08/25/14 08/14/17 History Metolazone [Zaroxolyn] 5 mg PO MOTUWETHFR 08/25/14 08/14/17 History Metoprolol Tartrate [Metoprolol 50 mg PO BID 08/25/14 08/14/17 History Tartrate] Potassium Chloride ER [K-Dur 20] 20 meq PO TID 08/25/14 08/14/17 History Pramipexole Di-HCl [Mirapex] 0.75 mg PO HS 08/25/14 08/14/17 History Tamsulosin HCl [Flomax] 0.4 mg PO HS 09/20/16 08/14/17 History Acetaminophen Tab [Tylenol Tab] 500 mg PO Q4H PRN 08/14/17 08/14/17 History Budesonide-Formot 160-4.5 Mcg 2 puff INHALATION RT-BID 08/14/17 08/14/17 History [Symbicort 160-4.5 Mcg Inhaler] Depo-Medrol 80mg/Ml 80 mg IM ONCE 08/14/17 08/14/17 History Ranitidine HCl [Zantac] 150 mg PO BID 08/14/17 08/14/17 History diphenhydrAMINE [Benadryl] 25 mg PO HS 08/14/17 08/14/17 History Allergies Allergy/AdvReac Type Severity Reaction Status Date / Time No Known Allergies Allergy Verified 08/14/17 10:06 Surgical - Exam Vital Signs Pulse Resp BP Pulse Ox 104 H 18 139/82 97 08/14/17 09:28 08/14/17 09:28 08/14/17 09:28 08/14/17 09:28 - General well developed, well nourished, obese - Eyes PERRL - ENT no hearing loss - Neck trachea midline - Respiratory normal expansion, normal respiratory effort - Cardiovascular Rhythm: regular - Abdomen Abdomen: soft, non tender - Genitourinary Prostate is 20-30 g soft and benign normal penis with no external lesions, testicles present - Integumentary no rash, no growths - Neurologic normal sensation - Psychiatric oriented to time, oriented to person, oriented to place Results - Labs 08/19/17 06:12 08/18/17 06:07 Abnormal Lab Results - Last 24 Hours (Table) 08/18/17 08/19/17 08/19/17 Range/Units 21:05 06:12 06:12 RBC 4.23 L (4.30-5.90) m/uL Hgb 12.5 L (13.0-17.5) gm/dL Hct 37.7 L (39.0-53.0) % Plt Count 143 L (150-450) k/uL Neutrophils # 8.1 H (1.3-7.7) k/uL Lymphocytes # 0.6 L (1.0-4.8) k/uL APTT 55.5 H (22.0-30.0) sec POC Glucose (mg/dL) 178 H (75-99) mg/dL 08/19/17 08/19/17 08/19/17 Range/Units 06:15 11:27 16:25 RBC (4.30-5.90) m/uL Hgb (13.0-17.5) gm/dL Hct (39.0-53.0) % Plt Count (150-450) k/uL Neutrophils # (1.3-7.7) k/uL Lymphocytes # (1.0-4.8) k/uL APTT (22.0-30.0) sec POC Glucose (mg/dL) 208 H 172 H 173 H (75-99) mg/dL Assessment and Plan Assessment: Impression: Voiding dysfunction possibly due to BPH. How much of this was exacerbated by his acute respiratory failure is indeterminate. Recommendations: The patient has been placed on tamsulosin. With the patient is ambulatory and feeling better, the catheter should be removed and a voiding trial should be instituted. If he is unable to void further urologic intervention will be required.
[2017-08-19 20:34] LABS: Glucose,Whole Blood 181 mg/dL (75-99)
[2017-08-19] MEDS: ONDANSETRON 4 MG/2 ML VIAL IVP PRN (21:07)
[2017-08-19] MEDS: PRAMIPEXOLE DI HCL 0.75 MG PO SCH (21:08)
[2017-08-19] MEDS: EZETIMIBE 10 MG TAB PO SCH (21:08)
[2017-08-19] MEDS: ATORVASTATIN 20 MG TAB PO SCH (21:08)
[2017-08-19] MEDS: TAMSULOSIN 0.4 MG CAP.ER.24H PO SCH (21:09)
[2017-08-19] MEDS: diphenhydrAMINE 25 MG CAP PO SCH (23:06)
[2017-08-20] MEDS: SODIUM CHLORIDE 0.9% 1,000 ML IV SCH ×5 (03:10→18:14)
[2017-08-20] MEDS: ONDANSETRON 4 MG/2 ML VIAL IVP PRN ×2 (03:10→23:19)
[2017-08-20 05:44] LABS: Glucose,Whole Blood 161 mg/dL (75-99)
[2017-08-20] MEDS: INSULIN ASPART 100 UNIT/ML 1 ML 10 ML VIAL SQ SCH ×4 (06:14→21:27)
[2017-08-20 06:37] LABS: Basophils % (A) 0 %; Eosinophils % (A) 0 %; HGB 12.7 gm/dL (13.0-17.5); Lymphocytes # (A) 0.6 k/uL (1.0-4.8); Lymphocytes % (A) 6 %; MCH 29.2 pg (25.0-35.0); MCHC 33.3 g/dL (31.0-37.0); MCV 87.4 fL (80.0-100.0); Mean Platelet Volume 7.2; Monocytes # (A) 0.4 k/uL (0-1.0); Monocytes % (A) 4 %; Neutrophils # (A) 9.3 k/uL (1.3-7.7); Neutrophils % (A) 90 %; Platelet Count 136 k/uL (150-450); RBC 4.34 m/uL (4.30-5.90); WBC 10.3 k/uL (3.8-10.6)
[2017-08-20] MEDS: NITROGLYCERIN OINT 1 INCH/GM PACKET TOPICAL SCH (07:40)
[2017-08-20] MEDS: methylPREDNISolone SOD SUCCI 40 MG/ML 1 ML VIAL IV SCH ×3 (07:40→23:20)
[2017-08-20] MEDS: ASPIRIN 81 MG PO SCH (07:41)
[2017-08-20] MEDS: METOPROLOL TARTRATE 25 MG TAB PO SCH ×2 (07:41→21:26)
[2017-08-20] MEDS: LISINOPRIL 10 MG TAB PO SCH (07:41)
[2017-08-20] MEDS: LEVOFLOXACIN 250 MG TAB PO SCH (07:41)
[2017-08-20] MEDS: POTASSIUM CHLORIDE ER 20 MEQ TAB.ER PO SCH ×3 (07:42→21:27)
[2017-08-20] MEDS: PANTOPRAZOLE 40 MG/10 ML VIAL IVP SCH ×2 (07:42→21:26)
[2017-08-20] MEDS: SYMBICORT 160-4.5 MCG INHALER INHALATION SCH ×2 (08:07→19:31)
[2017-08-20] MEDS: IPRATROPIUM-ALBUTEROL 3 ML NEB INHALATION SCH ×3 (08:07→19:31)
[2017-08-20 11:53] LABS: Glucose,Whole Blood 191 mg/dL (75-99)
--- NOTE | 2017-08-20 14:47 | P.PN ---
Subjective Progress Note Date: 08/20/17 This is an 81-year-old gentleman with history of coronary artery disease and prior bypass surgery who was admitted to the hospital with COPD exacerbation as well as productive cough. After admission here patient had an episode of chest discomfort, troponins were obtained which came back to be elevated. He ruled in for non-Q-wave myocardial infarction. Patient was taken to the cardiac catheterization lab where he was found to have [place] 3 vessel coronary artery disease, a patent AREVALO to the LAD, patent saphenous vein graft to the OM1 and OM 2, patent this graft to the diagonal. Medical therapy was advised. Patient was seen and examined this morning, still complaining of some productive cough, denies any chest discomfort. Blood pressure 158/68 with a heart rate in the 70s.White blood cell count 10.3, hemoglobin 12.7, platelet count 136. Objective - Vital Signs Vital signs: Vital Signs Temp 96.9 F L 08/20/17 11:27 Pulse 72 08/20/17 13:54 Resp 16 08/20/17 11:28 BP 158/68 08/20/17 11:27 Pulse Ox 95 08/20/17 11:27 Intake & Output 08/19/17 08/20/17 08/20/17 18:59 06:59 18:59 Intake Total 410 370 Output Total 900 Balance 410 -900 370 Weight 98 kg Intake: IV 50 20 Invasive Line 2 20 Oral 360 350 Output: Urine 900 Uretheral ([place]) 900 Other: Voiding Method Indwelling Catheter Indwelling Catheter Indwelling Catheter - Exam PHYSICAL EXAMINATION: HEENT: Head is atraumatic, normocephalic. Pupils equal, round. Neck is supple. There is no elevated jugular venous pressure. HEART EXAMINATION: Heart S1, S2 normal. No murmur or gallop heard. CHEST EXAMINATION: Lungs reveal scattered coarse rhonchi throughout. ABDOMEN: Soft, nontender. Bowel sounds are heard. No organomegaly noted. Right groin soft, no evidence of any hematoma. There is small amount of ecchymosis noted. EXTREMITIES: 2+ peripheral pulses with no evidence of peripheral edema and no calf tenderness noted. NEUROLOGIC patient is awake, alert and oriented -3. . - Labs CBC & Chem 7: 08/20/17 06:12 08/18/17 06:07 Labs: Abnormal Lab Results - Last 24 Hours (Table) 08/19/17 08/19/17 08/20/17 Range/Units 16:25 20:32 05:43 Hgb (13.0-17.5) gm/dL Hct (39.0-53.0) % Plt Count (150-450) k/uL Neutrophils # (1.3-7.7) k/uL Lymphocytes # (1.0-4.8) k/uL POC Glucose (mg/dL) 173 H 181 H 161 H (75-99) mg/dL 08/20/17 08/20/17 Range/Units 06:12 11:33 Hgb 12.7 L (13.0-17.5) gm/dL Hct 38.0 L (39.0-53.0) % Plt Count 136 L (150-450) k/uL Neutrophils # 9.3 H (1.3-7.7) k/uL Lymphocytes # 0.6 L (1.0-4.8) k/uL POC Glucose (mg/dL) 191 H (75-99) mg/dL Assessment and Plan Plan: Assessment and plan #1 non-ST elevation myocardial infarction, status post cardiac catheterization, medical therapy advised. #2 exacerbation of COPD #3 coronary artery disease with prior bypass surgery #4 hyperlipidemia #5 sleep apnea #6 history of DVT and PE #7 GERD Plan From cardiology's perspective, patient discharged to primary and pulmonary service. We will make him a follow-up appointment in the office post discharge. DNP note has been reviewed, I agree with a documented findings and plan of care. Patient was seen and examined.
--- NOTE | 2017-08-20 15:59 | P.PN ---
Subjective Progress Note Date: 08/20/17 Progress note dated 08/17/2017 81-year-old male with a history of advanced oxygen-dependent COPD. His FEV1 which is 40% of predicted. He came into the hospital with acute exacerbation of COPD. He also was thought to have an acute non-ST; elevation myocardial infarction. He had preserved ventricular systolic function with ejection fraction of 55-60%. In addition to all of that, he does have a history of sleep apnea for which he uses CPAP, CAD with previous bypass grafting in the past, CVA, hyperlipidemia, osteoarthritis, history of DVT and pulmonary embolism , restless leg syndrome, GERD, chronic nicotine dependence, and urinary retention secondary to BPH. The patient will continue on updrafts as Symbicort and IV Solu-Medrol. In addition we'll continue on Levaquin antibiotic. The patient been followed by cardiology. The patient seemed be been a bit more awake and alert today. Denies complaints. No chest pain or shortness of breath. No nausea vomiting or diarrhea. No chest pain or chest pressure. On 08/18/2017 patient seen in follow-up. He is resting in bed, denies any acute distress. Lung sounds are positive for end expiratory wheezes and a few scattered rales bilaterally. Denies any chest pain, denies fever or chills. Patient is afebrile. Patient is on IV heparin for for his acute non-ST elevated [place]. Cardiology is considering heart catheterization in the near future. Patient continues on IV Solu-Medrol, nebulized treatments, Levaquin. He has a Mcarthur in place, with dark brown colored urine. Patient is on Flomax for his urinary retention secondary to BPH. On 08/19/2017 patient seen in follow-up. He is up in the chair, denies any acute distress. He states his breathing is improving. Lung sounds are diminished, but no rhonchi or rales auscultated. He is on 2 L per nasal cannula with O2 sat at 95%. Denies any chest pain, denies any chest congestion , has an occasional productive cough with small amount of whitish phlegm. Cardiology is planning on proceeding with heart catheterization this afternoon. He still has the Mcarthur in place with dark bloody urine, urology has been consulted in regards to patient's hematuria. Patient continues on Flomax. He is afebrile, he continues on oral Levaquin, nebulized treatments, and IV steroids at 40 mg every 8 hours. On 08/20/2017 I'm seeing this patient for a follow-up. The patient is laying comfortably in bed. The results of the cardiac catheterization was noted and the patient has patent AREVALO to LAD and a saphenous vein grafts were also patent and the patient will continue medical management. The patient is not having any major it was assessed. The patient denies having any chest pain. No cough or sputum production. Still being treated for an acute COPD exacerbation. Note that his FEV1 is no other of 40% of predicted. He has also multiple medical problems and comorbidities. He currently has a Mcarthur catheter in place. Urology is on the case. The patient on Flomax. No evidence of any hematuria. Objective - Vital Signs Vital signs: Vital Signs Temp 97.6 F 08/20/17 15:12 Pulse 71 08/20/17 15:15 Resp 16 08/20/17 15:15 BP 126/67 08/20/17 15:12 Pulse Ox 98 08/20/17 15:12 Intake & Output 08/19/17 08/20/17 08/20/17 18:59 06:59 18:59 Intake Total 410 370 Output Total 900 Balance 410 -900 370 Weight 98 kg Intake: IV 50 20 Invasive Line 2 20 Oral 360 350 Output: Urine 900 Uretheral ([place]) 900 Other: Voiding Method Indwelling Catheter Indwelling Catheter Indwelling Catheter - Exam No acute distress, oriented 3. Nasal O2 in place. HEENT examination is grossly unremarkable. Mucous membranes are moist. No oral lesions. Neck supple. Full range of motion. No adenopathy thyromegaly or neck vein distention. Cardiovascular examination reveals regular rhythm rate. S1-S2 normal. No S3 or S4. No discernible murmur noted. Heart sounds are distant. Lungs reveal diminished breath sounds throughout. No rhonchi no wheezes or rales noted. Breath sounds are equal bilaterally. Patient continues on 2 liters per nasal cannula with pulse ox 96%. Abdomen soft bowel sounds are heard. No masses or tenderness. Extremities are intact. No cyanosis or clubbing. 1-2+ pitting edema is noted in the extremities. Skin is without rash or lesion. Neurologic examination is brief but nonfocal. - Labs CBC & Chem 7: 08/20/17 06:12 08/18/17 06:07 Labs: Abnormal Lab Results - Last 24 Hours (Table) 08/19/17 08/19/17 08/20/17 Range/Units 16:25 20:32 05:43 Hgb (13.0-17.5) gm/dL Hct (39.0-53.0) % Plt Count (150-450) k/uL Neutrophils # (1.3-7.7) k/uL Lymphocytes # (1.0-4.8) k/uL POC Glucose (mg/dL) 173 H 181 H 161 H (75-99) mg/dL 08/20/17 08/20/17 Range/Units 06:12 11:33 Hgb 12.7 L (13.0-17.5) gm/dL Hct 38.0 L (39.0-53.0) % Plt Count 136 L (150-450) k/uL Neutrophils # 9.3 H (1.3-7.7) k/uL Lymphocytes # 0.6 L (1.0-4.8) k/uL POC Glucose (mg/dL) 191 H (75-99) mg/dL Assessment and Plan Plan: Assessment: #1. 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 Clinically the patient is improving and the patient is on it less short of breath on today's evaluation. Furthermore, a cardiac evaluation has been completed and the patient was found to have nonocclusive disease and the bypassed vessels were all patent. #2. Urinary retention, secondary to BPH, on Flomax #3. Obstructive sleep apnea, noncompliant with CPAP therapy #4. History of coronary artery disease, with history of coronary artery bypass grafting in the past #5. Chronic systolic congestive heart failure #6. CVA/TIA #7. Hyperlipidemia, hypertension #8. Osteoarthritis #9. History of DVTs and pulmonary embolisms #10. Restless leg syndrome #11. GERD/reflux, hiatal hernia repair #12. Nicotine dependence, in remission Plan Continued IV Solu Medrol for another 24 hours it was this patient to oral prednisone burst taper as of tomorrow. Continue DuoNeb the regiments around-the -clock. Continue Levaquin as an empiric antibiotic coverage. Urology on the case regarding the urinary retention. The patient is avoiding dysfunction probably related to the BPH. He is currently on Flomax. We'll continue to follow make further recommendations based on his progress. I plan is to put the patient prednisone burst taper as of tomorrow.
[2017-08-20 16:43] LABS: Glucose,Whole Blood 162 mg/dL (75-99)
--- NOTE | 2017-08-20 18:11 | P.PN ---
Subjective Patient was admitted for COPD exacerbation and COPD exacerbation did improve a little bit better but patient has multiple overnight events including chest pain patient is found to have highly elevated troponin of 6.8 today which was a third set of troponin. Patient also has upper GI bleed with coffee-ground emesis patient has an NG tube in place diuretics will be discontinued, patient ideally will need heparin because of upper GI bleed heparin is being held patient was started on beta sofi patient is still wheezing wheezing did improve a little bit. Patient does have bowel sounds abdominal x-ray did not show any peritonitis or freeze created in the [place] ultrasound of the abdomen was reviewed. Patient had a little bit of abdominal pain yesterday which completely resolved now chest pain improved now patient is on IV nitroglycerin as well. 08/16/2017 Patient is doing much better today patient's the coffee-ground emesis resolved patient was started on heparin and aspirin. Patient is still wheezing 08/17/2017 Patient's respiratory status and wheezing did improve compared to yesterday. 08/18/2017 Patient's respiratory status can use to improve patient is overall clinically doing well still has some wheezing but significant improved compared to yesterday and patient will go for cardiac catheterization tomorrow white blood cell count improved 08/19/2017 Patient wheezing completely resolved mild decreased air entry into bilateral lung ramírez patient will go for cardiac catheterization today. 08/20/2017 Patient had a cardiac catheterization which did not show any significant atherosclerotic occlusive disease. Patient has a Mcarthur catheter which will be removed will and will do voiding trial patient probably can be discharged tomorrow on weaning dose of steroids. Constitutional: Denied any fatigue denied any fever. Cardio vascular: denied any chest pain, palpitations Gastrointestinal denied any nausea vomiting Pulmonary: As mentioned in the interval history Neurologic denied any new focal deficits Objective - Vital Signs Vital signs: Vital Signs Temp 97.6 F 08/20/17 15:12 Pulse 71 08/20/17 15:15 Resp 16 08/20/17 15:15 BP 126/67 08/20/17 15:12 Pulse Ox 98 08/20/17 15:12 Intake & Output 08/19/17 08/20/17 08/20/17 18:59 06:59 18:59 Intake Total 410 370 Output Total 900 400 Balance 410 -900 -30 Weight 98 kg Intake: IV 50 20 Invasive Line 2 20 Oral 360 350 Output: Urine 900 400 Uretheral (Mcarthur) 900 Other: Voiding Method Indwelling Catheter Indwelling Catheter Indwelling Catheter - Exam PHYSICAL EXAMINATION: GENERAL: The patient is alert and oriented x3, patient is obtain respiratory distress. Well developed, well nourished. HEENT: Pupils are round and equally reacting to light. EOMI. No scleral icterus. No conjunctival pallor. Normocephalic, atraumatic. No pharyngeal erythema. No thyromegaly. CARDIOVASCULAR: S1 and S2 present. No murmurs, rubs, or gallops. PULMONARY: Wheezing today mildly decreased air entry into bilateral lung ramírez. ABDOMEN: Nondistended nontender. MUSCULOSKELETAL: No joint swelling or deformity. EXTREMITIES: No cyanosis, clubbing, or pedal edema. NEUROLOGICAL: Gross neurological examination did not reveal any focal deficits. SKIN: No rashes. - Labs CBC & Chem 7: 08/20/17 06:12 08/18/17 06:07 Labs: Abnormal Lab Results - Last 24 Hours (Table) 08/19/17 08/20/17 08/20/17 Range/Units 20:32 05:43 06:12 Hgb 12.7 L (13.0-17.5) gm/dL Hct 38.0 L (39.0-53.0) % Plt Count 136 L (150-450) k/uL Neutrophils # 9.3 H (1.3-7.7) k/uL Lymphocytes # 0.6 L (1.0-4.8) k/uL POC Glucose (mg/dL) 181 H 161 H (75-99) mg/dL 08/20/17 08/20/17 Range/Units 11:33 16:34 Hgb (13.0-17.5) gm/dL Hct (39.0-53.0) % Plt Count (150-450) k/uL Neutrophils # (1.3-7.7) k/uL Lymphocytes # (1.0-4.8) k/uL POC Glucose (mg/dL) 191 H 162 H (75-99) mg/dL Assessment and Plan Plan: -Acute hypercapnic respiratory failure: Secondary to COPD exacerbation patient systemic steroids and inhalational treatments and the is on levofloxacin for bronchitis. -Weighted troponins: Patient underwent cardia catheterization which did not show any stent table it was cardiovascular disease -Possible upper GI bleed patient is on Protonix, nausea vomiting and coffee- ground emesis resolved -Possible benign prostatic hypertrophy with dribbling patient is already in tamsulosin, voiding trial today -Past his vision reflux disease -Restless leg syndrome -Coronary artery disease, CABG in the past -History of DVT in the past patient is presently not on any anticoagulation next and-CVA TIA in the past -Primary osteoarthritis -Sleep apnea uses CPAP machine which will be continued -
[2017-08-20 20:46] LABS: Glucose,Whole Blood 183 mg/dL (75-99)
[2017-08-20] MEDS: ATORVASTATIN 20 MG TAB PO SCH (21:26)
[2017-08-20] MEDS: EZETIMIBE 10 MG TAB PO SCH (21:26)
[2017-08-20] MEDS: PRAMIPEXOLE DI HCL 0.75 MG PO SCH (21:27)
[2017-08-20] MEDS: diphenhydrAMINE 25 MG CAP PO SCH (21:27)
[2017-08-20] MEDS: TAMSULOSIN 0.4 MG CAP.ER.24H PO SCH (21:27)
[2017-08-21 05:28] VITALS: TEMP 98.2
[2017-08-21 06:09] LABS: Glucose,Whole Blood 198 mg/dL (75-99)
[2017-08-21] MEDS: SODIUM CHLORIDE 0.9% 1,000 ML IV SCH ×2 (06:14→07:54)
[2017-08-21] MEDS: INSULIN ASPART 100 UNIT/ML 1 ML 10 ML VIAL SQ SCH ×2 (06:26→12:22)
[2017-08-21 06:47] LABS: Basophils % (A) 0 %; Eosinophils % (A) 0 %; HCT 37.5 % (39.0-53.0); HGB 12.6 gm/dL (13.0-17.5); Lymphocytes # (A) 0.6 k/uL (1.0-4.8); Lymphocytes % (A) 6 %; MCH 29.2 pg (25.0-35.0); MCHC 33.5 g/dL (31.0-37.0); Monocytes # (A) 0.4 k/uL (0-1.0); Monocytes % (A) 3 %; Neutrophils # (A) 9.4 k/uL (1.3-7.7); Neutrophils % (A) 90 %; Platelet Count 127 k/uL (150-450); RBC 4.31 m/uL (4.30-5.90); WBC 10.4 k/uL (3.8-10.6)
[2017-08-21] MEDS: IPRATROPIUM-ALBUTEROL 3 ML NEB INHALATION SCH ×2 (07:11→13:06)
[2017-08-21] MEDS: SYMBICORT 160-4.5 MCG INHALER INHALATION SCH (07:11)
[2017-08-21] MEDS: POTASSIUM CHLORIDE ER 20 MEQ TAB.ER PO SCH (09:06)
[2017-08-21] MEDS: PANTOPRAZOLE 40 MG/10 ML VIAL IVP SCH (09:06)
[2017-08-21] MEDS: LISINOPRIL 10 MG TAB PO SCH (09:06)
[2017-08-21] MEDS: methylPREDNISolone SOD SUCCI 40 MG/ML 1 ML VIAL IV SCH (09:06)
[2017-08-21] MEDS: ASPIRIN 81 MG PO SCH (09:06)
[2017-08-21] MEDS: LEVOFLOXACIN 250 MG TAB PO SCH (09:06)
[2017-08-21] MEDS: METOPROLOL TARTRATE 25 MG TAB PO SCH (09:07)
[2017-08-21 09:18] VITALS: RESP 16
[2017-08-21 11:07] VITALS: BMI 34.5
[2017-08-21 11:32] LABS: Glucose,Whole Blood 164 mg/dL (75-99)
[2017-08-21 12:29] VITALS: BP 146/79
[2017-08-21 13:17] VITALS: PULSE 64
--- NOTE | 2017-08-21 15:11 | P.PN ---
Subjective Progress Note Date: 08/21/17 This is an 81-year-old gentleman with history of coronary artery disease and prior bypass surgery who was admitted to the hospital with COPD exacerbation as well as productive cough. After admission here patient had an episode of chest discomfort, troponins were obtained which came back to be elevated. He ruled in for non-Q-wave myocardial infarction. Patient was taken to the cardiac catheterization lab where he was found to have yuha[place]iat[place] 3 vessel coronary artery disease, a patent AREVALO to the LAD, patent saphenous vein graft to the OM1 and OM 2, patent this graft to the diagonal. Medical therapy was advised. Patient was seen and examined this morning, still complaining of some productive cough, denies any chest discomfort. Blood pressure 158/68 with a heart rate in the 70s.White blood cell count 10.3, hemoglobin 12.7, platelet count 136. 08/21/2017 Patient seen and examined this morning, feeling well overall, hoping to be discharged home today. Blood pressure 146/80 with a heart rate in the 70s. Objective - Vital Signs Vital signs: Vital Signs Temp 98.2 F 08/21/17 04:00 Pulse 64 08/21/17 13:16 Resp 16 08/21/17 14:44 BP 146/79 08/21/17 12:00 Pulse Ox 97 08/21/17 12:00 Intake & Output 08/20/17 08/21/17 08/21/17 18:59 06:59 18:59 Intake Total 370 100 Output Total 400 160 220 Balance -30 -160 -120 Weight 100 kg 100 kg Intake: IV 20 Invasive Line 2 20 Oral 350 100 Output: Urine 400 160 200 Uretheral (Mcarthur) 10 Post Void Residual 20 Other: Voiding Method Indwelling Catheter Indwelling Catheter Indwelling Catheter # Voids 1 - Exam PHYSICAL EXAMINATION: HEENT: Head is atraumatic, normocephalic. Pupils equal, round. Neck is supple. There is no elevated jugular venous pressure. HEART EXAMINATION: Heart S1, S2 normal. No murmur or gallop heard. CHEST EXAMINATION: Lungs reveal scattered coarse rhonchi throughout. ABDOMEN: Soft, nontender. Bowel sounds are heard. No organomegaly noted. Right groin soft, no evidence of any hematoma. There is small amount of ecchymosis noted. EXTREMITIES: 2+ peripheral pulses with no evidence of peripheral edema and no calf tenderness noted. NEUROLOGIC patient is awake, alert and oriented -3. . - Labs CBC & Chem 7: 08/21/17 06:04 08/18/17 06:07 Labs: Abnormal Lab Results - Last 24 Hours (Table) 08/20/17 08/20/17 08/21/17 Range/Units 16:34 20:45 06:04 Hgb 12.6 L (13.0-17.5) gm/dL Hct 37.5 L (39.0-53.0) % Plt Count 127 L (150-450) k/uL Neutrophils # 9.4 H (1.3-7.7) k/uL Lymphocytes # 0.6 L (1.0-4.8) k/uL POC Glucose (mg/dL) 162 H 183 H (75-99) mg/dL 08/21/17 08/21/17 Range/Units 06:07 11:30 Hgb (13.0-17.5) gm/dL Hct (39.0-53.0) % Plt Count (150-450) k/uL Neutrophils # (1.3-7.7) k/uL Lymphocytes # (1.0-4.8) k/uL POC Glucose (mg/dL) 198 H 164 H (75-99) mg/dL Assessment and Plan Plan: Assessment and plan #1 non-ST elevation myocardial infarction, status post cardiac catheterization, medical therapy advised. #2 exacerbation of COPD #3 coronary artery disease with prior bypass surgery #4 hyperlipidemia #5 sleep apnea #6 history of DVT and PE #7 GERD Plan From cardiology's perspective, patient discharged when ok with primary and pulmonary service. We will make him a follow-up appointment in the office post discharge. DNP note has been reviewed, I agree with a documented findings and plan of care. Patient was seen and examined.
[2017-08-21 16:43] LABS: Glucose,Whole Blood 166 mg/dL (75-99)
--- NOTE | 2017-08-21 17:05 | P.PN ---
Subjective Progress Note Date: 08/21/17 Principal diagnosis: Acute exacerbation of COPD with tracheobronchitis, acute non-ST elevated AK Progress note dated 08/17/2017 81-year-old male with a history of advanced oxygen-dependent COPD. His FEV1 which is 40% of predicted. He came into the hospital with acute exacerbation of COPD. He also was thought to have an acute non-ST; elevation myocardial infarction. He had preserved ventricular systolic function with ejection fraction of 55-60%. In addition to all of that, he does have a history of sleep apnea for which he uses CPAP, CAD with previous bypass grafting in the past, CVA, hyperlipidemia, osteoarthritis, history of DVT and pulmonary embolism , restless leg syndrome, GERD, chronic nicotine dependence, and urinary retention secondary to BPH. The patient will continue on updrafts as Symbicort and IV Solu-Medrol. In addition we'll continue on Levaquin antibiotic. The patient been followed by cardiology. The patient seemed be been a bit more awake and alert today. Denies complaints. No chest pain or shortness of breath. No nausea vomiting or diarrhea. No chest pain or chest pressure. On 08/18/2017 patient seen in follow-up. He is resting in bed, denies any acute distress. Lung sounds are positive for end expiratory wheezes and a few scattered rales bilaterally. Denies any chest pain, denies fever or chills. Patient is afebrile. Patient is on IV heparin for for his acute non-ST elevated AK. Cardiology is considering heart catheterization in the near future. Patient continues on IV Solu-Medrol, nebulized treatments, Levaquin. He has a Mcarthur in place, with dark brown colored urine. Patient is on Flomax for his urinary retention secondary to BPH. On 08/19/2017 patient seen in follow-up. He is up in the chair, denies any acute distress. He states his breathing is improving. Lung sounds are diminished, but no rhonchi or rales auscultated. He is on 2 L per nasal cannula with O2 sat at 95%. Denies any chest pain, denies any chest congestion , has an occasional productive cough with small amount of whitish phlegm. Cardiology is planning on proceeding with heart catheterization this afternoon. He still has the Mcarthur in place with dark bloody urine, urology has been consulted in regards to patient's hematuria. Patient continues on Flomax. He is afebrile, he continues on oral Levaquin, nebulized treatments, and IV steroids at 40 mg every 8 hours. On 08/21/2017 patient is seen and examined on selective care. He sitting up in the chair, on room air, denies any acute distress. Denies fever, chills, chest congestion, persistent cough. Denies any chest pain. he underwent heart catheterization yesterday, his results were noted. Patient had a myocardial infarction which was thought to be due to plaque rupture in his l[place] coronaries and optimization of the medical therapy was recommended per cardiology. From pulmonary standpoint he remains stable, much improved from admission. No wheezes, no rhonchi or rales noted upon auscultation of his lung sounds. No acute events overnight, patient has been afebrile. Pulmonary standpoint patient is stable for discharge home today. Objective - Vital Signs Vital signs: Vital Signs Temp 98.2 F 08/21/17 04:00 Pulse 64 08/21/17 13:16 Resp 16 08/21/17 14:44 BP 146/79 08/21/17 12:00 Pulse Ox 97 08/21/17 12:00 Intake & Output 08/20/17 08/21/17 08/21/17 18:59 06:59 18:59 Intake Total 370 340 Output Total 400 160 470 Balance -30 -160 -130 Weight 100 kg 100 kg Intake: IV 20 Invasive Line 2 20 Oral 350 340 Output: Urine 400 160 450 Uretheral (Mcarthur) 10 Post Void Residual 20 Other: Voiding Method Indwelling Catheter Indwelling Catheter Indwelling Catheter # Voids 1 - Exam No acute distress, oriented 3. Nasal O2 in place. HEENT examination is grossly unremarkable. Mucous membranes are moist. No oral lesions. Neck supple. Full range of motion. No adenopathy thyromegaly or neck vein distention. Cardiovascular examination reveals regular rhythm rate. S1-S2 normal. No S3 or S4. No discernible murmur noted. Heart sounds are distant. Lungs reveal clear lung sounds. No rhonchi no wheezes or rales noted. Breath sounds are equal bilaterally. Patient is currently on room air Abdomen soft bowel sounds are heard. No masses or tenderness. Extremities are intact. No cyanosis or clubbing. 1-2+ pitting edema is noted in the extremities. Skin is without rash or lesion. Neurologic examination is brief but nonfocal. - Labs CBC & Chem 7: 08/21/17 06:04 08/18/17 06:07 Labs: Abnormal Lab Results - Last 24 Hours (Table) 08/20/17 08/21/17 08/21/17 Range/Units 20:45 06:04 06:07 Hgb 12.6 L (13.0-17.5) gm/dL Hct 37.5 L (39.0-53.0) % Plt Count 127 L (150-450) k/uL Neutrophils # 9.4 H (1.3-7.7) k/uL Lymphocytes # 0.6 L (1.0-4.8) k/uL POC Glucose (mg/dL) 183 H 198 H (75-99) mg/dL 08/21/17 08/21/17 Range/Units 11:30 16:41 Hgb (13.0-17.5) gm/dL Hct (39.0-53.0) % Plt Count (150-450) k/uL Neutrophils # (1.3-7.7) k/uL Lymphocytes # (1.0-4.8) k/uL POC Glucose (mg/dL) 164 H 166 H (75-99) mg/dL Assessment and Plan Plan: Assessment: #1. 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 #2. Urinary retention, secondary to BPH, on Flomax #3. Obstructive sleep apnea, noncompliant with CPAP therapy #4. History of coronary artery disease, with history of coronary artery bypass grafting in the past #5. Chronic systolic congestive heart failure #6. CVA/TIA #7. Hyperlipidemia, hypertension #8. Osteoarthritis #9. History of DVTs and pulmonary embolisms #10. Restless leg syndrome #11. GERD/reflux, hiatal hernia repair #12. Nicotine dependence, in remission Plan: Patient continues to improve, denies any fever, chills, denies any chest pain, wheezing, or chest congestion. He is currently on room air, vital signs are stable, patient is afebrile. From pulmonary standpoint patient is stable for discharge home today. Follow-up with Dr. Dumont in the office in 3-4 days. I performed a history & physical examination of the patient and discussed their management with my nurse practitioner, Lisa Eason. I reviewed the nurse practitioner's note and agree with the documented findings and plan of care. Lung sounds are positive for clear lung sounds. The findings and the impression was discussed with the patient. I attest to the documentation by the nurse practitioner. Time with Patient: Less than 30
[2017-08-21] MEDS ORDERED: PANTOPRAZOLE 40 MG TABLET PO SCH (17:30)
--- NOTE | 2017-08-21 22:27 | DS ---
DISCHARGE SUMMARY FINAL DIAGNOSES: 1. Chronic obstructive pulmonary disease acute exacerbation with acute hypercapnic hypoxic respiratory failure. 2. Elevated troponins, status post cardiac catheterization. 3. Possible upper gastrointestinal bleed. 4. Possible benign prostatic hypertrophy. 5. History of gastroesophageal reflux disease. 6. Restless legs syndrome. 7. History of coronary artery disease, coronary artery bypass grafting. 8. History of deep vein thrombosis. 9. Degenerative joint disease. 10.History of sleep apnea. DISCHARGE DISPOSITION: The patient is being discharged in stable condition with guarded prognosis. HISTORY OF PRESENT ILLNESS: This 81-year-old gentleman with a past medical history of multiple medical problems, admitted with COPD exacerbation and as well as acute hypoxic hypercapnic respiratory failure. Patient treated with bronchodilators, IV antibiotics and steroids. Dr. Dasilva and cardiology saw the patient. Patient improved significantly. Patient discharged in stable condition with guarded prognosis. DISCHARGE ADVICE AND MEDICATIONS: 1. Diet is cardiac diet. 2. Activity limited until follow up. 3. Follow up with Dr. Roque in 2-3 days. 4. Follow up with Cardiology and urology as advised. 5. Home is also being arranged. MEDICATIONS ARE: 1. Tylenol 500 mg q.4h p.r.n. 2. Aspirin 81 mg p.o. daily. 3. Symbicort 160/4.5 two puffs b.i.d. 4. Depo-Medrol once. 5. Benadryl 25 mg p.o. q.h.s. 6. Zetia. 7. Vytorin 1 tab p.o. q.h.s. 8. Lasix 20 mg p.o. a.c. supper. 9. DuoNeb q.i.d. and p.r.n. 10.Imdur ER 60 mg p.o. daily. 11.Levaquin 250 mg p.o. daily for 5 days. 12.Zaroxolyn 5 mg Friday, Friday, Friday, and Friday. 13.Lopressor 75 mg p.o. b.i.d. 14.K-Dur 20 mEq p.o. t.i.d. 15.Mirapex 0.75 mg p.o. q.h.s. 16.Zantac 150 mg p.o. b.i.d. 17.Flomax 0.4 mg q.h.s. Once again, the patient is being discharged in a stable condition with guarded prognosis. CALOS / VIDAN: [id number] /
== END 2017-08-21 18:22 | disposition home health service (06) | DRG 280 ==
LOC: EC 09:12 → 6SEL 11:03
PROVIDERS: ADMIT Hospitalist; ATTEND Hospitalist
PROC: B213YZZ Fluoroscopy of Multiple Coronary Artery Bypass Grafts using Other Contrast (ICD-10-PCS; 2017-08-19)
PROC: B211YZZ Fluoroscopy of Multiple Coronary Arteries using Other Contrast (ICD-10-PCS; 2017-08-19)
PROC: B218YZZ Fluoroscopy of Left Internal Mammary Bypass Graft using Other Contrast (ICD-10-PCS; 2017-08-19)
PROC: 4A023N7 Measurement of Cardiac Sampling and Pressure, Left Heart, Percutaneous Approach (ICD-10-PCS; principal; 2017-08-19 14:55)
DX: I21.4 Non-ST elevation (NSTEMI) myocardial infarction (principal); J96.01 Acute respiratory failure with hypoxia; J96.02 Acute respiratory failure with hypercapnia; K92.0 Hematemesis; I50.22 Chronic systolic (congestive) heart failure; J44.1 Chronic obstructive pulmonary disease with (acute) exacerbation; E11.9 Type 2 diabetes mellitus without complications; G20 Parkinson's disease; I11.0 Hypertensive heart disease with heart failure; F02.80 Dementia in other diseases classified elsewhere, unspecified severity, without behavioral disturbance, psychotic disturbance, mood disturbance, and anxiety; R31.9 Hematuria, unspecified; I27.81 Cor pulmonale (chronic); M06.9 Rheumatoid arthritis, unspecified; E86.0 Dehydration; E78.00 Pure hypercholesterolemia, unspecified; E78.5 Hyperlipidemia, unspecified; F17.201 Nicotine dependence, unspecified, in remission; G25.81 Restless legs syndrome; G47.33 Obstructive sleep apnea (adult) (pediatric); H91.90 Unspecified hearing loss, unspecified ear; I25.10 Atherosclerotic heart disease of native coronary artery without angina pectoris; I25.2 Old myocardial infarction; I49.3 Ventricular premature depolarization; K21.0 Gastro-esophageal reflux disease with esophagitis; K29.70 Gastritis, unspecified, without bleeding; R10.9 Unspecified abdominal pain; M19.91 Primary osteoarthritis, unspecified site; N40.1 Benign prostatic hyperplasia with lower urinary tract symptoms; R33.8 Other retention of urine; R32 Unspecified urinary incontinence; E66.9 Obesity, unspecified; F32.9 Major depressive disorder, single episode, unspecified; F41.9 Anxiety disorder, unspecified; K44.9 Diaphragmatic hernia without obstruction or gangrene; Z79.51 Long term (current) use of inhaled steroids; Z79.82 Long term (current) use of aspirin; Z79.899 Other long term (current) drug therapy; Z86.718 Personal history of other venous thrombosis and embolism; Z86.711 Personal history of pulmonary embolism; Z99.81 Dependence on supplemental oxygen; Z95.1 Presence of aortocoronary bypass graft; Z91.19 Patient's noncompliance with other medical treatment and regimen; Z86.73 Personal history of transient ischemic attack (TIA), and cerebral infarction without residual deficits; Z85.828 Personal history of other malignant neoplasm of skin; Z98.42 Cataract extraction status, left eye; Z98.41 Cataract extraction status, right eye; Z96.1 Presence of intraocular lens; Z68.34 Body mass index [BMI] 34.0-34.9, adult
CPT/HCPCS: 36415; 36600; 51702; 51798; 71045; 74018; 76705; 80048; 80053; 81001; 82271; 82550; 82553; 82805; 83036; 83605; 83735; 83880; 84484; 85025; 85379; 85610; 85730; 93306; 93459; 94640; 94644; 94760; 96361; 96374; 99284

== ENCOUNTER 2017-09-11 09:32 | Day surgery (SDC) | payer MEDICARE, OTHER ==
[2017-09-09 15:21] VITALS: BMI 35.4
[~2017-09-11 09:32] MED LIST changes: +LACTATED RINGERS 1,000 ML IV SCH; -LIDOCAINE 1% 20 ML VIAL (10MG/ML) FOR IV START INTRADERMA PRN
[2017-09-11 10:46] LABS: Glucose,Whole Blood 133 mg/dL (75-99)
[2017-09-11] MEDS ORDERED: LIDOCAINE 1% 20 ML VIAL (10MG/ML) FOR IV START INTRADERMA ONE (10:47)
[2017-09-11] MEDS ORDERED: LIDOCAINE 1% INJ 10MG/ML (20 ML MDV) ONE (11:06)
[2017-09-11] MEDS ORDERED: PROPOFOL 10 MG/ML 20 ML VIAL IV ONE (11:06)
[2017-09-11 11:44] VITALS: TEMP 97.2
--- NOTE | 2017-09-11 11:59 | P.PCN ---
Date of Procedure: 09/11/17 Procedure(s) Performed: Procedure: Esophagogastroduodenoscopy and biopsy and esophageal dilation using the Microvasive [id number] balloon dilators size 15 mm. Preoperative diagnosis: Dysphagia. Postoperative diagnosis: 1. Distal esophageal stricture with LA grade C esophagitis and retained pill in the esophagus. 2. Gastritis with multiple ulcers in the proximal stomach and prepyloric area not actively bleeding. 3. Pill in the esophagus advanced into the stomach with gentle pressure with the endoscope. 4. Esophageal stricture dilated up to 15 mm using the 15-18 mm Microvasive [id number] balloon dilator. 5. Biopsies obtained from the antrum to rule out H. pylori infection. Preparation sedation: Was provided by anesthesia. Brief clinical history: The patient is an 81-year-old male who is scheduled for this evaluation because of difficulty swallowing including swallowing his pills and intermittent obstructive dysphagia. The patient has history of esophageal stricture last dilated in September 2016. In addition, the patient has history of coronary atherosclerotic heart disease and advanced COPD, oxygen dependent, who had non-ST elevated NM within the last month and had cardiac catheterization with patent vasculature and stents. Procedure: With the patient on his left lateral decubitus position and after informed consent and adequate sedation, I passed the Olympus-GIF 160 video upper endoscope through the cricopharyngeus down the esophagus. There was broad erosions covering the surface of the distal esophagus consistent with LA grade C esophagitis. In addition, there was a benign appearing stricture in the distal esophagus with an impacted pill that I was able to advance into the stomach with gentle pressure of the endoscope. There was a hiatal hernia. GE junction was around 42-43 cm from the incisors. The hiatal hernia measured around 2 cm. There was no hesitation to the advancement of the endoscope into the stomach. The stricture appeared benign. The stomach was insufflated with air and inspected in detail including the retroflex view in the cardia. There was mottling and erythema in the stomach most notable in the antrum and prepyloric area. There were multiple erosions and superficial ulcerations in the prepyloric area and a deeper ulcer covered with dark exudate in the proximal stomach close to the cardia but there was no active bleeding or gastric outlet obstruction. Pyloric channel, duodenal bulb, post bulbar area and descending duodenum showed no additional abnormalities. I obtained biopsies from the antrum then I proceeded to dilate the esophagus. The Microvasive [id number]-[id number]-[id number] balloon dilators size 15-18 mm was passed through the operating channel of the endoscope and was centered at the level of the stricture and inflated it up to 15 mm in the usual fashion. Adequate dilation was accomplished and no further dilation was attempted. The patient tolerated the procedure well. Plan: The patient was reassured. I will discuss with pulmonary and cardiology and with primary care regarding possible admission for observation status because of his recent NM as has been suggested by anesthesia. He will stay on clear liquid diet today. Further plans based on his course.
[2017-09-11 12:52] VITALS: RESP 18
[2017-09-11 13:07] VITALS: BP 117/70; PULSE 82
--- NOTE | 2017-09-11 14:04 | P.CRDCN ---
History of Present Illness Consult date: 09/11/17 History of present illness: Mr. Wesley is a pleasant 81-year-old male past medical history significant for coronary artery disease s/p bypass grafting with AREVALO-LAD, SVG- OM1, SVG-OM2 and SVG-diag. He also has COPD on home oxygen, dementia, gastroesophageal reflux disease, hypertension, hyperlipidemia, sleep apnea and history of CVA. He follows with Dr. Forman in the office. We have been asked to see him in consultation after having an EGD this morning. He underwent an EGD with esophageal dilation. He is seen in recovery resting comfortably on the stretcher. He is awake and alert and denies symptoms of chest pain, shortness of breath, dizziness, palpitations or acute diaphoresis. He was recently admitted to the hospital and underwent a cardiac catheterization that revealed patent bypass grafts. Recent echocardiogram done on that admission as well revealed preserved LV systolic function with EF 55-60%. He states he has an appointment scheduled with Dr. Forman in the next couple of weeks. No arrhythmia noted on telemetry. Review of Systems At the time of my exam: CONSTITUTIONAL: Denies fever. Denies chills. EYES: Denies blurred vision. Denies vision changes. Denies eye pain. EARS, NOSE, MOUTH & THROAT: Denies headache. Denies sore throat. Denies ear pain. CARDIOVASCULAR: Denies chest pain. Denies shortness of breath. Denies orthopnea. Denies PND. Denies palpitations. RESPIRATORY: Denies cough. GASTROINTESTINAL: Denies abdominal pain. Denies diarrhea. Denies constipation. Denies nausea. Denies vomiting. MUSCULOSKELETAL: Denies myalgias. INTEGUMENTARY: Denies pruitis. Denies rash. NEUROLOGIC: Denies numbness. Denies tingling. Denies weakness. PSYCHIATRIC: Denies anxiety. Denies depression. ENDOCRINE: Denies fatigue. Denies weight change. Denies polydipsia. Denies polyurina. GENITOURINARY: Denies burning, hematuria or urgency with micturation. HEMATOLOGIC: Denies history of anemia. Denies bleeding. Past Medical History Past Medical History: Coronary Artery Disease (CAD), Cancer, Chest Pain / Angina , COPD, CVA/TIA, Dementia, Deep Vein Thrombosis (DVT), GERD/Reflux, Hearing Disorder / Deafness, Hyperlipidemia, Hypertension, Myocardial Infarction ([place]), Osteoarthritis (OA), Prostate Disorder, Pulmonary Embolus (PE), Renal Disease, Respiratory Disorder, Rheumatoid Arthritis (RA), Sleep Apnea/CPAP/BIPAP, Syncope Additional Past Medical History / Comment(s): SEVERE COPD, HOME O3L/NC, BRONCHITIS, PNUEMONIAS, RAJESH BUT NO LONGER USED CPAP, R LEG DVT, BILAT PE, TIA, PARKINSONS DISEASE, RESTLESS LEG SYNDROME, NUMBNESS/TINGLING BILATERAL LEGS/FEET , UNSTEADY ON HIS FEET, FALLS, DOUBLE INGUINAL HERNIAS, HX ULCERS, HEMORRHOIDS , ENLARGED PROSTRATE, INSOMNIA, SINUSITIS, BILATERAL LEG EDEMA AT TIMES, SKIN CANCER WITH REMOVAL, HOLE IN EARDRUM LEFT Last Myocardial Infarction Date:: 2006 History of Any Multi-Drug Resistant Organisms: None Reported Past Surgical History: Coronary Bypass/CABG, Heart Catheterization, Hernia Repair Additional Past Surgical History / Comment(s): 2006 CABG WITH 4 VESSEL BYPASS, HIATAL HERNIA REPAIR, UMBILICAL HERNIA REPAIR, BILAT CATARACTS WITH LENS IMPLANTS SX, EGD X 5 WITH ESOPHAGEAL DILATION, COLONOSCOPY/BENIGN POLYPS, SKIN CANCER REMOVALS. Past Anesthesia/Blood Transfusion Reactions: No Reported Reaction Smoking Status: Former smoker - Past Family History Mother Family Medical History: Cancer Additional Family Medical History / Comment(s): Mother had lung cancer. She was a smoker. Brother(s) Family Medical History: Blood Disorder Father Additional Family Medical History / Comment(s): HARDENING OF ARTERIES, Medications and Allergies Home Medications Medication Instructions Recorded Confirmed Type Aspirin 81 mg PO DAILY 08/25/14 09/09/17 History Ezetimibe/Simvastatin [Vytorin 1 tab PO HS 08/25/14 09/09/17 History 10-40 mg Tablet] Furosemide [Lasix] 20 mg PO AC-SUPPER 08/25/14 09/09/17 History Isosorbide Mononitrate ER [Imdur] 60 mg PO DAILY 08/25/14 09/09/17 History Metolazone [Zaroxolyn] 5 mg PO MOTUWETHFR 08/25/14 09/09/17 History Potassium Chloride ER [K-Dur 20] 20 meq PO TID 08/25/14 09/09/17 History Pramipexole Di-HCl [Mirapex] 0.75 mg PO HS 08/25/14 09/09/17 History Tamsulosin HCl [Flomax] 0.4 mg PO HS 09/20/16 09/09/17 History Acetaminophen Tab [Tylenol] 500 mg PO Q4H PRN 08/14/17 09/09/17 History Budesonide-Formot 160-4.5 Mcg 2 puff INHALATION RT-BID 08/14/17 09/09/17 History [Symbicort 160-4.5 Mcg Inhaler] Ranitidine HCl [Zantac] 150 mg PO BID 08/14/17 09/09/17 History diphenhydrAMINE [Benadryl] 25 mg PO HS 08/14/17 09/09/17 History Ipratropium-Albuterol Nebulize 3 ml INHALATION RT-TID #120 08/21/17 09/09/17 Rx [Duoneb 0.5 mg-3 mg/3 ml Soln] ampul.neb Metoprolol Tartrate [Lopressor] 75 mg PO BID #180 tab 08/21/17 09/09/17 Rx Allergies Allergy/AdvReac Type Severity Reaction Status Date / Time No Known Allergies Allergy Verified 09/09/17 15:16 Physical Exam Vitals: Vital Signs Temp Pulse Resp BP Pulse Ox 09/11/17 13:07 82 18 117/70 95 09/11/17 13:05 82 18 117/70 95 09/11/17 12:48 85 18 111/65 96 09/11/17 12:30 82 16 112/65 93 L 09/11/17 12:16 77 16 115/68 96 09/11/17 12:00 78 16 107/68 95 09/11/17 11:51 78 16 116/62 96 09/11/17 11:40 97.2 F L 79 20 111/58 94 L 09/11/17 10:47 99.2 F 93 16 142/76 93 L 09/11/17 10:34 99.2 F 93 16 142/76 93 L 09/11/17 10:25 99.2 F 93 16 142/76 93 L Intake and Output 09/10/17 09/11/17 09/11/17 22:59 06:59 14:59 Intake Total 600 Balance 600 Intake: IV 600 Blood pressure 117/70 heart rate 82 afebrile maintaining oxygen saturation on room air GENERAL: This is a 81-year-old male in no apparent distress at the time of my examination. HEENT: Head is atraumatic, normocephalic. Pupils are equal, round. Sclerae anicteric. Conjunctivae are clear. Mucous membranes of the mouth are moist. Neck is supple. There is no jugular venous distention. No carotid bruit is heard. LUNGS: Clear to auscultation no wheezes, rales or rhonchi. No chest wall tenderness is noted on palpation or with deep breathing. Diminished bilaterally. HEART: Regular rate and rhythm without murmurs, rubs or gallops. S1 and S2 heard. ABDOMEN: Soft, nontender. Bowel sounds are heard. No organomegaly noted. EXTREMITIES: No evidence of peripheral edema and no calf tenderness noted. VASCULAR: Radial and dorsalis pedis pulses palpated, no evidence of clubbing. NEUROLOGIC: Patient is awake, alert and oriented x3. Results Intake and Output 09/10/17 09/11/17 09/11/17 22:59 06:59 14:59 Intake Total 600 Balance 600 Intake: IV 600 Assessment and Plan Assessment: ASSESSMENT 1. History of coronary artery disease status post bypass grafting. Recent cardiac catheterization revealed patent grafts 4 significant [place] coronary artery disease. 2. History of COPD 3. Dyslipidemia 4. Hypertension 5. Status post EGD with esophageal dilation PLAN This patient is hemodynamically stable. From a cardiac perspective he is stable with no indication for any further cardiac workup at this point. Follow- up with Dr. Forman regularly scheduled appointment. The above impression and plan of care have been discussed and directed by the signing physician. Alecia Spain, nurse practitioner, acting as scribe for signing physician.
== END 2017-09-11 13:23 | disposition home or self-care (01) ==
LOC: ORWHC2ENDO 09:32
DX: K22.2 Esophageal obstruction (principal); K29.50 Unspecified chronic gastritis without bleeding; K25.9 Gastric ulcer, unspecified as acute or chronic, without hemorrhage or perforation; K21.0 Gastro-esophageal reflux disease with esophagitis; K22.10 Ulcer of esophagus without bleeding; K44.9 Diaphragmatic hernia without obstruction or gangrene; I25.119 Atherosclerotic heart disease of native coronary artery with unspecified angina pectoris; J44.9 Chronic obstructive pulmonary disease, unspecified; E78.5 Hyperlipidemia, unspecified; I10 Essential (primary) hypertension; I21.9 Acute myocardial infarction, unspecified; M19.90 Unspecified osteoarthritis, unspecified site; F03.90 Unspecified dementia, unspecified severity, without behavioral disturbance, psychotic disturbance, mood disturbance, and anxiety; H91.90 Unspecified hearing loss, unspecified ear; G47.33 Obstructive sleep apnea (adult) (pediatric); N28.9 Disorder of kidney and ureter, unspecified; M06.9 Rheumatoid arthritis, unspecified; G20 Parkinson's disease; N40.0 Benign prostatic hyperplasia without lower urinary tract symptoms; E11.9 Type 2 diabetes mellitus without complications; Z99.81 Dependence on supplemental oxygen; Z99.89 Dependence on other enabling machines and devices; Z95.1 Presence of aortocoronary bypass graft; Z79.82 Long term (current) use of aspirin; Z79.51 Long term (current) use of inhaled steroids; Z79.899 Other long term (current) drug therapy; Z91.81 History of falling; Z86.718 Personal history of other venous thrombosis and embolism; Z86.711 Personal history of pulmonary embolism; Z86.73 Personal history of transient ischemic attack (TIA), and cerebral infarction without residual deficits; Z85.828 Personal history of other malignant neoplasm of skin; Z87.891 Personal history of nicotine dependence
CPT/HCPCS: 88305; 43239; 43249; J2001; J2704; C1726

== ENCOUNTER 2018-01-07 04:19 | Emergency (ER) | payer MEDICARE, OTHER ==
[2018-01-07 06:45] LABS: Basophils % (A) 0 %; Eosinophils # (A) 0.1 k/uL (0-0.7); Eosinophils % (A) 1 %; HCT 40.3 % (39.0-53.0); HGB 13.5 gm/dL (13.0-17.5); Lymphocytes # (A) 1.2 k/uL (1.0-4.8); Lymphocytes % (A) 11 %; MCH 28.2 pg (25.0-35.0); MCHC 33.5 g/dL (31.0-37.0); MCV 84.2 fL (80.0-100.0); Mean Platelet Volume 7.2; Monocytes # (A) 0.5 k/uL (0-1.0); Monocytes % (A) 5 %; Neutrophils % (A) 82 %; Platelet Count 254 k/uL (150-450); RBC 4.79 m/uL (4.30-5.90); RDW 15.1 % (11.5-15.5); WBC 10.9 k/uL (3.8-10.6)
[2018-01-07 06:50] LABS: Partial Thromboplastin Time 24.2 sec (22.0-30.0); Prothrombin Time 10.1 sec (9.0-12.0)
[2018-01-07 06:55] LABS: Calcium 10.9 mg/dL (8.4-10.2); Magnesium 1.5 mg/dL (1.6-2.3); Total Bilirubin 0.6 mg/dL (0.2-1.3)
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
[2018-01-07] MEDS ORDERED: AZITHROMYCIN 500 MG TAB PO STA (06:59)
[2018-01-07 07:00] LABS: Potassium 2.9 mmol/L (3.5-5.1)
[2018-01-07] MEDS ORDERED: POTASSIUM BICARBONATE/CIT AC 20 MEQ TABLET.EFF PO ONE (07:00)
[2018-01-07] MEDS ORDERED: cefTRIAXone IN SWFI 1,000 MG/10 ML SYRINGE IVP STA (07:03)
[2018-01-07 07:19] LABS: Creatine Kinase MB 2.6 ng/mL (0.0-2.4); Troponin I 0.131 ng/mL (0.000-0.034)
--- NOTE | 2018-01-07 07:52 | XR ---
EXAM: XR Chest, 1 View CLINICAL HISTORY: ITS.REASON XR Reason: dyspnea TECHNIQUE: Frontal view of the chest. COMPARISON: 08/15/17 FINDINGS: Enteric tube has been removed. Lung base opacities. Blunting costophrenic angles may represent small pleural effusions. Unchanged findings include postop changes with broken inferior sternotomy wire. IMPRESSION: Lung base opacities which may represent atelectasis and/or infiltrate. Possible small pleural effusions.
[2018-01-07] MEDS ORDERED: PNEUMONIA PROTOCOL UTILIZED 1 EACH MISC PO PRN (08:31)
[2018-01-07] MEDS ORDERED: ALBUTEROL NEBULIZED 2.5 MG/3 ML INHALATION PRN (08:31)
[2018-01-07] MEDS ORDERED: ACETAMINOPHEN TAB 500 MG TAB PO PRN (08:33)
[2018-01-07] MEDS ORDERED: SODIUM CHLORIDE 0.9% 1,000 ML IV SCH (08:45)
[2018-01-07] MEDS ORDERED: METOLAZONE 5 MG TAB PO SCH (08:45)
[2018-01-07] MEDS ORDERED: METOPROLOL TARTRATE 25 MG TAB PO SCH (09:00)
[2018-01-07] MEDS ORDERED: NON-FORMULARY DRUG (Ranitidine Hcl [Zantac] 150 MG) PO SCH (09:00)
[2018-01-07] MEDS ORDERED: ISOSORBIDE MONONITRATE ER 60 MG TAB.ER.24H PO SCH (09:00)
[2018-01-07] MEDS ORDERED: ASPIRIN 81 MG PO SCH (09:00)
[2018-01-07 09:10] VITALS: BP 118/72; PULSE 78; RESP 20; TEMP 98
[2018-01-07] MEDS ORDERED: IPRATROPIUM-ALBUTEROL 3 ML NEB INHALATION SCH (12:00)
[2018-01-07] MEDS ORDERED: SYMBICORT 160-4.5 MCG INHALER INHALATION SCH (20:00)
[2018-01-07] MEDS ORDERED: PRAMIPEXOLE DI HCL 0.75 MG PO SCH (21:00)
[2018-01-07] MEDS ORDERED: EZETIMIBE PO SCH (21:00)
[2018-01-07] MEDS ORDERED: TAMSULOSIN 0.4 MG CAP.ER.24H PO SCH (21:00)
[2018-01-07] MEDS ORDERED: SIMVASTATIN PO SCH (21:00)
[2018-01-07] MEDS ORDERED: diphenhydrAMINE 25 MG CAP PO SCH (21:00)
[2018-01-08] MEDS ORDERED: cefTRIAXone IN SWFI 1,000 MG/10 ML SYRINGE IVP SCH (08:32)
[2018-01-08] MEDS ORDERED: AZITHROMYCIN 500 MG TAB PO SCH (08:33)
== END 2018-01-07 09:10 | disposition left against medical advice (07) ==
LOC: EC 04:19
DX: J44.1 Chronic obstructive pulmonary disease with (acute) exacerbation (principal); J44.0 Chronic obstructive pulmonary disease with (acute) lower respiratory infection; J18.9 Pneumonia, unspecified organism; I25.10 Atherosclerotic heart disease of native coronary artery without angina pectoris; J44.9 Chronic obstructive pulmonary disease, unspecified; F03.90 Unspecified dementia, unspecified severity, without behavioral disturbance, psychotic disturbance, mood disturbance, and anxiety; G20 Parkinson's disease; K21.9 Gastro-esophageal reflux disease without esophagitis; H91.90 Unspecified hearing loss, unspecified ear; E78.5 Hyperlipidemia, unspecified; I10 Essential (primary) hypertension; G25.81 Restless legs syndrome; M06.9 Rheumatoid arthritis, unspecified; Z86.711 Personal history of pulmonary embolism; Z86.718 Personal history of other venous thrombosis and embolism; Z86.73 Personal history of transient ischemic attack (TIA), and cerebral infarction without residual deficits; Z86.010 Personal history of colon polyps; Z85.828 Personal history of other malignant neoplasm of skin; Z87.891 Personal history of nicotine dependence; Z95.1 Presence of aortocoronary bypass graft; Z98.890 Other specified postprocedural states; Z79.51 Long term (current) use of inhaled steroids; Z79.82 Long term (current) use of aspirin; Z79.899 Other long term (current) drug therapy
CPT/HCPCS: 36415; 71045; 80053; 82550; 82553; 83735; 83880; 84484; 85025; 85610; 85730; 93005; 96374; 99284

== ENCOUNTER 2018-01-07 12:09 | Inpatient (IN) | payer MEDICARE, OTHER ==
[2018-01-07] MEDS ORDERED: IPRATROPIUM-ALBUTEROL 3 ML NEB INHALATION STA (13:46)
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
[2018-01-07] MEDS ORDERED: HEPARIN SODIUM,PORCINE 5,000 UNIT/ML 1 ML VIAL IV ONE (13:51)
[2018-01-07] MEDS ORDERED: HEPARIN SODIUM,PORCINE 5,000 UNIT/ML 1 ML VIAL IV PRN (13:51)
[2018-01-07] MEDS ORDERED: DILTIAZEM DRIP BOLUS FROM BAG 1 MG SOLN IV ONE (13:51)
[2018-01-07] MEDS: DILTIAZEM 50 MG in SODIUM CHLORIDE 0.9% 40 ML IV SCH ×2 (14:48→22:25)
[2018-01-07] MEDS: HEPARIN SOD,PORK IN 0.45% NACL 25,000 UNIT in 0.45% NACL 1 500ML.BAG IV SCH (14:49)
[2018-01-07 14:50] LABS: Basophils % (A) 0 %; Eosinophils % (A) 0 %; HCT 38.7 % (39.0-53.0); HGB 13.1 gm/dL (13.0-17.5); Lymphocytes % (A) 10 %; MCH 28.4 pg (25.0-35.0); MCHC 33.8 g/dL (31.0-37.0); Mean Platelet Volume 7.5; Monocytes # (A) 0.5 k/uL (0-1.0); Monocytes % (A) 5 %; Neutrophils # (A) 8.9 k/uL (1.3-7.7); Neutrophils % (A) 84 %; Platelet Count 242 k/uL (150-450); RBC 4.61 m/uL (4.30-5.90); WBC 10.6 k/uL (3.8-10.6)
--- NOTE | 2018-01-07 14:50 | XR ---
EXAMINATION TYPE: XR chest 2V DATE OF EXAM: 01/07/2018 COMPARISON: Chest x-ray earlier today. HISTORY: Difficulty in breathing. TECHNIQUE: Frontal and lateral views of the chest are obtained. FINDINGS: Overlying sternal wires and mediastinal clips are redemonstrated. Cardiac silhouette size is stable and upper limits of normal with atherosclerotic thoracic aorta. There is chronic parenchyma l change bilaterally with small bilateral pleural effusions and associated bibasilar atelectasis and/ or infiltrate. Osseous structures are demineralized. IMPRESSION: Chronic parenchymal change with small bilateral pleural effusions and associated bibasila r atelectasis and/or infiltrate. No significant change from prior.
[2018-01-07 14:59] LABS: Albumin 3.9 g/dL (3.5-5.0); Calcium 10.5 mg/dL (8.4-10.2); Potassium 3.1 mmol/L (3.5-5.1); Total Bilirubin 0.5 mg/dL (0.2-1.3)
[2018-01-07 15:05] LABS: INR 1.1 (<1.2); Partial Thromboplastin Time 25.3 sec (22.0-30.0); Prothrombin Time 10.3 sec (9.0-12.0)
[2018-01-07 15:39] LABS: Creatine Kinase MB 4.2 ng/mL (0.0-2.4)
[2018-01-07 15:40] LABS: Troponin I 0.89 ng/mL (0.000-0.034)
[2018-01-07] MEDS ORDERED: ASPIRIN 81 MG PO STA (15:46)
[2018-01-07] MEDS ORDERED: PNEUMONIA PROTOCOL UTILIZED 1 EACH MISC PO PRN (15:46)
[2018-01-07] MEDS ORDERED: NITROGLYCERIN SL TABS 0.4 MG TAB SUBLINGUAL PRN (15:46)
[2018-01-07] MEDS ORDERED: cefTRIAXone IN SWFI 1,000 MG/10 ML SYRINGE IVP STA (15:46)
[2018-01-07] MEDS ORDERED: IPRATROPIUM-ALBUTEROL 3 ML NEB INHALATION PRN (15:46)
[2018-01-07] MEDS ORDERED: AZITHROMYCIN 500 MG in SODIUM CHLORIDE 0.9% 250 ML IVPB SCH (16:00)
[2018-01-07] MEDS: IPRATROPIUM-ALBUTEROL 3 ML NEB INHALATION SCH ×2 (16:12→19:50)
[2018-01-07] MEDS ORDERED: AZITHROMYCIN 500 MG in DEXTROSE 5% IN WATER 250 ML IVPB ONE ×2 (16:15)
[2018-01-07 20:43] LABS: Creatine Kinase MB 3.2 ng/mL (0.0-2.4); Troponin I 0.65 ng/mL (0.000-0.034)
[2018-01-07] MEDS: EZETIMIBE 10 MG TAB PO SCH (21:41)
[2018-01-07] MEDS: ATORVASTATIN 20 MG TAB PO SCH (21:41)
[2018-01-07] MEDS: METOLAZONE 5 MG TAB PO SCH (21:41)
[2018-01-07] MEDS: FUROSEMIDE 20 MG TAB PO SCH (21:41)
[2018-01-07] MEDS: METOPROLOL TARTRATE 25 MG TAB PO SCH (21:41)
[2018-01-07] MEDS: NITROGLYCERIN OINT 1 INCH/GM PACKET TOPICAL SCH ×2 (21:41→23:05)
[2018-01-07] MEDS: POTASSIUM CHLORIDE ER 20 MEQ TAB.ER PO SCH (21:42)
[2018-01-07] MEDS ORDERED: Potassium Replacement Protocol 1 EACH MISC MISCELLANE PRN (23:03)
[2018-01-08] MEDS: POTASSIUM CHLORIDE ER 20 MEQ TAB.ER PO SCH ×6 (00:21→20:22)
[2018-01-08] MEDS: POTASSIUM CHLORIDE 20 MEQ in WATER FOR INJECTION 1 100ML.BAG IVPB SCH ×3 (00:21→04:41)
[2018-01-08] MEDS ORDERED: ACETAMINOPHEN TAB 500 MG TAB PO PRN (00:54)
[2018-01-08] MEDS ORDERED: ALPRAZolam 0.25 MG TAB PO PRN (00:55)
[2018-01-08 03:02] LABS: Creatine Kinase MB 2.2 ng/mL (0.0-2.4)
[2018-01-08 03:04] LABS: Troponin I 0.445 ng/mL (0.000-0.034)
[2018-01-08] MEDS: PANTOPRAZOLE 40 MG TABLET PO SCH (06:27)
[2018-01-08] MEDS: NITROGLYCERIN OINT 1 INCH/GM PACKET TOPICAL SCH (06:27)
[2018-01-08] MEDS ORDERED: AZITHROMYCIN 500 MG in DEXTROSE 5% IN WATER 250 ML IVPB SCH ×2 (06:45)
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
[2018-01-08 07:43] LABS: Basophils % (A) 0 %; Eosinophils # (A) 0.3 k/uL (0-0.7); Eosinophils % (A) 2 %; HGB 13.1 gm/dL (13.0-17.5); Lymphocytes # (A) 1.6 k/uL (1.0-4.8); Lymphocytes % (A) 15 %; MCH 27.6 pg (25.0-35.0); MCHC 32.8 g/dL (31.0-37.0); MCV 84.1 fL (80.0-100.0); Mean Platelet Volume 7.4; Monocytes # (A) 0.5 k/uL (0-1.0); Monocytes % (A) 4 %; Neutrophils # (A) 8.3 k/uL (1.3-7.7); Neutrophils % (A) 77 %; Platelet Count 243 k/uL (150-450); RBC 4.76 m/uL (4.30-5.90); RDW 15.3 % (11.5-15.5); WBC 10.8 k/uL (3.8-10.6)
[2018-01-08] MEDS ORDERED: BUDESONIDE 1 MG/2 ML NEBU INHALATION SCH (08:00)
[2018-01-08] MEDS ORDERED: FORMOTEROL FUMARATE 20 MCG/2 ML NEBU INHALATION SCH (08:00)
[2018-01-08] MEDS: IPRATROPIUM-ALBUTEROL 3 ML NEB INHALATION SCH ×4 (08:18→20:03)
[2018-01-08] MEDS: DOCUSATE 100 MG CAP PO SCH ×2 (08:27→20:21)
[2018-01-08] MEDS: METOLAZONE 5 MG TAB PO SCH (08:27)
[2018-01-08] MEDS: METOCLOPRAMIDE 5 MG TAB PO SCH ×3 (08:28→20:21)
[2018-01-08] MEDS: METOPROLOL TARTRATE 25 MG TAB PO SCH ×2 (08:28→20:22)
[2018-01-08] MEDS: ASPIRIN 325 MG TAB PO SCH (08:28)
[2018-01-08] MEDS: ISOSORBIDE MONONITRATE ER 60 MG TAB.ER.24H PO SCH (08:29)
[2018-01-08] MEDS: FUROSEMIDE 40 MG TAB PO SCH (08:30)
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
--- NOTE | 2018-01-08 11:19 | ECHOF ---
Referral Reason:nstemi, a fib MEASUREMENTS -------- HEIGHT: 170.2 cm WEIGHT: 102.5 kg BP: 165/73 RVIDd: 3.4 cm (< 3.3) IVSd: 1.2 cm (0.6 - 1.1) LVIDd: 4.7 cm (3.9 - 5.3) LVPWd: 1.3 cm (0.6 - 1.1) IVSs: 1.7 cm LVIDs: 3.4 cm LVPWs: 1.9 cm LA Diam: 3.8 cm (2.7 - 3.8) LAESV Index (A-L): 23.95 ml/m Ao Diam: 4.1 cm (2.0 - 3.7) AV Cusp: 1.2 cm (1.5 - 2.6) MV EXCURSION: 12.907 mm (> 18.000) MV EF SLOPE: 45 mm/s (70 - 150) EPSS: 0.3 cm MV E Rubens: 0.74 m/s MV DecT: 319 ms MV A Rubens: 0.95 m/s MV E/A Ratio: 0.78 AV maxP.73 mmHg AV meanP.80 mmHg RAP: 5.00 mmHg RVSP: 34.51 mmHg FINDINGS -------- Sinus rhythm. This was a technically difficult study with suboptimal views. The left ventricular size is normal. There is mild concentric left ventricular hypertrophy. Overa ll left ventricular systolic function is low-normal with, an EF between 50 - 55 %. The right ventricle is mildly enlarged. Normal LA size by volume 22+/-6 ml/m2. The right atrium was not well visualized. 5 ml of Lumason was utilized for enhancement of images. There is moderate aortic valve sclerosis. There is mild aortic stenosis present. Peak/mean gradie nt across the Aortic Valve is 15.73mmHg / 7.80mmHg. The mitral valve leaflets are mildly thickened. Mild mitral annular calcification present. Mild tricuspid regurgitation present. There is mild pulmonary hypertension. The right ventricular systolic pressure, as measured by Doppler, is 34.51mmHg. The pulmonic valve was not well visualized. The aortic root is dilated measuring 4.1cm. Normal inferior vena cava with normal inspiratory collapse consistent with estimated right atrial pre ssure of 5 mmHg. There is no pericardial effusion. CONCLUSIONS -------- 1. Sinus rhythm. 2. This was a technically difficult study with suboptimal views. 3. The left ventricular size is normal. 4. There is mild concentric left ventricular hypertrophy. 5. Overall left ventricular systolic function is low-normal with, an EF between 50 - 55 %. 6. The right ventricle is mildly enlarged. 7. Normal LA size by volume 22+/-6 ml/m2. 8. The right atrium was not well visualized. 9. 5 ml of Lumason was utilized for enhancement of images. 10. There is moderate aortic valve sclerosis. 11. There is mild aortic stenosis present. 12. Peak/mean gradient across the Aortic Valve is 15.73mmHg / 7.80mmHg. 13. The mitral valve leaflets are mildly thickened. 14. Mild mitral annular calcification present. 15. Mild tricuspid regurgitation present. 16. There is mild pulmonary hypertension. 17. The right ventricular systolic pressure, as measured by Doppler, is 34.51mmHg. 18. The pulmonic valve was not well visualized. 19. The aortic root is dilated measuring 4.1cm. 20. Normal inferior vena cava with normal inspiratory collapse consistent with estimated right atrial pressure of 5 mmHg. 21. There is no pericardial effusion. EMERGENCY MEDICINE PHYSICIAN: Rehana Roberson RDCS
[2018-01-08] MEDS: HEPARIN SOD,PORK IN 0.45% NACL 25,000 UNIT in 0.45% NACL 1 500ML.BAG IV SCH (12:33)
--- NOTE | 2018-01-08 13:43 | XR ---
EXAMINATION TYPE: XR chest 2V DATE OF EXAM: 01/08/2018 COMPARISON: 01/08/2019 HISTORY: Difficulty breathing. Clinically diagnosed pneumonia. TECHNIQUE: Frontal and lateral views of the chest are obtained. FINDINGS: Retrocardiac airspace disease obscuring the left hemidiaphragm appears similar to the prio r. Post CABG changes the chest and prominent size of the cardiomediastinal silhouette are redemonstra jose. Mild multilevel degenerative change of the lumbar spine are seen. Chronic interstitial prominenc e is again noted. Blunting of the costophrenic angles again relates to a very trace pleural effusions . IMPRESSION: Stable exam from the prior with unchanged retrocardiac airspace disease and chronic inte rstitial changes.
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
--- NOTE | 2018-01-08 15:56 | CT ---
EXAMINATION TYPE: CT brain wo con DATE OF EXAM: 01/08/2018 COMPARISON: None HISTORY: Weakness CT DLP: [address] of the brain was performed. The ventricles, basal cisterns and sulci overlying the cerebral convexities demonstrate mild enlargem ent. There is no evidence for intracranial hemorrhage or sulcal effacement. There is decreased attenuation about the periventricular white matter and deep white matter of both c erebral hemispheres, compatible with chronic small vessel ischemia. Differential diagnosis does inclu de demyelination. No mass effects are seen.No midline shift. Osseous calvarium is intact. If symptoms persist consider MRI. IMPRESSION: 1. Age related atrophic and chronic small vessel ischemic change without acute intracranial process s een at this time.
[2018-01-08] MEDS ORDERED: AZITHROMYCIN 500 MG in SODIUM CHLORIDE 0.9% 250 ML IVPB SCH (16:00)
[2018-01-08] MEDS: cefTRIAXone IN SWFI 1,000 MG/10 ML SYRINGE IVP SCH (16:02)
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
[2018-01-08] MEDS: FUROSEMIDE 20 MG TAB PO SCH (19:01)
[2018-01-08] MEDS: SYMBICORT 160-4.5 MCG INHALER INHALATION SCH (20:01)
[2018-01-08] MEDS: ATORVASTATIN 20 MG TAB PO SCH (20:21)
[2018-01-08] MEDS: PRAMIPEXOLE 0.25 MG TAB PO SCH (20:21)
[2018-01-08] MEDS: EZETIMIBE 10 MG TAB PO SCH (20:22)
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
[2018-01-09 06:37] LABS: Basophils % (A) 0 %; Eosinophils # (A) 0.2 k/uL (0-0.7); Eosinophils % (A) 2 %; HCT 37.7 % (39.0-53.0); HGB 12.2 gm/dL (13.0-17.5); Lymphocytes # (A) 1.9 k/uL (1.0-4.8); Lymphocytes % (A) 21 %; MCH 27.7 pg (25.0-35.0); MCHC 32.5 g/dL (31.0-37.0); MCV 85.4 fL (80.0-100.0); Mean Platelet Volume 7.3; Monocytes # (A) 0.6 k/uL (0-1.0); Monocytes % (A) 7 %; Neutrophils # (A) 6.3 k/uL (1.3-7.7); Neutrophils % (A) 68 %; Platelet Count 222 k/uL (150-450); RBC 4.42 m/uL (4.30-5.90); RDW 15.3 % (11.5-15.5); WBC 9.2 k/uL (3.8-10.6)
[2018-01-09 06:41] LABS: Calcium 8.7 mg/dL (8.4-10.2); Magnesium 1.3 mg/dL (1.6-2.3); Potassium 3.5 mmol/L (3.5-5.1)
[2018-01-09] MEDS: PANTOPRAZOLE 40 MG TABLET PO SCH (06:42)
[2018-01-09] MEDS: SYMBICORT 160-4.5 MCG INHALER INHALATION SCH ×2 (08:25→20:33)
[2018-01-09] MEDS: IPRATROPIUM-ALBUTEROL 3 ML NEB INHALATION SCH ×4 (08:25→20:34)
--- NOTE | 2018-01-09 09:32 | MR ---
EXAMINATION TYPE: MR brain wo con DATE OF EXAM: 01/09/2018 COMPARISON: CT brain 01/08/2018, MRI brain 10/08/2010 HISTORY: Patient with confusion and new atrial fibrillation T1-weighted sagittal, T2, FLAIR, and diffusion axial, and T2 coronal coronal views of the brain are s ubmitted. There is no evidence of acute ischemia. The ventricles, basal cisterns, and sulci overlying the conv exities are consistent with the patient's age. There is no mass effect. Craniocervical junction maintained. Sella turcica has a normal appearance. No cerebellopontine angle mass. Changes of chronic sinusitis noted. Nasal septal deviation noted. There is diffuse and focal numerous areas of abnormal signal scattered throughout the white matter bi laterally. No midline shift or mass effect. Findings are nonspecific but most typical remote microvas cular ischemia. Changes of chronic sinusitis are noted. 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 Changes suggestive of chronic mastoiditis noted. IMPRESSION: 1. No acute intracranial process. 2. Degenerative and extensive abnormal signal throughout the white matter bilaterally in a nonspecifi c pattern but most typical of remote microvascular ischemia.
[2018-01-09] MEDS ORDERED: Magnesium Replacement Protocol 1 EACH MISC MISCELLANE PRN ×2 (10:16→14:27)
[2018-01-09] MEDS ORDERED: Potassium Replacement Protocol 1 EACH MISC MISCELLANE PRN (10:17)
[2018-01-09] MEDS: ASPIRIN 325 MG TAB PO SCH (10:42)
[2018-01-09] MEDS: POTASSIUM CHLORIDE ER 20 MEQ TAB.ER PO SCH ×3 (10:42→20:58)
[2018-01-09] MEDS: AZITHROMYCIN 500 MG TAB PO SCH (10:42)
[2018-01-09] MEDS: DOCUSATE 100 MG CAP PO SCH ×2 (10:42→20:57)
[2018-01-09] MEDS: METOCLOPRAMIDE 5 MG TAB PO SCH ×3 (10:42→20:58)
[2018-01-09] MEDS: ISOSORBIDE MONONITRATE ER 60 MG TAB.ER.24H PO SCH (10:43)
[2018-01-09] MEDS: METOLAZONE 5 MG TAB PO SCH (10:43)
[2018-01-09] MEDS: METOPROLOL TARTRATE 25 MG TAB PO SCH ×2 (10:43→20:57)
[2018-01-09] MEDS: FUROSEMIDE 40 MG TAB PO SCH (10:46)
[2018-01-09] MEDS: cefTRIAXone IN SWFI 1,000 MG/10 ML SYRINGE IVP SCH (17:03)
[2018-01-09] MEDS: FUROSEMIDE 20 MG TAB PO SCH (17:04)
--- NOTE | 2018-01-09 17:43 | PN ---
PROGRESS NOTE DATE OF SERVICE: 01/09/2018 This 82-year-old gentleman who was admitted with shortness of breath with acute COPD exacerbation. The patient also had fast ventricular rate. Also troponin is also elevated. Cardiology is following the patient closely. Neurology on consultation. MRA did not show any acute abnormality. Dr. Dasilva has seen the patient as well and recommended continue the bronchodilators. No chest pain. No palpitations. No fever. PAST MEDICAL HISTORY: Reviewed. REVIEW OF SYSTEMS: Cardio system: No angina or palpitations. Respiratory: As mentioned earlier. GI: As mentioned earlier. : No dysuria or hematuria. Central nervous system: No numbness or weakness. CURRENT MEDICATIONS: Reviewed and include: 1. DuoNeb q.i.d. and p.r.n. 2. Xanax 0.5 t.i.d. 3. Aspirin 320 mg daily. 4. Lipitor 20 mg daily. 5. Zithromax 500 mg daily. 6. Symbicort 160/4.5 two puffs daily. 7. Rocephin 1 gm. 8. Colace. 9. Zetia. 10.Lasix. 11.Heparin. 12.Imdur. 13.Zaroxolyn p.r.n. replacement protocol. 14.Nitrostat. 15.Protonix. 16.Mirapex. 17.Requip. PHYSICAL EXAM: Patient is alert and oriented times three. Pulse 104. Blood pressure 100/57, respiration 18, temp 98.7, pulse ox 97 percent on 3 L. HEENT is conjunctivae normal. Oral mucosa moist. Neck is no jugular venous distention. No thyroid enlargement. No carotid bruit. CARDIOVASCULAR: S1, S2 muffled. Respiratory: Breath sounds diminished in the bases. A few scattered rhonchi and crackles. Abdomen: Soft, no tenderness. No mass palpable. Legs: No edema. No swelling. Central nervous system: Higher functions as mentioned earlier. Moves all four extremities. No focal deficits. SKIN: No ulcer, rash or bleeding. LAB STUDIES: WBC 9.1, hemoglobin is 12.2. Creatinine is 1.3. ASSESSMENT: 1. Shortness of breath with possible chronic obstructive pulmonary disease acute exacerbation with possible bibasilar bronchopneumonia possibly gram-negative. 2. Atrial fibrillation with fast ventricular rate. 3. Troponin 8.890, possible acute non ST-segment elevation infarction. 4. Severe hypokalemia. 5. Elevated plasma lactic acid. 6. Hyponatremia. 7. History of chronic obstructive pulmonary disease. 8. History of cerebrovascular accident, transient ischemic attack. 9. History of coronary artery disease, coronary artery bypass grafting. 10.History of deep vein thrombosis. 11.Gastroesophageal reflux disease. 12.Hypertension. 13.Hyperlipidemia. 14.History of pulmonary embolism. 15.History of rheumatoid arthritis. 16.History of severe chronic obstructive pulmonary disease. 17.History of chronic hypoxic respiratory failure on home O2 2 L. 18.History of anxiety, depression. 19.Remote history of nicotine dependence. RECOMMENDATIONS AND DISCUSSION: Recommend to continue current medications, management, monitoring and symptomatic treatment. Otherwise, at this time, I recommend continue with broad-spectrum antibiotics. Continue the bronchodilators. Follow closely with Cardiology. Guarded prognosis because of multiple complex medical issues. Further recommendations to follow. MMODL / IJN: [id number] /
[2018-01-09] MEDS: MAGNESIUM SULFATE-D5W PMX 1 GM in DEXTROSE/WATER 1 100ML.BAG IVPB SCH ×3 (17:52→20:56)
[2018-01-09] MEDS: ONDANSETRON 4 MG/2 ML VIAL IVP PRN (18:50)
--- NOTE | 2018-01-09 20:07 | PN ---
PROGRESS NOTE This patient was admitted with acute respiratory distress, possibly secondary to acute exacerbation of COPD and exposure to the . He is doing well. He denies any chest pain. Denies any shortness of breath. The patient's potassium was 2.5. The patient had a minimally elevated troponin which was probably secondary to acute respiratory distress. Patient denies any chest pain, shortness of breath. Echocardiogram reveals normal left ventricular systolic function without any wall motion abnormality. The right ventricular systolic functions were normal. Patient's heparin can be discontinued. His MRI is normal. MMODL / IJN: [id number] /
[2018-01-09] MEDS: ATORVASTATIN 20 MG TAB PO SCH (20:57)
[2018-01-09] MEDS: EZETIMIBE 10 MG TAB PO SCH (20:57)
[2018-01-09] MEDS: PRAMIPEXOLE 0.25 MG TAB PO SCH (20:57)
[2018-01-10] MEDS: HEPARIN SOD,PORK IN 0.45% NACL 25,000 UNIT in 0.45% NACL 1 500ML.BAG IV SCH (04:39)
[2018-01-10 06:16] LABS: Basophils % (A) 0 %; Eosinophils # (A) 0.2 k/uL (0-0.7); Eosinophils % (A) 2 %; HGB 13.3 gm/dL (13.0-17.5); Lymphocytes # (A) 1.7 k/uL (1.0-4.8); Lymphocytes % (A) 20 %; MCHC 33.2 g/dL (31.0-37.0); MCV 84.3 fL (80.0-100.0); Mean Platelet Volume 7.6; Monocytes # (A) 0.6 k/uL (0-1.0); Monocytes % (A) 7 %; Neutrophils % (A) 69 %; Platelet Count 223 k/uL (150-450); RBC 4.74 m/uL (4.30-5.90); RDW 15.1 % (11.5-15.5); WBC 8.7 k/uL (3.8-10.6)
[2018-01-10 06:32] LABS: Calcium 9.2 mg/dL (8.4-10.2); Magnesium 2.1 mg/dL (1.6-2.3); Potassium 3.8 mmol/L (3.5-5.1)
[2018-01-10] MEDS: PANTOPRAZOLE 40 MG TABLET PO SCH (06:34)
[2018-01-10] MEDS: IPRATROPIUM-ALBUTEROL 3 ML NEB INHALATION SCH ×4 (07:42→21:31)
[2018-01-10] MEDS: SYMBICORT 160-4.5 MCG INHALER INHALATION SCH ×2 (07:42→21:31)
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
[2018-01-10] MEDS: METOCLOPRAMIDE 5 MG TAB PO SCH ×3 (09:34→20:30)
[2018-01-10] MEDS: ASPIRIN 325 MG TAB PO SCH (09:34)
[2018-01-10] MEDS: ISOSORBIDE MONONITRATE ER 60 MG TAB.ER.24H PO SCH (09:34)
[2018-01-10] MEDS: METOPROLOL TARTRATE 25 MG TAB PO SCH ×2 (09:34→20:29)
[2018-01-10] MEDS: POTASSIUM CHLORIDE ER 20 MEQ TAB.ER PO SCH ×3 (09:35→20:30)
[2018-01-10] MEDS: AZITHROMYCIN 500 MG TAB PO SCH (09:35)
[2018-01-10] MEDS: DOCUSATE 100 MG CAP PO SCH ×2 (09:35→20:29)
[2018-01-10] MEDS: FUROSEMIDE 40 MG TAB PO SCH (09:36)
[2018-01-10] MEDS: ONDANSETRON 4 MG/2 ML VIAL IVP PRN (09:38)
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
[2018-01-10] MEDS: methylPREDNISolone 4 MG TAB TAPER PO SCH (12:51)
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
[2018-01-10] MEDS: cefTRIAXone IN SWFI 1,000 MG/10 ML SYRINGE IVP SCH (16:25)
[2018-01-10] MEDS: FUROSEMIDE 20 MG TAB PO SCH (17:25)
[2018-01-10] MEDS: EZETIMIBE 10 MG TAB PO SCH (20:29)
[2018-01-10] MEDS: PRAMIPEXOLE 0.25 MG TAB PO SCH (20:29)
[2018-01-10] MEDS: ATORVASTATIN 20 MG TAB PO SCH (20:29)
--- NOTE | 2018-01-10 22:25 | PN ---
PROGRESS NOTE DATE OF SERVICE: 01/10/2018 This 82-year-old gentleman who was admitted with shortness of breath, COPD exacerbation with bibasilar pneumonia is being closely monitored. Patient appears to be improving. No chest pain. No palpitations. No fever. EXAM: Alert and oriented x3. Blood pressure 134/66, respirations 16, temperature 98.2, pulse ox 93% on 3L. HEENT: Conjunctivae normal. NECK: No jugular venous distention. CARDIOVASCULAR: S1, S2 muffled. RESPIRATORY: Breath sounds diminished in the bases. A few scattered rhonchi and crackles. ABDOMEN: Soft, nontender. NERVOUS SYSTEM: No focal deficits. LABS: At this time shows WBC 8, hemoglobin 13. Sodium 133. ASSESSMENT: 1. Chronic obstructive pulmonary disease acute exacerbation with acute bibasilar bronchopneumonia, possibly gram-negative with shortness of breath, present on admission. 2. Atrial fibrillation with a fast ventricular rate. 3. Troponin 0.890, possible acute non ST elevation myocardial infarction. 4. Severe hypokalemia. 5. Elevated plasma lactic acid. 6. Hyponatremia. 7. Chronic obstructive pulmonary disease. 8. History of cerebrovascular accident, transient ischemic attack. 9. Coronary artery disease, coronary artery bypass graft. 10.History of deep vein thrombosis. 11.Gastroesophageal reflux disease. 12.Hypertension. 13.History of hyperlipidemia. 14.History of history of pulmonary embolism. 15.History rheumatoid arthritis. 16.History of severe chronic obstructive pulmonary disease. 17.History of chronic hypoxic respiratory failure on home O2 2L. 18.Anxiety, depression. 19.Remote history of nicotine dependence. RECOMMENDATION AND DISCUSSION: At this time, recommend to continue current medical management, continue with monitoring, symptomatic treatment. Otherwise at this time, continue with the rest of the medications. Continue with steroids. Continue with the bronchodilators. Continue with empiric antibiotics. Guarded prognosis because of multiple complex medical issues. Further recommendations to follow. MMODL / IJN: [id number] /
[2018-01-11 06:16] LABS: Basophils % (A) 0 %; Eosinophils % (A) 0 %; HCT 41.2 % (39.0-53.0); HGB 13.5 gm/dL (13.0-17.5); Lymphocytes # (A) 2.1 k/uL (1.0-4.8); Lymphocytes % (A) 17 %; MCH 28.2 pg (25.0-35.0); MCHC 32.8 g/dL (31.0-37.0); Monocytes # (A) 0.6 k/uL (0-1.0); Monocytes % (A) 5 %; Neutrophils # (A) 9.5 k/uL (1.3-7.7); Neutrophils % (A) 76 %; Platelet Count 277 k/uL (150-450); RBC 4.79 m/uL (4.30-5.90); RDW 15.2 % (11.5-15.5); WBC 12.5 k/uL (3.8-10.6)
[2018-01-11 06:24] LABS: Calcium 9.5 mg/dL (8.4-10.2); Potassium 4.8 mmol/L (3.5-5.1)
[2018-01-11] MEDS: PANTOPRAZOLE 40 MG TABLET PO SCH (06:28)
[2018-01-11] MEDS: IPRATROPIUM-ALBUTEROL 3 ML NEB INHALATION SCH ×4 (07:48→21:14)
[2018-01-11] MEDS: SYMBICORT 160-4.5 MCG INHALER INHALATION SCH ×2 (07:48→21:14)
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
[2018-01-11] MEDS: METOCLOPRAMIDE 5 MG TAB PO SCH ×3 (08:54→20:16)
[2018-01-11] MEDS: methylPREDNISolone 4 MG TAB TAPER PO SCH (08:54)
[2018-01-11] MEDS: DOCUSATE 100 MG CAP PO SCH ×2 (08:55→20:16)
[2018-01-11] MEDS: ISOSORBIDE MONONITRATE ER 60 MG TAB.ER.24H PO SCH (08:55)
[2018-01-11] MEDS: ASPIRIN 325 MG TAB PO SCH (08:55)
[2018-01-11] MEDS: METOPROLOL TARTRATE 25 MG TAB PO SCH ×2 (08:55→20:16)
[2018-01-11] MEDS: FUROSEMIDE 40 MG TAB PO SCH (08:55)
[2018-01-11] MEDS: POTASSIUM CHLORIDE ER 20 MEQ TAB.ER PO SCH ×3 (08:56→20:16)
[2018-01-11] MEDS: AZITHROMYCIN 500 MG TAB PO SCH (08:56)
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
--- NOTE | 2018-01-11 15:47 | P.PN ---
Progress Note - Text Progress Note Date: 01/11/18 Interval history: Patient is seen today in psychiatric follow-up. His brother is present during the session. He plans on staying with his brother after discharge. He does describe that he is feeling better. His brother also relays that he is doing better. Mental status exam: He is alert and cooperative with the interview he does not show any agitation. His mood overall seems to be stable. He denies any thoughts that someone is trying to hurt him. He denies any hallucinations. He does not verbalize any thoughts of harm to self or others. He does not make any bertrand delusional statements. Plan: I do not see any acute criteria for inpatient psychiatric hospitalization at this time. Plan to provide with outpatient mental health referral list for outpatient follow-up. Continue to monitor for any psychosis symptoms accompanying delirium/dementia.
[2018-01-11] MEDS: cefTRIAXone IN SWFI 1,000 MG/10 ML SYRINGE IVP SCH (15:57)
--- NOTE | 2018-01-11 17:24 | PN ---
PROGRESS NOTE DATE OF SERVICE: 01/11/2018. INTERVAL HISTORY: This 82-year-old gentleman admitted with shortness of breath, with COPD exacerbation. Patient also had atrial fibrillation with fast ventricular rate. Cardiology is following the patient with medical treatment. No chest pain. No palpitations. No fever. The family would like the patient know to return with the brother on Friday. No chest pain. No palpitation. PHYSICAL EXAM: Alert and oriented . Pulse 78, blood pressure 106/51, respiratory rate 15, temperature 98.8, pulse ox 98 percent on 2 L. HEENT: Conjunctivae normal. Oral mucosa moist. Neck is no jugular venous distention. No carotid bruit. No lymph node enlargement. Cardiovascular systems: S1, S2 muffled. Respirations: Breath sounds diminished in the bases. A few scattered rhonchi and crackles. ABDOMEN: Soft, nontender. No mass palpable. Legs are no edema. No swelling. Central nervous system: No focal deficits. LABS: WBC 12.9, hemoglobin 13.8. Creatinine is 1.57. ASSESSMENT: 1. Chronic obstructive pulmonary disease acute exacerbation, acute bibasilar bronchopneumonia possibly gram-negative with shortness of breath present on admission. 2. Atrial fibrillation with fast ventricular rate. Troponin 0.80, possible acute non ST elevation myocardial infarction. 3. Severe hypokalemia. 4. Mildly elevated plasma lactic acid on admission. 5. Hyponatremia. 6. Chronic obstructive pulmonary disease. 7. Congestive heart failure. 8. History of cerebrovascular accident, transient ischemic attack. 9. Coronary artery disease/coronary artery bypass grafting. 10.History of deep vein thrombosis. 11.Gastroesophageal reflux disease. 12.Hypertension. 13.Hyperlipidemia. 14.History of pulmonary embolism. 15.History of rheumatoid arthritis. 16.Severe chronic obstructive pulmonary disease. 17.Chronic hypoxic respiratory failure on home O2 2 L. 18.Anxiety, depression. 19.Remote history of nicotine dependence. RECOMMENDATIONS AND DISCUSSION: Recommend to current medications, continue with monitoring, symptomatic treatment. Otherwise, at this time, I recommend continue with bronchodilators. Continue with antibiotics. Otherwise, monitor creatinine closely. Guarded prognosis because of multiple complex medical issues. Further recommendations to follow. MMODL / IJN: [id number] / MTDD
[2018-01-11] MEDS: FUROSEMIDE 20 MG TAB PO SCH (18:12)
[2018-01-11] MEDS: PRAMIPEXOLE 0.5 MG TAB PO SCH (20:15)
[2018-01-11] MEDS: EZETIMIBE 10 MG TAB PO SCH (20:16)
[2018-01-11] MEDS: ATORVASTATIN 20 MG TAB PO SCH (20:16)
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
[2018-01-12 06:24] LABS: Basophils % (A) 0 %; Eosinophils # (A) 0.1 k/uL (0-0.7); Eosinophils % (A) 1 %; HCT 39.3 % (39.0-53.0); Lymphocytes # (A) 2.3 k/uL (1.0-4.8); Lymphocytes % (A) 20 %; MCH 28.4 pg (25.0-35.0); MCHC 33.2 g/dL (31.0-37.0); MCV 85.6 fL (80.0-100.0); Mean Platelet Volume 6.9; Monocytes # (A) 0.6 k/uL (0-1.0); Monocytes % (A) 5 %; Neutrophils # (A) 8.3 k/uL (1.3-7.7); Neutrophils % (A) 72 %; Platelet Count 247 k/uL (150-450); RBC 4.59 m/uL (4.30-5.90); RDW 15.4 % (11.5-15.5); WBC 11.6 k/uL (3.8-10.6)
[2018-01-12 06:29] LABS: Calcium 9.4 mg/dL (8.4-10.2); Potassium 4.4 mmol/L (3.5-5.1)
[2018-01-12] MEDS: PANTOPRAZOLE 40 MG TABLET PO SCH (06:29)
[2018-01-12] MEDS: methylPREDNISolone 4 MG TAB TAPER PO SCH (08:52)
[2018-01-12] MEDS: METOCLOPRAMIDE 5 MG TAB PO SCH ×3 (08:52→20:47)
[2018-01-12] MEDS: METOLAZONE 5 MG TAB PO SCH (08:52)
[2018-01-12] MEDS: POTASSIUM CHLORIDE ER 20 MEQ TAB.ER PO SCH ×3 (08:52→20:46)
[2018-01-12] MEDS: ASPIRIN 325 MG TAB PO SCH (08:53)
[2018-01-12] MEDS: ISOSORBIDE MONONITRATE ER 60 MG TAB.ER.24H PO SCH (08:53)
[2018-01-12] MEDS: FUROSEMIDE 40 MG TAB PO SCH (08:53)
[2018-01-12] MEDS: AZITHROMYCIN 500 MG TAB PO SCH (08:53)
[2018-01-12] MEDS: DOCUSATE 100 MG CAP PO SCH ×2 (08:53→20:46)
[2018-01-12] MEDS: METOPROLOL TARTRATE 25 MG TAB PO SCH ×2 (08:53→20:46)
[2018-01-12] MEDS: SYMBICORT 160-4.5 MCG INHALER INHALATION SCH ×2 (09:04→20:24)
[2018-01-12] MEDS: IPRATROPIUM-ALBUTEROL 3 ML NEB INHALATION SCH ×4 (09:04→20:24)
[2018-01-12] MEDS: FUROSEMIDE 20 MG TAB PO SCH (16:19)
--- NOTE | 2018-01-12 19:28 | PN ---
PROGRESS NOTE DATE OF SERVICE: 01/12/2018 This 82-year-old gentleman who was admitted with COPD exacerbation also had atrial fibrillation also. No chest pain. No palpitations. No fever. PHYSICAL EXAM: Alert and oriented times three. Pulse 80. Blood pressure is 119/72, respiration 16, temperature 97.8, pulse ox 92 percent on 2 L. HEENT: Oral mucosa moist. Neck is no jugular venous distention. No carotid bruit. No lymph node enlargement. Cardiovascular: S1, S2 muffled. Respiratory: Breath sounds diminished in the bases. A few scattered rhonchi and crackles. ABDOMEN: Soft, nontender. Legs are no edema, no swelling. Nervous system: Diffusely weak. LABS: WBC 11.7, sodium 135. The other labs are noted. ASSESSMENT: 1. Chronic obstructive pulmonary disease acute exacerbation with acute bibasilar bronchopneumonia possibly gram-negative, shortness of breath, present on admission. 2. Atrial ablation with fast ventricular rate, troponin 0.80, possible acute non ST- elevation myocardial infarction. 3. Severe hypokalemia. 4. Mildly elevated plasma lactic acid on admission. 5. Hyponatremia. 6. Chronic obstructive pulmonary disease. 7. Congestive heart failure. 8. History of cerebrovascular accident, transient ischemic attack. 9. Coronary artery disease, coronary artery bypass grafting. 10.History of deep vein thrombosis. 11.History of gastroesophageal reflux disease. 12.Hypertension. 13.Hyperlipidemia. 14.History of pulmonary embolus. 15.History of rheumatoid arthritis. 16.History of chronic obstructive pulmonary disease, severe. 17.Chronic hypoxic respiratory failure on home O2 2 L. 18.History of anxiety/depression. 19.Remote history of nicotine dependence. RECOMMENDATIONS AND DISCUSSION: Recommend to continue current medications, management and symptomatic treatment. Continue the bronchodilators. Monitor creatinine closely. Otherwise, I would recommend taper the steroids. Continue the rest of medications. Prognosis guarded. Further recommendations to follow. MMODL / IJN: [id number] /
[2018-01-12] MEDS: EZETIMIBE 10 MG TAB PO SCH (20:46)
[2018-01-12] MEDS: ATORVASTATIN 20 MG TAB PO SCH (20:46)
[2018-01-12] MEDS: PRAMIPEXOLE 0.5 MG TAB PO SCH (20:47)
[2018-01-13 06:00] LABS: Basophils % (A) 0 %; Eosinophils # (A) 0.1 k/uL (0-0.7); Eosinophils % (A) 1 %; HCT 45.3 % (39.0-53.0); HGB 13.9 gm/dL (13.0-17.5); Lymphocytes # (A) 2.2 k/uL (1.0-4.8); Lymphocytes % (A) 19 %; MCH 26.9 pg (25.0-35.0); MCHC 30.6 g/dL (31.0-37.0); MCV 87.8 fL (80.0-100.0); Mean Platelet Volume 6.9; Monocytes # (A) 0.7 k/uL (0-1.0); Monocytes % (A) 6 %; Neutrophils # (A) 8.4 k/uL (1.3-7.7); Neutrophils % (A) 72 %; Platelet Count 263 k/uL (150-450); RBC 5.16 m/uL (4.30-5.90); RDW 15.2 % (11.5-15.5); WBC 11.7 k/uL (3.8-10.6)
[2018-01-13 06:22] LABS: Calcium 9.4 mg/dL (8.4-10.2); Potassium 4.4 mmol/L (3.5-5.1)
[2018-01-13] MEDS: PANTOPRAZOLE 40 MG TABLET PO SCH (06:31)
[2018-01-13] MEDS: ISOSORBIDE MONONITRATE ER 60 MG TAB.ER.24H PO SCH (08:45)
[2018-01-13] MEDS: METOLAZONE 5 MG TAB PO SCH (08:45)
[2018-01-13] MEDS: METOCLOPRAMIDE 5 MG TAB PO SCH ×2 (08:45→08:46)
[2018-01-13] MEDS: DOCUSATE 100 MG CAP PO SCH (08:45)
[2018-01-13] MEDS: METOPROLOL TARTRATE 25 MG TAB PO SCH (08:45)
[2018-01-13] MEDS: POTASSIUM CHLORIDE ER 20 MEQ TAB.ER PO SCH ×2 (08:45→16:20)
[2018-01-13] MEDS: FUROSEMIDE 40 MG TAB PO SCH (08:45)
[2018-01-13] MEDS: AZITHROMYCIN 500 MG TAB PO SCH (08:45)
[2018-01-13] MEDS: ASPIRIN 325 MG TAB PO SCH (08:45)
[2018-01-13] MEDS: methylPREDNISolone 4 MG TAB TAPER PO SCH (08:46)
[2018-01-13 08:54] VITALS: RESP 18
[2018-01-13] MEDS: SYMBICORT 160-4.5 MCG INHALER INHALATION SCH (09:12)
[2018-01-13] MEDS: IPRATROPIUM-ALBUTEROL 3 ML NEB INHALATION SCH ×3 (09:13→16:25)
[2018-01-13 11:32] VITALS: BP 103/65; TEMP 97.6
[2018-01-13] MEDS: FUROSEMIDE 20 MG TAB PO SCH (16:20)
[2018-01-13 16:28] VITALS: PULSE 75
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
--- NOTE | 2018-01-14 05:41 | DS ---
DISCHARGE SUMMARY FINAL DIAGNOSES: 1. Chronic obstructive pulmonary disease acute exacerbation with acute bibasilar bronchopneumonia possibly gram negative, shortness of breath present on admission. 2. Atrial fibrillation with a fast ventricular rate. 3. Troponin 0.8, possible acute non ST elevation myocardial infarction. 4. Severe hypokalemia. 5. Mildly elevated plasma lactic acid on admission. 6. Hyponatremia. 7. Chronic obstructive pulmonary disease. 8. Congestive heart failure. 9. History of cerebrovascular accident and transient ischemic. 10.History of coronary artery disease, coronary artery bypass grafting. 11.History of deep venous thrombosis. 12.History of gastroesophageal reflux disease. 13.Hypertension. 14.Hyperlipidemia. 15.History of pulmonary embolism. 16.History of rheumatoid arthritis. 17.History of chronic obstructive pulmonary disease. 18.Chronic hypoxic respiratory failure on home O2 of 2 L. 19.Anxiety, depression. 20.Remote history of nicotine dependence. DISCHARGE DISPOSITION: The patient will be discharged in stable condition with guarded prognosis. HISTORY OF PRESENT ILLNESS: This 82-year-old gentleman with a past medical history of multiple medical problems admitted with COPD and multiple other medical issues treated symptomatically improved. Patient improved significantly. On exam, vitals are stable. CARDIOVASCULAR: S1 and S2 muffled. ABDOMEN: Soft. NERVOUS SYSTEM: No focal deficits. Total time 35 minutes. The patient will be discharged in stable condition with guarded prognosis withe following advice: 1. Diet is cardiac. 2. Activity limited until followup. 3. Follow up with family physician in 2 to 3 days. 4. Follow up with Dr. Dasilva and Cardiology as mentioned earlier. Medications are as follows: 1. Tylenol 500 mg daily p.r.n. 2. Aspirin 81 mg daily. 3. Symbicort 160/4.5 two puffs b.i.d. 4. Colace 100 mg p.o. b.i.d. 5. Vytorin 1 tablet p.o. at bedtime. 6. Lasix 20 mg a.c. and 40 mg p.o. daily. 7. Imdur ER 60 mg p.o. daily. 8. Reglan 5 mg p.o. t.i.d. 9. Zaroxolyn 5 mg Friday, Friday, Friday. 10.Prilosec 40 mg p.o. daily. 11.K-Dur 10 mEq p.o. t.i.d. 12.Mirapex 0.75 mg at bedtime. 13.Requip 1 mg at bedtime. 14.Sleep Aide 1 daily p.r.n. 15.Zithromax 500 mg p.o. daily for 5 days. 16.DuoNeb q.i.d. and p.r.n. 17.Medrol Dosepak. 18.Lopressor 75 mg p.o. b.i.d. Once again, the patient will be discharged in stable condition with guarded prognosis. MMODL / IJN: [id number] /
--- NOTE | 2018-01-14 15:58 | P.PN ---
Progress Note - Text Progress Note Date: 01/14/18 This is an addendum to the cardiology consultation in progress note dictated. Patient is having episodes of multifocal atrial tachycardia as well as paroxysmal atrial fibrillation. He has a chronic diastolic congestive heart failure. DNP note has been reviewed, I agree with a documented findings and plan of care. Patient was seen and examined.
== END 2018-01-13 17:07 | disposition home or self-care (01) | DRG 177 ==
LOC: EC 12:09 → EEVIPCON 15:46 → 6SEL 15:46
PROVIDERS: ADMIT Internal Medicine; ATTEND Internal Medicine
DX: J15.6 Pneumonia due to other Gram-negative bacteria (principal); G93.41 Metabolic encephalopathy; I21.4 Non-ST elevation (NSTEMI) myocardial infarction; J44.0 Chronic obstructive pulmonary disease with (acute) lower respiratory infection; J44.1 Chronic obstructive pulmonary disease with (acute) exacerbation; J96.11 Chronic respiratory failure with hypoxia; J98.11 Atelectasis; E87.1 Hypo-osmolality and hyponatremia; F05 Delirium due to known physiological condition; I47.1 Supraventricular tachycardia; I50.32 Chronic diastolic (congestive) heart failure; T76.11XA Adult physical abuse, suspected, initial encounter; Z87.891 Personal history of nicotine dependence; Z99.81 Dependence on supplemental oxygen; E78.5 Hyperlipidemia, unspecified; E87.6 Hypokalemia; F03.90 Unspecified dementia, unspecified severity, without behavioral disturbance, psychotic disturbance, mood disturbance, and anxiety; F32.9 Major depressive disorder, single episode, unspecified; F41.9 Anxiety disorder, unspecified; G20 Parkinson's disease; G25.81 Restless legs syndrome; G47.33 Obstructive sleep apnea (adult) (pediatric); H91.90 Unspecified hearing loss, unspecified ear; I11.0 Hypertensive heart disease with heart failure; I25.10 Atherosclerotic heart disease of native coronary artery without angina pectoris; Z95.1 Presence of aortocoronary bypass graft; I25.2 Old myocardial infarction; I35.0 Nonrheumatic aortic (valve) stenosis; I48.0 Paroxysmal atrial fibrillation; Z86.73 Personal history of transient ischemic attack (TIA), and cerebral infarction without residual deficits; K21.9 Gastro-esophageal reflux disease without esophagitis; M06.9 Rheumatoid arthritis, unspecified; N40.0 Benign prostatic hyperplasia without lower urinary tract symptoms; Z79.51 Long term (current) use of inhaled steroids; Z79.82 Long term (current) use of aspirin; Z79.899 Other long term (current) drug therapy; Z80.1 Family history of malignant neoplasm of trachea, bronchus and lung; Z85.828 Personal history of other malignant neoplasm of skin; Z86.711 Personal history of pulmonary embolism; Z86.718 Personal history of other venous thrombosis and embolism; Z98.42 Cataract extraction status, left eye; Z98.41 Cataract extraction status, right eye; Z96.1 Presence of intraocular lens; G47.00 Insomnia, unspecified; Z77.098 Contact with and (suspected) exposure to other hazardous, chiefly nonmedicinal, chemicals
CPT/HCPCS: 36415; 70450; 70551; 71045; 71046; 80048; 80053; 80061; 82550; 82553; 83605; 83735; 83880; 84132; 84443; 84484; 85025; 85610; 85730; 87040; 93005; 93306; 94640; 94760; 95816; 96365; 96366; 96368; 96374; 96375; 96376; 99284; 99291

== ENCOUNTER 2018-01-15 06:24 | Emergency (ER) | payer MEDICARE, OTHER ==
--- NOTE | 2018-01-15 06:37 | ED ---
General Adult HPI - General Chief complaint: Syncope Stated complaint: Chest pain Time Seen by Provider: 01/15/18 06:36 Source: patient, EMS Mode of arrival: EMS - History of Present Illness Initial comments: 82-year-old male recently admitted to our hospital for pneumonia discharged yesterday return to the ER today for evaluation of fatigue, cough and near- syncope. Upon arrival the patient reports that he is feeling very sleepy and doesn't feel well. He reports that he is sick. He reports that since being discharged he has had a progressively worsening productive cough. He reports that this morning he wasn't feeling well so his niece called 911 for transport to the hospital. Upon initial evaluation the patient is sleepy, he answers only yes and no questions and is not cooperative with answering questions. The patient's niece arrived at bedside, she states that this morning her uncle reported that he wasn't feeling well, he asked her to get a cup of coffee but then stated that he wasn't feeling well. She reports that she walked over to him and that he slumped towards her, at that time she called 911, she reports EMS then transported the patient to the ER. Nijohan expresses concern that during the patient's previous hospitalization, there were documents filed for the stay to obtain guardianship of the patient. She reports that the patient is to attend court with her today to discuss the guardianship issues. She states that because of that she was very anxious that he wasn't feeling well this morning one of them evaluated to make sure that he was healthy enough to go to court or back in the hospital if he was going to miss court. - Related Data Home Medications Medication Instructions Recorded Confirmed Aspirin 81 mg PO DAILY 08/25/14 01/15/18 Ezetimibe/Simvastatin [Vytorin 1 tab PO HS 08/25/14 01/15/18 10-40 mg Tablet] Furosemide [Lasix] 20 mg PO AC-SUPPER 08/25/14 01/15/18 Isosorbide Mononitrate ER [Imdur] 60 mg PO DAILY 08/25/14 01/15/18 Metolazone [Zaroxolyn] 5 mg PO MOTUWETHFR 08/25/14 01/15/18 Potassium Chloride ER [K-Dur 20] 20 meq PO TID 08/25/14 01/15/18 Pramipexole Di-HCl [Mirapex] 0.75 mg PO HS 08/25/14 01/15/18 Acetaminophen Tab [Tylenol] 500 mg PO DAILY PRN 08/14/17 01/15/18 Budesonide-Formot 160-4.5 Mcg 2 puff INHALATION RT-BID 08/14/17 01/15/18 [Symbicort 160-4.5 Mcg Inhaler] Docusate [Colace] 100 mg PO BID 01/07/18 01/15/18 Furosemide [Lasix] 40 mg PO DAILY 01/07/18 01/15/18 Metoclopramide HCl [Reglan] 5 mg PO TID 01/07/18 01/15/18 Omeprazole [PriLOSEC] 40 mg PO DAILY 01/07/18 01/15/18 Sleep Aide 1 dose PO HS PRN 01/07/18 01/15/18 rOPINIRole HCL [Requip] 1 mg PO HS 01/07/18 01/15/18 Ipratropium-Albuterol Nebulize 3 ml INHALATION RT-QID 01/15/18 01/15/18 [Duoneb 0.5 mg-3 mg/3 ml Soln] methylPREDNISolone Dose Pack See Taper PO DAILY 01/15/18 01/15/18 [Medrol Dose Pack] Previous Rx's Medication Instructions Recorded Metoprolol Tartrate [Lopressor] 75 mg PO BID #180 tab 08/21/17 Azithromycin [Zithromax] 500 mg PO DAILY #5 tab 01/13/18 Allergies Allergy/AdvReac Type Severity Reaction Status Date / Time No Known Allergies Allergy Verified 01/15/18 08:06 Review of Systems ROS Statement: Those systems with pertinent positive or pertinent negative responses have been documented in the HPI. ROS Other: All systems not noted in ROS Statement are negative. Limitations: ROS unobtainable due to patients medical condition Past Medical History Past Medical History: Coronary Artery Disease (CAD), Cancer, Chest Pain / Angina , COPD, CVA/TIA, Dementia, Deep Vein Thrombosis (DVT), GERD/Reflux, Hearing Disorder / Deafness, Hyperlipidemia, Hypertension, Myocardial Infarction ([place]), Osteoarthritis (OA), Pneumonia, Prostate Disorder, Pulmonary Embolus (PE), Renal Disease, Respiratory Disorder, Rheumatoid Arthritis (RA), Sleep Apnea/CPAP /BIPAP, Syncope Additional Past Medical History / Comment(s): SEVERE COPD, HOME O2 2-3L/NC, BRONCHITIS, RAJESH BUT NO LONGER USED CPAP, R LEG DVT, BILAT PE, TIA, PARKINSONS DISEASE, RESTLESS LEG SYNDROME, NUMBNESS/TINGLING BILATERAL LEGS/FEET, UNSTEADY ON HIS FEET, FALLS, DOUBLE INGUINAL HERNIAS, HX ULCERS, HEMORRHOIDS, ENLARGED PROSTRATE, INSOMNIA, SINUSITIS, BILATERAL LEG EDEMA AT TIMES, SKIN CANCER WITH REMOVAL, HOLE IN EARDRUM LEFT Last Myocardial Infarction Date:: 2006 History of Any Multi-Drug Resistant Organisms: None Reported Past Surgical History: Coronary Bypass/CABG, Heart Catheterization, Hernia Repair Additional Past Surgical History / Comment(s): 2006 CABG WITH 4 VESSEL BYPASS, HIATAL HERNIA REPAIR, UMBILICAL HERNIA REPAIR, BILAT CATARACTS WITH LENS IMPLANTS SX, EGD X 5 WITH ESOPHAGEAL DILATION, COLONOSCOPY/BENIGN POLYPS, SKIN CANCER REMOVALS. Past Anesthesia/Blood Transfusion Reactions: No Reported Reaction Past Psychological History: Anxiety, Depression Smoking Status: Former smoker - Past Family History Mother Family Medical History: Cancer Additional Family Medical History / Comment(s): Mother had lung cancer. She was a smoker. Brother(s) Family Medical History: Blood Disorder Father Additional Family Medical History / Comment(s): HARDENING OF ARTERIES, General Exam Limitations: altered mental status, physical limitation General appearance: lethargic Head exam: Present: atraumatic, normocephalic Eye exam: Present: PERRL Neck exam: Absent: lymphadenopathy Respiratory exam: Present: wheezes Cardiovascular Exam: Present: regular rate, normal rhythm GI/Abdominal exam: Present: soft. Absent: distended Rectal exam: Present: deferred Extremities exam: Present: normal capillary refill, pedal edema Neurological exam: Present: alert (Resting with eyes closed but responds to voice, alert to person and place aware that he was admitted to the hospital until yesterday) Psychiatric exam: Present: flat affect Skin exam: Present: warm, dry Course Vital Signs 01/15/18 01/15/18 06:28 07:38 Temperature 98.6 F Pulse Rate 85 87 Respiratory 15 20 Rate Blood Pressure 138/70 99/56 O2 Sat by Pulse 97 97 Oximetry Medical Decision Making - Medical Decision Making The patient was seen and evaluated, patient provided very limited history and was not cooperative with providing further history. He would answer some questions with short one to 2 word answers. EMS reports that the patient was discharged from our hospital yesterday, he family reported that he was doing well yesterday but this morning may have had a near syncopal event in which he got lightheaded At initial evaluation family was not at bedside to provide further history Labs, EKG were ordered for evaluation EKG obtained at 6:29 AM, rate is 85, rhythm is sinus, there is a normal axis, there are normal intervals, SD is 150, QRS is 84, QTC is 437, there is noted to be a PVC, there are no acute ST elevations or depressions, no evidence of acute ischemia or infarction. Niece arrived at bedside and provided further history. The patient continued to rest comfortably but was much more interactive and agreeable with his niece at bedside. She was concerned that the patient would not be well enough to attend court today where he has a guardianship hearing. Apparently there is a lot of social stressors associated with this. She states that she does feel comfortable taking the patient home and that she can obtain a wheelchair to help transport him to and from court for his evaluation today. All questions pertaining to care were answered best my ability, patient states that he would like to be discharged home. He states that he feels comfortable going home with his niece. The patient was discharged home and his niece's care - Lab Data Result diagrams: 01/15/18 06:41 01/15/18 06:41 Lab Results 01/15/18 01/15/18 01/15/18 Range/Units 06:41 06:41 06:41 WBC 11.0 H (3.8-10.6) k/uL RBC 5.03 (4.30-5.90) m/uL Hgb 14.3 (13.0-17.5) gm/dL Hct 43.1 (39.0-53.0) % MCV 85.7 (80.0-100.0) fL MCH 28.5 (25.0-35.0) pg MCHC 33.2 (31.0-37.0) g/dL RDW 15.0 (11.5-15.5) % Plt Count 257 (150-450) k/uL Neutrophils % 73 % Lymphocytes % 18 % Monocytes % 6 % Eosinophils % 1 % Basophils % 0 % Neutrophils # 8.1 H (1.3-7.7) k/uL Lymphocytes # 2.0 (1.0-4.8) k/uL Monocytes # 0.7 (0-1.0) k/uL Eosinophils # 0.1 (0-0.7) k/uL Basophils # 0.0 (0-0.2) k/uL PT (9.0-12.0) sec INR (<1.2) APTT (22.0-30.0) sec Sodium 134 L (137-145) mmol/L Potassium 4.6 (3.5-5.1) mmol/L Chloride 94 L (98-107) mmol/L Carbon Dioxide 30 (22-30) mmol/L Anion Gap 10 mmol/L BUN 44 H (9-20) mg/dL Creatinine 1.54 H (0.66-1.25) mg/dL Est GFR (CKD-EPI)AfAm 48 (>60 ml/min/1.73 sqM) Est GFR (CKD-EPI)NonAf 42 (>60 ml/min/1.73 sqM) Glucose 138 H (74-99) mg/dL Calcium 9.9 (8.4-10.2) mg/dL Magnesium 1.9 (1.6-2.3) mg/dL Total Bilirubin 1.0 (0.2-1.3) mg/dL AST 46 (17-59) U/L ALT 30 (21-72) U/L Alkaline Phosphatase 77 (38-126) U/L Total Creatine Kinase 266 H (55-170) U/L CK-MB (CK-2) 4.1 H* (0.0-2.4) ng/mL CK-MB (CK-2) Rel Index 1.5 Troponin I 0.034 (0.000-0.034) ng/mL Total Protein 7.6 (6.3-8.2) g/dL Albumin 4.2 (3.5-5.0) g/dL 01/15/18 Range/Units 06:41 WBC (3.8-10.6) k/uL RBC (4.30-5.90) m/uL Hgb (13.0-17.5) gm/dL Hct (39.0-53.0) % MCV (80.0-100.0) fL MCH (25.0-35.0) pg MCHC (31.0-37.0) g/dL RDW (11.5-15.5) % Plt Count (150-450) k/uL Neutrophils % % Lymphocytes % % Monocytes % % Eosinophils % % Basophils % % Neutrophils # (1.3-7.7) k/uL Lymphocytes # (1.0-4.8) k/uL Monocytes # (0-1.0) k/uL Eosinophils # (0-0.7) k/uL Basophils # (0-0.2) k/uL PT 10.7 (9.0-12.0) sec INR 1.1 (<1.2) APTT 23.1 (22.0-30.0) sec Sodium (137-145) mmol/L Potassium (3.5-5.1) mmol/L Chloride (98-107) mmol/L Carbon Dioxide (22-30) mmol/L Anion Gap mmol/L BUN (9-20) mg/dL Creatinine (0.66-1.25) mg/dL Est GFR (CKD-EPI)AfAm (>60 ml/min/1.73 sqM) Est GFR (CKD-EPI)NonAf (>60 ml/min/1.73 sqM) Glucose (74-99) mg/dL Calcium (8.4-10.2) mg/dL Magnesium (1.6-2.3) mg/dL Total Bilirubin (0.2-1.3) mg/dL AST (17-59) U/L ALT (21-72) U/L Alkaline Phosphatase (38-126) U/L Total Creatine Kinase (55-170) U/L CK-MB (CK-2) (0.0-2.4) ng/mL CK-MB (CK-2) Rel Index Troponin I (0.000-0.034) ng/mL Total Protein (6.3-8.2) g/dL Albumin (3.5-5.0) g/dL Disposition Clinical Impression: Debility Disposition: HOME SELF-CARE Condition: Fair Instructions: Fatigue (ED) Is patient prescribed a controlled substance at d/c from ED?: No Referrals: Nonstaff,Physician [REFERRING] - 1-2 days Time of Disposition: 08:25
[2018-01-15 07:23] LABS: Basophils % (A) 0 %; Eosinophils # (A) 0.1 k/uL (0-0.7); Eosinophils % (A) 1 %; HCT 43.1 % (39.0-53.0); HGB 14.3 gm/dL (13.0-17.5); Lymphocytes % (A) 18 %; MCH 28.5 pg (25.0-35.0); MCHC 33.2 g/dL (31.0-37.0); MCV 85.7 fL (80.0-100.0); Mean Platelet Volume 7.4; Monocytes # (A) 0.7 k/uL (0-1.0); Monocytes % (A) 6 %; Neutrophils # (A) 8.1 k/uL (1.3-7.7); Neutrophils % (A) 73 %; Platelet Count 257 k/uL (150-450); RBC 5.03 m/uL (4.30-5.90)
[2018-01-15 07:31] LABS: INR 1.1 (<1.2); Partial Thromboplastin Time 23.1 sec (22.0-30.0); Prothrombin Time 10.7 sec (9.0-12.0)
--- NOTE | 2018-01-15 07:33 | XR ---
EXAMINATION TYPE: XR chest 2V DATE OF EXAM: 01/15/2018 COMPARISON: 01/08/2018 INDICATION: Syncope COPD TECHNIQUE: Frontal and lateral views of the chest are obtained. FINDINGS: The heart size is normal. The pulmonary vasculature is slightly prominent. Bibasilar infiltrates are present. This is improving.. IMPRESSION: 1. Clinical correlation recommended for improving pulmonary edema. Improving pneumonia could be consi dered. Continued follow-up is recommended
[2018-01-15 07:45] LABS: Albumin 4.2 g/dL (3.5-5.0); Calcium 9.9 mg/dL (8.4-10.2)
[2018-01-15 07:47] LABS: Magnesium 1.9 mg/dL (1.6-2.3); Potassium 4.6 mmol/L (3.5-5.1); Total Protein 7.6 g/dL (6.3-8.2)
[2018-01-15 08:02] LABS: Troponin I 0.034 ng/mL (0.000-0.034)
[2018-01-15 08:10] LABS: Creatine Kinase MB 4.1 ng/mL (0.0-2.4)
[2018-01-15 09:10] VITALS: BP 108/59; PULSE 92; RESP 18; TEMP 98
== END 2018-01-15 09:22 | disposition home or self-care (01) ==
LOC: EC 06:24
DX: R53.81 Other malaise (principal); R55 Syncope and collapse; R05 Cough; F41.9 Anxiety disorder, unspecified; I25.119 Atherosclerotic heart disease of native coronary artery with unspecified angina pectoris; J44.9 Chronic obstructive pulmonary disease, unspecified; F03.90 Unspecified dementia, unspecified severity, without behavioral disturbance, psychotic disturbance, mood disturbance, and anxiety; H91.90 Unspecified hearing loss, unspecified ear; K21.9 Gastro-esophageal reflux disease without esophagitis; E78.5 Hyperlipidemia, unspecified; I10 Essential (primary) hypertension; I25.2 Old myocardial infarction; M06.9 Rheumatoid arthritis, unspecified; N42.9 Disorder of prostate, unspecified; G25.81 Restless legs syndrome; F32.9 Major depressive disorder, single episode, unspecified; Z86.73 Personal history of transient ischemic attack (TIA), and cerebral infarction without residual deficits; Z86.711 Personal history of pulmonary embolism; Z86.718 Personal history of other venous thrombosis and embolism; Z85.828 Personal history of other malignant neoplasm of skin; Z87.891 Personal history of nicotine dependence; Z79.82 Long term (current) use of aspirin; Z79.51 Long term (current) use of inhaled steroids; Z79.899 Other long term (current) drug therapy; Z95.1 Presence of aortocoronary bypass graft; Z95.818 Presence of other cardiac implants and grafts
CPT/HCPCS: 36415; 71046; 80053; 82550; 82553; 83735; 84484; 85025; 85610; 85730; 93005; 99285

== ENCOUNTER → 2018-03-26 | Outpatient (CLI) | payer MEDICARE, OTHER ==
--- NOTE | 2018-03-26 21:57 | EEG ---
ELECTROENCEPHALOGRAM REPORT DATE OF OUTPATIENT EE03/26/2018 ELECTROENCEPHALOGRAPHIC EXAMINATION REPORT: INDICATION FOR EXAMINATION: This patient is an 82-year-old male being evaluated for cognitive impairment. Patient with slowly progressive decline in cognition and concern for early dementia. AGE: [age]. EEG FINDINGS: A routine 21-channel awake digital EEG recording was accomplished utilizing the 10-20 international system with bipolar and referential montages. The background activity in the most alert resting state consists of a low to medium amplitude, poorly developed and poorly sustained 4-5 Hz activity over the posterior head regions. This posterior rhythm attenuates minimally to eye opening. There is a small amount of low amplitude 18-20 Hz beta activity seen maximally over the anterior head regions. Muscle and movement artifact was observed on a few occasions during the tracing. Hyperventilation was not performed. Photic stimulation at flash frequencies of 2-30 Hz produced a minimal occipital driving response. Towards the mid and lateral portion of the tracing the patient does drift into spontaneous drowsiness. No epileptiform discharges were seen. IMPRESSION: This EEG gives evidence of a severe widespread diffuse disturbance in cerebral function. The EEG failed to reveal any focal, lateralized, or epileptiform abnormalities. Clinical correlation is recommended. MMODL / IJN: [id number] /
== END | disposition home or self-care (01) ==
LOC: NEUROMAIN 12:13
PROVIDERS: ATTEND Psychiatry & Neurology Neurology
DX: G31.84 Mild cognitive impairment of uncertain or unknown etiology (principal); H81.13 Benign paroxysmal vertigo, bilateral
CPT/HCPCS: 95819

== ENCOUNTER → 2018-04-15 | Outpatient (CLI) | payer MEDICARE, OTHER ==
[2018-04-15 09:26] LABS: Basophils % (A) 0 %; Eosinophils # (A) 0.1 k/uL (0-0.7); Eosinophils % (A) 1 %; HCT 38.4 % (39.0-53.0); HGB 12.2 gm/dL (13.0-17.5); Lymphocytes # (A) 1.7 k/uL (1.0-4.8); Lymphocytes % (A) 23 %; MCH 28.8 pg (25.0-35.0); MCHC 31.8 g/dL (31.0-37.0); MCV 90.6 fL (80.0-100.0); Mean Platelet Volume 7.3; Monocytes # (A) 0.2 k/uL (0-1.0); Monocytes % (A) 3 %; Neutrophils # (A) 5.4 k/uL (1.3-7.7); Neutrophils % (A) 72 %; Platelet Count 183 k/uL (150-450); RBC 4.23 m/uL (4.30-5.90); RDW 15.2 % (11.5-15.5); WBC 7.5 k/uL (3.8-10.6)
[2018-04-15 10:23] LABS: Appearance,Urine Clear (Clear); Bilirubin,Urine Negative (Negative); Blood,Urine Negative (Negative); Color,Urine Light Yellow; Glucose,Urine (UA) Negative (Negative); Ketones,Urine Negative (Negative); Leukocyte Esterase,Urine Negative (Negative); Nitrite,Urine Negative (Negative); Protein,Urine Negative (Negative); Specific Gravity,Urine 1.011 (1.001-1.035); Urobilinogen,Urine <2.0 mg/dL (<2.0)
[2018-04-15 16:48] LABS: Iron Saturation 20.58 (15.00-50.00); Parathyroid Hormone Intact 93.5 pg/mL (14.0-72.0)
[2018-04-15 16:56] LABS: Albumin 3.9 g/dL (3.80-4.90); Anion Gap 8.5 mmol/L (4.00-12.00); Carbon Dioxide 27.5 mmol/L (21.6-31.8); Magnesium 1.6 mg/dL (1.5-2.4); Phosphorus 3.4 mg/dL (2.4-5.1); Potassium 4.6 mmol/L (3.5-5.5); Uric Acid 7.5 mg/dL (3.7-8.7)
[2018-04-15 16:57] LABS: Calcium 9.2 mg/dL (8.7-10.3)
[2018-04-15 17:01] LABS: Vitamin D 25 Hydroxy 14.6 ng/mL (30.0-100.0)
[2018-04-15 19:11] LABS: Creatinine,Urine Random 56.3 mg/dL
[2018-04-15 19:14] LABS: Total Protein,Urine Random 4.8 mg/dL (0.0-13.5)
== END | disposition home or self-care (01) ==
LOC: LABWHC1 08:35
PROVIDERS: ATTEND Internal Medicine Nephrology
DX: E55.9 Vitamin D deficiency, unspecified (principal); E21.3 Hyperparathyroidism, unspecified; R80.9 Proteinuria, unspecified; N18.3 Chronic kidney disease, stage 3 (moderate); D63.1 Anemia in chronic kidney disease; M10.9 Gout, unspecified; N39.0 Urinary tract infection, site not specified
CPT/HCPCS: 36415; 80048; 81003; 82040; 82306; 82570; 82728; 83540; 83550; 83735; 83970; 84100; 84156; 84550; 85025; 86335

== ENCOUNTER 2018-06-02 11:00 | Emergency (ER) | payer MEDICARE, OTHER ==
[2018-06-02] MEDS ORDERED: DILTIAZEM DRIP BOLUS FROM BAG 1 MG SOLN IV ONE ×2 (11:17→14:24)
[2018-06-02] MEDS ORDERED: SODIUM CHLORIDE 0.9% 1,000 ML IV STA (11:17)
[2018-06-02] MEDS ORDERED: SODIUM CHLORIDE 0.9% 500 ML 500 ML IV STA (11:17)
--- NOTE | 2018-06-02 11:19 | ED ---
SOB HPI - General Stated Complaint: CHONG Time Seen by Provider: 06/02/18 11:17 Source: RN notes reviewed, old records reviewed - History of Present Illness Initial Comments: This is a 2-year-old male to the ER for evaluation. Patient does for shortness of breath and palpitations. Not feeling well. Patient denies any recent fever cough or congestion. Patient has a significant history of heart disease as well as lung disease. Patient has multiple medical comorbidities but states that he has never had atrial fibrillation before. Patient denies recent travel history no known sick contacts and currently denying any chest pain. Patient did have chest pain prior to arrival MD Complaint: shortness of breath, chest pain -: days(s) Severity: mild Quality: aching Consistency: constant Improves With: rest Worsens With: exertion, movement Known History Of: COPD, congestive heart failure Context: recent URI Associated Symptoms: chest pain Treatments Prior to Arrival: none - Related Data Home Medications Medication Instructions Recorded Confirmed Isosorbide Mononitrate ER [Imdur] 60 mg PO DAILY 08/25/14 06/02/18 Metolazone [Zaroxolyn] 5 mg PO DIRECTED 08/25/14 06/02/18 Potassium Chloride ER [K-Dur 20] 20 meq PO TID 08/25/14 06/02/18 Pramipexole Di-HCl [Mirapex] 0.75 mg PO HS 08/25/14 06/02/18 Budesonide-Formot 160-4.5 Mcg 2 puff INHALATION RT-BID 08/14/17 06/02/18 [Symbicort 160-4.5 Mcg Inhaler] Furosemide [Lasix] 20 mg PO DAILY 01/07/18 06/02/18 ALPRAZolam [Xanax] 0.25 mg PO BID PRN 06/02/18 06/02/18 Meclizine HCl 12.5 mg PO BID 06/02/18 06/02/18 Ranitidine HCl [Zantac] 150 mg PO BID 06/02/18 06/02/18 Tamsulosin HCl [Flomax] 0.4 mg PO HS 06/02/18 06/02/18 diphenhydrAMINE [Benadryl] 25 mg PO HS 06/02/18 06/02/18 predniSONE 10 mg PO DAILY 06/02/18 06/02/18 Previous Rx's Medication Instructions Recorded Metoprolol Tartrate [Lopressor] 75 mg PO BID #180 tab 08/21/17 Allergies Allergy/AdvReac Type Severity Reaction Status Date / Time No Known Allergies Allergy Verified 06/02/18 11:22 Review of Systems ROS Statement: Those systems with pertinent positive or pertinent negative responses have been documented in the HPI. ROS Other: All systems not noted in ROS Statement are negative. Past Medical History Past Medical History: Coronary Artery Disease (CAD), Cancer, Chest Pain / Angina , COPD, CVA/TIA, Dementia, Deep Vein Thrombosis (DVT), GERD/Reflux, Hearing Disorder / Deafness, Hyperlipidemia, Hypertension, Myocardial Infarction ([place]), Osteoarthritis (OA), Pneumonia, Prostate Disorder, Pulmonary Embolus (PE), Renal Disease, Respiratory Disorder, Rheumatoid Arthritis (RA), Sleep Apnea/CPAP /BIPAP, Syncope Additional Past Medical History / Comment(s): SEVERE COPD, HOME O2 2-3L/NC, BRONCHITIS, RAJESH BUT NO LONGER USED CPAP, R LEG DVT, BILAT PE, TIA, PARKINSONS DISEASE, RESTLESS LEG SYNDROME, NUMBNESS/TINGLING BILATERAL LEGS/FEET, UNSTEADY ON HIS FEET, FALLS, DOUBLE INGUINAL HERNIAS, HX ULCERS, HEMORRHOIDS, ENLARGED PROSTRATE, INSOMNIA, SINUSITIS, BILATERAL LEG EDEMA AT TIMES, SKIN CANCER WITH REMOVAL, HOLE IN EARDRUM LEFT Last Myocardial Infarction Date:: 2006 History of Any Multi-Drug Resistant Organisms: None Reported Past Surgical History: Coronary Bypass/CABG, Heart Catheterization, Hernia Repair Additional Past Surgical History / Comment(s): 2006 CABG WITH 4 VESSEL BYPASS, HIATAL HERNIA REPAIR, UMBILICAL HERNIA REPAIR, BILAT CATARACTS WITH LENS IMPLANTS SX, EGD X 5 WITH ESOPHAGEAL DILATION, COLONOSCOPY/BENIGN POLYPS, SKIN CANCER REMOVALS. Past Anesthesia/Blood Transfusion Reactions: No Reported Reaction Past Psychological History: Anxiety, Depression Smoking Status: Former smoker - Past Family History Mother Family Medical History: Cancer Additional Family Medical History / Comment(s): Mother had lung cancer. She was a smoker. Brother(s) Family Medical History: Blood Disorder Father Additional Family Medical History / Comment(s): HARDENING OF ARTERIES, General Exam General appearance: alert, in no apparent distress Head exam: Present: atraumatic, normocephalic, normal inspection Eye exam: Present: normal appearance, PERRL, EOMI. Absent: scleral icterus, conjunctival injection, periorbital swelling ENT exam: Present: normal exam, mucous membranes moist Neck exam: Present: normal inspection. Absent: tenderness, meningismus, lymphadenopathy Respiratory exam: Present: normal lung sounds bilaterally. Absent: respiratory distress, wheezes, rales, rhonchi, stridor Cardiovascular Exam: Present: tachycardia, irregular rhythm, normal heart sounds. Absent: systolic murmur, diastolic murmur, rubs, gallop, clicks GI/Abdominal exam: Present: soft, normal bowel sounds. Absent: distended, tenderness, guarding, rebound, rigid Extremities exam: Present: normal inspection, full ROM, normal capillary refill. Absent: tenderness, pedal edema, joint swelling, calf tenderness Back exam: Present: normal inspection Neurological exam: Present: alert, oriented X3, CN II-XII intact Psychiatric exam: Present: normal affect, normal mood Skin exam: Present: warm, dry, intact, normal color. Absent: rash Course Vital Signs 06/02/18 06/02/18 11:17 12:09 Temperature 97.7 F Pulse Rate 165 H Respiratory 22 22 Rate Blood Pressure 110/82 O2 Sat by Pulse 100 Oximetry - Reevaluation(s) Reevaluation #1: 06/02/18 13:24 Medical record is reviewed and noncontributory Reevaluation #2: 06/02/18 13:24 Patient does have improvement with heart rate control Medical Decision Making - Medical Decision Making 82 male the ER for evaluation of CHF with new onset A. fib with RVR patient will be admitted for rate control, anticoagulation cardiology observation - Lab Data Result diagrams: 06/02/18 11:30 06/02/18 11:30 Lab Results 06/02/18 06/02/18 06/02/18 Range/Units 11:30 11:30 11:30 WBC 8.6 (3.8-10.6) k/uL RBC 4.32 (4.30-5.90) m/uL Hgb 12.4 L (13.0-17.5) gm/dL Hct 37.8 L (39.0-53.0) % MCV 87.6 (80.0-100.0) fL MCH 28.6 (25.0-35.0) pg MCHC 32.7 (31.0-37.0) g/dL RDW 15.2 (11.5-15.5) % Plt Count 212 (150-450) k/uL Neutrophils % 76 % Lymphocytes % 15 % Monocytes % 6 % Eosinophils % 1 % Basophils % 0 % Neutrophils # 6.5 (1.3-7.7) k/uL Lymphocytes # 1.3 (1.0-4.8) k/uL Monocytes # 0.5 (0-1.0) k/uL Eosinophils # 0.1 (0-0.7) k/uL Basophils # 0.0 (0-0.2) k/uL PT (9.0-12.0) sec INR (<1.2) APTT (22.0-30.0) sec Sodium 138 (137-145) mmol/L Potassium 4.0 (3.5-5.1) mmol/L Chloride 104 (98-107) mmol/L Carbon Dioxide 26 (22-30) mmol/L Anion Gap 8 mmol/L BUN 13 (9-20) mg/dL Creatinine 1.05 (0.66-1.25) mg/dL Est GFR (CKD-EPI)AfAm 77 (>60 ml/min/1.73 sqM) Est GFR (CKD-EPI)NonAf 67 (>60 ml/min/1.73 sqM) Glucose 143 H (74-99) mg/dL Calcium 9.4 (8.4-10.2) mg/dL Phosphorus 3.3 (2.5-4.5) mg/dL Magnesium 1.7 (1.6-2.3) mg/dL Total Bilirubin 0.5 (0.2-1.3) mg/dL AST 17 (17-59) U/L ALT 19 L (21-72) U/L Alkaline Phosphatase 117 (38-126) U/L Total Creatine Kinase 30 L (55-170) U/L CK-MB (CK-2) 0.8 (0.0-2.4) ng/mL CK-MB (CK-2) Rel Index 2.7 Troponin I <0.012 (0.000-0.034) ng/mL Total Protein 6.7 (6.3-8.2) g/dL Albumin 3.6 (3.5-5.0) g/dL TSH 1.340 (0.465-4.680) mIU/L 06/02/18 Range/Units 11:30 WBC (3.8-10.6) k/uL RBC (4.30-5.90) m/uL Hgb (13.0-17.5) gm/dL Hct (39.0-53.0) % MCV (80.0-100.0) fL MCH (25.0-35.0) pg MCHC (31.0-37.0) g/dL RDW (11.5-15.5) % Plt Count (150-450) k/uL Neutrophils % % Lymphocytes % % Monocytes % % Eosinophils % % Basophils % % Neutrophils # (1.3-7.7) k/uL Lymphocytes # (1.0-4.8) k/uL Monocytes # (0-1.0) k/uL Eosinophils # (0-0.7) k/uL Basophils # (0-0.2) k/uL PT 10.4 (9.0-12.0) sec INR 1.0 (<1.2) APTT 28.1 (22.0-30.0) sec Sodium (137-145) mmol/L Potassium (3.5-5.1) mmol/L Chloride (98-107) mmol/L Carbon Dioxide (22-30) mmol/L Anion Gap mmol/L BUN (9-20) mg/dL Creatinine (0.66-1.25) mg/dL Est GFR (CKD-EPI)AfAm (>60 ml/min/1.73 sqM) Est GFR (CKD-EPI)NonAf (>60 ml/min/1.73 sqM) Glucose (74-99) mg/dL Calcium (8.4-10.2) mg/dL Phosphorus (2.5-4.5) mg/dL Magnesium (1.6-2.3) mg/dL Total Bilirubin (0.2-1.3) mg/dL AST (17-59) U/L ALT (21-72) U/L Alkaline Phosphatase (38-126) U/L Total Creatine Kinase (55-170) U/L CK-MB (CK-2) (0.0-2.4) ng/mL CK-MB (CK-2) Rel Index Troponin I (0.000-0.034) ng/mL Total Protein (6.3-8.2) g/dL Albumin (3.5-5.0) g/dL TSH (0.465-4.680) mIU/L - EKG Data -: EKG Interpreted by Me (EKG shows A. fib with RVR rate 150, QRS 70, QTc 455) - Radiology Data Radiology results: report reviewed (Chest x-rays negative for acute disease), image reviewed Disposition Clinical Impression: Atrial fibrillation with RVR, CHF (congestive heart failure) Disposition: ADMITTED IP TO THIS HOSP Condition: Undetermined Is patient prescribed a controlled substance at d/c from ED?: No Referrals: Charley Moulton DO [Primary Care Provider] - 1-2 days
[2018-06-02 11:21] VITALS: TEMP 97.7
[2018-06-02] MEDS ORDERED: DILTIAZEM 50 MG in SODIUM CHLORIDE 0.9% 40 ML IV SCH (11:30)
[2018-06-02 12:01] LABS: Partial Thromboplastin Time 28.1 sec (22.0-30.0); Prothrombin Time 10.4 sec (9.0-12.0)
[2018-06-02 12:06] LABS: Albumin 3.6 g/dL (3.5-5.0); Calcium 9.4 mg/dL (8.4-10.2); Magnesium 1.7 mg/dL (1.6-2.3); Phosphorus 3.3 mg/dL (2.5-4.5); Total Bilirubin 0.5 mg/dL (0.2-1.3); Total Protein 6.7 g/dL (6.3-8.2)
[2018-06-02 12:28] LABS: Creatine Kinase 30 U/L (55-170)
[2018-06-02 12:41] LABS: Creatine Kinase MB 0.8 ng/mL (0.0-2.4); Troponin I <0.012 ng/mL (0.000-0.034)
--- NOTE | 2018-06-02 12:41 | XR ---
EXAMINATION TYPE: XR chest 2V DATE OF EXAM: 06/02/2018 COMPARISON: 01/15/2018 HISTORY: 82 year-old male shortness of breath, pain TECHNIQUE: AP and lateral views FINDINGS: Median sternotomy wires are present with postoperative clips. Heart mildly enlarged. Diffuse intersti tial changes with trace effusions. Patchy bibasilar opacities are present. IMPRESSION: Correlated for CHF with interstitial pulmonary edema. Small effusions with adjacent atelectasis and/o r consolidation.
[2018-06-02 12:56] LABS: Basophils % (A) 0 %; Eosinophils # (A) 0.1 k/uL (0-0.7); Eosinophils % (A) 1 %; HCT 37.8 % (39.0-53.0); HGB 12.4 gm/dL (13.0-17.5); Lymphocytes # (A) 1.3 k/uL (1.0-4.8); Lymphocytes % (A) 15 %; MCH 28.6 pg (25.0-35.0); MCHC 32.7 g/dL (31.0-37.0); MCV 87.6 fL (80.0-100.0); Mean Platelet Volume 7.9; Monocytes # (A) 0.5 k/uL (0-1.0); Monocytes % (A) 6 %; Neutrophils # (A) 6.5 k/uL (1.3-7.7); Neutrophils % (A) 76 %; Platelet Count 212 k/uL (150-450); RBC 4.32 m/uL (4.30-5.90); RDW 15.2 % (11.5-15.5); WBC 8.6 k/uL (3.8-10.6)
[2018-06-02] MEDS ORDERED: FUROSEMIDE 10 MG/ML 4 ML VIAL IV STA (14:24)
[2018-06-02 14:30] VITALS: BP 136/86; PULSE 121; RESP 32
[2018-06-02] MEDS ORDERED: FUROSEMIDE 10 MG/ML 4 ML VIAL IV SCH (16:00)
[2018-06-02] MEDS ORDERED: METOPROLOL TARTRATE 25 MG TAB PO SCH (21:00)
== END 2018-06-02 15:05 | disposition other institution (70) ==
LOC: EC 11:00 → UNDOADMIN 13:25 → 3SCARD 13:25 → EC 15:05
DX: I48.91 Unspecified atrial fibrillation (principal); I50.9 Heart failure, unspecified; I25.119 Atherosclerotic heart disease of native coronary artery with unspecified angina pectoris; I11.0 Hypertensive heart disease with heart failure; J44.9 Chronic obstructive pulmonary disease, unspecified; K21.9 Gastro-esophageal reflux disease without esophagitis; I25.2 Old myocardial infarction; N40.0 Benign prostatic hyperplasia without lower urinary tract symptoms; H91.90 Unspecified hearing loss, unspecified ear; F32.9 Major depressive disorder, single episode, unspecified; F41.9 Anxiety disorder, unspecified; M19.90 Unspecified osteoarthritis, unspecified site; M06.9 Rheumatoid arthritis, unspecified; Z79.51 Long term (current) use of inhaled steroids; Z79.52 Long term (current) use of systemic steroids; Z79.899 Other long term (current) drug therapy; Z99.81 Dependence on supplemental oxygen; Z85.828 Personal history of other malignant neoplasm of skin; Z98.890 Other specified postprocedural states; Z95.1 Presence of aortocoronary bypass graft
CPT/HCPCS: 36415; 93005; 80053; 82550; 82553; 83735; 84100; 84443; 84484; 85025; 85610; 85730; 71046; 99285; 96365; 96366 ×2; 96375; J1940

== ENCOUNTER 2018-06-03 10:07 | Inpatient (IN) | payer MEDICARE, OTHER ==
[2018-06-03] MEDS ORDERED: ONDANSETRON 4 MG/2 ML VIAL IVP STA (10:48)
--- NOTE | 2018-06-03 10:59 | ED ---
General Adult HPI - General Chief complaint: Shortness of Breath Stated complaint: SOB, vomiting Time Seen by Provider: 06/03/18 10:10 Source: patient, RN notes reviewed Mode of arrival: wheelchair Limitations: no limitations - History of Present Illness Initial comments: This is an 82-year-old male who presents emergency Department with a past medical history significant for COPD and atrial fibrillation. Patient states he was in the emergency department yesterday and was told to stay for shortness of breath and tachycardia but he refused. Patient comes in today because he states he is having mid abdominal pain in his been ongoing for 2 days and she's been throwing up everything he eats so he was unable to take his pills today. Patient states his breathing is still bad but not as bad as it was yesterday. Patient denies any chest pain or palpitations today. Patient denies any headache patient denies numbness weakness. Patient denies any lightheadedness dizziness or near syncopal episode. patient denies any extremity injury. Patient denies any dysuria hematuria urinary frequency. Patient denies any recent fever chills or cough. - Related Data Home Medications Medication Instructions Recorded Confirmed Isosorbide Mononitrate ER [Imdur] 60 mg PO DAILY 08/25/14 06/03/18 Potassium Chloride ER [K-Dur 20] 20 meq PO TID 08/25/14 06/03/18 Pramipexole Di-HCl [Mirapex] 0.75 mg PO HS 08/25/14 06/03/18 Budesonide-Formot 160-4.5 Mcg 2 puff INHALATION RT-BID 08/14/17 06/03/18 [Symbicort 160-4.5 Mcg Inhaler] Furosemide [Lasix] 20 mg PO DAILY 01/07/18 06/03/18 Meclizine HCl 12.5 mg PO BID 06/02/18 06/03/18 Ranitidine HCl [Zantac] 150 mg PO BID 06/02/18 06/03/18 Tamsulosin HCl [Flomax] 0.4 mg PO HS 06/02/18 06/03/18 diphenhydrAMINE [Benadryl] 25 mg PO HS 06/02/18 06/03/18 predniSONE 10 mg PO DAILY 06/02/18 06/03/18 Acetaminophen [Tylenol Extra 500 mg PO Q4H PRN 06/03/18 06/03/18 Strength] Aspirin EC [Ecotrin Low Dose] 81 mg PO DAILY 06/03/18 06/03/18 Ipratropium-Albuterol Nebulize 3 ml INHALATION RT-TID 06/03/18 06/03/18 [Duoneb 0.5 mg-3 mg/3 ml Soln] Previous Rx's Medication Instructions Recorded Metoprolol Tartrate [Lopressor] 75 mg PO BID #180 tab 08/21/17 Allergies Allergy/AdvReac Type Severity Reaction Status Date / Time No Known Allergies Allergy Verified 06/03/18 13:18 Review of Systems ROS Statement: Those systems with pertinent positive or pertinent negative responses have been documented in the HPI. ROS Other: All systems not noted in ROS Statement are negative. Past Medical History Past Medical History: Coronary Artery Disease (CAD), Cancer, Chest Pain / Angina , COPD, CVA/TIA, Dementia, Deep Vein Thrombosis (DVT), GERD/Reflux, Hearing Disorder / Deafness, Hyperlipidemia, Hypertension, Myocardial Infarction ([place]), Osteoarthritis (OA), Pneumonia, Prostate Disorder, Pulmonary Embolus (PE), Renal Disease, Respiratory Disorder, Rheumatoid Arthritis (RA), Sleep Apnea/CPAP /BIPAP, Syncope Additional Past Medical History / Comment(s): SEVERE COPD, HOME O2 2-3L/NC, BRONCHITIS, RAJESH BUT NO LONGER USED CPAP, R LEG DVT, BILAT PE, TIA, PARKINSONS DISEASE, RESTLESS LEG SYNDROME, NUMBNESS/TINGLING BILATERAL LEGS/FEET, UNSTEADY ON HIS FEET, FALLS, DOUBLE INGUINAL HERNIAS, HX ULCERS, HEMORRHOIDS, ENLARGED PROSTRATE, INSOMNIA, SINUSITIS, BILATERAL LEG EDEMA AT TIMES, SKIN CANCER WITH REMOVAL, HOLE IN EARDRUM LEFT Last Myocardial Infarction Date:: 2006 History of Any Multi-Drug Resistant Organisms: None Reported Past Surgical History: Coronary Bypass/CABG, Heart Catheterization, Hernia Repair Additional Past Surgical History / Comment(s): 2006 CABG WITH 4 VESSEL BYPASS, HIATAL HERNIA REPAIR, UMBILICAL HERNIA REPAIR, BILAT CATARACTS WITH LENS IMPLANTS SX, EGD X 5 WITH ESOPHAGEAL DILATION, COLONOSCOPY/BENIGN POLYPS, SKIN CANCER REMOVALS. Past Anesthesia/Blood Transfusion Reactions: No Reported Reaction Past Psychological History: Anxiety, Depression Smoking Status: Former smoker Past Alcohol Use History: None Reported Past Drug Use History: None Reported - Past Family History Mother Family Medical History: Cancer Additional Family Medical History / Comment(s): Mother had lung cancer. She was a smoker. Brother(s) Family Medical History: Blood Disorder Father Additional Family Medical History / Comment(s): HARDENING OF ARTERIES, General Exam - General Exam Comments Initial Comments: GENERAL: Patient is well-developed and well-nourished. Patient is nontoxic and well- hydrated and is in mild distress. ENT: Neck is soft and supple. No significant lymphadenopathy is noted. Oropharynx is clear. Moist mucous membranes. Neck has full range of motion without eliciting any pain. EYES: The sclera were anicteric and conjunctiva were pink and moist. Extraocular movements were intact and pupils were equal round and reactive to light. Eyelids were unremarkable. PULMONARY: Patient looks in mild respiratory distress but has nocturia wheezing but decreased breath sounds. CARDIOVASCULAR: There is a regular rate and rhythm without any murmurs gallops or rubs. ABDOMEN: Minimal tenderness just above the umbilicus. Patient does have a ventral hernia which is completely reducible. No palpable organomegaly was noted. There is no palpable pulsatile mass. SKIN: Skin is clear with no lesions or rashes and otherwise unremarkable. NEUROLOGIC: Patient is alert and oriented x3. Cranial nerves II through XII are grossly intact. Motor and sensory are also intact. Normal speech, volume and content. Symmetrical smile. MUSCULOSKELETAL: Normal extremities with adequate strength and full range of motion. No lower extremity swelling or edema. No calf tenderness. LYMPHATICS: No significant lymphadenopathy is noted PSYCHIATRIC: Normal psychiatric evaluation. Normal interpersonal interactions appears functionally intact in deals appropriately with others. No signs of depression. No signs of anxiety. Limitations: no limitations Course Vital Signs 06/03/18 06/03/18 06/03/18 10:11 11:36 13:19 Temperature 97.7 F Pulse Rate 102 H 96 109 H Respiratory 22 18 20 Rate Blood Pressure 144/90 145/85 146/95 O2 Sat by Pulse 93 L 96 95 Oximetry 06/03/18 14:00 Temperature Pulse Rate 109 H Respiratory 24 Rate Blood Pressure 142/67 O2 Sat by Pulse 97 Oximetry Medical Decision Making - Medical Decision Making EKG shows multiple focal atrial tachycardia with occasional PVC at 106 bpm HI interval 260 QRS 72 QT interval 348 QTC is 462. She has right bundle lorri block. Patient has Q waves inferiorly. Patient's or signs of congestive heart failure and BNP is elevated. I spoke with Dr. Rodgers he agreed to admit the patient admitted the patient remaining orders. - Lab Data Result diagrams: 06/03/18 11:17 06/03/18 11:17 Lab Results 06/03/18 06/03/18 06/03/18 Range/Units 11:17 11:17 11:17 WBC 7.8 (3.8-10.6) k/uL RBC 4.59 (4.30-5.90) m/uL Hgb 13.1 (13.0-17.5) gm/dL Hct 40.2 (39.0-53.0) % MCV 87.6 (80.0-100.0) fL MCH 28.5 (25.0-35.0) pg MCHC 32.6 (31.0-37.0) g/dL RDW 15.1 (11.5-15.5) % Plt Count 220 (150-450) k/uL Neutrophils % 75 % Lymphocytes % 14 % Monocytes % 7 % Eosinophils % 1 % Basophils % 0 % Neutrophils # 5.9 (1.3-7.7) k/uL Lymphocytes # 1.1 (1.0-4.8) k/uL Monocytes # 0.5 (0-1.0) k/uL Eosinophils # 0.1 (0-0.7) k/uL Basophils # 0.0 (0-0.2) k/uL Sodium 138 (137-145) mmol/L Potassium 3.8 (3.5-5.1) mmol/L Chloride 101 (98-107) mmol/L Carbon Dioxide 29 (22-30) mmol/L Anion Gap 8 mmol/L BUN 12 (9-20) mg/dL Creatinine 1.16 (0.66-1.25) mg/dL Est GFR (CKD-EPI)AfAm 68 (>60 ml/min/1.73 sqM) Est GFR (CKD-EPI)NonAf 59 (>60 ml/min/1.73 sqM) Glucose 119 H (74-99) mg/dL Plasma Lactic Acid Mohit (0.7-2.0) mmol/L Calcium 9.6 (8.4-10.2) mg/dL Total Bilirubin 0.6 (0.2-1.3) mg/dL AST 16 L (17-59) U/L ALT 20 L (21-72) U/L Alkaline Phosphatase 114 (38-126) U/L Total Creatine Kinase 35 L (55-170) U/L CK-MB (CK-2) 0.7 (0.0-2.4) ng/mL CK-MB (CK-2) Rel Index 2.0 Troponin I 0.018 (0.000-0.034) ng/mL NT-Pro-B Natriuret Pep pg/mL Total Protein 6.7 (6.3-8.2) g/dL Albumin 3.7 (3.5-5.0) g/dL Amylase 47 (30-110) U/L Lipase 13 L (23-300) U/L 06/03/18 06/03/18 Range/Units 11:17 11:17 WBC (3.8-10.6) k/uL RBC (4.30-5.90) m/uL Hgb (13.0-17.5) gm/dL Hct (39.0-53.0) % MCV (80.0-100.0) fL MCH (25.0-35.0) pg MCHC (31.0-37.0) g/dL RDW (11.5-15.5) % Plt Count (150-450) k/uL Neutrophils % % Lymphocytes % % Monocytes % % Eosinophils % % Basophils % % Neutrophils # (1.3-7.7) k/uL Lymphocytes # (1.0-4.8) k/uL Monocytes # (0-1.0) k/uL Eosinophils # (0-0.7) k/uL Basophils # (0-0.2) k/uL Sodium (137-145) mmol/L Potassium (3.5-5.1) mmol/L Chloride (98-107) mmol/L Carbon Dioxide (22-30) mmol/L Anion Gap mmol/L BUN (9-20) mg/dL Creatinine (0.66-1.25) mg/dL Est GFR (CKD-EPI)AfAm (>60 ml/min/1.73 sqM) Est GFR (CKD-EPI)NonAf (>60 ml/min/1.73 sqM) Glucose (74-99) mg/dL Plasma Lactic Acid Mohit 1.2 (0.7-2.0) mmol/L Calcium (8.4-10.2) mg/dL Total Bilirubin (0.2-1.3) mg/dL AST (17-59) U/L ALT (21-72) U/L Alkaline Phosphatase (38-126) U/L Total Creatine Kinase (55-170) U/L CK-MB (CK-2) (0.0-2.4) ng/mL CK-MB (CK-2) Rel Index Troponin I (0.000-0.034) ng/mL NT-Pro-B Natriuret Pep 1340 pg/mL Total Protein (6.3-8.2) g/dL Albumin (3.5-5.0) g/dL Amylase (30-110) U/L Lipase (23-300) U/L Disposition Clinical Impression: Acute pulmonary edema, Colitis Disposition: ADMITTED IP TO THIS HOSP Referrals: Charley Moultno DO [Primary Care Provider] - 1-2 days Time of Disposition: 14:51
[2018-06-03 11:49] LABS: Basophils % (A) 0 %; Eosinophils # (A) 0.1 k/uL (0-0.7); Eosinophils % (A) 1 %; HCT 40.2 % (39.0-53.0); HGB 13.1 gm/dL (13.0-17.5); Lymphocytes # (A) 1.1 k/uL (1.0-4.8); Lymphocytes % (A) 14 %; MCH 28.5 pg (25.0-35.0); MCHC 32.6 g/dL (31.0-37.0); MCV 87.6 fL (80.0-100.0); Mean Platelet Volume 7.3; Monocytes # (A) 0.5 k/uL (0-1.0); Monocytes % (A) 7 %; Neutrophils # (A) 5.9 k/uL (1.3-7.7); Neutrophils % (A) 75 %; Platelet Count 220 k/uL (150-450); RBC 4.59 m/uL (4.30-5.90); RDW 15.1 % (11.5-15.5); WBC 7.8 k/uL (3.8-10.6)
[2018-06-03 11:55] LABS: Albumin 3.7 g/dL (3.5-5.0); Total Protein 6.7 g/dL (6.3-8.2)
[2018-06-03 11:56] LABS: Calcium 9.6 mg/dL (8.4-10.2); Potassium 3.8 mmol/L (3.5-5.1); Total Bilirubin 0.6 mg/dL (0.2-1.3)
[2018-06-03 12:14] LABS: Creatine Kinase MB 0.7 ng/mL (0.0-2.4); Troponin I 0.018 ng/mL (0.000-0.034)
--- NOTE | 2018-06-03 12:58 | CT ---
EXAMINATION TYPE: CT abdomen pelvis w con DATE OF EXAM: 06/03/2018 COMPARISON: CT abdomen and pelvis May 27, 2014 HISTORY: Abdominal pain per order not further specified. Nausea and vomiting per technologist. CT DLP: 1211.3 mGycm, Automated Exposure Control for Dose Reduction was Utilized. CONTRAST: CT scan of the abdomen and pelvis is performed without oral but with IV Contrast, patient injected wi th 100 mL of Isovue 300. FINDINGS: LUNG BASES: Emphysematous change in lung bases with peripheral bulla and bleb formation is redemonstr ated. There is additional peripheral reticulation and/or fibrosis. There is new central opacity sugge sting mild edema and/or infiltrates without focal consolidation. Underlying cardiomegaly is noted. LIVER/GB: No significant abnormality is appreciated. PANCREAS: Moderate to severe generalized fat replaced atrophy of pancreas is redemonstrated. SPLEEN: No significant abnormality is seen. ADRENALS: No significant abnormality is seen. KIDNEYS: Some cortical thinning in both kidneys is again seen. There is some central renal vascular c alcification but suspected also additional small nonobstructing renal calculi bilaterally. There is s ymmetric cortical medullary uptake and excretion from both kidneys without hydronephrosis seen bilate rally. BOWEL: Surgical clips along distal esophagus with small hiatal hernia remains present. Stomach is poo rly distended and thus suboptimally evaluated. Diverticula in the left and sigmoid colon are present. There is no suspicious small or large bowel dilatation. Mild wall thickening in the distal half of t he right colon extending through splenic and hepatic flexures into the proximal to mid left colon is identified. Finding could be product of poor distention a mild colitis is not excluded. PROSTATE/SEMINAL VESICLES: Prostate gland is markedly enlarged in size and heterogeneous in appearanc e bulging on bladder base. LYMPH NODES: No greater than 1cm abdominal or pelvic lymph nodes are appreciated. OSSEOUS STRUCTURES: Moderate to advanced disc space narrowing with vacuum disc phenomenon posterior L 5-S1 level is present. There is multilevel facet arthropathy in the mid to lower lumbar spine.. OTHER: Surgical clips right groin region are redemonstrated. There is severe atherosclerotic change o f aorta extending into branch vessels redemonstrated. IMPRESSION: 1. No bowel obstruction is present. Possible mild diffuse colitis versus product of poor distention. Correlate clinically. 2. Emphysematous and parenchymal fibrotic changes in bases. Suspect mild underlying alveolar edema on background of cardiomegaly, correlate for CHF exacerbation.
[2018-06-03] MEDS ORDERED: ASPIRIN 325 MG TAB PO STA (14:52)
[2018-06-03 15:00] LABS: Appearance,Urine Clear (Clear); Bilirubin,Urine Negative (Negative); Blood,Urine Trace (Negative); Color,Urine Yellow; Glucose,Urine (UA) Negative (Negative); Ketones,Urine 1+ (Negative); Leukocyte Esterase,Urine Negative (Negative); Mucus,Urine Rare /hpf; Nitrite,Urine Negative (Negative); PH, Urine 6.5 (5.0-8.0); Protein,Urine Trace (Negative); RBC,Urine 6 /hpf (0-5); Urobilinogen,Urine <2.0 mg/dL (<2.0); WBC,Urine 3 /hpf (0-5)
[2018-06-03 15:24] LABS: Specific Gravity,Urine >1.050 (1.001-1.035)
--- NOTE | 2018-06-03 15:36 | XR ---
EXAMINATION TYPE: XR chest 2V DATE OF EXAM: 06/03/2018 COMPARISON: Chest x-ray from yesterday. HISTORY: Shortness of breath. TECHNIQUE: Frontal and lateral views of the chest are obtained. FINDINGS: There is chronic parenchymal change without suspicious focal air space opacity, pleural ef fusion, or pneumothorax seen. The cardiac silhouette size remains enlarged with atherosclerotic thor acic aorta. Overlying sternal wires are redemonstrated . There is redemonstration of surgical clips superior to aortic knob. Surgical clips epigastric region just below diaphragm are redemonstrated. Th e osseous structures remain demineralized. IMPRESSION: Cardiomegaly and fairly advanced chronic parenchymal fibrotic changes. Cannot exclude ac stuart interstitial edema background chronic fibrosis. Interval resolution of small bilateral pleural ef fusions since prior study noted. No new suspicious focal infiltrate is seen.
--- NOTE | 2018-06-03 16:36 | P.HPIM ---
History of Present Illness H&P Date: 06/03/18 This is an 82-year-old male patient of Dr. Moulton. Patient presents to the emergency room with complaints of abdominal pain. Patient did present to the emergency room yesterday with complaints of shortness of breath and tachycardia but left AMA. Patient reports that his abdominal pain and nausea or vomiting has been going on for 2 days. Per daughter at bedside patient has not been able to keep food down for 2 days. Patient does have a significant history first COPD in which she wears 2-3 L home oxygen. Patient has past medical history of coronary artery disease with coronary artery bypass graft surgery in 2006. Additional medical history includes COPD, CVA, dementia, DVT, GERD, deafness, hyperlipidemia, hypertension, myocardial infarction, osteoarthritis, pneumonia, prostate disorder, pulmonary embolism, renal disease, respiratory disorder, rheumatoid arthritis, sleep apnea,Parkinson's disease and restless leg syndrome. Abdominal pelvis CT completed showing no bowel obstruction present. Possible mild diffuse colitis versus product poor distention. Correlate clinically. Emphysematous and parenchymal fibrotic change in basis. Suspect mild underlying alveolar edema or background cardiomegaly, correlate for CHF exacerbation. Chest x-ray completed showing cardiomegaly and fairly advanced chronic paroxysmal fibrotic changes. Cannot exclude acute interstitial Hemovac on chronic fibrosis. Interval resolution of small bilateral pleural effusions since prior study no suspicious local infiltrate is seen. EKG completed showing sinus tachycardia with occasional premature ventricular complexes. Abnormal QRST angle, consider primary T-wave abnormalities. EKG completed yesterday prior to patient leaving AMA showed A. fib with RVR with a heart rate of 150. Cardiology services will be consulted 2- D echo has been ordered. BNP also elevated at 1340. Patient started on IV Lasix for ER. At this time patient denies chest pain or shortness of breath. Patient is complaining of some abdominal discomfort with nausea. Patient denies any urinary burning or frequency Review of Systems Please refer to HPI otherwise unremarkable Past Medical History Past Medical History: Coronary Artery Disease (CAD), Cancer, Chest Pain / Angina , COPD, CVA/TIA, Dementia, Deep Vein Thrombosis (DVT), GERD/Reflux, Hearing Disorder / Deafness, Hyperlipidemia, Hypertension, Myocardial Infarction ([place]), Osteoarthritis (OA), Pneumonia, Prostate Disorder, Pulmonary Embolus (PE), Renal Disease, Respiratory Disorder, Rheumatoid Arthritis (RA), Sleep Apnea/CPAP /BIPAP, Syncope Additional Past Medical History / Comment(s): SEVERE COPD, HOME O2 2-3L/NC, BRONCHITIS, RAJESH BUT NO LONGER USED CPAP, R LEG DVT, BILAT PE, TIA, PARKINSONS DISEASE, RESTLESS LEG SYNDROME, NUMBNESS/TINGLING BILATERAL LEGS/FEET, UNSTEADY ON HIS FEET, FALLS, DOUBLE INGUINAL HERNIAS, HX ULCERS, HEMORRHOIDS, ENLARGED PROSTRATE, INSOMNIA, SINUSITIS, BILATERAL LEG EDEMA AT TIMES, SKIN CANCER WITH REMOVAL, HOLE IN EARDRUM LEFT Last Myocardial Infarction Date:: 2006 History of Any Multi-Drug Resistant Organisms: None Reported Past Surgical History: Coronary Bypass/CABG, Heart Catheterization, Hernia Repair Additional Past Surgical History / Comment(s): 2006 CABG WITH 4 VESSEL BYPASS, HIATAL HERNIA REPAIR, UMBILICAL HERNIA REPAIR, BILAT CATARACTS WITH LENS IMPLANTS SX, EGD X 5 WITH ESOPHAGEAL DILATION, COLONOSCOPY/BENIGN POLYPS, SKIN CANCER REMOVALS. Past Anesthesia/Blood Transfusion Reactions: No Reported Reaction Past Psychological History: Anxiety, Depression Smoking Status: Former smoker Past Alcohol Use History: None Reported Past Drug Use History: None Reported - Past Family History Mother Family Medical History: Cancer Additional Family Medical History / Comment(s): Mother had lung cancer. She was a smoker. Brother(s) Family Medical History: Blood Disorder Father Additional Family Medical History / Comment(s): HARDENING OF ARTERIES, Medications and Allergies Home Medications Medication Instructions Recorded Confirmed Type Isosorbide Mononitrate ER [Imdur] 60 mg PO DAILY 08/25/14 06/03/18 History Potassium Chloride ER [K-Dur 20] 20 meq PO TID 08/25/14 06/03/18 History Pramipexole Di-HCl [Mirapex] 0.75 mg PO HS 08/25/14 06/03/18 History Budesonide-Formot 160-4.5 Mcg 2 puff INHALATION RT-BID 08/14/17 06/03/18 History [Symbicort 160-4.5 Mcg Inhaler] Metoprolol Tartrate [Lopressor] 75 mg PO BID #180 tab 08/21/17 06/03/18 Rx Furosemide [Lasix] 20 mg PO DAILY 01/07/18 06/03/18 History Meclizine HCl 12.5 mg PO BID 06/02/18 06/03/18 History Ranitidine HCl [Zantac] 150 mg PO BID 06/02/18 06/03/18 History Tamsulosin HCl [Flomax] 0.4 mg PO HS 06/02/18 06/03/18 History diphenhydrAMINE [Benadryl] 25 mg PO HS 06/02/18 06/03/18 History predniSONE 10 mg PO DAILY 06/02/18 06/03/18 History Acetaminophen [Tylenol Extra 500 mg PO Q4H PRN 06/03/18 06/03/18 History Strength] Aspirin EC [Ecotrin Low Dose] 81 mg PO DAILY 06/03/18 06/03/18 History Ipratropium-Albuterol Nebulize 3 ml INHALATION RT-TID 06/03/18 06/03/18 History [Duoneb 0.5 mg-3 mg/3 ml Soln] Allergies Allergy/AdvReac Type Severity Reaction Status Date / Time No Known Allergies Allergy Verified 06/03/18 13:18 Physical Exam Vitals: Vital Signs Temp Pulse Resp BP Pulse Ox 06/03/18 15:10 105 H 20 122/91 94 L 06/03/18 14:00 109 H 24 142/67 97 06/03/18 13:19 109 H 20 146/95 95 06/03/18 11:36 96 18 145/85 96 06/03/18 10:11 97.7 F 102 H 22 144/90 93 L Intake and Output 06/03/18 06/03/18 06/03/18 06:59 14:59 22:59 Output Total 100 Balance -100 Output: Urine 100 Other: Weight 99.79 kg Head normocephalic Neck supple Lungs diminished bilaterally Heart regular rate and rhythm S1-S2, no rub or gallop Abdomen is soft with some tenderness to palpation to lower abdomen Extremities no edema Neuro alert and orientated to 3 Results CBC & Chem 7: 06/03/18 11:17 06/03/18 11:17 Labs: Abnormal Lab Results - Last 24 Hours (Table) 06/03/18 06/03/18 06/03/18 Range/Units 11:17 11:17 14:15 Glucose 119 H (74-99) mg/dL AST 16 L (17-59) U/L ALT 20 L (21-72) U/L Total Creatine Kinase 35 L (55-170) U/L Lipase 13 L (23-300) U/L Ur Specific Anna >1.050 H (1.001-1.035) Urine Protein Trace H (Negative) Urine Ketones 1+ H (Negative) Urine Blood Trace H (Negative) Urine RBC 6 H (0-5) /hpf Urine Mucus Rare H (None) /hpf Assessment and Plan Assessment: 1. Abdominal pain with nausea. Amylase normal at [address] of abdomen completed showing no bowel obstruction present. Possible mild diffuse colitis versus productive of poor distention. Correlate clinically. I was mad is an parenchymal fibrotic changes and bases. Suspect mild underlying alveolar edema or Bactrim cardiomegaly, correlate for CHF exacerbation. Will consult GI services 2. Congestive heart failure. BNP elevated at 1340. Cardiology service is consulted. Patient on IV Lasix twice a day. 2-D echo has been ordered 3. Paroxysmal atrial fibrillation. EKG completed on 06/02/2018 showing A. fib with RVR with a heart rate of 150. EKG completed on 06/03/2018 showing sinus or cardiac occasional premature ventricular complexes . Cardiology services have been consulted. 4. History of coronary artery disease with coronary artery bypass graft surgery in 2006 5. History of Parkinson's disease 6. History of advanced COPD. Patient does wear 2-3 L home oxygen. Patient reports he follows with Dr. jaime for pulmonary care. Chest x-ray completed showing card a Mnedoza fairly advanced chronic parenchymal fibroid changes cannot exclude acute interstitial edema back on chronic fibrosis. Interval resolution of small bilateral pleural effusion since prior study noted. No new suspicious focal infiltrate is seen. Will consult Dr. Dasilva for pulmonary 7. History of CVA, 8. History of dementia. 9. History of GERD. 10. History of pulmonary embolism and DVT. Patient is currently not on any anticoagulation. 11. History of hyperlipidemia. 12. History of prostate disorder. 13. History of rheumatoid arthritis. 14. history of essential hypertension DVT prophylaxis Lovenox. GI prophylaxis Protonix Time with Patient: Greater than 30 (Greater than 60% of the total time spent in counseling and coordination of care. I performed an examination of the patient and discussed their management with the Nurse Practitioner. I have reviewed the Nurse Practitioner's notes and agree with the documented findings and plan of care)
[2018-06-03] MEDS: ACETAMINOPHEN TAB 500 MG TAB PO PRN (20:28)
[2018-06-03] MEDS: SYMBICORT 160-4.5 MCG INHALER INHALATION SCH (20:32)
[2018-06-03] MEDS: IPRATROPIUM-ALBUTEROL 3 ML NEB INHALATION SCH (20:32)
[2018-06-03] MEDS: NITROGLYCERIN OINT 1 INCH/GM PACKET TOPICAL SCH ×2 (20:51→22:04)
[2018-06-03 21:00] LABS: Creatine Kinase MB 0.9 ng/mL (0.0-2.4); Troponin I 0.015 ng/mL (0.000-0.034)
[2018-06-03] MEDS: METOPROLOL TARTRATE 25 MG TAB PO SCH (21:27)
[2018-06-03] MEDS: POTASSIUM CHLORIDE ER 20 MEQ TAB.ER PO SCH (21:27)
[2018-06-03] MEDS: diphenhydrAMINE 25 MG CAP PO SCH (21:27)
[2018-06-03] MEDS: FUROSEMIDE 10 MG/ML 4 ML VIAL IV SCH (21:30)
[2018-06-03] MEDS: MECLIZINE 12.5 MG TAB PO SCH (21:33)
[2018-06-03] MEDS: FAMOTIDINE 20 MG TAB PO SCH (21:33)
[2018-06-03] MEDS: TAMSULOSIN 0.4 MG CAP.ER.24H PO SCH (21:33)
[2018-06-03] MEDS: PRAMIPEXOLE 0.25 MG TAB PO SCH (21:33)
[2018-06-04 03:16] LABS: Creatine Kinase MB 0.8 ng/mL (0.0-2.4); Troponin I 0.014 ng/mL (0.000-0.034)
[2018-06-04] MEDS: FUROSEMIDE 10 MG/ML 4 ML VIAL IV SCH (04:58)
--- NOTE | 2018-06-04 06:03 | XR ---
EXAMINATION TYPE: XR chest 1V portable DATE OF EXAM: 06/04/2018 COMPARISON: Yesterday HISTORY: Respiratory distress TECHNIQUE: Single frontal view of the chest is obtained. FINDINGS: There is extensive coarse interstitial density in the lungs. I see no definite pleural eff usion. Thoracic aorta is atheromatous. There are sternal wires. IMPRESSION: Pulmonary interstitial fibrosis and emphysema. No gross heart failure. Pulmonary interst itial density improved slightly compared to yesterday.
[2018-06-04] MEDS: SYMBICORT 160-4.5 MCG INHALER INHALATION SCH ×2 (07:20→20:18)
[2018-06-04] MEDS: IPRATROPIUM-ALBUTEROL 3 ML NEB INHALATION SCH ×3 (07:20→20:18)
[2018-06-04 08:09] VITALS: RESP 18
[2018-06-04 08:52] LABS: Basophils % (A) 0 %; Eosinophils # (A) 0.1 k/uL (0-0.7); Eosinophils % (A) 1 %; HCT 43.2 % (39.0-53.0); Hypochromasia Slight; Lymphocytes # (A) 1.9 k/uL (1.0-4.8); Lymphocytes % (A) 15 %; MCH 28.5 pg (25.0-35.0); MCHC 32.3 g/dL (31.0-37.0); MCV 88.3 fL (80.0-100.0); Mean Platelet Volume 7.5; Monocytes # (A) 0.6 k/uL (0-1.0); Monocytes % (A) 5 %; Neutrophils # (A) 9.7 k/uL (1.3-7.7); Neutrophils % (A) 77 %; Platelet Count 245 k/uL (150-450); WBC 12.6 k/uL (3.8-10.6)
[2018-06-04] MEDS ORDERED: ENOXAPARIN 40 MG/0.4 ML SYRINGE SQ SCH (09:00)
[2018-06-04] MEDS ORDERED: ASPIRIN 325 MG TAB PO SCH (09:00)
[2018-06-04 09:08] LABS: Albumin 4.1 g/dL (3.5-5.0); Calcium 9.4 mg/dL (8.4-10.2); Potassium 4.2 mmol/L (3.5-5.1); Total Bilirubin 0.7 mg/dL (0.2-1.3); Total Protein 7.5 g/dL (6.3-8.2)
[2018-06-04] MEDS: PANTOPRAZOLE 40 MG/10 ML VIAL IVP SCH (09:08)
[2018-06-04] MEDS: METOPROLOL TARTRATE 25 MG TAB PO SCH ×2 (09:10→21:11)
[2018-06-04] MEDS: ASPIRIN 81 MG PO SCH (09:10)
[2018-06-04] MEDS: ACETAMINOPHEN TAB 500 MG TAB PO PRN ×2 (09:11→21:10)
[2018-06-04] MEDS: predniSONE 10 MG TAB PO SCH (09:11)
[2018-06-04] MEDS: FAMOTIDINE 20 MG TAB PO SCH (09:11)
[2018-06-04] MEDS: POTASSIUM CHLORIDE ER 20 MEQ TAB.ER PO SCH ×3 (09:11→21:11)
[2018-06-04] MEDS: ONDANSETRON 4 MG/2 ML VIAL IVP PRN (09:12)
[2018-06-04] MEDS: NITROGLYCERIN OINT 1 INCH/GM PACKET TOPICAL SCH ×2 (09:25→12:23)
--- NOTE | 2018-06-04 09:30 | P.CONS ---
History of Present Illness - Reason for Consult Consult date: 06/04/18 Abdominal pain nausea Requesting physician: Catherine Rodgers - Chief Complaint Shortness of breath - History of Present Illness 82-year-old gentleman with a past medical history atrial fibrillation, COPD, CHF , DVT PE, GERD, hypertension, AL, RNA, sleep apnea admitted with acute shortness of breath secondary to CHF exacerbation. Consultation requested for abdominal pain nausea. CT abdomen and pelvis reported no evidence of bowel obstruction. Possible mild diffuse colitis versus product poor distention. Emphysematous and parenchymal, fibrotic changes in the lung bases suspect mild underlying alveolar edema the pancreatic cardiomegaly correlate for CHF exacerbation. White count 7.8. Hemoglobin 13.1. Platelet 220. Sodium 138. Potassium 3.8. BUN 12. Creatinine 1.1. LFTs unremarkable. Lipase 13. Troponin 0.014-0.018. ProBNP 1340. Afebrile. Daughter at bedside and assisted with history taking. Patient not had a bowel movement for 3 days. Daughter states the other day at home he ate a meal/meat felt that it got stuck in the distal esophageal region but pass it. He's had episodes of nausea and nonbloody emesis at home prior to admission. This morning an A team was called for increased shortness of breath. Echocardiogram being performed at bedside during consultation. Patient describes that abdominal pain generalized across the midabdomen pressure sometimes sharp. No EGD or colonoscopy. Denies hematemesis hematochezia or melena. Review of Systems Constitutional: Denies fever, chills, sweats, weight gain, or loss. HEENT: Negative for migraines, blurred vision or loss, earaches, drainage, tinnitus, oral mucosal lesions, dysphagia, or odynophagia. Cardiac: Negative for chest pain, arrhythmias, or palpitation. Respiratory: Admitted with shortness of breath, denies hemoptysis, cough, or sputum production. Gastrointestinal: See HPI for pertinent findings. Genitourinary: Negative for hematuria, urgency, frequency, polyuria, dysuria, or penile discharge. Musculoskeletal: Negative for muscle aches, swelling, arthritis, and arthralgias. Neurologic: Negative for stroke or TIA. Endocrine: Negative for thyroid problems. Skin: Negative for rash or itching. Psychiatric: Negative history for depression and anxiety Past Medical History Past Medical History: Atrial Fibrillation, Coronary Artery Disease (CAD), Cancer , Chest Pain / Angina, Heart Failure, COPD, CVA/TIA, Dementia, Deep Vein Thrombosis (DVT), GERD/Reflux, Hearing Disorder / Deafness, Hyperlipidemia, Hypertension, Myocardial Infarction (AL), Osteoarthritis (OA), Pneumonia, Prostate Disorder, Pulmonary Embolus (PE), Renal Disease, Respiratory Disorder, Rheumatoid Arthritis (RA), Sleep Apnea/CPAP/BIPAP, Syncope Additional Past Medical History / Comment(s): SEVERE COPD, HOME O2 2l/NC, BRONCHITIS, RAJESH BUT NO LONGER USED CPAP, R LEG DVT, BILAT PE, TIA, PARKINSONS DISEASE, RESTLESS LEG SYNDROME, NUMBNESS/TINGLING BILATERAL LEGS/FEET, UNSTEADY ON HIS FEET, FALLS, DOUBLE INGUINAL HERNIAS, HX ULCERS, HEMORRHOIDS, ENLARGED PROSTRATE, INSOMNIA, SINUSITIS, BILATERAL LEG EDEMA AT TIMES, SKIN CANCER WITH REMOVAL, HOLE IN EARDRUM LEFT Last Myocardial Infarction Date:: 2006 History of Any Multi-Drug Resistant Organisms: None Reported Past Surgical History: Coronary Bypass/CABG, Heart Catheterization, Hernia Repair Additional Past Surgical History / Comment(s): 2006 CABG WITH 4 VESSEL BYPASS, HIATAL HERNIA REPAIR, UMBILICAL HERNIA REPAIR, BILAT CATARACTS WITH LENS IMPLANTS SX, EGD X 5 WITH ESOPHAGEAL DILATION, COLONOSCOPY/BENIGN POLYPS, SKIN CANCER REMOVALS. Past Anesthesia/Blood Transfusion Reactions: Previous Problems w/ Anesthesia Additional Past Anesthesia/Blood Transfusion Reaction / Comm: difficulty waking up after sx Smoking Status: Former smoker - Past Family History Mother Family Medical History: Cancer Additional Family Medical History / Comment(s): Mother had lung cancer. She was a smoker. Brother(s) Family Medical History: Blood Disorder Father Additional Family Medical History / Comment(s): HARDENING OF ARTERIES, Medications and Allergies Home Medications Medication Instructions Recorded Confirmed Type Isosorbide Mononitrate ER [Imdur] 60 mg PO DAILY 08/25/14 06/03/18 History Potassium Chloride ER [K-Dur 20] 20 meq PO TID 08/25/14 06/03/18 History Pramipexole Di-HCl [Mirapex] 0.75 mg PO HS 08/25/14 06/03/18 History Budesonide-Formot 160-4.5 Mcg 2 puff INHALATION RT-BID 08/14/17 06/03/18 History [Symbicort 160-4.5 Mcg Inhaler] Metoprolol Tartrate [Lopressor] 75 mg PO BID #180 tab 08/21/17 06/03/18 Rx Furosemide [Lasix] 20 mg PO DAILY 01/07/18 06/03/18 History Meclizine HCl 12.5 mg PO BID 06/02/18 06/03/18 History Ranitidine HCl [Zantac] 150 mg PO BID 06/02/18 06/03/18 History Tamsulosin HCl [Flomax] 0.4 mg PO HS 06/02/18 06/03/18 History diphenhydrAMINE [Benadryl] 25 mg PO HS 06/02/18 06/03/18 History predniSONE 10 mg PO DAILY 06/02/18 06/03/18 History Acetaminophen [Tylenol Extra 500 mg PO Q4H PRN 06/03/18 06/03/18 History Strength] Aspirin EC [Ecotrin Low Dose] 81 mg PO DAILY 06/03/18 06/03/18 History Ipratropium-Albuterol Nebulize 3 ml INHALATION RT-TID 06/03/18 06/03/18 History [Duoneb 0.5 mg-3 mg/3 ml Soln] Allergies Allergy/AdvReac Type Severity Reaction Status Date / Time No Known Allergies Allergy Verified 06/03/18 13:18 Physical Exam Vitals: Vital Signs Temp Pulse Pulse Resp BP BP Pulse Ox 06/04/18 08:00 86 18 164/73 96 06/04/18 07:35 82 06/04/18 07:20 80 06/04/18 03:52 97.8 F 80 15 142/84 96 06/04/18 03:23 16 06/04/18 00:00 16 06/03/18 23:32 97.8 F 87 16 109/70 96 06/03/18 21:15 98.3 F 100 18 145/76 95 06/03/18 20:15 95 22 132/74 98 06/03/18 16:00 92 21 117/85 99 06/03/18 15:10 105 H 20 122/91 94 L 06/03/18 14:00 109 H 24 142/67 97 06/03/18 13:19 109 H 20 146/95 95 06/03/18 11:36 96 18 145/85 96 06/03/18 10:11 97.7 F 102 H 22 144/90 93 L Intake and Output 06/03/18 06/04/18 06/04/18 22:59 06:59 14:59 Output Total 400 Balance -400 Output: Urine 400 Other: Voiding Method Urinal Urinal # Voids 300 Weight 91 kg General appearance: The patient is alert, oriented, in no acute distress. HET: Head is normocephalic and atraumatic. Pupils are equal and reactive. Oropharynx is clear without lesions. Neck: Supple without lymphadenopathy. Trachea midline. Heart: S1 S2. Regular rate and rhythm. Lungs: Diminished in bases bilaterally. Abdomen: Soft, mild tenderness diffusely across mid abdomen mildly bloated with hypoactive bowel sounds. No peritoneal signs. No palpable organomegaly or masses. Extremities: Normal skin color and turgor. No cyanosis, rash, ulceration, clubbing, or edema. Radial and pedal pulses are 2/4 bilaterally. Neurological: No focal deficits. Strength and sensation are grossly intact. Results CBC & Chem 7: 06/04/18 08:12 06/04/18 08:12 Labs: Abnormal Lab Results - Last 24 Hours (Table) 06/03/18 06/03/18 06/03/18 Range/Units 11:17 11:17 14:15 Glucose 119 H (74-99) mg/dL AST 16 L (17-59) U/L ALT 20 L (21-72) U/L Total Creatine Kinase 35 L (55-170) U/L Lipase 13 L (23-300) U/L Ur Specific [place] >1.050 H (1.001-1.035) Urine Protein Trace H (Negative) Urine Ketones 1+ H (Negative) Urine Blood Trace H (Negative) Urine RBC 6 H (0-5) /hpf Urine Mucus Rare H (None) /hpf 06/03/18 06/04/18 Range/Units 20:22 02:05 Glucose (74-99) mg/dL AST (17-59) U/L ALT (21-72) U/L Total Creatine Kinase 38 L 37 L (55-170) U/L Lipase (23-300) U/L Ur Specific [place] (1.001-1.035) Urine Protein (Negative) Urine Ketones (Negative) Urine Blood (Negative) Urine RBC (0-5) /hpf Urine Mucus (None) /hpf CT scan - abdomen: report reviewed (Dr. Childers) Assessment and Plan (1) Abdominal pain Narrative/Plan: 82-year-old male admitted with CHF exacerbation intermittent nausea vomiting prior to admission with diffuse abdominal pain constipation 3 days. Abdominal pain nausea and nonspecific could be related to constipation possible medications. Underlying esophageal stricture disease cannot be excluded based on the history of nausea vomiting with an episode of dysphagia food being stuck in the distal esophageal region prior to admission. Current Visit: Yes Status: Acute Code(s): R10.9 - UNSPECIFIED ABDOMINAL PAIN SNOMED Code(s): 99210984 (2) Nausea Current Visit: Yes Status: Acute Code(s): R11.0 - NAUSEA SNOMED Code(s): 364080004 (3) CHF (congestive heart failure) Current Visit: No Status: Acute Code(s): I50.9 - HEART FAILURE, UNSPECIFIED SNOMED Code(s): 01147596 Plan: 1. Light diet as tolerated. Continue GI prophylaxis. Stool softeners daily will provide suppository today. Inpatient EGD will be contingent on clinical course. We'll follow with you. Thank you for this kind referral and the opportunity to participate in the care of your patient. This consultation was discussed with Dr. Childers. The impression and plan of care have been directed as dictated.
[2018-06-04] MEDS ORDERED: MAGNESIUM HYDROXIDE 2,400 MG/10 ML CUP PO PRN (09:31)
[2018-06-04] MEDS ORDERED: BISACODYL 10 MG SUPP RECTAL STA (09:32)
[2018-06-04] MEDS: ISOSORBIDE MONONITRATE ER 60 MG TAB.ER.24H PO SCH (10:03)
[2018-06-04] MEDS: MECLIZINE 12.5 MG TAB PO SCH ×2 (10:04→21:11)
[2018-06-04] MEDS: SENNOSIDES-DOCUSATE SODIUM 1 EACH TAB PO SCH ×2 (10:06→21:11)
--- NOTE | 2018-06-04 10:56 | P.CNPUL ---
History of Present Illness Consult date: 06/04/18 Requesting physician: Catherine Rodgers Reason for consult: dyspnea, cough, COPD, other Chief complaint: Acute exacerbation of COPD, vomiting, cough, phlegm production History of present illness: This is a 82-year-old white male patient with past medical history of COPD with chronic hypoxemic respiratory failure, his baseline FEV1 is 1.04 L or 40% predicted, with diffusion abnormality. Patient follows with [facility], and sees Dr. Dasilva in the pulmonary clinic. Other medical history includes chronic congestive heart failure, was systolic dysfunction, hypertension, hyperlipidemia, atrial fibrillation, CVA/TIA, history of DVT, GERD /reflux, his myocardial infarction, pneumonias, pulmonary embolism, rheumatoid arthritis, sleep apnea. Patient came in to the emergency department on 2018 for evaluation of shortness of breath, palpitations, patient was not feeling well, he denied any fever, cough or congestion. He did have a recent upper respiratory infection. Patient was found to be in A. fib with RVR the rate of 150 BPM, chest x-ray was negative for any acute disease. Patient apparently left AGAINST MEDICAL ADVICE. Patient presented back to the ER on 01/2019 for shortness of breath, mild abdominal pain, some mild cough, bringing up some phlegm, and nausea and vomiting. Apparently had a choking episode on the piece of steak couple of days ago, he has not been able to keep any food or fluid down. No fever or chills, no chest pain, does have diffuse rhonchi. Chest x-ray showed cardiomegaly, and chronic parenchymal fibrotic changes, interstitial edema. CT of the abdomen showed no bowel obstruction, possible mild diffuse colitis, for some eczematous and parenchymal fibrotic changes at the bases, mild underlying alveolar edema on the background of cardiomegaly, suggesting CHF. Lab work was negative for leukocytosis, initial lab work showed WBC of 7.8, hemoglobin of 13.1, electrolytes and renal profile were unremarkable, proBNP was 1340, troponins were negative times 3, influenza was negative. Amylase and lipase were 47 and 13 respectively. He was started on IV diuretics, nebulized bronchodilators, and was seen this patient in consultation for shortness of breath. Breathing easier today, the vomiting continues. GI service is following, follow-up chest x-ray from this morning was reviewed with Dr. Dasilva, showed pulmonary interstitial fibrosis and emphysema, no gross heart failure. Improved interstitial density. Review of Systems All systems: negative Constitutional: Denies chills, Denies fever Eyes: denies blurred vision, denies pain Ears, nose, mouth and throat: Denies headache, Denies sore throat Cardiovascular: Denies chest pain, Denies shortness of breath Respiratory: Reports cough with sputum, Reports dyspnea, Reports home oxygen, Reports wheezing, Denies cough Gastrointestinal: Reports nausea, Reports vomiting, Denies abdominal pain, Denies diarrhea Musculoskeletal: Denies myalgias Integumentary: Denies pruritus, Denies rash Neurological: Denies numbness, Denies weakness Psychiatric: Denies anxiety, Denies depression Endocrine: Denies fatigue, Denies weight change Past Medical History Past Medical History: Atrial Fibrillation, Coronary Artery Disease (CAD), Cancer , Chest Pain / Angina, Heart Failure, COPD, CVA/TIA, Dementia, Deep Vein Thrombosis (DVT), GERD/Reflux, Hearing Disorder / Deafness, Hyperlipidemia, Hypertension, Myocardial Infarction (NE), Osteoarthritis (OA), Pneumonia, Prostate Disorder, Pulmonary Embolus (PE), Renal Disease, Respiratory Disorder, Rheumatoid Arthritis (RA), Sleep Apnea/CPAP/BIPAP, Syncope Additional Past Medical History / Comment(s): SEVERE COPD, HOME O2 2l/NC, BRONCHITIS, RAJESH BUT NO LONGER USED CPAP, R LEG DVT, BILAT PE, TIA, PARKINSONS DISEASE, RESTLESS LEG SYNDROME, NUMBNESS/TINGLING BILATERAL LEGS/FEET, UNSTEADY ON HIS FEET, FALLS, DOUBLE INGUINAL HERNIAS, HX ULCERS, HEMORRHOIDS, ENLARGED PROSTRATE, INSOMNIA, SINUSITIS, BILATERAL LEG EDEMA AT TIMES, SKIN CANCER WITH REMOVAL, HOLE IN EARDRUM LEFT Last Myocardial Infarction Date:: 2006 History of Any Multi-Drug Resistant Organisms: None Reported Past Surgical History: Coronary Bypass/CABG, Heart Catheterization, Hernia Repair Additional Past Surgical History / Comment(s): 2006 CABG WITH 4 VESSEL BYPASS, HIATAL HERNIA REPAIR, UMBILICAL HERNIA REPAIR, BILAT CATARACTS WITH LENS IMPLANTS SX, EGD X 5 WITH ESOPHAGEAL DILATION, COLONOSCOPY/BENIGN POLYPS, SKIN CANCER REMOVALS. Past Anesthesia/Blood Transfusion Reactions: Previous Problems w/ Anesthesia Additional Past Anesthesia/Blood Transfusion Reaction / Comment(s): difficulty waking up after sx Smoking Status: Former smoker - Past Family History Mother Family Medical History: Cancer Additional Family Medical History / Comment(s): Mother had lung cancer. She was a smoker. Brother(s) Family Medical History: Blood Disorder Father Additional Family Medical History / Comment(s): HARDENING OF ARTERIES, Medications and Allergies Home Medications Medication Instructions Recorded Confirmed Type Isosorbide Mononitrate ER [Imdur] 60 mg PO DAILY 08/25/14 06/03/18 History Potassium Chloride ER [K-Dur 20] 20 meq PO TID 08/25/14 06/03/18 History Pramipexole Di-HCl [Mirapex] 0.75 mg PO HS 08/25/14 06/03/18 History Budesonide-Formot 160-4.5 Mcg 2 puff INHALATION RT-BID 08/14/17 06/03/18 History [Symbicort 160-4.5 Mcg Inhaler] Metoprolol Tartrate [Lopressor] 75 mg PO BID #180 tab 08/21/17 06/03/18 Rx Furosemide [Lasix] 20 mg PO DAILY 01/07/18 06/03/18 History Meclizine HCl 12.5 mg PO BID 06/02/18 06/03/18 History Ranitidine HCl [Zantac] 150 mg PO BID 06/02/18 06/03/18 History Tamsulosin HCl [Flomax] 0.4 mg PO HS 06/02/18 06/03/18 History diphenhydrAMINE [Benadryl] 25 mg PO HS 06/02/18 06/03/18 History predniSONE 10 mg PO DAILY 06/02/18 06/03/18 History Acetaminophen [Tylenol Extra 500 mg PO Q4H PRN 06/03/18 06/03/18 History Strength] Aspirin EC [Ecotrin Low Dose] 81 mg PO DAILY 06/03/18 06/03/18 History Ipratropium-Albuterol Nebulize 3 ml INHALATION RT-TID 06/03/18 06/03/18 History [Duoneb 0.5 mg-3 mg/3 ml Soln] Allergies Allergy/AdvReac Type Severity Reaction Status Date / Time No Known Allergies Allergy Verified 06/03/18 13:18 Physical Exam Vitals: Vital Signs Temp Pulse Pulse Resp BP BP Pulse Ox 06/04/18 08:00 86 18 164/73 96 06/04/18 07:35 82 06/04/18 07:20 80 06/04/18 03:52 97.8 F 80 15 142/84 96 06/04/18 03:23 16 06/04/18 00:00 16 06/03/18 23:32 97.8 F 87 16 109/70 96 06/03/18 21:15 98.3 F 100 18 145/76 95 06/03/18 20:15 95 22 132/74 98 06/03/18 16:00 92 21 117/85 99 06/03/18 15:10 105 H 20 122/91 94 L 06/03/18 14:00 109 H 24 142/67 97 06/03/18 13:19 109 H 20 146/95 95 06/03/18 11:36 96 18 145/85 96 Intake and Output 06/03/18 06/04/18 06/04/18 22:59 06:59 14:59 Output Total 400 Balance -400 Output: Urine 400 Other: Voiding Method Urinal Urinal # Voids 300 Weight 91 kg GENERAL EXAM: Alert, pleasant, 82-year-old white male comfortable in no apparent distress. Currently on 2 L per nasal cannula, pulse ox is 96% HEAD: Normocephalic/atraumatic. EYES: Normal reaction of pupils, equal size. Conjunctiva pink, sclera white. NOSE: Clear with pink turbinates. THROAT: No erythema or exudates. NECK: No masses, no JVD, no thyroid enlargement, no adenopathy. CHEST: No chest wall deformity. Symmetrical expansion. LUNGS: Equal air entry with diffuse rhonchi and wheezes CVS: Irregular rate and rhythm, normal S1 and S2, no gallops, no murmurs, no rubs ABDOMEN: Soft, nontender. No hepatosplenomegaly, normal bowel sounds, no guarding or rigidity. EXTREMITIES: No clubbing, no edema, no cyanosis, 2+ pulses and upper and lower extremities. MUSCULOSKELETAL: Muscle strength and tone normal. SPINE: No scoliosis or deformity SKIN: No rashes CENTRAL NERVOUS SYSTEM: Alert and oriented -3. No focal deficits, tone is normal in all 4 extremities. PSYCHIATRIC: Alert and oriented -3. Appropriate affect. Intact judgment and insight. Results - Laboratory Findings CBC and BMP: 06/04/18 08:12 06/04/18 08:12 Abnormal lab findings: Abnormal Labs 06/03/18 06/03/18 06/03/18 11:17 11:17 14:15 WBC Neutrophils # Creatinine Glucose 119 H AST 16 L ALT 20 L Total Creatine Kinase 35 L Lipase 13 L Ur Specific [place] >1.050 H Urine Protein Trace H Urine Ketones 1+ H Urine Blood Trace H Urine RBC 6 H Urine Mucus Rare H 06/03/18 06/04/18 06/04/18 20:22 02:05 08:12 WBC 12.6 H Neutrophils # 9.7 H Creatinine Glucose AST ALT Total Creatine Kinase 38 L 37 L Lipase Ur Specific [place] Urine Protein Urine Ketones Urine Blood Urine RBC Urine Mucus 06/04/18 08:12 WBC Neutrophils # Creatinine 1.31 H Glucose 119 H AST ALT 18 L Total Creatine Kinase Lipase Ur Specific [place] Urine Protein Urine Ketones Urine Blood Urine RBC Urine Mucus - Diagnostic Findings Chest x-ray: report reviewed, image reviewed Additional studies: Results of the abdomen/pelvis CT, EKG reviewed Assessment and Plan Plan: Assessment: #1. Dyspnea, probably related to acute exacerbation of COPD and congestive heart failure, previously documented EF of 50-55% #2. Nausea, vomiting, abdominal pain, nonspecific, GI service is following, CT of abdomen and pelvis were negative for any obstruction, possible mild diffuse colitis #3. Interstitial edema, fluid overload, seen on the CT chest and chest x-rays, improving with diuresis #4. Recent visit to the emergency department for shortness of breath, A. fib RVR, COPD exacerbation, patient left AMA #5. History of paroxysmal atrial fibrillation, Reynolds in sinus tachycardia with PACs #6. History of coronary artery disease with coronary artery bypass grafting in 2006 #7. Advanced COPD, stage III, with chronic hypoxemic respiratory failure, FEV1 of 1.04 L or 40% of predicted with diffusion abnormality #8. Previous history of CVA, dementia, Parkinson's disease #9. History pulmonary embolism and DVT, not on any chronic anticoagulation currently #10. History of rheumatoid arthritis #11. Hypertension, hyperlipidemia Plan: Continue IV diuretics, we will add IV steroids, nebulized bronchodilators, Pulmicort and Perforomist. Today's chest x-ray showed improvement in the appearance of interstitial edema, patient is breathing easier. GI service is following the patient in regards to ongoing nausea and vomiting and abdominal pain. I performed a history & physical examination of the patient and discussed their management with my nurse practitioner, Lisa Eason. I reviewed the nurse practitioner's note and agree with the documented findings and plan of care. Lung sounds are positive for diffuse rhonchi. The findings and the impression was discussed with the patient. I attest to the documentation by the nurse practitioner. Time with Patient: Greater than 30
--- NOTE | 2018-06-04 13:43 | P.PN ---
Subjective Progress Note Date: 06/04/18 This is an 82-year-old male patient of Dr. Moulton. Patient presents to the emergency room with complaints of abdominal pain. Patient did present to the emergency room yesterday with complaints of shortness of breath and tachycardia but left AMA. Patient reports that his abdominal pain and nausea or vomiting has been going on for 2 days. Per daughter at bedside patient has not been able to keep food down for 2 days. Patient does have a significant history first COPD in which she wears 2-3 L home oxygen. Patient has past medical history of coronary artery disease with coronary artery bypass graft surgery in 2006. Additional medical history includes COPD, CVA, dementia, DVT, GERD, deafness, hyperlipidemia, hypertension, myocardial infarction, osteoarthritis, pneumonia, prostate disorder, pulmonary embolism, renal disease, respiratory disorder, rheumatoid arthritis, sleep apnea,Parkinson's disease and restless leg syndrome. Abdominal pelvis CT completed showing no bowel obstruction present. Possible mild diffuse colitis versus product poor distention. Correlate clinically. Emphysematous and parenchymal fibrotic change in basis. Suspect mild underlying alveolar edema or background cardiomegaly, correlate for CHF exacerbation. Chest x-ray completed showing cardiomegaly and fairly advanced chronic paroxysmal fibrotic changes. Cannot exclude acute interstitial Hemovac on chronic fibrosis. Interval resolution of small bilateral pleural effusions since prior study no suspicious local infiltrate is seen. EKG completed showing sinus tachycardia with occasional premature ventricular complexes. Abnormal QRST angle, consider primary T-wave abnormalities. EKG completed yesterday prior to patient leaving AMA showed A. fib with RVR with a heart rate of 150. Cardiology services will be consulted 2- D echo has been ordered. BNP also elevated at 1340. Patient started on IV Lasix for ER. At this time patient denies chest pain or shortness of breath. Patient is complaining of some abdominal discomfort with nausea. Patient denies any urinary burning or frequency 06/04/2018 "A Team" was called this morning due to pulmonary edema worsening shortness of breath. He was given IV Lasix. Chest x-ray showing pulmonary interstitial fibrosis and emphysema. No gross heart failure. Pulmonary interstitial density improved slightly compared to yesterday. Patient seen evaluated by pulmonary and cardiology. Due to increasing creatinine patient was switched over to oral Lasix. Patient also seen by GI service regarding abdominal pain likely related to constipation. He still having some abdominal discomfort but improving. He did have a bowel movement. No further nausea or vomiting. And patient is coughing up clear phlegm possibly related to pulmonary edema. Patient also have paroxysmal atrial fibrillation but rate is controlled. Patient currently on 2 L of oxygen. Denies any chest pain. Has Mcarthur catheter in place due to him being on the Lasix to monitor strict I and O' s. No urinary retention Objective - Vital Signs Vital signs: Vital Signs Temp 98.3 F 06/04/18 11:44 Pulse 80 06/04/18 12:11 Resp 18 06/04/18 11:44 BP 105/61 06/04/18 11:44 Pulse Ox 93 L 06/04/18 11:44 Intake & Output 06/03/18 06/04/18 06/04/18 18:59 06:59 18:59 Output Total 100 400 Balance -100 -400 Weight 99.79 kg 91 kg Output: Urine 100 400 Other: Voiding Method Urinal Urinal # Voids 300 - Exam Head normocephalic Neck supple Lungs crackles bilaterally Heart regular rate and rhythm S1-S2, no rub or gallop Abdomen is soft diffuse tenderness nondistended positive bowel sounds no hepatosplenomegaly Extremities no edema Neuro alert and orientated to 3 - Labs CBC & Chem 7: 06/04/18 08:12 06/04/18 08:12 Labs: Abnormal Lab Results - Last 24 Hours (Table) 06/03/18 06/03/18 06/04/18 Range/Units 14:15 20:22 02:05 WBC (3.8-10.6) k/uL Neutrophils # (1.3-7.7) k/uL Creatinine (0.66-1.25) mg/dL Glucose (74-99) mg/dL ALT (21-72) U/L Total Creatine Kinase 38 L 37 L (55-170) U/L Ur Specific Dyess >1.050 H (1.001-1.035) Urine Protein Trace H (Negative) Urine Ketones 1+ H (Negative) Urine Blood Trace H (Negative) Urine RBC 6 H (0-5) /hpf Urine Mucus Rare H (None) /hpf 06/04/18 06/04/18 Range/Units 08:12 08:12 WBC 12.6 H (3.8-10.6) k/uL Neutrophils # 9.7 H (1.3-7.7) k/uL Creatinine 1.31 H (0.66-1.25) mg/dL Glucose 119 H (74-99) mg/dL ALT 18 L (21-72) U/L Total Creatine Kinase (55-170) U/L Ur Specific Dyess (1.001-1.035) Urine Protein (Negative) Urine Ketones (Negative) Urine Blood (Negative) Urine RBC (0-5) /hpf Urine Mucus (None) /hpf Assessment and Plan Assessment: 1. Abdominal pain with nausea. Likely related to constipation. Patient was seen by GI service patient given stool softeners and suppository with results. Still having mild abdominal discomfort. 2. Acute on chronic diastolic Congestive heart failure exacerbation and pulmonary edema .BNP elevated at 1340. Patient seen by cardiology switch over to oral Lasix 40 twice a day. Awaiting echocardiogram results 3. Paroxysmal atrial fibrillation. EKG completed on 06/02/2018 showing A. fib with RVR with a heart rate of 150. EKG completed on 06/03/2018 showing sinus or cardiac occasional premature ventricular complexes . Cardiology services have been consulted. We'll await their recommendations regarding anticoagulation 4. History of coronary artery disease with coronary artery bypass graft surgery in 2006 5. History of Parkinson's disease 6. Dyspnea likely related to COPD exacerbation and CHF exacerbation. 7. History of CVA, 8. History of dementia. 9. History of GERD. 10. History of pulmonary embolism and DVT. Patient is currently not on any anticoagulation. 11. History of hyperlipidemia. 12. History of prostate disorder. 13. History of rheumatoid arthritis. 14. history of essential hypertension 15. Patient short of breath and tachycardic check d-dimer. Patient has not been on anticoagulation he has a known history of PE and DVT 16. Acute on chronic kidney disease stage III. Patient being switched to oral Lasix. Continue to monitor kidney functions. 17. Pulmonary interstitial fibrosis noted on chest x-ray DVT prophylaxis Lovenox. GI prophylaxis Protonix I performed an examination of the patient and discussed their management with the physician Human Resources Specialist. I have reviewed the Physician Human Resources Specialist's notes and agree with the documented findings and plan of care
--- NOTE | 2018-06-04 14:59 | P.CRDCN ---
History of Present Illness History of present illness: This is a pleasant 82-year-old male past medical history significant for COPD, coronary artery disease status post 4-vessel bypass grafting 2007, chronic diastolic heart failure, multifocal atrial tachycardia, history of DVT, hypertension, dyslipidemia and peripheral vascular disease. He follows with Dr. Johnson in the office. He presented to the hospital 06/02 with complaints of shortness of breath and palpitations. EKG obtained revealed atrial fibrillation with rapid ventricular response heart rate was 150. He apparently left AGAINST MEDICAL ADVICE. He came back to the hospital 06/03 with complaints of abdominal pain, nausea, vomiting and shortness of breath. EKG obtained this time revealed sinus mechanism. Telemetry tracings continued to show sinus mechanism with PACs at times. He apparently was having an acute exacerbation of dyspnea this morning and A-team was called. Chest x-ray obtained at that time revealed pulmonary interstitial fibrosis and emphysema with no gross heart failure. He is seen and examined laying flat in bed with daughter at the bedside. He continues to cough and is bringing up significant amount of yellow/green sputum. EKG on admission reveals sinus mechanism heart rate 106, PVC's and non-specific abnormalities noted. Chest x-ray reveals fibrotic changes with interstitial edema, small bilateral pleural effusions. CT abdomen and pelvis reveals mild diffuse colitis. Fibrotic changes in the bases with possibility of underlying alveolar edema. Laboratory data reviewed WBC 12.6, hemoglobin 14, platelets 245, sodium 139, potassium 4.2, creatinine 1.31, cardiac enzymes negative 3, NT proBNP 1340, magnesium 1.7 Most recent cardiac catheterization performed 07/2017 reveals 50% disease in the distal left main, 99% disease ostial circumflex, 90% stenosis of the LAD, patent AREVALO to LAD, patent SVG to diagonal branch, patent SVG to OM1 and patent SVG to OM3. Bypass surgery was in 2007. Most recent echocardiogram obtained December 2017 reveals preserved left ventricular systolic function with ejection fraction 50-55%, mild aortic stenosis with a mean gradient of 7 mmHg, mild TR and mild pulmonary hypertension with an RVSP of 34 mmHg. Current cardiac medications include aspirin 81 mg daily, Lasix 20 mg daily, Imdur 60 mg daily, Lopressor 75 mg twice a day and potassium supplementation. At the time of my exam: CONSTITUTIONAL: Denies fever. Denies chills. EYES: Denies blurred vision. Denies vision changes. Denies eye pain. EARS, NOSE, MOUTH & THROAT: Denies headache. Denies sore throat. Denies ear pain. CARDIOVASCULAR: Denies chest pain. Denies shortness of breath. Denies orthopnea. Denies PND. Denies palpitations. RESPIRATORY: Complains of cough. GASTROINTESTINAL: Denies abdominal pain. Denies diarrhea. Denies constipation. Denies nausea. Denies vomiting. MUSCULOSKELETAL: Denies myalgias. INTEGUMENTARY: Denies pruitis. Denies rash. NEUROLOGIC: Denies numbness. Denies tingling. Denies weakness. PSYCHIATRIC: Denies anxiety. Denies depression. ENDOCRINE: Denies fatigue. Denies weight change. Denies polydipsia. Denies polyurina. GENITOURINARY: Denies burning, hematuria or urgency with micturation. HEMATOLOGIC: Denies history of anemia. Denies bleeding. Blood pressure 105/61 heart rate 67 afebrile maintaining oxygen saturation on nasal cannula GENERAL: This is a 82-year-old male in no apparent distress at the time of my examination. HEENT: Head is atraumatic, normocephalic. Pupils are equal, round. Sclerae anicteric. Conjunctivae are clear. Mucous membranes of the mouth are moist. Neck is supple. There is no jugular venous distention. No carotid bruit is heard. LUNGS: Course rhonchi with scattered rales. No wheezing. No chest wall tenderness is noted on palpation or with deep breathing. HEART: Regular rate and rhythm with systolic ejection murmur at the left sternal border, no rubs or gallops. S1 and S2 heard. ABDOMEN: Soft, nontender. Bowel sounds are heard. No organomegaly noted. EXTREMITIES: No evidence of peripheral edema and no calf tenderness noted. VASCULAR: Radial and dorsalis pedis pulses palpated, no evidence of clubbing. NEUROLOGIC: Patient is awake, alert and oriented x3. ASSESSMENT Paroxysmal atrial fibrillation with history of multi-focal atrial tachycardia in the past. Acute exacerbation of COPD Chronic hypoxic respiratory failure Acute kidney injury Leukocytosis Constipation Pulmonary fibrosis History of coronary artery disease status post four-vessel bypass grafting 2007 , recent catheterization revealed all 4 grafts to be patent Hypertension Dyslipidemia Chronic diastolic heart failure, currently euvolemic. NT proBNP normal. Clear chest xray. No edema. PLAN No overt heart failure clinically. Normal NTproBNP with chest xray indicating pulmonary fibrosis. 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 Will check coverage with the case resource manager. IV lasix has been changed to PO 40 mg BID. Repeat BMP in the morning. Thank you kindly for this consultation. Nurse Practitioner note has been reviewed, I agree with a documented findings and plan of care. Patient was seen and examined. Past Medical History Past Medical History: Atrial Fibrillation, Coronary Artery Disease (CAD), Cancer , Chest Pain / Angina, Heart Failure, COPD, CVA/TIA, Dementia, Deep Vein Thrombosis (DVT), GERD/Reflux, Hearing Disorder / Deafness, Hyperlipidemia, Hypertension, Myocardial Infarction (UT), Osteoarthritis (OA), Pneumonia, Prostate Disorder, Pulmonary Embolus (PE), Renal Disease, Respiratory Disorder, Rheumatoid Arthritis (RA), Sleep Apnea/CPAP/BIPAP, Syncope Additional Past Medical History / Comment(s): SEVERE COPD, HOME O2 2l/NC, BRONCHITIS, RAJESH BUT NO LONGER USED CPAP, R LEG DVT, BILAT PE, TIA, PARKINSONS DISEASE, RESTLESS LEG SYNDROME, NUMBNESS/TINGLING BILATERAL LEGS/FEET, UNSTEADY ON HIS FEET, FALLS, DOUBLE INGUINAL HERNIAS, HX ULCERS, HEMORRHOIDS, ENLARGED PROSTRATE, INSOMNIA, SINUSITIS, BILATERAL LEG EDEMA AT TIMES, SKIN CANCER WITH REMOVAL, HOLE IN EARDRUM LEFT Last Myocardial Infarction Date:: 2006 History of Any Multi-Drug Resistant Organisms: None Reported Past Surgical History: Coronary Bypass/CABG, Heart Catheterization, Hernia Repair Additional Past Surgical History / Comment(s): 2006 CABG WITH 4 VESSEL BYPASS, HIATAL HERNIA REPAIR, UMBILICAL HERNIA REPAIR, BILAT CATARACTS WITH LENS IMPLANTS SX, EGD X 5 WITH ESOPHAGEAL DILATION, COLONOSCOPY/BENIGN POLYPS, SKIN CANCER REMOVALS. Past Anesthesia/Blood Transfusion Reactions: Previous Problems w/ Anesthesia Additional Past Anesthesia/Blood Transfusion Reaction / Comment(s): difficulty waking up after sx Smoking Status: Former smoker - Past Family History Mother Family Medical History: Cancer Additional Family Medical History / Comment(s): Mother had lung cancer. She was a smoker. Brother(s) Family Medical History: Blood Disorder Father Additional Family Medical History / Comment(s): HARDENING OF ARTERIES, Medications and Allergies Home Medications Medication Instructions Recorded Confirmed Type Isosorbide Mononitrate ER [Imdur] 60 mg PO DAILY 08/25/14 06/03/18 History Potassium Chloride ER [K-Dur 20] 20 meq PO TID 08/25/14 06/03/18 History Pramipexole Di-HCl [Mirapex] 0.75 mg PO HS 08/25/14 06/03/18 History Budesonide-Formot 160-4.5 Mcg 2 puff INHALATION RT-BID 08/14/17 06/03/18 History [Symbicort 160-4.5 Mcg Inhaler] Metoprolol Tartrate [Lopressor] 75 mg PO BID #180 tab 08/21/17 06/03/18 Rx Furosemide [Lasix] 20 mg PO DAILY 01/07/18 06/03/18 History Meclizine HCl 12.5 mg PO BID 06/02/18 06/03/18 History Ranitidine HCl [Zantac] 150 mg PO BID 06/02/18 06/03/18 History Tamsulosin HCl [Flomax] 0.4 mg PO HS 06/02/18 06/03/18 History diphenhydrAMINE [Benadryl] 25 mg PO HS 06/02/18 06/03/18 History predniSONE 10 mg PO DAILY 06/02/18 06/03/18 History Acetaminophen [Tylenol Extra 500 mg PO Q4H PRN 06/03/18 06/03/18 History Strength] Aspirin EC [Ecotrin Low Dose] 81 mg PO DAILY 06/03/18 06/03/18 History Ipratropium-Albuterol Nebulize 3 ml INHALATION RT-TID 06/03/18 06/03/18 History [Duoneb 0.5 mg-3 mg/3 ml Soln] Allergies Allergy/AdvReac Type Severity Reaction Status Date / Time No Known Allergies Allergy Verified 06/03/18 13:18 Physical Exam Vitals: Vital Signs Temp Pulse Pulse Resp BP BP Pulse Ox 06/04/18 12:11 80 06/04/18 12:02 78 06/04/18 11:44 98.3 F 67 18 105/61 93 L 06/04/18 08:00 86 18 164/73 96 06/04/18 07:35 82 06/04/18 07:20 80 06/04/18 03:52 97.8 F 80 15 142/84 96 06/04/18 03:23 16 06/04/18 00:00 16 06/03/18 23:32 97.8 F 87 16 109/70 96 06/03/18 21:15 98.3 F 100 18 145/76 95 06/03/18 20:15 95 22 132/74 98 06/03/18 16:00 92 21 117/85 99 06/03/18 15:10 105 H 20 122/91 94 L 06/03/18 14:00 109 H 24 142/67 97 Intake and Output 06/03/18 06/04/18 06/04/18 22:59 06:59 14:59 Intake Total 100 Output Total 400 Balance -400 100 Intake: Oral 100 Output: Urine 400 Other: Voiding Method Urinal Urinal Urinal # Voids 300 Weight 91 kg Results 06/04/18 08:12 06/04/18 08:12 Cardiac Enzymes 06/03/18 06/04/18 06/04/18 Range/Units 20:22 02:05 08:12 AST 20 (17-59) U/L CK-MB (CK-2) 0.9 0.8 (0.0-2.4) ng/mL Troponin I 0.015 0.014 (0.000-0.034) ng/mL CBC 06/04/18 Range/Units 08:12 WBC 12.6 H (3.8-10.6) k/uL RBC 4.90 (4.30-5.90) m/uL Hgb 14.0 (13.0-17.5) gm/dL Hct 43.2 (39.0-53.0) % Plt Count 245 (150-450) k/uL Comprehensive Metabolic Panel 06/04/18 Range/Units 08:12 Sodium 139 (137-145) mmol/L Potassium 4.2 (3.5-5.1) mmol/L Chloride 100 (98-107) mmol/L Carbon Dioxide 27 (22-30) mmol/L BUN 16 (9-20) mg/dL Creatinine 1.31 H (0.66-1.25) mg/dL Glucose 119 H (74-99) mg/dL Calcium 9.4 (8.4-10.2) mg/dL AST 20 (17-59) U/L ALT 18 L (21-72) U/L Alkaline Phosphatase 126 (38-126) U/L Total Protein 7.5 (6.3-8.2) g/dL Albumin 4.1 (3.5-5.0) g/dL Current Medications Generic Name Dose Route Start Last Admin Trade Name Freq PRN Reason Stop Dose Admin Acetaminophen 500 mg 06/03/18 16:23 06/04/18 09:11 Tylenol Tab PO 500 mg Q4H PRN Administration Mild Pain Albuterol/Ipratropium 3 ml 06/03/18 20:00 06/04/18 12:02 Duoneb 0.5 Mg-3 Mg/3 Ml Soln INHALATION 3 ml RT-TID BETY Administration Aspirin 81 mg 06/04/18 09:00 06/04/18 09:10 Aspirin PO 81 mg DAILY BETY Administration Budesonide/Formoterol Fumarate 2 puff 06/03/18 20:00 06/04/18 07:20 Symbicort 160-4.5 Mcg Inhaler INHALATION 2 puff RT-BID BETY Administration Diphenhydramine HCl 25 mg 06/03/18 21:00 06/03/18 21:27 Benadryl PO 25 mg HS [facility] Administration Enoxaparin Sodium 40 mg 06/04/18 09:00 06/04/18 09:08 Lovenox SQ 40 mg DAILY [facility] Administration Famotidine 20 mg 06/05/18 09:00 Pepcid PO DAILY [facility] Furosemide 40 mg 06/04/18 16:00 Lasix PO BID@0900,1600 [facility] Isosorbide Mononitrate 60 mg 06/04/18 09:00 06/04/18 10:03 Imdur PO 60 mg DAILY [facility] Administration Magnesium Hydroxide 2,400 mg 06/04/18 09:31 Milk Of Magnesia PO BID PRN Constipation Meclizine HCl 12.5 mg 06/03/18 21:00 06/04/18 10:04 Antivert PO 12.5 mg BID [facility] Administration Metoprolol Tartrate 75 mg 06/03/18 21:00 06/04/18 09:10 Lopressor PO 75 mg BID [facility] Administration Nitroglycerin 1 inch 06/03/18 18:00 06/04/18 12:23 Nitro-Bid Oint TOPICAL Not Given QID [facility] Ondansetron HCl 4 mg 06/04/18 08:55 06/04/18 09:12 Zofran IVP 4 mg Q6HR PRN Administration Nausea And Vomiting Pantoprazole Sodium 40 mg 06/04/18 09:00 06/04/18 09:08 Protonix IVP 40 mg DAILY BETY Administration Potassium Chloride 20 meq 06/03/18 22:00 06/04/18 09:11 K-Dur 20 PO 20 meq TID BETY Administration Pramipexole Dihydrochloride 0.75 mg 06/03/18 21:00 06/03/18 21:33 Mirapex PO Not Given HS BETY Prednisone 10 mg 06/04/18 09:00 06/04/18 09:11 PO 10 mg DAILY BETY Administration Senna/Docusate Sodium 2 each 06/04/18 09:45 06/04/18 10:06 Senokot-S PO 2 each BID BETY Administration Tamsulosin HCl 0.4 mg 06/03/18 21:00 06/03/18 21:33 Flomax PO Not Given HS BETY Intake and Output 06/03/18 06/04/18 06/04/18 22:59 06:59 14:59 Intake Total 100 Output Total 400 Balance -400 100 Intake: Oral 100 Output: Urine 400 Other: Voiding Method Urinal Urinal Urinal # Voids 300 Weight 91 kg 06/04/18 08:12 06/04/18 08:12
[2018-06-04] MEDS: FUROSEMIDE 40 MG TAB PO SCH (16:05)
[2018-06-04] MEDS: ENOXAPARIN 100 MG/ML SYRINGE SQ SCH (17:41)
--- NOTE | 2018-06-04 17:42 | NM ---
EXAMINATION TYPE: NM pul vent and perfuse DATE OF EXAM: 06/04/2018 COMPARISON: NONE HISTORY: Elevated d-dimer TECHNIQUE: Utilizing inhalation of 62.2 mCi Tc 99m DTPA aerosol and intravenous injection of 5.0 mCi of Tc 99m MAA, ventilation and perfusion images are acquired post injection in multiple projections. FINDINGS: There are multiple bilateral matching segmental and subsegmental perfusion and ventilation defects in both lungs. The largest is in the right lower lobe. There is linear defect along the left major fiss ure. The chest x-ray shows extensive pulmonary fibrosis. IMPRESSION: Multiple matching defects in both lungs. No pulmonary consolidation. Advanced pulmonary fibrosis evid ent on the chest x-ray. This corresponds to intermediate probability of pulmonary embolism.
[2018-06-04] MEDS ORDERED: ENOXAPARIN 80 MG/0.8 ML SYRINGE SQ SCH (21:00)
[2018-06-04] MEDS ORDERED: APIXABAN 5 MG TAB PO SCH (21:00)
[2018-06-04] MEDS: TAMSULOSIN 0.4 MG CAP.ER.24H PO SCH (21:11)
[2018-06-04] MEDS: diphenhydrAMINE 25 MG CAP PO SCH (21:11)
[2018-06-04] MEDS: PRAMIPEXOLE 0.25 MG TAB PO SCH (21:11)
[2018-06-05] MEDS: ONDANSETRON 4 MG/2 ML VIAL IVP PRN (01:52)
[2018-06-05 06:05] LABS: Basophils % (A) 0 %; Eosinophils # (A) 0.1 k/uL (0-0.7); Eosinophils % (A) 1 %; HCT 37.7 % (39.0-53.0); HGB 12.3 gm/dL (13.0-17.5); Lymphocytes # (A) 1.9 k/uL (1.0-4.8); Lymphocytes % (A) 17 %; MCH 28.9 pg (25.0-35.0); MCHC 32.8 g/dL (31.0-37.0); MCV 88.3 fL (80.0-100.0); Mean Platelet Volume 7.7; Monocytes # (A) 0.7 k/uL (0-1.0); Monocytes % (A) 7 %; Neutrophils # (A) 7.9 k/uL (1.3-7.7); Neutrophils % (A) 73 %; Platelet Count 230 k/uL (150-450); RBC 4.27 m/uL (4.30-5.90); WBC 10.8 k/uL (3.8-10.6)
[2018-06-05 06:32] LABS: Albumin 3.6 g/dL (3.5-5.0); Calcium 8.9 mg/dL (8.4-10.2); Potassium 4.3 mmol/L (3.5-5.1); Total Bilirubin 0.6 mg/dL (0.2-1.3); Total Protein 6.6 g/dL (6.3-8.2)
--- NOTE | 2018-06-05 07:30 | ECHOF ---
Referral Reason:Tachycardia MEASUREMENTS -------- HEIGHT: 170.2 cm WEIGHT: 90.7 kg BP: 142/84 IVSd: 1.2 cm (0.6 - 1.1) LVIDd: 4.2 cm (3.9 - 5.3) LVPWd: 1.1 cm (0.6 - 1.1) IVSs: 1.1 cm LVIDs: 3.6 cm LVPWs: 0.8 cm Ao Diam: 3.6 cm (2.0 - 3.7) AV Cusp: 1.4 cm (1.5 - 2.6) LA Diam: 3.8 cm (2.7 - 3.8) MV EXCURSION: 15.488 mm (> 18.000) MV EF SLOPE: 63 mm/s (70 - 150) EPSS: 2.7 cm MV E Rubens: 0.83 m/s MV DecT: 225 ms MV A Rubens: 0.72 m/s MV E/A Ratio: 1.16 RAP: 5.00 mmHg RVSP: 21.42 mmHg FINDINGS -------- Sinus rhythm. This was a techncally difficult study with suboptimal views, , Lumason utilized for enhancement of im ages. There is mild concentric left ventricular hypertrophy. Overall left ventricular systolic function i s mildly impaired with, an EF between 45 - 50 %. Anterseptal Hypokinesis The right ventricle is normal in size. The left atrial size is normal. The right atrial size is normal. 5.0mg OF Lumason UTLIZED: 2 OR MORE WALL SEGMENTS NOT VISUALIZED. There is mild aortic valve sclerosis. There is no evidence of aortic regurgitation. Mild mitral annular calcification present. Mild mitral regurgitation is present. Mild tricuspid regurgitation present. There is no evidence of pulmonary hypertension. The right v entricular systolic pressure, as measured by Doppler, is 21.42mmHg. The pulmonic valve was not well visualized. The aortic root size is normal. There is no pericardial effusion. CONCLUSIONS -------- 1. This was a techncally difficult study with suboptimal views, , Lumason utilized for enhancement of images. 2. There is mild concentric left ventricular hypertrophy. 3. Overall left ventricular systolic function is mildly impaired with, an EF between 45 - 50 %. 4. Anterseptal Hypokinesis 5. The right ventricle is normal in size. 6. The left atrial size is normal. 7. The right atrial size is normal. 8. 5.0mg OF Lumason UTLIZED: 2 OR MORE WALL SEGMENTS NOT VISUALIZED. 9. There is mild aortic valve sclerosis. 10. Mild mitral annular calcification present. 11. Mild mitral regurgitation is present. 12. Mild tricuspid regurgitation present. 13. There is no evidence of pulmonary hypertension. 14. The right ventricular systolic pressure, as measured by Doppler, is 21.42mmHg. 15. The pulmonic valve was not well visualized. 16. The aortic root size is normal. 17. There is no pericardial effusion. BOILER/CHILLER TECHNICIAN: Marce Perez RDCS
[2018-06-05] MEDS: IPRATROPIUM-ALBUTEROL 3 ML NEB INHALATION SCH ×2 (07:36→11:46)
[2018-06-05] MEDS: SYMBICORT 160-4.5 MCG INHALER INHALATION SCH (07:36)
[2018-06-05] MEDS ORDERED: FAMOTIDINE 20 MG TAB PO SCH (09:00)
[2018-06-05] MEDS: ASPIRIN 81 MG PO SCH (09:57)
[2018-06-05] MEDS: POTASSIUM CHLORIDE ER 20 MEQ TAB.ER PO SCH (09:57)
[2018-06-05] MEDS: predniSONE 10 MG TAB PO SCH (09:57)
[2018-06-05] MEDS: ENOXAPARIN 100 MG/ML SYRINGE SQ SCH (09:57)
[2018-06-05] MEDS: METOPROLOL TARTRATE 25 MG TAB PO SCH (09:57)
[2018-06-05] MEDS: FUROSEMIDE 40 MG TAB PO SCH (09:58)
[2018-06-05] MEDS: MECLIZINE 12.5 MG TAB PO SCH (09:58)
[2018-06-05] MEDS: ISOSORBIDE MONONITRATE ER 60 MG TAB.ER.24H PO SCH (09:58)
[2018-06-05] MEDS: PANTOPRAZOLE 40 MG/10 ML VIAL IVP SCH (09:58)
[2018-06-05] MEDS: SENNOSIDES-DOCUSATE SODIUM 1 EACH TAB PO SCH (09:58)
--- NOTE | 2018-06-05 10:16 | P.PN ---
Subjective Progress Note Date: 06/05/18 Principal diagnosis: Acute exacerbation of COPD, vomiting, cough, phlegm production This is a 82-year-old white male patient with past medical history of COPD with chronic hypoxemic respiratory failure, his baseline FEV1 is 1.04 L or 40% predicted, with diffusion abnormality. Patient follows with [facility], and sees Dr. Dasilva in the pulmonary clinic. Other medical history includes chronic congestive heart failure, was systolic dysfunction, hypertension, hyperlipidemia, atrial fibrillation, CVA/TIA, history of DVT, GERD /reflux, his myocardial infarction, pneumonias, pulmonary embolism, rheumatoid arthritis, sleep apnea. Patient came in to the emergency department on 2018 for evaluation of shortness of breath, palpitations, patient was not feeling well, he denied any fever, cough or congestion. He did have a recent upper respiratory infection. Patient was found to be in A. fib with RVR the rate of 150 BPM, chest x-ray was negative for any acute disease. Patient apparently left AGAINST MEDICAL ADVICE. Patient presented back to the ER on 01/2019 for shortness of breath, mild abdominal pain, some mild cough, bringing up some phlegm, and nausea and vomiting. Apparently had a choking episode on the piece of steak couple of days ago, he has not been able to keep any food or fluid down. No fever or chills, no chest pain, does have diffuse rhonchi. Chest x-ray showed cardiomegaly, and chronic parenchymal fibrotic changes, interstitial edema. CT of the abdomen showed no bowel obstruction, possible mild diffuse colitis, for some eczematous and parenchymal fibrotic changes at the bases, mild underlying alveolar edema on the background of cardiomegaly, suggesting CHF. Lab work was negative for leukocytosis, initial lab work showed WBC of 7.8, hemoglobin of 13.1, electrolytes and renal profile were unremarkable, proBNP was 1340, troponins were negative times 3, influenza was negative. Amylase and lipase were 47 and 13 respectively. He was started on IV diuretics, nebulized bronchodilators, and was seen this patient in consultation for shortness of breath. Breathing easier today, the vomiting continues. GI service is following, follow-up chest x-ray from this morning was reviewed with Dr. Dasilva, showed pulmonary interstitial fibrosis and emphysema, no gross heart failure. Improved interstitial density. On 06/05/2018 patient seen in follow-up on the observation unit. His vomiting has resolved, his breathing is improving, lung sounds are diminished, no wheezes no rhonchi. Currently on 2 L the pulse ox 96%, afebrile, vital signs are stable, sputum cultures pending. Today's labs have been reviewed, WBCs 10.8 , hemoglobin is 12.3, electrolytes are within normal limits, B1 is 26, creatinine is 1.54, Darlene screen was negative. VQ scan was completed, and showed advanced pulmonary fibrosis, intermediate probability of pulmonary embolism. Echocardiogram showed an EF between 45-50% no pulmonary hypertension. Rate is better controlled, 70 BPM. Overall patient is breathing easier, from pulmonary perspective patient is stable for discharge home today. Objective - Vital Signs Vital signs: Vital Signs Temp 98.2 F 06/05/18 08:00 Pulse 66 06/05/18 08:00 Resp 18 06/05/18 08:00 BP 112/55 06/05/18 08:00 Pulse Ox 96 06/05/18 08:00 Intake & Output 06/04/18 06/05/18 06/05/18 18:59 06:59 18:59 Intake Total 100 Output Total 625 275 Balance -525 -275 Weight 87.7 kg Intake: Oral 100 Output: Urine 625 275 Other: Voiding Method Urinal Indwelling Catheter - Exam GENERAL EXAM: Alert, pleasant, 82-year-old white male comfortable in no apparent distress. Currently on 2 L per nasal cannula, pulse ox is 96% HEAD: Normocephalic/atraumatic. EYES: Normal reaction of pupils, equal size. Conjunctiva pink, sclera white. NOSE: Clear with pink turbinates. THROAT: No erythema or exudates. NECK: No masses, no JVD, no thyroid enlargement, no adenopathy. CHEST: No chest wall deformity. Symmetrical expansion. LUNGS: Equal air entry with no rhonchi, no wheezes CVS: Irregular rate and rhythm, normal S1 and S2, no gallops, no murmurs, no rubs ABDOMEN: Soft, nontender. No hepatosplenomegaly, normal bowel sounds, no guarding or rigidity. EXTREMITIES: No clubbing, no edema, no cyanosis, 2+ pulses and upper and lower extremities. MUSCULOSKELETAL: Muscle strength and tone normal. SPINE: No scoliosis or deformity SKIN: No rashes CENTRAL NERVOUS SYSTEM: Alert and oriented -3. No focal deficits, tone is normal in all 4 extremities. PSYCHIATRIC: Alert and oriented -3. Appropriate affect. Intact judgment and insight. - Labs CBC & Chem 7: 06/05/18 05:53 06/05/18 05:53 Labs: Abnormal Lab Results - Last 24 Hours (Table) 06/04/18 06/05/18 06/05/18 Range/Units 14:40 05:53 05:53 WBC 10.8 H (3.8-10.6) k/uL RBC 4.27 L (4.30-5.90) m/uL Hgb 12.3 L (13.0-17.5) gm/dL Hct 37.7 L (39.0-53.0) % Neutrophils # 7.9 H (1.3-7.7) k/uL D-Dimer 1.07 H (<0.60) mg/L FEU BUN 26 H (9-20) mg/dL Creatinine 1.54 H (0.66-1.25) mg/dL Glucose 118 H (74-99) mg/dL AST 16 L (17-59) U/L ALT 18 L (21-72) U/L Microbiology - Last 24 Hours (Table) 06/04/18 13:34 Gram Stain - Preliminary Sputum Assessment and Plan Plan: Assessment: #1. Dyspnea, probably related to acute exacerbation of COPD and congestive heart failure, previously documented EF of 45-50% #2. Nausea, vomiting, abdominal pain, nonspecific, GI service is following, CT of abdomen and pelvis were negative for any obstruction, possible mild diffuse colitis #3. Interstitial edema, fluid overload, seen on the CT chest and chest x-rays, improving with diuresis #4. Interstitial lung disease likely related to patient's history of rheumatoid arthritis #5. Recent visit to the emergency department for shortness of breath, A. fib RVR, COPD exacerbation, patient left AMA #6. History of paroxysmal atrial fibrillation, Shannan in sinus tachycardia with PACs #7. History of coronary artery disease with coronary artery bypass grafting in 2006 #8. Advanced COPD, stage III, with chronic hypoxemic respiratory failure, FEV1 of 1.04 L or 40% of predicted with diffusion abnormality #9. Previous history of CVA, dementia, Parkinson's disease #10. History pulmonary embolism and DVT, not on any chronic anticoagulation currently #11. History of rheumatoid arthritis #12. Hypertension, hyperlipidemia Plan: Patient is clinically improving, dyspnea is improving, no rhonchi and wheezing on today's exam, vomiting has resolved, vital signs are stable, urine culture is still pending, no fever or chills, from pulmonary perspective patient is stable for discharge home today, patient is on his maintenance dose of prednisone, oral Lasix, patient can continue Symbicort, and nebulized treatments at home. Follow-up with Dr. Dasilva in 1 week I performed a history & physical examination of the patient and discussed their management with my nurse practitioner, Lisa Eason. I reviewed the nurse practitioner's note and agree with the documented findings and plan of care. Lung sounds are positive for diminished breath sounds. The findings and the impression was discussed with the patient. I attest to the documentation by the nurse practitioner. Time with Patient: Less than 30
--- NOTE | 2018-06-05 10:53 | P.PN ---
Subjective Progress Note Date: 06/05/18 Principal diagnosis: Abdominal pain nausea vomiting dysphagia Large nonbloody BM last night. Denies abdominal pain. Tolerating clear liquids without dysphagia odynophagia. Requesting advancement of diet. Objective - Vital Signs Vital signs: Vital Signs Temp 98.2 F 06/05/18 08:00 Pulse 66 06/05/18 08:00 Resp 18 06/05/18 08:00 BP 112/55 06/05/18 08:00 Pulse Ox 96 06/05/18 08:00 Intake & Output 06/04/18 06/05/18 06/05/18 18:59 06:59 18:59 Intake Total 100 Output Total 625 275 Balance -525 -275 Weight 87.7 kg Intake: Oral 100 Output: Urine 625 275 Other: Voiding Method Urinal Indwelling Catheter - Exam General appearance: The patient is alert, oriented, in no acute distress. HET: Head is normocephalic and atraumatic. Pupils are equal and reactive. Oropharynx is clear without lesions. Neck: Supple without lymphadenopathy. Trachea midline. Heart: S1 S2. Lungs: No crackles or wheezes are heard. Diminished in bases bilaterally. Abdomen: Soft, nontender, nondistended with bowel sounds. No peritoneal signs. No palpable organomegaly or masses. Extremities: Normal skin color and turgor. No cyanosis, rash, ulceration, clubbing, or edema. Radial and pedal pulses are 2/4 bilaterally. Neurological: No focal deficits. Strength and sensation are grossly intact. - Labs CBC & Chem 7: 06/05/18 05:53 06/05/18 05:53 Labs: Abnormal Lab Results - Last 24 Hours (Table) 06/04/18 06/05/18 06/05/18 Range/Units 14:40 05:53 05:53 WBC 10.8 H (3.8-10.6) k/uL RBC 4.27 L (4.30-5.90) m/uL Hgb 12.3 L (13.0-17.5) gm/dL Hct 37.7 L (39.0-53.0) % Neutrophils # 7.9 H (1.3-7.7) k/uL D-Dimer 1.07 H (<0.60) mg/L FEU BUN 26 H (9-20) mg/dL Creatinine 1.54 H (0.66-1.25) mg/dL Glucose 118 H (74-99) mg/dL AST 16 L (17-59) U/L ALT 18 L (21-72) U/L Microbiology - Last 24 Hours (Table) 06/04/18 13:34 Gram Stain - Preliminary Sputum Assessment and Plan (1) Abdominal pain Narrative/Plan: 82-year-old male admitted with CHF exacerbation intermittent nausea vomiting prior to admission with diffuse abdominal pain constipation 3 days. Abdominal pain nausea and nonspecific could be related to constipation possible medications. Underlying esophageal stricture disease cannot be excluded based on the history of nausea vomiting with an episode of dysphagia food being stuck in the distal esophageal region prior to admission. Abdominal pain nausea vomiting resolved presently no complaints of odynophagia or dysphagia tolerating clear liquids. Current Visit: Yes Status: Acute Code(s): R10.9 - UNSPECIFIED ABDOMINAL PAIN SNOMED Code(s): 78773072 (2) Nausea Current Visit: Yes Status: Acute Code(s): R11.0 - NAUSEA SNOMED Code(s): 235727586 (3) CHF (congestive heart failure) Current Visit: No Status: Acute Code(s): I50.9 - HEART FAILURE, UNSPECIFIED SNOMED Code(s): 28442332 Plan: 1. Cardiac diet. If tolerated may be discharged. Restart anticoagulation. Inpatient EGD not planned at this time. Recommend daily stool softeners avoid constipation. Follow with GI if symptoms of dysphagia odynophagia recur. Assessment and plan a care discussed with Dr. Childers
[2018-06-05 12:37] VITALS: BP 100/61; PULSE 72; TEMP 98.4
[2018-06-05] MEDS ORDERED: APIXABAN 5 MG TAB PO SCH (13:30)
--- NOTE | 2018-06-05 14:13 | P.DS ---
Providers Date of admission: 06/05/18 05:18 Expected date of discharge: 06/05/18 Attending physician: Catherine Rodgers Consults: 06/03/18 16:18 Consult Physician Routine Consulting Provider: Jannette Rutherford Consult Reason/Comments: EKG 06/02 A. fib with RVR Do you want consulting provider notified?: Yes 06/03/18 16:33 Consult Physician Routine Consulting Provider: Prince Dasilva Consult Reason/Comments: Established patient. COPD Do you want consulting provider notified?: Yes 06/03/18 16:34 Consult Physician Routine Consulting Provider: Andrew Childers Consult Reason/Comments: Abdominal pain and nausea Do you want consulting provider notified?: Yes Primary care physician: Charley Moulton Hospital Course: Discharge diagnosis 1. Abdominal pain with nausea. Likely related to constipation. Patient was seen by GI service patient given stool softeners and suppository with results. Patient had a bowel movement. Tolerating diet. He'll be discharged home with Colace. 2. Acute on chronic systolic Congestive heart failure exacerbation and pulmonary edema .BNP elevated at 1340. Echo shows an EF of 45-50%. Lasix will be decreased to 40 mg by mouth daily due to increase in his creatinine. Patient will follow up with cardiology in the office 3. Paroxysmal atrial fibrillation. EKG completed on 06/02/2018 showing A. fib with RVR with a heart rate of 150. EKG completed on 06/03/2018 showing sinus or cardiac occasional premature ventricular complexes . Patient seen evaluated by cardiology the recommending Eliquis 5 mg twice a day for anticoagulation 4. History of coronary artery disease with coronary artery bypass graft surgery in 2006 5. History of Parkinson's disease 6. Dyspnea likely related to COPD exacerbation and CHF exacerbation. 7. History of CVA, 8. History of dementia. 9. History of GERD. 10. History of pulmonary embolism and DVT. Patient is currently not on any anticoagulation. 11. History of hyperlipidemia. 12. History of prostate disorder. 13. History of rheumatoid arthritis. 14. history of essential hypertension 15. Patient short of breath and tachycardic check d-dimer. Patient has not been on anticoagulation he has a known history of PE and DVT. Patient did have elevated d-dimer. VQ scan showed intermediate probability of PE. Patient seen and examined by pulmonary service. Patient not diagnosed with new PE 16. Acute on chronic kidney disease stage III. Likely related to diuretics. Lasix will be decreased to 40 mg by mouth daily. We'll continue to monitor kidney function the outpatient setting 17. History of Pulmonary interstitial fibrosis 18. Dysphagia patient currently tolerating diet. GI service recommending if dysphagia reoccurs that patient can be seen in the office for further evaluation 19. Pulmonary edema improved with Lasix Hospital course This is an 82-year-old male patient of Dr. Moulton. Patient presents to the emergency room with complaints of abdominal pain. Patient did present to the emergency room yesterday with complaints of shortness of breath and tachycardia but left AMA. Patient reports that his abdominal pain and nausea or vomiting has been going on for 2 days. Per daughter at bedside patient has not been able to keep food down for 2 days. Patient does have a significant history first COPD in which she wears 2-3 L home oxygen. Patient has past medical history of coronary artery disease with coronary artery bypass graft surgery in 2006. Additional medical history includes COPD, CVA, dementia, DVT, GERD, deafness, hyperlipidemia, hypertension, myocardial infarction, osteoarthritis, pneumonia, prostate disorder, pulmonary embolism, renal disease, respiratory disorder, rheumatoid arthritis, sleep apnea,Parkinson's disease and restless leg syndrome. Abdominal pelvis CT completed showing no bowel obstruction present. Possible mild diffuse colitis versus product poor distention. Correlate clinically. Emphysematous and parenchymal fibrotic change in basis. Suspect mild underlying alveolar edema or background cardiomegaly, correlate for CHF exacerbation. Chest x-ray completed showing cardiomegaly and fairly advanced chronic paroxysmal fibrotic changes. Cannot exclude acute interstitial Hemovac on chronic fibrosis. Interval resolution of small bilateral pleural effusions since prior study no suspicious local infiltrate is seen. EKG completed showing sinus tachycardia with occasional premature ventricular complexes. Abnormal QRST angle, consider primary T-wave abnormalities. EKG completed yesterday prior to patient leaving AMA showed A. fib with RVR with a heart rate of 150. Cardiology services will be consulted 2- D echo has been ordered. BNP also elevated at 1340. Patient started on IV Lasix for ER. At this time patient denies chest pain or shortness of breath. Patient is complaining of some abdominal discomfort with nausea. Patient denies any urinary burning or frequency 06/04/2018 "A Team" was called this morning due to pulmonary edema worsening shortness of breath. He was given IV Lasix. Chest x-ray showing pulmonary interstitial fibrosis and emphysema. No gross heart failure. Pulmonary interstitial density improved slightly compared to yesterday. Patient seen evaluated by pulmonary and cardiology. Due to increasing creatinine patient was switched over to oral Lasix. Patient also seen by GI service regarding abdominal pain likely related to constipation. He still having some abdominal discomfort but improving. He did have a bowel movement. No further nausea or vomiting. And patient is coughing up clear phlegm possibly related to pulmonary edema. Patient also have paroxysmal atrial fibrillation but rate is controlled. Patient currently on 2 L of oxygen. Denies any chest pain. Has Mcarthur catheter in place due to him being on the Lasix to monitor strict I and O' s. No urinary retention 06/05/2018 patient is medically stable for discharge. He was seen and evaluated by pulmonary, cardiology and GI service and cleared for discharge. Patient's abdominal pain was likely related to his constipation which has improved with medications. GI services recommending the patient continues with a stool softener. Patient's shortness of breath also improved likely symptoms related to possible CHF and pulmonary edema. This again improved with IV Lasix. Patient was switched over to oral Lasix 40 mg twice a day by cardiology and this dose has been decreased again to once a day due to a rising creatinine up to 1.54. Recommend repeating BMP in 3 days to follow closely with the any functions. Patient also evaluated by cardiology regarding his paroxysmal atrial fibrillation. They are recommending Eliquis 5 mg twice a day for anticoagulation. Patient is getting a three-month prescription and they will follow up with cardiology for further samples. There is no evidence of a new PE on VQ scan. Patient seen evaluated by pulmonary service. Patient's white count 12.6 with likely reactive. White count is trending down at 10.8 with no evidence of fever and not requiring any antibiotics. Patient is feeling better. No further shortness of breath has been up and ambulating. And is tolerating diet. He is medically stable for discharge. He'll be discharged home with home care. Please refer to chart for any further details. I performed an examination of the patient and discussed their management with the physician Capping Machine Operator. I have reviewed the Physician Capping Machine Operator's notes and agree with the documented findings and plan of care Patient Condition at Discharge: Stable Plan - Discharge Summary Discharge Rx Participant: No New Discharge Prescriptions: New Apixaban [Eliquis] 5 mg PO BID #60 tab Docusate [Colace] 100 mg PO BID #60 capsule Furosemide [Lasix] 40 mg PO DAILY #30 tab Continue Pramipexole Di-HCl [Mirapex] 0.75 mg PO HS Potassium Chloride ER [K-Dur 20] 20 meq PO TID Isosorbide Mononitrate ER [Imdur] 60 mg PO DAILY Budesonide-Formot 160-4.5 Mcg [Symbicort 160-4.5 Mcg Inhaler] 2 puff INHALATION RT-BID Metoprolol Tartrate [Lopressor] 75 mg PO BID #180 tab Meclizine HCl 12.5 mg PO BID diphenhydrAMINE [Benadryl] 25 mg PO HS Tamsulosin HCl [Flomax] 0.4 mg PO HS Ranitidine HCl [Zantac] 150 mg PO BID predniSONE 10 mg PO DAILY Ipratropium-Albuterol Nebulize [Duoneb 0.5 mg-3 mg/3 ml Soln] 3 ml INHALATION RT-TID Aspirin EC [Ecotrin Low Dose] 81 mg PO DAILY Acetaminophen [Tylenol Extra Strength] 500 mg PO Q4H PRN PRN Reason: Pain Discontinued Furosemide [Lasix] 20 mg PO DAILY Discharge Medication List Isosorbide Mononitrate ER [Imdur] 60 mg PO DAILY 08/25/14 [History] Potassium Chloride ER [K-Dur 20] 20 meq PO TID 08/25/14 [History] Pramipexole Di-HCl [Mirapex] 0.75 mg PO HS 08/25/14 [History] Budesonide-Formot 160-4.5 Mcg [Symbicort 160-4.5 Mcg Inhaler] 2 puff INHALATION RT-BID 08/14/17 [History] Metoprolol Tartrate [Lopressor] 75 mg PO BID #180 tab 08/21/17 [Rx] Meclizine HCl 12.5 mg PO BID 06/02/18 [History] Ranitidine HCl [Zantac] 150 mg PO BID 06/02/18 [History] Tamsulosin HCl [Flomax] 0.4 mg PO HS 06/02/18 [History] diphenhydrAMINE [Benadryl] 25 mg PO HS 06/02/18 [History] predniSONE 10 mg PO DAILY 06/02/18 [History] Acetaminophen [Tylenol Extra Strength] 500 mg PO Q4H PRN 06/03/18 [History] Aspirin EC [Ecotrin Low Dose] 81 mg PO DAILY 06/03/18 [History] Ipratropium-Albuterol Nebulize [Duoneb 0.5 mg-3 mg/3 ml Soln] 3 ml INHALATION RT -TID 06/03/18 [History] Apixaban [Eliquis] 5 mg PO BID #60 tab 06/05/18 [Rx] Docusate [Colace] 100 mg PO BID #60 capsule 06/05/18 [Rx] Furosemide [Lasix] 40 mg PO DAILY #30 tab 06/05/18 [Rx] Follow up Appointment(s)/Referral(s): Prince Dasilva DO [Doctor of Osteopathic Medicine] - 1 Week [facility], [NON-STAFF] - 1-2 Days Jocelyne Johnson MD [STAFF PHYSICIAN] - 2 Weeks Charley Moulton DO [Primary Care Provider] - 3 Days Ambulatory/Diagnostic Orders: Basic Metabolic Panel [LAB.AMB] Time Frame: 3 Days, Location: None Selected Activity/Diet/Wound Care/Special Instructions: Diet: cardiac Activity: as tolerated Discharge Disposition: HOME WITH HOME HEALTH SERVICES
[2018-06-05 14:24] VITALS: BMI 30.2
[2018-06-06] MEDS ORDERED: PANTOPRAZOLE 40 MG TABLET PO SCH (07:30)
== END 2018-06-05 16:38 | disposition home health service (06) | DRG 291 ==
LOC: EC 10:07 → 1SOBS 14:52 → EEVIPCON 06-05 05:18 → OBSVTOIN 06-05 05:18
PROVIDERS: ADMIT Internal Medicine; ATTEND Internal Medicine
DX: I13.0 Hypertensive heart and chronic kidney disease with heart failure and stage 1 through stage 4 chronic kidney disease, or unspecified chronic kidney disease (principal); I50.23 Acute on chronic systolic (congestive) heart failure; J96.11 Chronic respiratory failure with hypoxia; N17.9 Acute kidney failure, unspecified; I27.20 Pulmonary hypertension, unspecified; J84.10 Pulmonary fibrosis, unspecified; G20 Parkinson's disease; J43.9 Emphysema, unspecified; R13.10 Dysphagia, unspecified; I08.2 Rheumatic disorders of both aortic and tricuspid valves; M05.10 Rheumatoid lung disease with rheumatoid arthritis of unspecified site; N18.3 Chronic kidney disease, stage 3 (moderate); F03.90 Unspecified dementia, unspecified severity, without behavioral disturbance, psychotic disturbance, mood disturbance, and anxiety; I48.0 Paroxysmal atrial fibrillation; I73.9 Peripheral vascular disease, unspecified; E78.5 Hyperlipidemia, unspecified; F32.9 Major depressive disorder, single episode, unspecified; F41.9 Anxiety disorder, unspecified; G25.81 Restless legs syndrome; G47.33 Obstructive sleep apnea (adult) (pediatric); H91.90 Unspecified hearing loss, unspecified ear; I25.10 Atherosclerotic heart disease of native coronary artery without angina pectoris; I25.2 Old myocardial infarction; I49.3 Ventricular premature depolarization; K21.9 Gastro-esophageal reflux disease without esophagitis; K52.9 Noninfective gastroenteritis and colitis, unspecified; K59.00 Constipation, unspecified; R79.1 Abnormal coagulation profile; T50.2X5A Adverse effect of carbonic-anhydrase inhibitors, benzothiadiazides and other diuretics, initial encounter; M19.90 Unspecified osteoarthritis, unspecified site; N40.0 Benign prostatic hyperplasia without lower urinary tract symptoms; K64.9 Unspecified hemorrhoids; Z79.51 Long term (current) use of inhaled steroids; Z79.82 Long term (current) use of aspirin; Z79.899 Other long term (current) drug therapy; Z79.52 Long term (current) use of systemic steroids; Z99.81 Dependence on supplemental oxygen; Z95.1 Presence of aortocoronary bypass graft; Z86.73 Personal history of transient ischemic attack (TIA), and cerebral infarction without residual deficits; Z86.718 Personal history of other venous thrombosis and embolism; Z86.711 Personal history of pulmonary embolism; Z87.891 Personal history of nicotine dependence; Z87.01 Personal history of pneumonia (recurrent); Z91.81 History of falling; Z86.010 Personal history of colon polyps; Z85.828 Personal history of other malignant neoplasm of skin; Z96.1 Presence of intraocular lens; Z98.42 Cataract extraction status, left eye; Z98.41 Cataract extraction status, right eye; Z80.1 Family history of malignant neoplasm of trachea, bronchus and lung; Z82.49 Family history of ischemic heart disease and other diseases of the circulatory system
CPT/HCPCS: 36415; 71045; 71046; 74177; 78582; 80053; 81001; 82150; 82550; 82553; 83605; 83690; 83735; 83880; 84100; 84443; 84484; 85025; 85379; 85610; 85730; 87070; 87205; 87502; 93005; 93306; 94640; 94760; 96365; 96366; 96374; 96375; 99285